=== PATIENT | female | born 1970 | race Caucasian/White ===

== ENCOUNTER 2018-06-04 16:32 | Emergency (ER) | payer OTHER, SELFPAY ==
[2018-06-04 16:33] VITALS: BP 177/115; PULSE 79; RESP 14; TEMP 36.7; O2SAT 99; BMI 31.6
[2018-06-04 16:50] VITALS: BP 226/114; PULSE 74; RESP 18; O2SAT 98
--- NOTE | 2018-06-04 17:20 | ED.VISSUMM ---
- ER Visit Summary Date of Service: 06/04/18 Chief Complaint: Elevated blood pressure History of Present Illness: The patient is a 47 F no significant past medical history. Currently she has no primary care physician. Has never been treated for hypertension. Today she went to see her eye doctor to have an exam. They took her vital signs in the office noted she had significantly elevated blood pressure and told her to have this checked out immediately. She states she is a mild headache but nothing significant. It was not sudden onset. She has no neurological findings. She denies any chest pain or shortness of breath. Physical Examination: Initial blood pressure 226/114. Otherwise vital signs stable afebrile. No distress. H EENT exam unremarkable. Dry reactive light. No facial droop. Normal speech. Neck nontender. Lungs clear to auscultation bilaterally. Heart regular rate and rhythm no murmur. Abdomen soft and nontender. Moving all 4 extremities. Neurovascular intact. Neurologic exam normal NIH is 0. 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 Fingertip to nose heel to kwok dorsi and plantar flexion all intact. No motor or sensory deficits. Test Results: Chemistry panel shows no acute abnormality. Completely normal. Normal renal function. Emergency Department Course and Treatment: Patient treated with IV labetalol Treatment Plan: Repeat exam she is doing well at 2031. Blood pressure currently is 164/93. She was given 2 IV doses of labetalol. Currently she feels well. She will be discharged and started on lisinopril 20 mg per day. Log her blood pressures and follow-up currently she has no primary care physician she will be referred to Dr. Ej Orozco. Disposition: Discharge Impression: Newly diagnosed hypertension This note was generated with [facility] dictation software. It may contain incorrect words, spelling, and punctuation that were not noted in review of the chart prior to signing ED Disposition - Plan for ED Patient: Chief Complaint: Hypertension Referrals: NOT,DEFINED [NON-STAFF] -
[2018-06-04 18:03] LABS: Anion Gap 7 (5-15); BUN 9 mg/dL (7-18); BUN/Creat Ratio 10.2 RATIO (10-20); Calcium,Total 8.7 mg/dL (8.5-10.1); Chloride 106 mmol/L (98-107); Creatinine, Serum 0.88 mg/dL (0.55-1.02); EST Glomerular Filtration Rate 72 mL/min (>60); Est Glom Filt Rate - Afr Amer 87 mL/min (>60); Estimated Creatinine Clearance 86.43 ml/min; Glucose 82 mg/dL (74-106); Potassium 3.7 mmol/L (3.5-5.1); Sodium Level 140 mmol/L (136-145)
[2018-06-04 18:13] VITALS: BP 170/93; PULSE 65; RESP 16; O2SAT 99
[2018-06-04 19:43] VITALS: BP 164/93; PULSE 73; RESP 14; O2SAT 98
--- NOTE | 2018-06-04 20:35 | ED.DEP ---
ED Disposition - Plan for ED Patient: Disposition: Home or Assisted Living Chief Complaint: Hypertension Instructions: ED Hypertension New Begin Tx Prescriptions: Lisinopril [Zestril] 20 mg PO DAILY #30 tab Referrals: Ej Orozco MD [STAFF PHYSICIAN] - As soon as possible Additional Instructions: I will start her on lisinopril 1 pill once a day to help control your blood pressure. I strongly suggest getting a blood pressure machine from home. Log your blood pressure in the morning and the evening to see where it is running. They may or may not need to adjust or change her medication depending on how your blood pressure response to the medication. Call and follow-up with Dr. Ej Orozco to obtain a primary care physician.
[2018-06-04] MEDS: Lisinopril 10 MG Tablet PO (20:57)
[2018-06-04 21:04] VITALS: BP 171/87
== END 2018-06-04 21:05 | disposition home or self-care (01) ==
PROVIDERS: Emergency Provider Emergency Medicine
DX: I10 Essential (primary) hypertension (principal)
CPT/HCPCS: 80048; 96374; 96375; 99285; A4216

== ENCOUNTER → 2021-02-09 08:25 | Outpatient (CLI) | payer OTHER, SELFPAY ==
[2021-02-09 09:15] LABS: Absolute Neutrophil Count 3.2 X10^3/uL (2.0-7.7); Basophil# 0.05 X10^3/uL; Eosinophils% 2.1 % (0-5); Hematocrit 30.7 % (37-47); Hemoglobin 8.5 g/dL (12.0-15.0); Lymphocyte % 20.9 % (19-41); Mean Corp Hgb Conc 27.7 g/dL (32-36); Mean Corpuscular Hgb 18.5 pg (27.0-32.0); Mean Corpuscular Volume 66.7 fL (81-99); Mean Platelet Vol. 8.7 fl (6.2-12.0); Monocyte# 0.43 X10^3/uL; NRBC Flagged by Analyzer 0 % (0-5); Neutrophil % 66.8 % (47-70); POSITIVE MORPHOLOGY YES; Platelet Count 307 K/mm3 (150-450); RBC Distribution Width CV 20.8 % (11.6-14.6); RBC Distribution Width SD 47.8 fl (35.1-43.9); White Blood Count 4.8 K/mm3 (4.4-11.0)
[2021-02-09 09:16] LABS: Differential Indicated SCAN CRITERIA MET
[2021-02-09 09:51] LABS: ALB/GLOB Ratio 0.8 RATIO (0.9-2.4); AST(SGOT) 10 U/L (15-37); Alanine Aminotransfer ALT/SGPT 17 U/L (13-56); Albumin, Serum 3.5 g/dL (3.2-5.0); Alkaline Phosphatase 83 U/L (45-117); Anion Gap 4 (5-15); BUN 7 mg/dL (7-18); BUN/Creat Ratio 10.3 RATIO (10-20); Calcium,Total 8.7 mg/dL (8.5-10.1); Chloride 105 mmol/L (98-107); Cholesterol 155 mg/dL (200); Creatinine, Serum 0.68 mg/dL (0.55-1.02); EST Glomerular Filtration Rate 96 mL/min (>60); Est Glom Filt Rate - Afr Amer 116 mL/min (>60); Globulin 4.4 g/dL (2.2-4.2); Glucose 93 mg/dL (74-106); High Density Lipoprotein 33 mg/dL; Potassium 4.1 mmol/L (3.5-5.1); Protein, Total 7.9 g/dL (6.4-8.2); Sodium Level 139 mmol/L (136-145); Thyroid Stim Hormone (TSH) 1.66 uIU/mL (0.358-3.74); Triglycerides 120 mg/dL; Very Low Density Lipoprotein 24 mg/dL (5-40)
[2021-02-09 10:08] LABS: Hypochromasia 1+; Microcytosis 2+
== END ==
PROVIDERS: PCP Family Medicine; Referring Provider Family Medicine; Visit Provider Family Medicine
DX: I10 Essential (primary) hypertension (principal)
CPT/HCPCS: 36415; 80053; 80061; 84443; 85025

== ENCOUNTER → 2021-02-26 12:49 | Outpatient (CLI) | payer OTHER, SELFPAY ==
--- NOTE | 2021-02-26 12:53 | BI_ITS ---
MAMMOGRAPHY - BILATERAL SCREENING REASON FOR EXAM: Female, 50 years old. Routine annual screening examination. PERTINENT HISTORY: Non-contributory. Remote left stereotactic breast biopsy. TECHNIQUE: Digital bilateral breast sury (3D mammographic acquisition) in the CC and MLO projections. 2-D mediolateral oblique (MLO) and craniocaudad (CC) views of both breasts were obtained. CAD: Full Field Digital Mammography with Computer Added Detection was performed. COMPARISON: No comparison mammograms available at this time. If any prior films become available, an addendum to this report can be generated. FINDINGS: Breast Composition: The breasts are almost entirely fatty. There are no dominant masses or suspicious calcifications. No other significant abnormalities are identified. BI/SCRN MAMM (CAD)W/SURY BILAT IMPRESSION: Negative screening mammogram. Yearly followup mammogram recommended. (A) ASSESSMENT CATEGORY: BIRADS Category 1: Negative. A letter regarding these results will be sent to the patient by the facility within 30 days. Approximately 10% of breast cancers are not detected by mammography. A normal mammogram should not delay biopsy of a clinically suspicious abnormality. [id number] Electronically Signed: Obey Marie MD at 14:30 EDT , Service support ,
== END ==
PROVIDERS: PCP Family Medicine; Referring Provider Family Medicine; Visit Provider Family Medicine
DX: Z12.31 Encounter for screening mammogram for malignant neoplasm of breast (principal)
CPT/HCPCS: 77063; 77067

== ENCOUNTER → 2021-06-13 11:44 | Outpatient (CLI) | payer OTHER, SELFPAY ==
[2021-06-13 12:31] LABS: Absolute Lymphocyte Count 0.93 X10^3/uL (0.83-4.51); Absolute Neutrophil Count 3.6 X10^3/uL (2.0-7.7); Basophil# 0.06 X10^3/uL; Basophil% 1.2 % (0-1); Eosinophil# 0.05 X10^3/uL; Hematocrit 31.5 % (37-47); Lymphocyte # 0.93 X10^3/ul (0.83-4.51); Lymphocyte % 18.4 % (19-41); Mean Corp Hgb Conc 28.6 g/dL (32-36); Mean Corpuscular Hgb 19.7 pg (27.0-32.0); Mean Corpuscular Volume 68.9 fL (81-99); Mean Platelet Vol. 9.3 fl (6.2-12.0); Monocyte# 0.44 X10^3/uL; Monocyte% 8.7 % (0-10); NRBC Flagged by Analyzer 0 % (0-5); Neutrophil # 3.56 X10^3/uL (2.7-7.7); Neutrophil % 70.3 % (47-70); Platelet Count 311 K/mm3 (150-450); RBC Distribution Width CV 17.6 % (11.6-14.6); RBC Distribution Width SD 43.5 fl (35.1-43.9); Red Blood Count 4.57 M/mm3 (4.2-5.4); White Blood Count 5.1 K/mm3 (4.4-11.0)
[2021-06-13 13:03] LABS: Ferritin 4 ng/mL (8-252); Iron 21 ug/dL (50-170); Iron Binding Capacity,Total 410 ug/dL (250-450)
== END ==
PROVIDERS: PCP Family Medicine; Referring Provider Family Medicine; Visit Provider Family Medicine
DX: D64.9 Anemia, unspecified (principal)
CPT/HCPCS: 36415; 82728; 83540; 83550; 85025

== ENCOUNTER → 2021-07-11 09:54 | Outpatient (CLI) | payer OTHER, SELFPAY ==
[2021-07-11] MEDS: Sodium Ferric Gluconat 250 MG in 0.9% Normal Saline 250 ML 135 MG IV (10:40)
[2021-07-11] MEDS: 0.9% NaCl IVPB Med Flush (250 mL) 15 ML IV (10:40)
[2021-07-11] MEDS: 0.9% NaCl Peripheral Flush Adult/Peds IV (10:40)
[2021-07-11 10:41] VITALS: BP 154/90; PULSE 65; RESP 16; TEMP 36.5; O2SAT 100
[2021-07-11 13:05] VITALS: BP 133/87; PULSE 56; RESP 16; TEMP 36.5; O2SAT 100
== END ==
LOC: MEDOUTP 09:55
PROVIDERS: PCP Family Medicine; Referring Provider Family Medicine; Visit Provider Family Medicine
DX: D50.9 Iron deficiency anemia, unspecified (principal)
CPT/HCPCS: 96365; 96366; J7050; A4216; J2916

== ENCOUNTER → 2021-08-01 09:50 | Outpatient (CLI) | payer OTHER, SELFPAY ==
[2021-08-01 10:30] LABS: Absolute Neutrophil Count 1.9 X10^3/uL (2.0-7.7); Basophil# 0.05 X10^3/uL; Basophil% 1.4 % (0-1); Eosinophil# 0.08 X10^3/uL; Eosinophils% 2.3 % (0-5); Hematocrit 30.3 % (37-47); Hemoglobin 8.6 g/dL (12.0-15.0); Mean Corp Hgb Conc 28.4 g/dL (32-36); Mean Corpuscular Volume 73.9 fL (81-99); Mean Platelet Vol. 9.3 fl (6.2-12.0); Monocyte% 11.3 % (0-10); NRBC Flagged by Analyzer 0 % (0-5); Neutrophil # 1.92 X10^3/uL (2.7-7.7); POSITIVE MORPHOLOGY YES; Platelet Count 261 K/mm3 (150-450); RBC Distribution Width CV 21.6 % (11.6-14.6); White Blood Count 3.6 K/mm3 (4.4-11.0)
[2021-08-01 10:32] LABS: Differential Indicated SCAN CRITERIA MET
[2021-08-01 10:56] LABS: Anisocytosis 1+
[2021-08-01 11:11] LABS: Ferritin 12 ng/mL (8-252); Iron 25 ug/dL (50-170); Iron Binding Capacity,Total 380 ug/dL (250-450); PERCENT IRON SATURATION 6.6 % (15.0-55.0)
== END ==
PROVIDERS: PCP Family Medicine; Referring Provider Family Medicine; Visit Provider Family Medicine
DX: D50.9 Iron deficiency anemia, unspecified (principal)
CPT/HCPCS: 36415; 82728; 83540; 83550; 85025

== ENCOUNTER 2021-12-29 16:56 | Inpatient (IN) | payer OTHER, SELFPAY ==
[2021-12-29] VITALS (13 sets, daily range): BP systolic 167–204; BP diastolic 93–108; PULSE 62–92; RESP 13–19; TEMP 36.4; O2SAT 97–100; BMI 29.0; BMI 28.5
--- NOTE | 2021-12-29 16:58 | CT_ITS ---
STUDY: CT BRAIN WITHOUT CONTRAST REASON FOR EXAM: Female, 51 years old. TIA. RADIATION DOSAGE (If Supplied By Facility): CTDIvol = ( 44.99 ) mGy, DLP = ( 796.11 ) mGycm TECHNIQUE: Transaxial CT imaging of the brain was performed without administration of intravenous contrast material. Individualized dose optimization techniques were used for this CT. COMPARISON: No relevant priors. FINDINGS: Normal soft tissue structures. Normal calvarium. Normal size ventricles and extra-axial spaces for the patient''s age. Normal white matter tracts of the cerebral hemispheres. Normal basal ganglia and thalami. Normal brainstem. Normal cerebellum. There is no intracranial hemorrhage. There are no findings of an acute ischemic infarction. Normal visualized paranasal sinuses. CT/Brain/Head without Contrast IMPRESSION: Normal unenhanced CT scan of the brain. If there is continued concern for acute infarct, MRI is recommended. Electronically Signed: Chaz Conley DO at 17:33 EST ,
--- NOTE | 2021-12-29 16:58 | ED.RN ---
patient symptoms have improved at this time no need to a full stroke team at this time per Dr. Cagle
--- NOTE | 2021-12-29 16:59 | EKG12_ITS ---
Test Reason : STROKE LIKE SYMPTOMS Blood Pressure : / mmHG Vent. Rate : 063 BPM Atrial Rate : 063 BPM P-R Int : 148 ms QRS Dur : 090 ms QT Int : 426 ms P-R-T Axes : 026 000 033 degrees QTc Int : 435 ms Somatic/Motion Artifact Normal sinus rhythm Left ventricular hypertrophy Abnormal ECG Confirmed by MALI VENTURA, SUZANNE ([id number]), society editor EDENILSON LOCKWOOD ([id number]) on 01/01/2022 10:32:04 AM Referred By: EDWARD Confirmed By:SUZANNE SAMSON MD
--- NOTE | 2021-12-29 17:00 | CT_ITS ---
STUDY: CTA HEAD AND NECK WITH CONTRAST REASON FOR EXAM: Female, 51 years old. TIA. RADIATION DOSAGE (If Supplied By Facility): CTDIvol = ( 10.83 ) mGy, DLP = ( 689.84 ) mGycm TECHNIQUE: CT angiography was performed with a multi-detector CT scanner. Data acquisition was obtained from the skull base through the vertex following intravenous administration of IV 100mL Isovue-370. MIP images were reconstructed from the axial data set. Post-processing of the angiographic images was performed, with multiplanar reformation and 3D reconstruction. Individualized dose optimization techniques were used for this CT. COMPARISON: CT of the head, 12/29/2021. FINDINGS: Normal bilateral petrous carotid arteries. Normal right cavernous carotid artery with a normal supraclinoid bifurcation. Normal left cavernous carotid artery with a normal supraclinoid bifurcation. Normal right A1 segments of the anterior cerebral artery. Normal left A1 segments of the anterior cerebral artery. There is non-visualization of the anterior communicating artery (ACOM). Normal bilateral A2 segments of the anterior cerebral arteries. Normal right M1 and M2 segments of the middle cerebral arteries, with a normal M1 bifurcation. Normal left M1 and M2 segments of the middle cerebral arteries, with a normal M1 bifurcation. Normal right posterior communicating artery (PCOM). Normal left posterior communicating artery (PCOM). There is a small atretic left vertebral artery with a dominant right vertebral artery. There is a small atretic basilar artery, suggesting a basilar insufficiency. The visualized bilateral superior cerebellar (SCA) arteries are normal. 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 The P2 and visualized P3 segments appear normal and are supplied via the patent bilateral posterior communicating arteries. There is no demonstrated aneurysm of the [place] of [place]. There is no demonstrated abnormality of the visualized brain. AORTIC ARCH: Normal visualized aortic arch. Normal origins of the brachiocephalic, left common carotid, and left subclavian arteries. RIGHT CAROTID ARTERIES: Normal right common carotid artery (CCA). Normal right common carotid bulb. Normal origin of the right internal carotid (ICA) artery without a hemodynamically significant stenosis. Normal visualized cervical portion of the right internal carotid artery. Normal origin of the right external carotid artery (ECA). LEFT CAROTID ARTERIES: Normal left common carotid artery (CCA). Normal left common carotid bulb. Normal origin of the left internal carotid (ICA) artery without a hemodynamically significant stenosis. Normal visualized cervical portion of the left internal carotid artery. Normal origin of the left external carotid artery (ECA). VERTEBRAL ARTERIES: There is enhancement within the bilateral vertebral arteries with a small left vertebral artery, and a dominant right vertebral artery. 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 The more distal portions of the arteries are supplied via the patent bilateral posterior communicating arteries. 3. Otherwise normal [place] and intracranial vasculature. 4. Normal bilateral carotid and vertebral arteries. Electronically Signed: Chaz Conley DO at 18:26 EST ,
--- NOTE | 2021-12-29 17:13 | ED.RN ---
osu called at this time
[2021-12-29 17:14] LABS: Absolute Lymphocyte Count 1.74 X10^3/uL (0.83-4.51); Absolute Neutrophil Count 3.5 X10^3/uL (2.0-7.7); Basophil# 0.06 X10^3/uL; Eosinophil# 0.14 X10^3/uL; Eosinophils% 2.4 % (0-5); Hematocrit 39.9 % (37-47); Hemoglobin 13.4 g/dL (12.0-15.0); Lymphocyte # 1.74 X10^3/ul (0.83-4.51); Lymphocyte % 29.6 % (19-41); Mean Corp Hgb Conc 33.6 g/dL (32-36); Mean Corpuscular Hgb 30.1 pg (27.0-32.0); Mean Corpuscular Volume 89.7 fL (81-99); Mean Platelet Vol. 8.9 fl (6.2-12.0); Monocyte# 0.44 X10^3/uL; Monocyte% 7.5 % (0-10); NRBC Flagged by Analyzer 0 % (0-5); Neutrophil # 3.48 X10^3/uL (2.7-7.7); Neutrophil % 59.3 % (47-70); Platelet Count 333 K/mm3 (150-450); RBC Distribution Width CV 13.1 % (11.6-14.6); RBC Distribution Width SD 42.8 fl (35.1-43.9); Red Blood Count 4.45 M/mm3 (4.2-5.4); White Blood Count 5.9 K/mm3 (4.4-11.0)
--- NOTE | 2021-12-29 17:18 | EDS_ITS ---
HPI History of Present Illness Chief Complaint: Neuro S/Sx Narrative Narrative: Patient is a 51-year-old female with past medical history of high blood pressure who reportedly approximately 20 to 30 minutes prior to arrival was watching TV. Suddenly she made a noise and family came in to check on her. They state that she was not answering questions appropriately but was awake and then reported numbness into her right arm. Secondary to this EMS was called. EMS states when they arrived she was awake and alert with negative Levan stroke scale with normal blood sugar of 92 but hypertensive with a systolic of approximately 215. PFSH PFS Medical History (Updated 12/29/21 @ 19:[address] Sam Cagle, DO) Hypertension Home Medications atenolol 25 mg PO DAILY 12/29/21 [History Last Taken Unknown] lisinopril 40 mg PO DAILY 12/29/21 [History Last Taken Unknown] Allergy/AdvReac Type Severity Reaction Status Date / Time codeine Allergy Nausea Verified 12/29/21 17:20 Family History no significant family his Surgical History (Updated 12/29/21 @ 17:21 by Delfino Alberto) Hx of appendectomy Social History Smoking Status: Never smoker ROS ROS ED Constitutional Constitutional ED: Denies chills or fever(s) ENT ENT ED: Denies sore throat Cardiovascular Cardiovascular: Denies chest pain Respiratory/Chest Respiratory/Chest: Denies cough or dyspnea Gastrointestinal Gastrointestinal: Denies abdominal pain, diarrhea, nausea or vomiting Genitourinary Genitourinary ED: Denies dysuria Musculoskeletal Musculoskeletal: Denies myalgias Integumentary Denies rash Neurologic Neurologic: Denies headache(s) Hematologic/Lymphatic Hematologic/Lymphatic: Denies easy bleeding or easy bruising EXAM Physical Exam Const Vital Signs: 12/29/21 17:00 12/29/21 17:07 12/29/21 17:17 Temperature 97.5 F L Temperature Source Temporal Pulse Rate 66 Respiratory Rate 13 Blood Pressure 192/106 H Blood Pressure Mean 134 Pulse Ox 100 Oxygen Delivery Method Room Air Room Air 12/29/21 17:22 12/29/21 17:45 12/29/21 18:15 Temperature Temperature Source Pulse Rate 71 64 68 Respiratory Rate 17 19 H 15 Blood Pressure 177/105 H 175/93 H 185/97 H Blood Pressure Mean 129 120 126 Pulse Ox 98 100 97 Oxygen Delivery Method Room Air Room Air Room Air 12/29/21 18:30 12/29/21 19:00 12/29/21 19:19 Temperature 97.5 F L Temperature Source Temporal Pulse Rate 92 62 65 Respiratory Rate 16 16 14 Blood Pressure 187/94 H 204/101 H 178/104 H Blood Pressure Mean 125 135 128 Pulse Ox 97 97 98 Oxygen Delivery Method Room Air Room Air Room Air Positive well nourished and well developed General Appearance ED: well developed HEENT Reports moist mucous membranes Eyes PERRL and EOMs intact bilaterally Neck supple Neck Narrative: No carotid bruit noted Resp normal respiratory effort and clear to auscultation bilaterally Cardio regular rate and regular rhythm Rate: other Other Details: Radial pulses are +2-4 bilaterally are equal and symmetric GI normal to inspection, nondistended, normoactive bowel sounds, non-tender, non- distended and no masses Auscultation: normoactive bowel sounds Palpation: soft Extremity normal to inspection Psych mental status grossly normal Psych Narrative: Patient is awake alert and oriented to person place and time. She has plus 5 out of 5 strength of both arms and legs with no truncal ataxia. She received an NIH stroke scale score of 1 for mild aphasia but otherwise has no other focal deficit. Skin no rashes or lesions noted MDM MDM MDM Narrative Medical decision making narrative: Patient initially presented to the ER awake and alert with resolution of her symptoms indicating this is most likely a TIA and therefore elected not to activate a stroke alert but sent her for a noncontrast head CT. After returning back from CAT scan patient reported feeling off and at this time there was mild aphasia noted as she had difficulty understanding putting her arms through the hospital gown and cannot tell me her 's birthdate or her anniversary or even the name of a hammock when asked to name pictures. Therefore I did activate a stroke alert at that ti me and patient underwent a CTA and had a evaluation by neurology. Neurology agrees that even though she is within the TPA window with a stroke scale score of 1 there is no need provide TPA at this time. Patient's blood pressure reduced spontaneously to approximately 175 systolic which is within the 15 to 25% range from the reported initial value of 215. Blood work revealed no clinically significant findings and CTA did show some atresia of a few vessels but no obvious LVO or limiting flow. On reevaluation patient still states she feels off but the aphasia has resolved. However based on her persistent hypertension and neurologic symptoms she will need to be admitted to the hospital for further evaluation Lab Data Attestation: I reviewed the patient's lab results. Labs: Laboratory Results - last 24 hr 12/29/21 12/29/21 12/29/21 17:00 17:00 17:00 WBC 5.9 RBC 4.45 Hgb 13.4 Hct 39.9 MCV 89.7 MCH 30.1 MCHC 33.6 RDW Std Deviation 42.8 RDW Coeff of Oswaldo 13.1 Plt Count 333 MPV 8.9 Immature Gran % (Auto) 0.200 Neut % (Auto) 59.3 Lymph % (Auto) 29.6 Heard % (Auto) 7.5 Eos % (Auto) 2.4 Baso % (Auto) 1.0 Absolute Neuts (auto) 3.5 Absolute Lymphs (auto) 1.74 Nucleated RBC % 0 PT 12.4 INR 1.0 APTT 38.1 H Sodium 136 Potassium 4.1 Chloride 104 Carbon Dioxide 29.0 Anion Gap 3 L BUN 7 Creatinine 0.88 Estim Creat Clear Calc 85.32 Est GFR (MDRD) Af Amer 87 Est GFR (MDRD) Non-Af 72 BUN/Creatinine Ratio 8.0 L Glucose 89 Calcium 9.3 Troponin I High Sens 5 Radiography Diagnostic Testing: Clinical Impression(s) from Imaging Studies Brain CT 12/29/21 16:58 IMPRESSION: Normal unenhanced CT scan of the brain. If there is continued concern for acute infarct, MRI is recommended. Electronically Signed: Chaz Conley DO at 17:33 EST Reading Location ID and State: [employer] / [employer] Tel [phone], Service support , Head/Neck CTA 12/29/21 17:00 IMPRESSION: 1. Atretic basilar artery. 2. 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 The more distal portions of the arteries are supplied via the patent bilateral posterior communicating arteries. 3. Otherwise normal [place] of [place] and intracranial vasculature. 4. Normal bilateral carotid and vertebral arteries. Electronically Signed: Chaz Conley DO at 18:26 EST Reading Location ID and State: [employer] / [employer] Tel [phone], Service support , Chest X-Ray 12/29/21 17:38 IMPRESSION: No acute cardiopulmonary disease. Electronically Signed: Chaz Conley DO at 18:33 EST Reading Location ID and State: [address] [place] [address] Tel [phone], Service support , Discharge Plan Triage Chief Complaint: Neuro S/Sx ED Provider: Sam Cagle Dx/Rx/DC Orders Clinical Impression: Hypertensive urgency, Brain TIA Prescriptions: No Action lisinopril 20 MG tablet 40 mg PO DAILY RF: 0 atenolol 25 mg tablet 25 mg PO DAILY RF: 0 Primary Care Provider: Chhaya Nunez Referrals: Chhaya Nunez MD [Primary Care Provider] - Disposition Disposition: Acute Care [facility]
[2021-12-29 17:23] LABS: Prothrombin Time (Protime)PT. 12.4 SECONDS (11.7-14.9)
[2021-12-29 17:24] LABS: Partial Thromboplast Time 38.1 Seconds (24.1-36.2)
--- NOTE | 2021-12-29 17:25 | ED.RN ---
jeison beamed at this time
[2021-12-29 17:33] LABS: Anion Gap 3 (5-15); BUN 7 mg/dL (7-18); Calcium,Total 9.3 mg/dL (8.5-10.1); Chloride 104 mmol/L (98-107); Creatinine, Serum 0.88 mg/dL (0.55-1.02); EST Glomerular Filtration Rate 72 mL/min (>60); Est Glom Filt Rate - Afr Amer 87 mL/min (>60); Estimated Creatinine Clearance 85.32 ml/min; Glucose 89 mg/dL (74-106); Potassium 4.1 mmol/L (3.5-5.1); Sodium Level 136 mmol/L (136-145); Troponin-I HS 5 pg/mL (3.0-54.0)
--- NOTE | 2021-12-29 17:38 | RAD_ITS ---
STUDY: X-RAY CHEST REASON FOR EXAM: Female, 51 years old. TIA. TECHNIQUE: Single AP portable view of the chest. COMPARISON: None. FINDINGS: The lungs are clear and expanded. There is no demonstrated pleural abnormality. Normal size heart. Normal mediastinum and jose miguel. Normal visualized pulmonary arteries. Normal visualized aortic arch and descending thoracic aorta. The thoracic spine is obscured by the mediastinum. Normal visualized ribs, clavicles, and shoulders. There is no demonstrated abnormality of the visualized soft tissue structures of the upper abdomen. RAD/Chest 1 View (Portable) IMPRESSION: No acute cardiopulmonary disease. Electronically Signed: Chaz Conley DO at 18:33 EST ,
--- NOTE | 2021-12-29 19:11 | HP.PCM.HOS_ITS ---
HPI - General General Date of Admission: 12/29/21 Date of Service: 12/29/21 Chief Complaint: Elevated BP, confusion, RUE paresthesias/weakness HPI Narrative The patient is a 51 y/o F w/ PMHx: Hypertension, Overweight who presents to the [facility] ED on 12/29/21 with history of approximately 30 minutes prior to ED arrival at 6:30 PM while watching TV per family report sudden noise prompting them to go check on her at which point they noted she was not acting appropriately, awake but not initially answering questions and then finally reported mild paresthesias to the right upper extremity with potentially weakness with EMS call. Upon EMS arrival they noted she was appropriately awake and alert with a blood sugar 92 but significantly hypertensive with a systolic at 215 at that time prompting ED evaluation. Patient noted at the moment when she was found by her sons with the symptoms she could not tell them what she was thinking and is very concerned. She does recall all of the events. Patient also notes the day prior to onset of symptoms on day of ED presentation she did have left-sided peripheral vision sparkling and transient vision changes however this resolved when she relaxed she notes over unclear timeline with also frontal dull ache. She does feel as though she has a sinus congestion still. Patient of note contracted COVID with onset of symptoms 11/29/2021 including fever, chills, frontal headaches, loss of taste and smell, sore throat, body aches, diarrhea without nausea or emesis, cough which lasted approximately 3 weeks and she notes she is barely starting to recover from this and notes that some taste and smell have returned. Her was asymptomatic and tested positive at but her 3 sons were very sick as well. 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 In the ED patient NIHSS 1 for mild aphasia. [facility] Medical History (Updated 12/29/21 @ 19:[address] Linae Buckley MD) History of COVID-19 Hypertension Overweight Home Medications atenolol 25 mg PO DAILY 12/29/21 [History Last Taken Unknown] lisinopril 40 mg PO DAILY 12/29/21 [History Last Taken Unknown] Allergy/AdvReac Type Severity Reaction Status Date / Time codeine Allergy Nausea Verified 12/29/21 17:20 Family History (Updated 12/29/21 @ 19:[address] Liane Buckley MD) Mother Diabetes Father Diabetes Hypertension Heart disease Myocardial infarction Family History no significant family his Surgical History (Updated 12/29/21 @ 19:[address] Liane Buckley MD) History of ankle surgery Hx of appendectomy S/P lumpectomy, left breast Social History (Updated 12/29/21 @ 19:[address] Liane Buckley MD) household members: spouse and family Smoking Status: Never smoker alcohol intake: never substance use type: does not use ROS ROS Narrative Admission Review of Systems: CONSTITUTIONAL: No weight loss, + fever, chills, weakness or fatigue. HEENT: + Headache, vision changes, altered taste/smell, congestion, sore throat, cervical lymphadenopathy. Eyes: No visual loss, blurred vision, double vision or yellow sclerae. Ears, Nose, Throat: No hearing loss, sneezing. SKIN: No rash or itching, lesions, wounds. CARDIOVASCULAR: No chest pain, chest pressure or chest discomfort, palpitations, edema, orthopnea, syncopal events. RESPIRATORY: + shortness of breath, cough, No marked sputum, wheezing, hemoptysis. GASTROINTESTINAL: + anorexia, diarrhea, No marked nausea, vomiting, abdominal pain, melena, BRBPR. GENITOURINARY: No dysuria, frequency, urgency or retention. NEUROLOGICAL: + headache, RUE paresthesias, focal weakness, aphasia. No dizziness, syncope, change in bowel or bladder control, seizure. MUSCULOSKELETAL: + muscle, back pain, joint pain or stiffness. HEMATOLOGIC: No anemia, bleeding or bruising. LYMPHATICS:+ enlarged nodes. No history of splenectomy. PSYCHIATRIC: No history of depression or anxiety. ENDOCRINOLOGIC: No reports of sweating, cold or heat intolerance. No polyuria or polydipsia. ALLERGIES: No history of asthma, hives, eczema or rhinitis. Vital Signs Vital Signs Vital Signs: 12/29/21 17:00 12/29/21 17:07 12/29/21 17:17 Temperature 97.5 F L Temperature Source Temporal Pulse Rate 66 Respiratory Rate 13 Blood Pressure 192/106 H Blood Pressure Mean 134 Pulse Ox 100 Oxygen Delivery Method Room Air Room Air 12/29/21 17:22 12/29/21 17:45 12/29/21 18:15 Temperature Temperature Source Pulse Rate 71 64 68 Respiratory Rate 17 19 H 15 Blood Pressure 177/105 H 175/93 H 185/97 H Blood Pressure Mean 129 120 126 Pulse Ox 98 100 97 Oxygen Delivery Method Room Air Room Air Room Air 12/29/21 18:30 12/29/21 19:00 Temperature Temperature Source Pulse Rate 92 62 Respiratory Rate 16 16 Blood Pressure 187/94 H 204/101 H Blood Pressure Mean 125 135 Pulse Ox 97 97 Oxygen Delivery Method Room Air Room Air Weight Weight: 214 lb 8.156 oz Body Mass Index (BMI) 29.0 Physical Exam Narrative Physical Examination: General: Awake, alert, oriented x 3 and cooperative, seated upright in the ED bed, no acute distress, who is present notes she is near baseline. Skin: Normal color, normal turgor, no icterus, no cyanosis. HEENT: AT/NC, EOMI, PERRLA, peripheral vision intact, MMM, no carotid bruits or JVD noted. Lungs: Diffusely diminished, greater bases, appropriate effort, no rales, ronchi or wheezing. Heart: Regular rate and regular rhythm; no gallop, rub audible. Abdomen: Soft, overweight, NTTP, ND, no evidence of HSM, distant normal bowel sounds. Extremities: No cyanosis, clubbing, or edema. Neurological: Patient awake, alert, oriented as noted, cognitive function intact; pupils equally reactive to light and accommodation, cranial nerves II- XII grossly normal, moving all 4 extremities, no focal deficits, strength appropriate, [id number] and [id number] appropriate, negative Babinski bilaterally. Psychiatric: Affect appears mildly fatigued otherwise normal, no acute evidence of depressive or anxiety feelings. Results Lab / Micro Data Result Diagrams: 12/29/21 17:00 12/29/21 17:00 Labs: Laboratory Results - last 24 hr 12/29/21 17:00: WBC 5.9, RBC 4.45, Hgb 13.4, Hct 39.9, MCV 89.7, MCH 30.1, MCHC 33.6, RDW Std Deviation 42.8, RDW Coeff of Oswaldo 13.1, Plt Count 333, MPV 8.9, Immature Gran % (Auto) 0.200, Neut % (Auto) 59.3, Lymph % (Auto) 29.6, Mckenzie % (Auto) 7.5, Eos % (Auto) 2.4, Baso % (Auto) 1.0, Absolute Neuts (auto) 3.5, Absolute Lymphs (auto) 1.74, Nucleated RBC % 0 12/29/21 17:00: PT 12.4, INR 1.0, APTT 38.1 H 12/29/21 17:00: Sodium 136, Potassium 4.1, Chloride 104, Carbon Dioxide 29.0, Anion Gap 3 L, BUN 7, Creatinine 0.88, Estim Creat Clear Calc 85.32, Est GFR (MDRD) Af Amer 87, Est GFR (MDRD) Non-Af 72, BUN/Creatinine Ratio 8.0 L, Glucose 89, Calcium 9.3, Troponin I High Sens 5 Micro: Microbiology 12/29/21 17:08 Nasal Secretion SARS-CoV-2 Antigen (Rapid) - Final Radiology Impression Brain CT 12/29/21 16:58 IMPRESSION: Normal unenhanced CT scan of the brain. If there is continued concern for acute infarct, MRI is recommended. 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 The more distal portions of the arteries are supplied via the patent bilateral posterior communicating arteries. 3. Otherwise normal pauma of Pedraza and intracranial vasculature. 4. Normal bilateral carotid and vertebral arteries. Electronically Signed: Chaz Conley DO at 18:26 EST Reading Location ID and State: [facility] / [place] Tel [phone], Service support , Chest X-Ray 12/29/21 17:38 IMPRESSION: No acute cardiopulmonary disease. Electronically Signed: Chaz Conley, DO at 18:33 EST Reading Location ID and State: [facility] / [place] Tel [phone], Service support , Assessment & Plan Assessment/Plan (1) Hypertensive urgency: (2) Brain TIA: PLAN: The patient is a 51 y/o F w/ PMHx: Hypertension, Overweight who presents to the [facility] ED on 12/29/21 with history of approximately 30 minutes prior to ED arrival at 6:30 PM while watching TV per family report sudden noise prompting them to go check on her at which point they noted she was not acting appropriately, awake but not initially answering questions and then finally reported mild paresthesias to the right upper extremity with potentially weakness with EMS call. #1. Headache, confusion, RUE sensation changes/weakness, transient concerning for HTN Urgency versus CVA: Will admit to PCU, will obtain MRI Brain, ECHO, PT/OT/Speech/Nutrition evaluation per protocol. Will consult Neurology for evaluation once further evaluation and imaging obtained. Will allow permissive HTN with addition regimen if MRI not marked appearing or per stroke protocol timeline if CVA evident per stroke alert neuro recommendations, maintain on asa, add statin, maintain on aspiration and fall precautions. FLP, TSH, HgbA1c requested. #2. Hypertension with hypertensive urgency potential presentation: We will have as needed agents per stroke protocol however will avoid aggressive treatment until MRI obtained per neurology recommendation. #3. Recent Acute Viral Syndrome, COVID-19: Symptoms have significantly improved and nearly resolved except for residual fatigue and still some altered taste and smell as well as complaint of mild congestion and mild facial pressure patient was vaccinated with a 2 dose series but did not have a booster. Patient acute presentation #1 likely associated unfortunately with COVID-19 if in fact stroke is present. Will initiate Flonase. #4. Overweight: Weight loss and lifestyle changes encouraged. #5. DVT prophylaxis: SCDs, Lovenox. Charges/Coding Visit Charges OBSV E&M: 22265 Initial observation care L3
[2021-12-29] MEDS: hydrALAZINE 20 MG/ML Vial IV (19:20)
--- NOTE | 2021-12-29 20:05 | ECHOD_ITS ---
Reason For Study: CVA Procedure This was a 2D Doppler, Color Flow transthoracic echocardiogram. The study was technically difficult. Bubble study performed. Exam performed portable in patient room. Left Ventricle Normal LV size. Left ventricular systolic function is normal. The estimated ejection fraction is 65 %. No evidence for diastolic dysfunction. No regional wall motion abnormalities noted. Right Ventricle Normal RV size. Normal systolic function. Atria Normal left atrium. Normal right atrium. Agitated saline contrast study considered positive for a right to left interatrial shunt potentially compatible with a small PFO versus ASD. Mitral Valve There is no mitral annular calcification. Normal mitral valve. Trivial mitral valve insufficiency. Tricuspid Valve Normal tricuspid valve. Trivial tricuspid valve insufficiency. Unable to estimate RV systolic pressure/pulmonary artery pressure due to technically difficult study. Aortic Valve Trisinus/trileaflet aortic valve. Normal aortic valve. Pulmonic Valve The pulmonic valve is not well visualized. Trivial pulmonic valve insufficiency. Great Vessels Normal sized aortic root. Pericardium/Pleural No pericardial effusion. Medication Performed a rapid injection of agitated mix of 9 cc saline and 1cc air to assess for atrial septal defect. MMode/2D Measurements & Calculations LVIDd: 5.4 cm IVSd: 1.3 cm Ao root diam: 3.8 cm LVIDs: 3.2 cm LVPWd: 1.3 cm LA dimension: 4.0 cm RVDd: 2.7 cm FS: 39.6 % LAV(MOD-bp): 50.2 ml LA A4 area: 18.3 cm2 RA A4 area: 12.2 cm2 LAV(MOD-bp) Indexed: 23.6 ml/m2 LAV(MOD-sp2): 51.9 ml LAV(MOD-sp4): 47.0 ml Time Measurements MV dec time: 0.33 sec Doppler Measurements & Calculations MV E max delon: 66.7 cm/sec Lat Peak E' Delon: 9.3 cm/sec Med Peak E' Deoln: 5.1 cm/sec MV A max delon: 78.8 cm/sec E/E' lat: 7.2 E/E' med: 13.1 MV E/A: 0.85 MV V2 max: 93.2 cm/sec MV P1/2t max delon: 59.5 cm/sec Ao V2 max: 157.9 cm/sec MV max P.5 mmHg MV P1/2t: 64.1 msec Ao max P.0 mmHg MV V2 mean: 53.8 cm/sec MV dec slope: 272.1 cm/sec2 MV mean P.3 mmHg MV V2 VTI: 25.4 cm MVA(P1/2t): 3.4 cm2 LV V1 max: 133.3 cm/sec PA V2 max: 123.3 cm/sec LV V1 max P.1 mmHg ECHO/Echo Complete Interpretation Summary The study was technically difficult. Left ventricular systolic function is normal. The estimated ejection fraction is 65 %. Trivial mitral valve insufficiency. Trivial tricuspid valve insufficiency. Trivial pulmonic valve insufficiency. Unable to estimate RV systolic pressure/pulmonary artery pressure due to techni mari difficult study. No evidence for diastolic dysfunction. Agitated saline contrast study considered positive for a right to left interatr ial shunt potentially compatible with a small PFO versus ASD. Ordering Physician: Rona Villela Referring Physician: Chhaya Nunez Performed By: Ty Strong RCS
[2021-12-29] MEDS: Atorvastatin Calcium 80 MG Tablet PO (21:16)
[2021-12-29] MEDS: Fluticasone 0.05% 1 SPRAY NASAL.SRY NASAL (21:17)
[2021-12-29] MEDS: Acetaminophen 325 MG Tablet 650 MG PO (22:43)
[2021-12-30] VITALS (12 sets, daily range): BP systolic 132–165; BP diastolic 88–100; PULSE 60–79; RESP 12–16; TEMP 36.4–36.8; O2SAT 95–100; BMI 28.5
--- NOTE | 2021-12-30 00:01 | MRI_ITS ---
We are attempting to reach an attending provider to discuss findings. An addendum with communication details will be sent when the communication is complete. STUDY: MRI BRAIN WITHOUT CONTRAST REASON FOR EXAM: Female, 51 years old. CVA TECHNIQUE: Standardized multiplanar fat and water weighted pulse sequences were obtained. COMPARISON: CT 12/29/2021 FINDINGS: Normal size of the ventricles and extra-axial spaces for the patient''s age. Normal white matter tracts of the supratentorial brain. Linear hyperintensity of a gyrus of the left parietal lobe demonstrates restricted diffusion consistent with an acute/subacute infarct. Normal T2* images of the brain without demonstrated susceptibility artifact. There is no demonstrated hemosiderin stain. Normal bilateral basal ganglia. Normal thalami. There is no extra-axial fluid accumulation. Normal flow voids within the major intracranial circulation suggesting patency by spin echo criteria. There is enlargement of the sella turcica with increased CSF within the sella and flattening of the pituitary gland consistent with an empty sellar syndrome. Normal infundibular stalk, hypothalamus, and optic chiasm. Normal tectal plate and pineal gland. Normal midbrain, salena and medulla. Normal cerebellum. Normal basal cisterns. Normal bilateral temporal bones. Normal bilateral internal auditory canals. No demonstrated orbital abnormality, within the constraints of a routine brain study. Normal visualized paranasal sinuses. Normal calvarium and skull base. Normal visualized soft tissue structures. Normal visualized upper cervical spine. 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 Electronically Signed: Vikram Martinez MD at 11:16 EST ,
[2021-12-30 06:51] LABS: Absolute Lymphocyte Count 1.27 X10^3/uL (0.83-4.51); Basophil# 0.05 X10^3/uL; Basophil% 0.9 % (0-1); Eosinophil# 0.11 X10^3/uL; Eosinophils% 1.9 % (0-5); Hematocrit 38.1 % (37-47); Hemoglobin 12.6 g/dL (12.0-15.0); Lymphocyte # 1.27 X10^3/ul (0.83-4.51); Lymphocyte % 21.8 % (19-41); Mean Corp Hgb Conc 33.1 g/dL (32-36); Mean Corpuscular Volume 87.6 fL (81-99); Mean Platelet Vol. 9.2 fl (6.2-12.0); Monocyte% 6.9 % (0-10); NRBC Flagged by Analyzer 0 % (0-5); Neutrophil # 3.99 X10^3/uL (2.7-7.7); Neutrophil % 68.3 % (47-70); Platelet Count 295 K/mm3 (150-450); RBC Distribution Width CV 13.2 % (11.6-14.6); RBC Distribution Width SD 42.4 fl (35.1-43.9); Red Blood Count 4.35 M/mm3 (4.2-5.4); White Blood Count 5.8 K/mm3 (4.4-11.0)
[2021-12-30 07:25] LABS: ALB/GLOB Ratio 0.7 RATIO (0.9-2.4); AST(SGOT) 16 U/L (15-37); Alanine Aminotransfer ALT/SGPT 15 U/L (13-56); Albumin, Serum 3.1 g/dL (3.2-5.0); Alkaline Phosphatase 73 U/L (45-117); Anion Gap 4 (5-15); BUN 6 mg/dL (7-18); BUN/Creat Ratio 8.3 RATIO (10-20); Calcium,Total 8.7 mg/dL (8.5-10.1); Chloride 105 mmol/L (98-107); Cholesterol 164 mg/dL (200); Creatinine, Serum 0.72 mg/dL (0.55-1.02); EST Glomerular Filtration Rate 90 mL/min (>60); Est Glom Filt Rate - Afr Amer 109 mL/min (>60); Globulin 4.6 g/dL (2.2-4.2); Glucose 96 mg/dL (74-106); High Density Lipoprotein 32 mg/dL; Potassium 4.3 mmol/L (3.5-5.1); Protein, Total 7.7 g/dL (6.4-8.2); Sodium Level 136 mmol/L (136-145); Triglycerides 99 mg/dL; Very Low Density Lipoprotein 20 mg/dL (5-40)
[2021-12-30 07:42] LABS: Hemoglobin A1c 5.3 % (3.8-5.6)
[2021-12-30] MEDS: Aspirin 81 MG TAB.CHEW PO (08:12)
[2021-12-30] MEDS: Enoxaparin 40 MG/0.4 ML Syringe SC (08:12)
--- NOTE | 2021-12-30 11:23 | PN.HOSP_ITS ---
Documented by User: Rona Villela NP, [employer]ISHER-C 12/30/21 11:30 Subjective Subjective Patient seen and examined. Denies further right arm symptoms. She denies new neurologic symptoms or focal deficits. Objective Data Objective Data Vital Signs: Vital Signs Temp Pulse Resp BP Pulse Ox 97.9 F 69 12 165/92 H 98 12/30/21 08:04 12/30/21 08:04 12/30/21 08:04 12/30/21 08:04 12/30/21 08:04 Oxygen Delivery Method Room Air Weight: 205 lb 14.588 oz Body Mass Index (BMI) 28.5 Intake & Output: Intake and Output for Last 24 Hours 12/28/21 12/29/21 12/30/21 23:59 23:59 23:59 Intake Total 240 / 240 100 / 100 Balance 240 / 240 100 / 100 Lab / Micro Data Result Diagrams: 12/30/21 06:24 12/30/21 06:24 Labs: Laboratory Results - last 24 hr 12/29/21 17:00: WBC 5.9, RBC 4.45, Hgb 13.4, Hct 39.9, MCV 89.7, MCH 30.1, MCHC 33.6, RDW Std Deviation 42.8, RDW Coeff of Oswaldo 13.1, Plt Count 333, MPV 8.9, Immature Gran % (Auto) 0.200, Neut % (Auto) 59.3, Lymph % (Auto) 29.6, Arroyo % (Auto) 7.5, Eos % (Auto) 2.4, Baso % (Auto) 1.0, Absolute Neuts (auto) 3.5, Absolute Lymphs (auto) 1.74, Nucleated RBC % 0 12/29/21 17:00: PT 12.4, INR 1.0, APTT 38.1 H 12/29/21 17:00: Sodium 136, Potassium 4.1, Chloride 104, Carbon Dioxide 29.0, Anion Gap 3 L, BUN 7, Creatinine 0.88, Estim Creat Clear Calc 85.32, Est GFR (MDRD) Af Amer 87, Est GFR (MDRD) Non-Af 72, BUN/Creatinine Ratio 8.0 L, Glucose 89, Calcium 9.3, Troponin I High Sens 5 12/30/21 06:24: WBC 5.8, RBC 4.35, Hgb 12.6, Hct 38.1, MCV 87.6, MCH 29.0, MCHC 33.1, RDW Std Deviation 42.4, RDW Coeff of Oswaldo 13.2, Plt Count 295, MPV 9.2, Immature Gran % (Auto) 0.200, Neut % (Auto) 68.3, Lymph % (Auto) 21.8, Arroyo % (Auto) 6.9, Eos % (Auto) 1.9, Baso % (Auto) 0.9, Absolute Neuts (auto) 4.0, Absolute Lymphs (auto) 1.27, Nucleated RBC % 0 12/30/21 06:24: Sodium 136, Potassium 4.3, Chloride 105, Carbon Dioxide 27.0, A nion Gap 4 L, BUN 6 L, Creatinine 0.72, Estim Creat Clear Calc 101.00, Est GFR (MDRD) Af Amer 109, Est GFR (MDRD) Non-Af 90, BUN/Creatinine Ratio 8.3 L, Glucose 96, Calcium 8.7, Total Bilirubin 0.40, AST 16, ALT 15, Alkaline Phosphatase 73, Total Protein 7.7, Albumin 3.1 L, Globulin 4.6 H, Albumin/Globulin Ratio 0.7 L, Triglycerides 99, Cholesterol 164, LDL Cholesterol 112, VLDL Cholesterol 20, HDL Cholesterol 32 L, TSH 4.20 H 12/30/21 06:24: Hemoglobin A1c 5.3 Micro: Microbiology 12/29/21 17:08 Nasal Secretion SARS-CoV-2 Antigen (Rapid) - Final Radiography Diagnostic Testing: Radiology Impression Brain CT 12/29/21 16:58 IMPRESSION: Normal unenhanced CT scan of the brain. If there is continued concern for acute infarct, MRI is recommended. 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 The more distal portions of the arteries are supplied via the patent bilateral posterior communicating arteries. 3. Otherwise normal [place] of [place] and intracranial vasculature. 4. Normal bilateral carotid and vertebral arteries. Electronically Signed: Chaz Conley DO at 18:26 EST , Chest X-Ray 12/29/21 17:38 IMPRESSION: No acute cardiopulmonary disease. 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 Electronically Signed: Vikram Martinez MD at 11:16 EST , Physical Exam Const alert, oriented x3 and no apparent distress Orientation / Consciousness: awake, oriented to person, oriented to place and oriented to time HEENT normocephalic and moist oral mucous membranes Eyes PERRL, EOMs intact bilaterally and conjunctivae normal Neck no lymphadenopathy Resp normal respiratory effort and clear to auscultation bilaterally Cardio regular rate, regular rhythm and no murmurs Peripheral Pulses: pulses 2+ throughout GI normal to inspection, nondistended, normoactive bowel sounds, non-tender and non-distended Extremity normal to inspection Skin no rashes or lesions noted Lesions: no lesions Rashes: no rashes Trauma: no lacerations or abrasions Neuro CN's II-XII intact bilaterally, no focal motor deficits, no sensory deficits noted and deep tendon reflexes 2+ bilaterally Psych mental status grossly normal and affect normal Assessment & Plan Assessment/Plan (1) Stroke/cerebrovascular accident: PLAN: 1. Acute CVA-MRI with acute infarct of the gyrus of the left parietal lobe. Head and neck CTA with normal bilateral carotid and vertebral arteries. Aspirin, statin. PT/OT/ST. Obtain echo. SOC neurology consult. 2. Hypertensive urgency-permissive given #1. As needed hydralazine/labetalol. Home atenolol, lisinopril on hold. 3. Recent [id number] onset 11/29/2021. DVT prophylaxis-Lovenox, SCDs This patient was seen by RONAK Torres under the supervision of Dr. Hebert. Documented by User: Dr. Carson Hebert MD 12/30/21 12:01 Objective Data Lab / Micro Data Result Diagrams: 12/30/21 06:24 12/30/21 06:24 Assessment & Plan Addt'l Comments This patient was seen in conjunction with RONAK Torres . I have independently interviewed and examined the patient and reviewed pertinent historical, laboratory, and other data. Please refer to RONAK Torres note for details of this patient's presentation, findings, and recommendations. I have reviewed RONAK Torres note and concur with documented findings. In brief, patient is a 51-year-old female with past medical history significant for hypertension who presented with right upper extremity numbness and dysarthria. Admitted to monitored bed for subsequent evaluation. MRI ordered as part of patient's evaluation did show acute/subacute infarct of the gyrus of the left parietal lobe. Consult subsequently placed to SOC telemetry neurology Physical Examination: GENERAL: cooperative HEENT: Atraumatic; EYES; Anicteric, Normal Conjunctiva NECK; supple, normal thyroid, RESPIRATORY: Diminished to auscultation CARDIOVASCULAR: Regular S1 S2, GI: soft, normoactive bowel sounds, : No Renal angle tenderness; EXTREMITIES: No edema, no clubbing, MUSCULOSKELETAL: no muscle wasting NEURO: Awake; no lateralizing signs. SKIN: No Rash PSYCH; Flat affect Assessment 1. 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 2. Essential Hypertension 3. Recent COVID-19 infection 4. DVT prophylaxis Recommendations: 1. I have discussed the results of my overview and impressions with the patient 2. Options for management were reviewed Total time spent by myself and the advanced practice practitioner evaluating patient, reviewing labs, subsequent management decisions, discussion with patient as well as other providers 40 minutes ( 25 of which was spent by myself) Charges/Coding Visit Charges OBSV E&M: 13100 Subsequent observation care L3
--- NOTE | 2021-12-30 11:37 | TELEMED_ITS ---
[facility] Telemed has confirmed receipt of a request for visit. This document confirms receipt of the order initiating the consult. To find the results of the consultation, please view the patient's reports for the scanned Telemed Consult.
[2021-12-30] MEDS: Acetaminophen 325 MG Tablet 650 MG PO (16:04)
[2021-12-30] MEDS: Fluticasone 0.05% 1 SPRAY NASAL.SRY NASAL (21:02)
[2021-12-30] MEDS: Atorvastatin Calcium 80 MG Tablet PO (21:02)
[2021-12-31 03:09] VITALS: PULSE 72
[2021-12-31 03:59] VITALS: BP 127/85; PULSE 82; RESP 16; TEMP 37; O2SAT 96
[2021-12-31 07:29] VITALS: PULSE 77
[2021-12-31 08:45] VITALS: BP 140/95; PULSE 77; RESP 16; TEMP 36.8; O2SAT 97
--- NOTE | 2021-12-31 08:49 | NURSING ---
[facility] late due to ECHO in room.
[2021-12-31] MEDS: Aspirin 81 MG TAB.CHEW PO (08:51)
[2021-12-31] MEDS: Enoxaparin 40 MG/0.4 ML Syringe SC (08:52)
[2021-12-31] MEDS: Clopidogrel Bisulfate 75 MG Tablet PO (08:52)
--- NOTE | 2021-12-31 11:28 | PCM.DC ---
Discharge Instructions Diet Discharge Diet: Low fat / Low cholesterol Activity Discharge Activity: Return to Normal Activity Dressing / Incision Call your doctor if you observe: Numbness or Tingling, Shortness of breath, Dizziness and Chest pain Follow Up Care Test Results: Test results from this visit will be discussed in further detail at your follow-up appointment, if applicable. Discharge Plan Admission Admit Date/Time: 12/29/21 19:11 Primary Reason for Your Visit: Stroke Attending Provider: Lex Perez Primary Care Provider: Chhaya Nunez Discharge Orders/Prescriptions Prescriptions: New aspirin 81 mg Tablet,Chewable 81 mg PO BREAKFAST 30 Days Qty: 30 RF: 0 clopidogrel 75 mg Tablet 75 mg PO DAILY 30 Days Qty: 30 RF: 0 atorvastatin 40 mg tablet 40 mg PO QHS Qty: 30 RF: 0 Continued lisinopril 20 MG tablet 40 mg PO DAILY RF: 0 atenolol 25 mg tablet 25 mg PO DAILY RF: 0 Other Ambulatory Orders: 30-Day Event Recorder (Routine) Location: None Selected Ordered By: Rona Villela NP Referrals / Follow Up: Chhaya Nunez MD [Primary Care Provider] - In 1 Week Mykel Baron MD [NON-STAFF] - Within 2 Weeks Disposition Disposition (needs filled in before D/C Order can be placed): Home, Self Care
--- NOTE | 2021-12-31 11:28 | CASEMGMT ---
Social Work SW met w/pt in room, pt completed PHQ-9. Pt scored a 3, pt states had COVID a month ago and has been extremely tired since then--and tiredness and having little energy is the one symptom that pt showed to have on the PHQ-9. No further social service needs. LISA Mason
--- NOTE | 2021-12-31 11:30 | VDLE_ITS ---
Reason For Study: Pain RIGHT LEFT GSV is normal. GSV is normal. CFV is compressible, spontaneous, phasic, CFV is compressible, spontaneous, phasic, competent and demonstrates normal competent, and demonstrates normal augmentation. augmentation. FV is compressible, spontaneous, phasic, FV is compressible, spontaneous, phasic, competent and demonstrates normal competent and demonstrates normal augmentation. augmentation. POP V is compressible, spontaneous, phasic, POP V is compressible, spontaneous, phasic, competent and demonstrates normal competent and demonstrates normal augmentation. augmentation. T/P Trunk is compressible. T/P Trunk is compressible. PTV is compressible. PTV is compressible. RT PerV is compressible. LT PerV is compressible. Procedure This is a venous duplex using B-mode, color flow and spectral Doppler. Exam performed in department. A preliminary report was called and/or faxed to [facility]. VL/Venous Duplex US - Kai Extrem Interpretation Summary No evidence for acute deep venous thrombosis bilateral lower extremities with p atent and compressible bilateral great saphenous veins. Ordering Physician: Rona Villela Referring Physician: Chhaya Nunez Performed By: Lucille Raya RVT
--- NOTE | 2021-12-31 11:50 | CASEMGMT ---
EDER PAINTER assessment: Face to Face with patient for initial transition planning/care coordination assessment. EDER PAINTER introduced self and role at [facility], pt voices understanding and consents to assessment. Pt is sitting up in bed in no distress on room air. Pt is A/Ox4 and answers all questions appropriately. Care providers, pharmacy, and demographics verified. Presentation: Pt with confusion, right arm numbness-improved upon arrival to ED Admitting dx: TIA/CVA/Htn urgency PCP: Mayra Specialists: None Preferred Pharmacy: [facility] Insurance: [facility] Prescription Benefit: [facility] Living Will/HPOA: Pt does not have LW/HPOA and declines AD info. LNOK: Herman Young, ; Josi Blackmon, mother Living Arrangements: Pt lives with in split level apt and states no concerns at home. Pt is independent with ADL's. Transportation: Pt drives self and states no transportation concerns. DME/HHC: Pt has no current DME or need for any further DME. Pt states no hx of HHC or SNF. Per therapy notes, pt has no further need for therapy at discharge. Pt states no concerns with going home at time of discharge. 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 Pt states does not smoke cigarettes or drink ETOH. Pt states no further concerns/needs. CM to follow for any further discharge planning/needs. Advised pt to ask for CM if any further questions/concerns/needs arise, voices understanding. Pt Goal: Home Plan: [place] EDER PAINTER
[2021-12-31 12:43] VITALS: BP 147/89; PULSE 71; RESP 12; TEMP 36.8; O2SAT 99
--- NOTE | 2021-12-31 12:57 | DS.PCM_ITS ---
Documented by User: Rona Villela NP, INSPECTOR INSULATION-C 12/31/21 13:08 Providers Date of Admission: 12/29/21 Date of Discharge: 12/31/21 Primary Care Physician: Dr. Chhaya Nunez MD Reason For Visit: TIA/CVA, HTN URGENCY Diagnosis Discharge Diagnosis (1) Stroke/cerebrovascular accident: Status: Acute Code(s): I63.9 - Cerebral infarction, unspecified Medications at Discharge Home Medications atenolol 25 mg PO DAILY 12/29/21 lisinopril 40 mg PO DAILY 12/29/21 aspirin 81 mg PO BREAKFAST 30 Days #30 tab 12/31/21 atorvastatin 40 mg PO QHS #30 tab 12/31/21 clopidogrel 75 mg PO DAILY 30 Days #30 tab 12/31/21 Hospital Course Operations None Procedures 2-D Echocardiogram Summary of Care Provided Hospital Course: Patient is a 51-year-old female admitted 12/29/21 due to right upper extremity paresthesias and weakness. 1. Acute left parietal cortical stroke-MRI with acute infarct of the gyrus of the left parietal lobe. Head and neck CTA with normal bilateral carotid and vertebral arteries. Etiologies include cardioembolic, hypercoagulable state from recent Covid. Aspirin, Plavix, statin at discharge with dual antiplatelet therapy for 21 days followed by aspirin only. Hypercoagulable panel completed, results pending at discharge. Echocardiogram demonstrates an EF of 65%, positive for right to left interatrial shunt potentially compatible with small PFO versus ASD. Doppler lower extremities pending and will be reviewed prior to discharge. Discharged on 30-day event monitor. Patient will need follow-up with neurology at discharge with referral to cardiology by PCP/neurology for further PFO evaluation. 2. Hypertensive urgency-blood pressure now improved, initially permissive secondary to #1. Continue home atenolol, lisinopril at discharge. 3. Recent [id number] onset 11/29/2021. Physical Exam Const alert, oriented x3 and no apparent distress Orientation / Consciousness: awake, oriented to person, oriented to place and oriented to time HEENT normocephalic and moist oral mucous membranes Eyes PERRL, EOMs intact bilaterally and conjunctivae normal Neck no lymphadenopathy Resp normal respiratory effort and clear to auscultation bilaterally Cardio regular rate, regular rhythm and no murmurs Peripheral Pulses: pulses 2+ throughout GI normal to inspection, nondistended, normoactive bowel sounds, non-tender and non-distended Extremity normal to inspection Skin no rashes or lesions noted Lesions: no lesions Rashes: no rashes Trauma: no lacerations or abrasions Neuro CN's II-XII intact bilaterally, no focal motor deficits, no sensory deficits noted and deep tendon reflexes 2+ bilaterally Psych mental status grossly normal and affect normal Patient seen and examined prior to discharge. Physical assessment as noted above. Patient is stable for discharge with follow up recommendations as noted above. This patient was seen by RONAK Torres under the supervision of Dr. Perez. Time spent examining patient, reviewing data and subsequent management of care: 15 Minutes Weight / BMI Weight Weight: 204 lb 2.369 oz Body Mass Index (BMI) 28.5 ABG / Lab / Microbiology Data Result Diagrams: 12/30/21 06:24 12/30/21 06:24 Microbiology: Microbiology 12/29/21 17:08 Nasal Secretion SARS-CoV-2 Antigen (Rapid) - Final Radiography Diagnostic Testing: Radiology Impression Echocardiogram 12/29/21 20:05 Interpretation Summary The study was technically difficult. Left ventricular systolic function is normal. The estimated ejection fraction is 65 %. Trivial mitral valve insufficiency. Trivial tricuspid valve insufficiency. Trivial pulmonic valve insufficiency. Unable to estimate RV systolic pressure/pulmonary artery pressure due to technically difficult study. No evidence for diastolic dysfunction. Agitated saline contrast study considered positive for a right to left interatrial shunt potentially compatible with a small PFO versus ASD. Ordering Physician: Rona Villela Referring Physician: Chhaya Nunez Performed By: Ty Strong RCS D/C Instructions Discharge Diet: Low fat / Low cholesterol Call your doctor if you observe: Numbness or Tingling, Shortness of breath, Dizziness and Chest pain Meaningful Use Info Meaningful Use Diagnoses (Choose all that apply): Ischemic CVA CVA Therapy Assessed for PT,OT and/or ST?: Yes Ischemic Stroke Antithrombotic order at d/c?: Yes Dx of Atrial fib/flutter?: No Statins at discharge?: Yes Primary Dx Acute Ischemic CVA?: Yes IV tPA ordered during stay?: No Reason IV t-PA not ordered: Medical Contraindication Discharge Plan Admission Admit Date/Time: 12/29/21 19:11 Primary Reason for Your Visit: Stroke Attending Provider: Lex Perez Primary Care Provider: Chhaya Nunez Discharge Orders/Prescriptions Prescriptions: New aspirin 81 mg Tablet,Chewable 81 mg PO BREAKFAST 30 Days Qty: 30 RF: 0 clopidogrel 75 mg Tablet 75 mg PO DAILY 30 Days Qty: 30 RF: 0 atorvastatin 40 mg tablet 40 mg PO QHS Qty: 30 RF: 0 Continued lisinopril 20 MG tablet 40 mg PO DAILY RF: 0 atenolol 25 mg tablet 25 mg PO DAILY RF: 0 Other Ambulatory Orders: 30-Day Event Recorder (Routine) Location: None Selected Ordered By: Rona Villela NP Referrals / Follow Up: Chhaya Nunez MD [Primary Care Provider] - In 1 Week Mykel Baron MD [NON-STAFF] - Within 2 Weeks Disposition Disposition (needs filled in before D/C Order can be placed): Home, Self Care Documented by User: Dr. Lex Perez MD 12/31/21 15:30 Providers Date of Admission: 12/29/21 Reason For Visit: TIA/CVA, HTN URGENCY Medications at Discharge Home Medications atenolol 25 mg PO DAILY 12/29/21 lisinopril 40 mg PO DAILY 12/29/21 aspirin 81 mg PO BREAKFAST 30 Days #30 tab 12/31/21 atorvastatin 40 mg PO QHS #30 tab 12/31/21 clopidogrel 75 mg PO DAILY 30 Days #30 tab 12/31/21 ABG / Lab / Microbiology Data Result Diagrams: 12/30/21 06:24 12/30/21 06:24 Discharge Plan Admission Admit Date/Time: 12/29/21 19:11 Primary Reason for Your Visit: Stroke Attending Provider: Lex Perez Primary Care Provider: Chhaya Nunez Discharge Orders/Prescriptions Prescriptions: New aspirin 81 mg Tablet,Chewable 81 mg PO BREAKFAST 30 Days Qty: 30 RF: 0 clopidogrel 75 mg Tablet 75 mg PO DAILY 30 Days Qty: 30 RF: 0 atorvastatin 40 mg tablet 40 mg PO QHS Qty: 30 RF: 0 Continued lisinopril 20 MG tablet 40 mg PO DAILY RF: 0 atenolol 25 mg tablet 25 mg PO DAILY RF: 0 Other Ambulatory Orders: 30-Day Event Recorder (Routine) Location: None Selected Ordered By: Rona Villela INSPECTOR INSULATION Referrals / Follow Up: Chhaya Nunez MD [Primary Care Provider] - In 1 Week Mykel Baron MD [NON-STAFF] - Within 2 Weeks Disposition Disposition (needs filled in before D/C Order can be placed): Home, Self Care Charges/Coding Addendum Addendum: Dr. Perez: I personally reviewed the chart and examined the patient, and agree with the above findings. 51-year-old female presents from home with blurriness in her left eye as well as right arm weakness and aphasia. All the symptoms have resolved however her MRI was positive for an acute/subacute infarct of the gyrus of the left parietal lobe. She was started on on aspirin and Plavix as well as Lipitor. Echo was negative except for a small PFO, Dopplers of her legs were negative for blood clot so she was discharged home. Given her symptom resolution, it was discussed with her the plan for discharge today and she expressed understanding of the risk benefits of going home and would like to go home today. I did have an extensive discussion with her on lifestyle modifications including weight loss, and exercise. She will need to follow-up with her PCP as well as neurology as an outpatient. Clinical time spent in all aspects of patient care: 25 minutes
[2021-12-31 15:41] VITALS: BMI 28.5
[2022-01-07 15:08] LABS: Protein C Antigen 118 % (60-150); Protein C, Functional 152 % (73-180)
[2022-01-07 18:00] LABS: Anti-Cardiolipin Ab, IgG, Qn < 9 GPL U/mL (0-14); Anti-Cardiolipin Ab, IgM, Qn 17 MPL U/mL (0-12); Anti-Thrombin 3 AG, Immunol 99 % (72-124); Antithrombin 3 Function 109 % (75-135); Beta-2-Glycoprotein I IgA <9 (0-25); Beta-2-Glycoprotein I IgG <9 (0-20); Beta-2-Glycoprotein I IgM <9 (0-32)
== END 2021-12-31 15:18 | disposition home or self-care (01) | DRG 65 ==
LOC: ED 19:32 → PCU 12-30 07:20
PROVIDERS: Nurse Practitioner Family; Admitting Provider Family Medicine; Emergency Provider Emergency Medicine; PCP Family Medicine; Visit Provider Family Medicine
DX: I63.89 Other cerebral infarction (principal); G81.91 Hemiplegia, unspecified affecting right dominant side; R47.01 Aphasia; I16.0 Hypertensive urgency; I10 Essential (primary) hypertension; R29.701 NIHSS score 1; E66.3 Overweight; Z86.16 Personal history of COVID-19; Z79.899 Other long term (current) drug therapy; Z20.822 Contact with and (suspected) exposure to COVID-19; Z68.29 Body mass index [BMI] 29.0-29.9, adult
CPT/HCPCS: 36415; 70450; 70496; 70498; 70551; 71045; 80048; 80053; 80061; 81240; 81241; 83036; 84443; 84484; 85025; 85300; 85301; 85302; 85303; 85610; 85730; 86146; 86147; 87426; 92523; 92610; 93005; 93306; 93970; 94762; 97161; 97165; 97802; 99251; 99285; Q9967; A4216; G0463

== ENCOUNTER 2022-01-17 08:06 | Outpatient (CLI) | payer OTHER, SELFPAY ==
[2022-01-17 09:40] LABS: Erythrocyte Sedimentation Rate 10 mm/hr (0-30)
[2022-01-18 15:14] LABS: ANTINUCLEAR ANTIBODIES DIRECT Negative (Negative)
[2022-01-18 19:07] LABS: Complement C3 143 mg/dL (82-167); Dilute Prothrombin Time (dPT) 31.8 sec (0.0-47.6); Dilute Russell Viper Venom 32.8 sec (0.0-47.0); PTT-LA 43.9 sec (0.0-51.9); Protein S, Free 90 % (61-136); Thrombin Time 16.4 sec (0.0-23.0); dPT Confirm Ratio 0.79 Ratio (0.00-1.34)
[2022-01-18 19:15] LABS: Complement CH50 > 60 U/mL (>41); Interpretation Comment: (.); Protein S, Funtional 85 % (63-140); Protein S, Total 90 % (60-150)
== END 2022-01-17 23:59 | disposition home or self-care (01) ==
LOC: LAB 08:08
PROVIDERS: PCP Family Medicine; Referring Provider Psychiatry & Neurology Neurology; Visit Provider Psychiatry & Neurology Neurology
DX: I67.9 Cerebrovascular disease, unspecified (principal)
CPT/HCPCS: 36415; 85305; 85306; 85652; 86038; 86160; 86162; 86225; 86235

== ENCOUNTER → 2022-04-04 | Outpatient (CLI) | payer OTHER, SELFPAY ==
[2022-04-04 13:57] LABS: Anion Gap 5 (5-15); BUN 10 mg/dL (7-18); BUN/Creat Ratio 11.8 RATIO (10-20); Calcium,Total 9.6 mg/dL (8.5-10.1); Chloride 104 mmol/L (98-107); Creatinine, Serum 0.85 mg/dL (0.55-1.02); EST Glomerular Filtration Rate 75 mL/min (>60); Est Glom Filt Rate - Afr Amer 90 mL/min (>60); Glucose 83 mg/dL (74-106); Potassium 4.6 mmol/L (3.5-5.1); Sodium Level 135 mmol/L (136-145)
[2022-04-06 19:58] LABS: Anti-Cardiolipin Ab, IgG, Qn < 9 GPL U/mL (0-14); Anti-Cardiolipin Ab, IgM, Qn 15 MPL U/mL (0-12)
== END | disposition home or self-care (01) ==
LOC: LAB 12:20
PROVIDERS: Nurse Practitioner Family; PCP Family Medicine; Referring Provider Internal Medicine Cardiovascular Disease; Visit Provider Internal Medicine Cardiovascular Disease
DX: I63.9 Cerebral infarction, unspecified (principal); Q24.8 Other specified congenital malformations of heart; I10 Essential (primary) hypertension
CPT/HCPCS: 36415; 80048; 86147

== ENCOUNTER → 2022-05-06 | Outpatient (CLI) | payer OTHER, SELFPAY ==
[2022-05-06 10:36] LABS: Anion Gap 1 (5-15); BUN 8 mg/dL (7-18); Calcium,Total 9.1 mg/dL (8.5-10.1); Chloride 104 mmol/L (98-107); Creatinine, Serum 0.73 mg/dL (0.55-1.02); EST Glomerular Filtration Rate 89 mL/min (>60); Est Glom Filt Rate - Afr Amer 108 mL/min (>60); Glucose 101 mg/dL (74-106); Potassium 4.3 mmol/L (3.5-5.1); Sodium Level 138 mmol/L (136-145)
== END | disposition home or self-care (01) ==
PROVIDERS: PCP Family Medicine; Referring Provider Internal Medicine Cardiovascular Disease; Visit Provider Internal Medicine Cardiovascular Disease
DX: I10 Essential (primary) hypertension (principal); Q24.8 Other specified congenital malformations of heart; Z20.822 Contact with and (suspected) exposure to COVID-19
CPT/HCPCS: 36415; 80048; 87426; C9803

== ENCOUNTER 2022-05-07 10:04 | Outpatient (CLI) | payer OTHER, SELFPAY ==
--- NOTE | 2022-05-06 11:21 | HP.PCM_ITS ---
History and Physical Date of Admission: 05/07/22 [facility] [address] [place], [place] [id number] OFFICE VISIT Date of Service:? 04/04/22 MR#: [id number] Acct: [id number] Name:ROBERT MARCUS Rep #: [id number] : 1970 Provider: Dr. Herman Hoang MD Age/Sex:? 51/F Location: [facility] Status: Signed with Addenda ADDENDUM by Dr. Herman Hoang MD on 04/04/22 at 1314 Cardiology Exam Const Appearance: cooperative, healthy appearing, comfortable, no acute distress, well developed and well groomed Nutritional Appearance: overweight Orientation: alert, awake and oriented x3 Head Head: normal to inspection, normocephalic and atraumatic Ears: hearing grossly normal bilaterally Nose: external nose normal Face and Sinus: face symmetric Eyes Eyelids: eyelids normal Conjunctivae: conjunctivae normal Pupils: PERRL EOM: EOM intact bilaterally Neck Neck: normal visual inspection and full ROM Carotids: normal carotid upstroke Chest Chest inspection: normal inspection of the chest, symmetric chest movement and normal respiratory effort Auscultation: Bilateral: Clear to Auscultation Cardio Palpation: normal PMI Rhythm: regular rhythm Heart sounds: S1 normal and S2 normal GI GI: normal to inspection, soft and bowel sounds present Neuro General: patient alert, patient awake, patient oriented x3 and moves all extremities Skin Skin: no rashes or lesions noted Extremities Pulses: Normal: Right Radial Pulse and Left Radial Pulse Lower Extremity Edema: None: Bilateral Psych Psychological: normal affect Assessment and Plan Assessment and Plan (1) Interatrial cardiac shunt: ?Status:?Acute ? ? ? Orders:?Orders: ? Basic Metabolic Profile (BMP) Today ? ? ? Echo Transesophageal (ALTAGRACIA) Today ? ? (2) Essential hypertension: ?Status:?Acute ? ? ? Orders:?Orders: ? 12 Lead EKG performed by [facility] Today ? ? ? Basic Metabolic Profile (BMP) Today ? ? ? Echo Transesophageal (ALTAGRACIA) Today ? ? (3) Cerebrovascular disease: ?Status:?Acute ? ? ? Orders:?Orders: ? Basic Metabolic Profile (BMP) Today ? ? ? Echo Transesophageal (ALTAGRACIA) Today ? ? Plan Details Follow Up: ? ? 6 Weeks?(PFM ) 04/04/22 1314 <Electronically signed by Herman Hoang MD> Date Herman Hoang MD cc:? Dr. Chhaya Nunez MD; Dr. Herman Pineda, DO; Dr. Aba Enriquez MD ~* Signed HPI HPI History of Present Illness Details: This is a 51-year-old white female who presents today for outpatient cardiovascular consultation based upon a history of CVA superimposed upon hypertension with concerns of an abnormal transthoracic echocardiogram suggesting an interatrial cardiac shunt.? 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 She has been evaluated by neurology.? She has undergone laboratory studies which was raised the question as to whether or not there may be any type of procoagulant state.? She states that she has followed with hematology/oncology in the past because of concerns of iron related issues.? It appears the neurologist wanted her to return to hematology for reevaluation of her laboratory studies as to whether or not there is any concern of any true procoagulant state.? She has yet to hear from hematology/oncology regarding this issue. She has also undergone a 30-day ambulatory event monitor.? She was noted to have sinus rhythm with what appeared to be PACs and PVCs but no report of atrial fibrillation/flutter. She has undergone evaluation with a transthoracic echocardiogram.? This demonstrated that her left ventricle was normal with an LVEF of 65% with no hemodynamically significant valvular heart disease.? There was no evidence for diastolic dysfunction.? Her agitated saline contrast study was considered positive for right to left interatrial shunt potentially compatible with a small PFO versus ASD. She has continued medical therapy in the interim. She denies any symptoms suspicious for classic angina pectoris.? There is been no evidence of overt CHF or pulmonary edema.? She has had no near-syncope or syncope. She does state since the COVID-19 event and her CVA event she does get tired and fatigued easily.? She states since his CVA event she does have episodes at times where she feels somewhat dizzy or off balance. She had an ECG in the office today.? She was noted to be in sinus rhythm/sinus bradycardia with no acute ECG changes. Intake Vital Signs ? 04/04/2211:13 Height 5 ft 11.5 in Weight: 207 lb 4 oz BMI 28.5 BP 144/92 H Blood Pressure Location Lt brachial Position Sitting Respiration 16 Pulse 60 Pulse Source Auscultation Intake Visit Reasons:?TIA/REF. 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 Herman Hoang MD) Anemia Breast lump Chronic pain Essential hypertension Gallstones Headache History of COVID-19 Hypertension Hypertension Interatrial cardiac shunt Iron deficiency anemia Non-smoker Overweight Rheumatic fever Stroke/cerebrovascular accident Surgical History? History of ankle surgery History of cholecystectomy S/P lumpectomy, left breast Family History? Mother Diabetes Thyroid disorderFather Diabetes Hypertension Heart disease Myocardial infarction,? Onset Age: 47Brother AsthmaSister Diabetes Social History? household members:? spouse and family Smoking Status:? Never smoker alcohol intake:? never substance use type:? does not use caffeine:? Yes (occasional) what type of physical activity do you participate in:? walking ROS Const Const: Positive for fatigue; Negative for weakness, frequent falls, excessive sweating, weight gain or weight loss Eyes Eyes: Negative for transient loss of vision, blurry vision or change in vision ENT ENT: Positive for dizziness (occasional;? random ); Negative for balance problems Cardio Chest Pain: Yes Character: other (pich) Onset: at rest and exercise Location: mid sternal Duration: brief Palpitations: Yes (occasional) feels like its: skipping (doubl beat) Edema: None Muscle aches with walking: None Resp Respiratory: Negative for SOB with activity or SOB at rest GI GI: Negative vomiting or vomiting blood/hematemesis : Negative for hematuria Musc Musc: Positive for muscle aches/ myalgia (cramping to bilat LE, Pedals at night); Negative for muscle weakness, joint pain or balance problems Skin Skin: Negative non-healing lesions or rash Neuro Neuro: Positive for dizziness (occasional;? random ) and near syncope; Negative for lightheadedness, orthostatic symptoms, frequent falls, weakness or blurry vision Cain Hematologic/Lymphatic: Negative for easy bleeding Endo Endo: Positive for fatigue; Negative for excessive sweating Psych Psych: Negative for anxiety or depression Allergy Allergy/Immunology: Negative for hives and Negative for rash Supplemental Info Supplemental Information Transthoracic echocardiogram: 12/29/2021 Interpretation Summary The study was technically difficult. ? Left ventricular systolic function is normal. The estimated ejection fraction is 65 %. Trivial mitral valve insufficiency. Trivial tricuspid valve insufficiency. Trivial pulmonic valve insufficiency. Unable to estimate RV systolic pressure/pulmonary artery pressure due to technically difficult study. No evidence for diastolic dysfunction. Agitated saline contrast study considered positive for a right to left interatrial shunt potentially compatible with a small PFO versus ASD. Labs: ?? ? LDL Cholesterol 112 mg/dL (0-130) ?? ? HDL Cholesterol 32 mg/dL (40-) L ?? ? Triglycerides 99 mg/dL (-199) ?? ? VLDL Cholesterol 20 mg/dL (5-40) Diagnostics: ?? ? Electrocardiogram ? Echocardiogram ? Chest X-Ray ? Venous Doppler Study ? Pulmonary: ?? ? No Data to Display Assessment and Plan Assessment and Plan (1) Interatrial cardiac shunt: ?Status:?Acute ? ? ? Orders:?Orders: ? Basic Metabolic Profile (BMP) TodayA ? ? ? Echo Transesophageal (ALTAGRACIA) Today ?Plan - Dr. Herman Hoang MD: At the present time it is unclear as to whether or not the finding of an intra- atrial cardiac shunt is contributing in any fashion to her CVA event. Its unclear as to whether it represents a PFO versus a true ASD. Based upon her ongoing neurologic concerns and evaluation it would be reasonable to further evaluate her with a transesophageal echocardiogram to define her cardiac anatomy to assist in her neurologic evaluation and care.? The procedure and risk were discussed with her.? She was agreeable to this approach. (2) Essential hypertension: ?Status:?Acute ? ? ? Orders:?Orders: ? 12 Lead EKG performed by [facility] Today ? ? ? Basic Metabolic Profile (BMP) Today ? ? ? Echo Transesophageal (ALTAGRACIA) Today ?Plan - Dr. Herman Hoang MD: She will continue her current antihypertensive therapy. (3) Cerebrovascular disease: ?Status:?Acute ? ? ? Orders:?Orders: ? Basic Metabolic Profile (BMP) Today ? ? ? Echo Transesophageal (ALTAGRACIA) Today ?Plan - Dr. Herman Hoang MD: She will continue to follow with neurology for her CVA process. Plan Details Additional Comments: The above has been discussed and reviewed with her.? Again she was agreeable to this approach. 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 Thank you for allowing me to participate in the care of your patient.? Please don't hesitate to call if any issues arise. This note was generated using a voice recognition system and there may be incorrect words, spelling or punctuation that were not noted when reviewing the office note prior to saving. Follow Up: ? ? 6 Weeks?(PFM ) COVID (Procedure Consent) Procedure Criteria Procedure Criteria: Yes Elective?The surgeon/proceduralist and patient have discussed in detail the risk of exposure to and/or potential harm posed by the COVID-19 virus with having a surgery/procedure at this time versus the risk of? delaying the surgery/procedure. It is not possible to know either the risk of delaying the surgery or procedure or chance of getting an infection with perfect accuracy, but a joint decision was made between the patient and the surgeon/proceduralist ?to proceed at this time with the scheduled surgery/procedure as indicated on the consent form. Coding Level of Care Code Off vis,new,level 4 Diagnoses Interatrial cardiac shunt? Q24.8 Essential hypertension? I10 Cerebrovascular disease? I67.9 Coding Level of Care Code Off vis,new,level 4 Diagnoses Interatrial cardiac shunt? Q24.8 Essential hypertension? I10 Cerebrovascular disease? I67.9 04/04/22 1253 <Electronically signed by Herman Hoang MD> Date Herman Hoang MD Cosigner Signature: Date (if applicable) CC:? Dr. Chhaya Nunez MD; Dr. Herman Pineda DO; Dr. Aba Enriquez MD ~ Assessment & Plan Addt'l Comments I have re-examined the patient. There are no clinical changes since date of exam This note was generated using a voice recognition system and there may be incorrect words, spelling or punctuation that were not noted when reviewing the office note prior to saving.
--- NOTE | 2022-05-07 10:14 | ECHOTEE_ITS ---
Reason For Study: INTERATRIAL SHUNT Medication ALTAGRACIA probe 6VT-D (SN [id number]) passed with minimal difficulty. No complications were noted. Cetacaine Topical [place] given X3 orally. Versed 1 mg given slow IVP. Fentanyl 50 mcg given slow IVP. Performed a rapid injection of agitated mix of 9 cc saline and 1cc air to assess for atrial septal defect. Left Ventricle Left ventricular systolic function is normal. The estimated ejection fraction is 65 %. No regional wall motion abnormalities noted. Right Ventricle Normal systolic function. Atria Positive agitated saline contrast study for right to left interatrial shunt compatible with a very small patent foramen ovale. Normal left atrium. There is no sponatenous contrast in the left atrium. No thrombus is detected in the left atrial appendage. Normal right atrium. There is no sponatenous contrast in the right atrium. No right atrial/appendage thrombus identified. Mitral Valve There is no mitral annular calcification. Normal mitral valve. Mild (1+) mitral valve insufficiency. Tricuspid Valve Normal tricuspid valve. Mild tricuspid valve insufficiency. Aortic Valve Trisinus/trileaflet aortic valve. Normal aortic valve. Trivial aortic valve insufficiency. Pulmonic Valve The pulmonic valve is not well visualized. Vessels Normal-appearing thoracic aorta. Pericardium No pericardial effusion. ECHO/Echo Transesophageal (ALTAGRACIA) Interpretation Summary Left ventricular systolic function is normal. The estimated ejection fraction is 65 %. There is no sponatenous contrast in the left atrium. No thrombus is detected in the left atrial appendage. Mild (1+) mitral valve insufficiency. Mild tricuspid valve insufficiency. Trivial aortic valve insufficiency. Positive agitated saline contrast study for right to left interatrial shunt com patible with a very small patent foramen ovale. Normal-appearing thoracic aorta. Ordering Physician: Herman Hoang Referring Physician: NAVID AMBROSE Performed By: Rachna Ortiz RDCS
== END 2022-05-07 12:40 | disposition home or self-care (01) ==
LOC: CVS 10:06
PROVIDERS: PCP Family Medicine; Referring Provider Internal Medicine Cardiovascular Disease; Visit Provider Internal Medicine Cardiovascular Disease
DX: R00.2 Palpitations (principal); R00.1 Bradycardia, unspecified; I10 Essential (primary) hypertension; Q21.1 Atrial septal defect; Q24.8 Other specified congenital malformations of heart; I67.9 Cerebrovascular disease, unspecified
CPT/HCPCS: 93312; 93320; 93325; J7040; A4216

== ENCOUNTER → 2022-07-04 | Outpatient (CLI) | payer OTHER, SELFPAY ==
[2022-07-10 11:08] LABS: Age Gdln ACOG Testing 30-65 (.)
[2022-07-10 13:19] LABS: HPV APTIMA, High Risk Negative (Negative)
[2022-07-10 13:22] LABS: HPV Reflexed? YES, CHARGE PATIENT
== END | disposition home or self-care (01) ==
PROVIDERS: PCP Family Medicine; Visit Provider Family Medicine
DX: Z12.31 Encounter for screening mammogram for malignant neoplasm of breast (principal)
CPT/HCPCS: 87624; 88175; G0145

== ENCOUNTER → 2022-07-11 | Outpatient (CLI) | payer OTHER, SELFPAY ==
--- NOTE | 2022-07-11 08:12 | BI_ITS ---
MAMMOGRAPHY - BILATERAL SCREENING REASON FOR EXAM: Female, 51 years old. Routine annual screening examination. PERTINENT HISTORY: Non-contributory. Remote left stereotactic breast biopsy. TECHNIQUE: Digital bilateral breast sury (3D mammographic acquisition) in the CC and MLO projections. 2-D mediolateral oblique (MLO) and craniocaudad (CC) views of both breasts were obtained. CAD: Full Field Digital Mammography with Computer Added Detection was performed. COMPARISON: Comparison is made with prior study dated 02/26/2021. FINDINGS: Breast Composition: The breasts are almost entirely fatty. There are no dominant masses or suspicious calcifications. A tissue clip marker is seen in the anterior upper central portion of the left breast. No other significant abnormalities are identified. There has been no significant change since the prior study. BI/SCRN MAMM (CAD)W/SURY BILAT IMPRESSION: Stable bilateral screening mammogram. Yearly follow-up mammogram recommended. (A) ASSESSMENT CATEGORY: BIRADS Category 2: Benign. A letter regarding these results will be sent to the patient by the facility within 30 days. Approximately 10% of breast cancers are not detected by mammography. A normal mammogram should not delay biopsy of a clinically suspicious abnormality. [id number] Electronically Signed: Obey Marie MD at 9:13 EDT ,
== END | disposition home or self-care (01) ==
LOC: OPBI 08:11
PROVIDERS: PCP Family Medicine; Visit Provider Family Medicine
DX: Z12.31 Encounter for screening mammogram for malignant neoplasm of breast (principal)
CPT/HCPCS: 77063; 77067

== ENCOUNTER → 2022-12-17 | Outpatient (CLI) | payer OTHER, SELFPAY ==
[2022-12-17 13:37] LABS: Anion Gap 5 (5-15); BUN 5 mg/dL (7-18); BUN/Creat Ratio 6.3 RATIO (10-20); Calcium,Total 8.6 mg/dL (8.5-10.1); Chloride 106 mmol/L (98-107); Creatinine, Serum 0.79 mg/dL (0.55-1.02); EST Glomerular Filtration Rate 81 mL/min (>60); Est Glom Filt Rate - Afr Amer 97 mL/min (>60); Free T3 2.5 pg/mL (2.18-3.98); Glucose 94 mg/dL (74-106); Potassium 3.8 mmol/L (3.5-5.1); Sodium Level 141 mmol/L (136-145); T4 Free Direct 1.03 ng/dL (0.76-1.46)
== END | disposition home or self-care (01) ==
LOC: LAB 12:08
PROVIDERS: PCP Family Medicine; Referring Provider Nurse Practitioner Gerontology; Visit Provider Nurse Practitioner Gerontology
DX: R00.2 Palpitations (principal)
CPT/HCPCS: 36415; 80048; 83735; 84439; 84443; 84481

== ENCOUNTER 2023-12-18 17:55 | Emergency (ER) | payer OTHER, SELFPAY ==
[2023-12-18 17:56] VITALS: BP 132/90; PULSE 78; RESP 18; TEMP 36.8; O2SAT 100; BMI 31.5
[2023-12-18 18:11] VITALS: BP 126/83; PULSE 67; RESP 14; O2SAT 99
--- NOTE | 2023-12-18 18:17 | ED.VIS.CHEST ---
HPI History of Present Illness Chief Complaint: Chest Pain Informant: patient and spouse/S.O. Narrative Narrative: Patient presents with chest pain. Patient states she had chest pain yesterday but not sure when it started. It is a small area on her lower sternum. It does radiate toward her back but does not reach it. She states she felt maybe a little dizzy with it. But she states she gets dizzy frequently and is on meclizine so does not know if this was really associated. No nausea vomiting diaphoresis or dyspnea. No coughing. She has not been sick. She did have repair of a patent foramen ovale in September 2022 but she states they look for signs of heart disease and a heart cath and it was negative then. I do not have this data though. She had this repaired and it was found because she had had a stroke earlier in the year. She is not on blood thinners now other than aspirin. She does have cholesterol implying high blood pressure. No diabetes. Never been a smoker. Her father did have an HI starting at 49 so there is some family history. No recent travel surgery immobilization personal or family history of DVT or PEs. [facility] Medical History Anemia Breast lump Chronic pain Essential hypertension Gallstones Headache History of COVID-19 Hypertension Hypertension Interatrial cardiac shunt Iron deficiency anemia Non-smoker Overweight PFO (patent foramen ovale) Rheumatic fever Stroke/cerebrovascular accident Home Medications lisinopril 20 mg tablet 40 mg PO DAILY 12/29/21 [History Last Taken 12/28/21 22:00] aspirin 81 mg chewable tablet 81 mg PO BREAKFAST 30 days #30 tabs 12/31/21 [Rx Last Taken Unknown] atorvastatin 40 mg tablet 40 mg PO QHS #30 tabs 12/31/21 [Rx Last Taken Unknown] meclizine 25 mg tablet 25 mg PO TID PRN dizziness #90 tabs 11/04/22 [Rx Last Taken Unknown] atenolol 50 mg tablet 50 mg PO DAILY #30 tabs 01/15/23 [Rx Last Taken Unknown] amlodipine 5 mg tablet 2.5 mg PO BID 06/17/23 [History Last Taken Unknown] Allergy/AdvReac Type Severity Reaction Status Date / Time codeine Allergy Nausea Verified 12/18/23 17:56 Family History Mother Diabetes Thyroid disorder Father Diabetes Hypertension Heart disease Myocardial infarction, Onset Age: 49 Brother Asthma Sister Diabetes Surgical History History of ankle surgery History of cholecystectomy History of heart surgery S/P lumpectomy, left breast S/P percutaneous patent foramen ovale closure Social History household members: spouse and family Smoking Status: Never smoker alcohol intake: never substance use type: does not use caffeine: Yes (occasional) what type of physical activity do you participate in: walking do you feel safe at home: Yes ROS ROS ED ROS Narrative A complete review of systems was performed and is negative except as documented in the history of present illness. Some specific details below. Constitutional: No recent fevers or chills. EYE: No discharge, visual complaints, or pain. ENT: No difficulty swallowing. No swelling. No pain. No reflux symptoms. CV: See history of present illness. Respiratory: See history of present illness. GI: No abdominal pain. No nausea vomiting diarrhea. No blood in stool. : No frequency dysuria or hematuria. Musculoskeletal: No recent trauma. No pains. No swelling. Skin: No rash. Nondiaphoretic. Neuro: No weakness or numbness. Endocrine: No polyuria or polydipsia. EXAM Physical Exam Narrative Exam Narrative: CONSTITUTIONAL: Patient is nontoxic in appearance. The patient looks comfortable. Work of breathing looks normal. HEENT: No notable trauma. Mucous membranes moist. No GERD symptoms when I discussed this with her. EYES: No conjunctival injection. No proptosis. NECK:No JVD. No stridor. CARDIOVASCULAR: Regular rate. Regular rhythm. No notable murmur. No JVD. RESPIRATORY: No respiratory distress. Breathing is unlabored. No wheezes. No rhonchi. No rales. No pain with a deep breath. No chest wall tenderness. GASTROINTESTINAL: Not distended. Bowel sounds are normal. No tenderness including no epigastric tenderness. No guarding. No rebound. No palpable mass. No bruit is heard. GENITOURINARY: No tenderness over the bladder. No CVA tenderness. MUSCULOSKELETAL: Atraumatic. No peripheral edema. No cord. No tenderness along the deep venous system. No asymmetry. No distended veins. NEUROLOGICAL: Patient is alert and appropriate. No focal deficit noted. SKIN: No noted rashes. No diaphoresis. PSYCHIATRIC: Patient is calm. Mood is appropriate. Const Vital Signs: 12/18/23 17:56 12/18/23 18:11 12/18/23 18:11 Temperature 98.2 F Temperature Source Temporal Pulse Rate 78 67 Respiratory Rate 18 14 Respiratory Effort Normal Non-Labored Blood Pressure 132/90 H 126/83 H Blood Pressure Mean 104 97 Pulse Ox 100 99 Oxygen Delivery Method Room Air 12/18/23 18:48 Temperature Temperature Source Pulse Rate Respiratory Rate Respiratory Effort Blood Pressure Blood Pressure Mean Pulse Ox Oxygen Delivery Method Room Air Heart Score History: Slightly/Non-Suspicious ECG: Normal Age: >45 - <65 years Risk Factors: >/= 3 Risk Factors or History of CAD Troponin: </= Normal Limit Score: 3 MDM MDM MDM Narrative Medical decision making narrative: Patient's CBC shows no acute process. Patient's electrolytes show no acute issue. Patient's troponin is negative despite pain since yesterday. My independent interpretation of the patient's chest x-ray shows no acute process and final reading is also. With the patient's low heart score, negative workup I think she is safe to go home. She now recalls that she did lift a heavy ice machine off of the counter yesterday and thinks she may have strained herself. Lab Data Attestation: I reviewed the patient's lab results. Labs: Laboratory Results - last 24 hr 12/18/23 18:20 WBC 6.8 RBC 4.09 L Hgb 12.0 Hct 37.1 MCV 90.7 MCH 29.3 MCHC 32.3 RDW Std Deviation 43.1 RDW Coeff of Oswaldo 13.2 Plt Count 273 MPV 9.3 Immature Gran % (Auto) 0.300 Neut % (Auto) 66.0 Lymph % (Auto) 23.1 [place] % (Auto) 7.9 Eos % (Auto) 2.1 Baso % (Auto) 0.6 Absolute Neuts (auto) 4.5 Absolute Lymphs (auto) 1.57 Nucleated RBC % 0 Sodium 139 Potassium 3.8 Chloride 106 Carbon Dioxide 30.0 Anion Gap 3 L BUN 6 L Creatinine 0.84 Estim Creat Clear Calc 100.45 Est GFR (MDRD) Af Amer 91 Est GFR (MDRD) Non-Af 75 BUN/Creatinine Ratio 7.1 L Glucose 99 Calcium 9.4 Troponin I High Sens 6 Radiography Diagnostic Testing: Clinical Impression(s) from Imaging Studies Chest X-Ray 12/18/23 18:40 IMPRESSION: No radiographic evidence of acute cardiopulmonary disease. Electronically Signed: Thomas Main MD at 18:51 EST , EKG Initial EKG: Comments: My independent interpretation of the patient's EKG shows a normal sinus rhythm with a rate of 67. No ventricular ectopy. No acute ST elevation or depression. Mild baseline artifact mostly in lead V6. FL interval, QRS duration and QTc are normal. Discharge Plan Triage Chief Complaint: Chest Pain ED Provider: Stephan Hull Dx/Rx/DC Orders Clinical Impression: Chest pain Instructions: ED Chest Pain, Uncertain Cause Prescriptions: No Action meclizine 25 mg tablet 25 mg PO TID PRN (Reason: dizziness) Qty: 90 0RF amlodipine 5 mg tablet 2.5 mg PO BID lisinopril 20 MG tablet 40 mg PO DAILY aspirin 81 mg Tablet,Chewable 81 mg PO BREAKFAST 30 Days Qty: 30 0RF atorvastatin 40 mg tablet 40 mg PO QHS Qty: 30 0RF atenolol 50 mg tablet 50 mg PO DAILY Qty: 30 11RF Primary Care Provider: Chhaya Nunez Referrals: Chhaya Nunez MD [Primary Care Provider] - 3-5 Days Disposition Disposition: Home, Self Care
[2023-12-18 18:28] LABS: Absolute Lymphocyte Count 1.57 X10^3/uL (0.83-4.51); Absolute Neutrophil Count 4.5 X10^3/uL (2.0-7.7); Basophil# 0.04 X10^3/uL; Basophil% 0.6 % (0-1); Eosinophil# 0.14 X10^3/uL; Eosinophils% 2.1 % (0-5); Hematocrit 37.1 % (37-47); Lymphocyte # 1.57 X10^3/ul (0.83-4.51); Lymphocyte % 23.1 % (19-41); Mean Corp Hgb Conc 32.3 g/dL (32-36); Mean Corpuscular Hgb 29.3 pg (27.0-32.0); Mean Corpuscular Volume 90.7 fL (81-99); Mean Platelet Vol. 9.3 fl (6.2-12.0); Monocyte# 0.54 X10^3/uL; Monocyte% 7.9 % (0-10); NRBC Flagged by Analyzer 0 % (0-5); Platelet Count 273 K/mm3 (150-450); RBC Distribution Width CV 13.2 % (11.6-14.6); RBC Distribution Width SD 43.1 fl (35.1-43.9); Red Blood Count 4.09 M/mm3 (4.2-5.4); White Blood Count 6.8 K/mm3 (4.4-11.0)
--- NOTE | 2023-12-18 18:40 | RAD_ITS ---
EXAM: XR CHEST, 1 VIEW CLINICAL INDICATION: chest pain TECHNIQUE: Frontal view of the chest. COMPARISON: 12/29/2021 FINDINGS: LUNGS AND PLEURAL SPACES: Unremarkable. No consolidation or edema. No pneumothorax. No effusion. HEART: Unremarkable. Cardiac silhouette not enlarged. MEDIASTINUM: Central airways and mediastinal contour are unremarkable. BONES/JOINTS: Unremarkable. No acute fracture. SOFT TISSUES: Unremarkable. RAD/Chest 1 View (Portable) IMPRESSION: No radiographic evidence of acute cardiopulmonary disease. Electronically Signed: Thomas Main MD at 18:51 EST ,
[2023-12-18 18:51] LABS: Anion Gap 3 (5-15); BUN 6 mg/dL (7-18); BUN/Creat Ratio 7.1 RATIO (10-20); Calcium,Total 9.4 mg/dL (8.5-10.1); Chloride 106 mmol/L (98-107); Creatinine, Serum 0.84 mg/dL (0.55-1.02); EST Glomerular Filtration Rate 75 mL/min (>60); Est Glom Filt Rate - Afr Amer 91 mL/min (>60); Estimated Creatinine Clearance 100.45 ml/min; Glucose 99 mg/dL (74-106); Potassium 3.8 mmol/L (3.5-5.1); Sodium Level 139 mmol/L (136-145); Troponin-I HS 6 pg/mL (3.0-54.0)
[2023-12-18 19:00] VITALS: BP 114/72; PULSE 84; RESP 16; O2SAT 99
[2023-12-18 19:24] VITALS: BP 114/72; PULSE 65; RESP 16; O2SAT 97
== END 2023-12-18 19:31 | disposition home or self-care (01) ==
PROVIDERS: Emergency Provider Emergency Medicine; PCP Family Medicine; Visit Provider Emergency Medicine
DX: R07.9 Chest pain, unspecified (principal); I10 Essential (primary) hypertension; Z79.82 Long term (current) use of aspirin; Z79.899 Other long term (current) drug therapy; Z86.73 Personal history of transient ischemic attack (TIA), and cerebral infarction without residual deficits
CPT/HCPCS: 71045; 80048; 84484; 85025; 93005; 99284; A4216

== ENCOUNTER → 2024-09-03 | Outpatient (CLI) | payer OTHER, SELFPAY ==
--- NOTE | 2024-09-03 10:22 | BI_ITS ---
MAMMOGRAPHY - BILATERAL SCREENING REASON FOR EXAM: Female, 53 years old. Routine annual screening examination. PERTINENT HISTORY: Grandmother with breast cancer. Left stereotactic breast biopsy. TECHNIQUE: Digital bilateral breast sury (3D mammographic acquisition) in the CC and MLO projections. 2-D mediolateral oblique (MLO) and craniocaudad (CC) views of both breasts were obtained. CAD: Full Field Digital Mammography with Computer Added Detection was performed. COMPARISON: Comparison is made with prior study dated July 11, 2022 and February 26, 2021. FINDINGS: Breast Composition: The breasts are almost entirely fatty. There are no dominant masses or suspicious calcifications. No other significant abnormalities are identified. There has been no significant change since the prior study. BI/SCRN MAMM (CAD)W/SURY BILAT IMPRESSION: Stable bilateral screening mammogram. Yearly follow-up mammogram recommended. (A) ASSESSMENT CATEGORY: BIRADS Category 1: Negative. A letter regarding these results will be sent to the patient by the facility within 30 days. Approximately 10% of breast cancers are not detected by mammography. A normal mammogram should not delay biopsy of a clinically suspicious abnormality. [id number] Electronically Signed: Obey Marie MD at 9:36 EDT ,
--- OUTSIDE RECORDS SUMMARY | 2024-09-03 10:40 | XMS RPT_ITS | CCD ---
Author Organization [facility] Care Team Providers Care Cma Or Lpn Name Role Phone Chhaya Nunez Primary Care Provider [phone] Chhaya Nunez Primary Care Provider Herman Hoang Unavailable Chhaya Nunez Primary Care Provider [phone] Herman Hoang Unavailable Chhaya Nunez Primary Care Provider Herman Hoang Unavailable Chhaya Nunez MD Primary Care Provider MALATHI SCHNEIDER Attending Unavailable MAYRA CHHAYA E Primary Care Unavailable MAYRA, CHHAYA E Primary Care Unavailable HERMAN PINEDA Referring Unavailable MAYRA CHHAYA Zeynep Primary Care Unavailable HERMAN PINEDA Referring Unavailable MALATHI SCHNEIDER Referring Unavailable MAYRA, CHHAYA Zeynep Primary Care Unavailable HERMAN PINEDA Referring Unavailable JUANYEDGUILLE, CHHAYA E Primary Care Unavailable MALATHI SCHNEIDER Referring Unavailable MIEDGUILLE, CHHAYA E Primary Care Unavailable MAYRA, CHHAYA E Primary Care Unavailable HERMAN PINEDA Referring Unavailable JUANYEDGUILLE, CHHAYA E Primary Care Unavailable MALATHI SCHNEIDER Referring Unavailable MALATHI SCHNEIDER Attending Unavailable MIEDGUILLE, CHHAYA E Primary Care Unavailable MALATHI SCHNEIDER Attending Unavailable MIEDGUILLE, CHHAYA E Primary Care Unavailable HERMAN PINEDA Referring Unavailable MAYRA, CHHAYA E Primary Care Unavailable HERMAN PINEDA Referring Unavailable JUANYEDGUILLE, CHHAYA E Primary Care Unavailable HERMAN PINEDA Referring Unavailable MIEDEL, CHHAYA E Primary Care Unavailable BRADLY VIDAL Attending Unavailable MIEDEL, CHHAYA E Primary Care Unavailable MIEDEL, CHHAYA E Primary Care Unavailable MASCI, HERMAN Hackett Referring Unavailable MASCI, HERMAN Hackett Referring Unavailable MASCI, HERMAN Hackett Attending Unavailable MIEDEL, CHHAYA E Primary Care Unavailable MASCI, HERMAN Hackett Referring Unavailable MIEDEL, CHHAYA E Primary Care Unavailable BRADLY VIDAL Referring Unavailable MIEDEL, CHHAYA E Primary Care Unavailable MIEDEL, CHHAYA E Primary Care Unavailable MASCI, HERMAN Hackett Referring Unavailable MIEDEL, CHHAYA E Primary Care Unavailable MASCI, HERMAN Hackett Referring Unavailable MASCI, HERMAN Hackett Referring Unavailable MIEDEL, CHHAYA E Primary Care Unavailable JENNIE, MALATHI Admitting Unavailable MALATHI SCHNEIDER Attending Unavailable MIEDEL, CHHAYA E Primary Care Unavailable MASCI, HERMAN Hackett Referring Unavailable MASCI, HERMAN Hackett Attending Unavailable MIEDEL, CHHAYA E Primary Care Unavailable BRADLY VIDAL Attending Unavailable MASCI, HERMAN Hackett Referring Unavailable MIEDEL, CHHAYA E Primary Care Unavailable MASCI, HERMAN Hackett Referring Unavailable MASCI, HERMAN Hackett Attending Unavailable MIEDEL, CHHAYA E Primary Care Unavailable MASCI, HERMAN Hackett Referring Unavailable MIEDEL, CHHAYA E Primary Care Unavailable MASCI, HERMAN Hackett Referring Unavailable MIEDEL, CHHAYA E Primary Care Unavailable MIEDEL, CHHAYA E Primary Care Unavailable MASCI, HERMAN Hackett Referring Unavailable JENNIE, MALATHI Referring Unavailable MIEDEL, CHHAYA E Primary Care Unavailable Allergies Allergy Classification Reported Allergen(s) Allergy Type Date of Onset Reaction(s) Facility (20 sources) [place]; Translations: [CODEINE] Drug Allergy 04-12-2009 Vomiting [facility] Medications Current Medications Medication Drug Class(es) Dates Sig (Normalized) Sig (Original) amoxicillin 500 mg oral capsule (1 source) Penicillin-class Antibacterial Start: 01-10-2023 End: 01-10-2023 amoxicillin (POLYMOX, AMOXIL) 500 mg capsule Take 4 capsules by mouth one time only for 1 dose. Take 30-60 min prior to dental, GI, or procedures. 4 capsule 3 01/10/2023 01/10/2023 Active Comment on above: Take 4 capsules by m outh one time only for 1 dose. Take 30-60 min prior to dental, GI, or procedures. doxycycline monohydrate 100 mg oral capsule (3 sources) Tetracycline-class Drug Start: 12-09-2022 End: 12-19-2022 take 1 capsule by mouth twice daily doxycycline monohydrate (MONODOX) 100 mg capsule Take 1 capsule by mouth twice daily for 10 days. 20 capsule 0 12/09/2022 12/19/2022 Active Comment on above: Take 1 capsule by [facility] twice daily for 10 days. perflutren lipid microspheres 1.3 mL in NaCl (PF) 0.9% 10 mL injection (DEFINITY) (20 sources) Start: 12-27-2022 End: 03-27-2024 perflutren lipid microspheres 1.3 mL in NaCl (PF) 0.9% 10 mL injection (DEFINITY) Start: 09-19-2022 End: 12-19-2023 perflutren lipid microsphere s 1.3 mL in NaCl (PF) 0.9% 10 mL injection (DEFINITY) 125 ml sodium chloride 9 mg/ ml prefilled syringe (20 sources) Start: 09-19-2022 End: 03-27-2024 sodium chloride 0.9 % (flush ) 10 mL (BD POSIFLUSH) Completed/Discontinued Medications Medication Drug Class(es) Dates Sig (Normalized) Sig (Original) acetaminophen 325 mg oral tablet (20 sources) take 2 tablets by mouth every six hours as needed acetaminophen (TYLENOL) 325 mg tablet Take 650 mg by mouth every 6 hours as needed. 0 Active Comment on above: Take 650 mg by mouth every 6 hours as needed. amLODIPine 5 mg oral tablet (20 sources) Dihydropyridine Calcium Channel Eun take 1 tablet by mouth once daily amLODIPine (NORVASC) 5 mg tablet Take 5 mg by mouth once daily. 0 Active Comment on above: Take 5 mg by mouth o nce daily. aspirin 81 mg delayed release oral tablet (20 sources) Platelet Aggregation Inhibitor, Nonsteroidal Anti-inflammatory Drug take 1 tablet by mouth once daily aspirin, enteric coated (ASPIRIN, ENTERIC COATED) 81 mg EC tablet Take 81 mg by mouth once daily. 0 Active Comment on above: Take 81 mg by mouth once daily. atenolol 50 mg oral tablet (20 sources) beta-Adrenergic Eun Start: 04-13-2023 take 1 tablet by mouth once daily atenolol (TENORMIN) 50 mg tablet Take 50 mg by mouth once daily. 0 04/13/2023 Active Start: 07-06-2021 End: 04-30-2023 take 1 tablet by mouth once daily atenolol (TENORMIN) 25 mg tablet Take 25 mg by mouth once daily. 0 07/06/2021 04/30/2023 Discontinued Comment on above: Take 25 mg by mouth once daily. Take 50 mg by mouth once daily. atorvastatin 40 mg oral tablet (20 sources) HMG-CoA Reductase Inhibitor atorvastatin (LIPITO R) 40 mg tablet Take 50 mg by mouth once daily. 0 Active take 1 tablet by mouth once wing y atorvastatin (LIPITOR) 40 mg tablet Take 40 mg by mouth once daily. 0 Active Comment on above: Take 40 mg by mouth once daily. Take 50 mg by mouth once daily. clopidogrel 75 mg oral tablet (13 sources) P2Y12 Platelet Inhibitor Start: 2 End: 3 take 1 tablet by mouth once daily clopidogrel (PLAVIX) 75 mg tablet Take 1 tablet by mouth once daily. 90 tablet 0 09/20/2022 01/10/2023 Discontinued (Course of therapy completed) Comment on above: Take 1 tablet by aiyana th once daily. lisinopril 40 mg oral tablet (20 sources) Angiotensin Converting Enzyme Inhibitor Start: 1 take 1 tablet by mouth once daily lisinopril (ZESTRIL, PRINIVIL) 40 mg tablet Take 40 mg by mouth once daily. 0 07/31/2021 Active Comment on above: Take 40 mg by mouth once daily. meclizine hydrochloride 25 mg oral tablet (20 sources) Antiemetic Start: 2 meclizine (ANTIVERT) 25 mg tab Take 25 mg by mouth as needed. 0 11/04/2022 Active Comment on above: Take 25 mg by mouth as needed. Problems Active Problems Problem Classification Problem Date Documented Date Episodic/Chronic Acute cerebrovascular disease (12 sources) Cerebral infarction, unspecified; Translations: [Cerebral artery occlusion, unspecified with cerebral infarction] Onset: 2 Chronic Cardiac and circulatory congenital anomalies (6 sources) Patent foramen ovale; Translations: [Atrial septal defect] Onset: 2 Chronic Cardiac and circulatory congenital anomalies (1 source) H/O cardiac surgery; Translations: [Personal history of (corrected) congenital malformations of heart and circulatory system] Episodic Coagulation and hemorrhagic disorders (2 sources) Hypercoagulability state; Translations: [Other primary thrombophilia] Onset: 3 Chronic Deficiency and other anemia (20 sources) Iron deficiency anemia due to blood loss; Translations: [Iron deficiency anemia secondary to blood loss (chronic)] Onset: 1 08-07-2021 Chronic Deficiency and other anemia (1 source) Iron deficiency anemia secondary to blood loss (chronic); Translations: [Iron deficiency anemia due to chronic blood loss] Onset: 1 Chronic Disorders of lipid metabolism (1 source) Hyperlipidemia, unspecified; Translations: [Hyperlipidemia, unspecified hyperlipidemia type] Onset: 2 Chronic Immunizations and screening for infectious disease (6 sources) Autoantibody level - finding; Translations: [Raised antibody titer] Onset: 2 Episodic Menstrual disorders (8 sources) Menorrhagia; Translations: [Excessive and frequent menstruation with regular cycle] Onset: 3 Chronic Other gastrointestinal disorders (20 sources) Malabsorption - iron; Translations: [Intestinal malabsorption, unspecified] Onset: 1 08-07-2021 Chronic Other gastrointestinal disorders (1 source) Intestinal malabsorption, unspecified; Translations: [Iron malabsorption] Onset: 1 Chronic Other nutritional; endocrine; and metabolic disorders (18 sources) Obese class I; Translations: [Obesity, unspecified] Onset: 3 12-05-2022 Chronic Other upper respiratory disease (20 sources) Allergic rhinitis; Translations: [Allergic rhinitis, unspecified] Onset: 9 05-24-2009 Chronic Unclassified (1 source) PFO (patent foramen ovale); Translations: [PFO (patent foramen ovale)] Onset: 3 Past or Other Problems Problem Classification Problem Date Documented Da te Episodic/Chronic Administrative/social admission (1 source) Persons encountering health services in other specified circumstances; Translations: [Encounter to establish care] Onset: 07-17-2022 Episodic Deficiency and other anemia (1 source) Iron deficiency anemia, unspecified; Translations: [Microcytic anemia] Onset: 11-27-2022 Episodic Residual codes; unclassified (20 sources) Family history of ischemic heart disease; Translations: [Family history of ischemic heart disease and other diseases of the circulatory system] Onset: 05-24-2009 05-24-2009 Episodic Results Test Name Value Interpretation Reference Range Facility [facility] 04-30-2023 CNOV Office Visit (OBGYWM ) CHERYLE METCALF ([id number]) 1970 F Date Time Provider Department 04/30/23 10:50 AM BRADLY VIDAL OBGYWM During your visit today, we recorded the following information about you: Blood pressure Weight 114/76 100.7 kg Bradly Vidal MD 04/30/2023 12:13 PM Signed Cheryle Metcalf is a 52 year old female who presents for problem visit for f/u AUB . HPI: 52-year-old female who is completed childbearing presents for follow-up abnormal uterine bleeding. Has been still having heavy. For 5 to 10 days every month since I last saw her. She was on blood thinners for stroke after having COVID, she is no longer on this. However her bleeding continues to be heavy and regular. She notes she has had increased hot flashes over the past few months. She has not skipped any menses in the last 6 months. She has not started any new medications or supplements. 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 Comments: Sexual Activity: Yes; No partner data on record Contraception: Condom PAST MEDICAL HISTORY Diagnosis Date Chronic cholecystitis Dyslipidemia 12/2021 Essential hypertension 2020 Iron deficiency anemia Rheumatic fever as a teen Rheumatic fever without mention of heart involvement Rhinitis Stroke (HCC) PAST SURGICAL HISTORY Procedure Laterality Date LAPS SURG CHOLECYSTECTOMY W/CHOLANGIOGRAPHY 02/09/10 PAST SURGICAL HISTORY OF benign breast lump removed left breast PAST SURGICAL HISTORY OF rigth ankle STEREOTACTIC CORE BIOPSY 05/04/09 LEFT FAMILY HISTORY Problem Relation Age of Onset Coronary Artery Disease Mother Thyroid Mother other (MVP [Other]) Mother Autoimmune disease Mother Diabetes Father other (Myocardial infarciton) Father 49 Hypertension Father Diabetes Sister Autoimmune disease Sister other (high cholesterol) Sister Thyroid Brother Breast Cancer Paternal Grandmother other (brain aneurysm) Paternal Grandfather 39 Social History Tobacco Use Smoking status: Never Smokeless tobacco: Never Vaping Use Vaping Use: Never used Substance Use Topics Alcohol use: No Drug use: No Current Outpatient Medications Medication Sig meclizine (ANTIVERT) 25 mg tab Take 25 mg by mouth as needed. aspirin, enteric coated (ASPIRIN, ENTERIC COATED) 81 mg EC tablet Take 81 mg by mouth once daily. atorvastatin (LIPITOR) 40 mg tablet Take 50 mg by mouth once daily. amLODIPine (NORVASC) 5 mg tablet Take 5 mg by mouth once daily. acetaminophen (TYLENOL) 325 mg tablet Take 650 mg by mouth every 6 hours as needed. atenolol (TENORMIN) 25 mg tablet Take 25 mg by mouth once daily. lisinopril (ZESTRIL, PRINIVIL) 40 mg tablet Take 40 mg by mouth once daily. Current Facility-Administered Medications Medication Dose Route Frequency perflutren lipid microspheres 1.3 mL in NaCl (PF) 0.9% 10 mL injection (DEFINITY) INTRAVENOUS DIRECTED PRN perflutren lipid microspheres 1.3 mL in NaCl (PF) 0.9% 10 mL injection (DEFINITY) INTRAVENOUS DIRECTED PRN sodium chloride 0.9 % (flush) 10 mL (BD POSIFLUSH) 10 mL INTRAVENOUS DIRECTED PRN Allergies As of Date: 04/30/2023 Allergen Noted Reaction CODEINE 04/12/2009 Vomiting Fully Assessed 03/04/2023 Allergies and current medication updated:Yes EXAM: LMP 12/18/2022 GENERAL: pleasant, female in no apparent distress ASSESSMENT AND PLAN: 52-year-old female with menorrhagia. Endometrial biopsy was reviewed and was benign. Pelvic ultrasound reviewed no focal abnormalities. Grossly normal uterus. Pap up-to-date done at primary care office. Risk benefits and alternatives of various options were discussed with the patient. She is not a good combined hormonal contraceptive candidate due to her history of stroke. This eliminates the use of Lysteda as well. Discussed with her most reasonable neck steps would be Mirena IUD or endometrial ablation. After discussion today, patient would like to proceed with an office IUD insertion. Bradly Vidal MD Medical Decision Making: Problems: Low: Stable chronic illness Data: Unique test result(s) reviewed: 2 Risk: Moderate: Drug management Medical Decision Making Level: 3 - Low Allergies As of Date: 04/30/2023 Noted Allergy Reaction CODEINE 04/12/2009 11 - Vomiting Comments: dizziness Date Reviewed: 04/30/2023 Reviewed by: Bradly Vidal MD - Fully Assessed Reason for Visit: Discussion [813] Cmt: Ultrasound results and options Primary Visit Diagnosis:Menorrhagia with regular cycle [N92.0] Order(s):INSERT INTRAUTERINE DEVICE [[id number]] Order #: [id number] Prescriptions as of 04/30/2023 - atenolol (more content not included)... Normal [facility] No Panel Informationon 04-10 [facility] FEMALE PELVIS TRANSABD LT Don 04-10-2023 FEMALE PELVIS TRANSABD LTD * * *Final Report* * * DATE OF EXAM: Apr 10 2023 9:40AM WRU 1059 - US FEMALE PELVIS TRANSABD LTD / PROCEDURE REASON: Menorrhagia with regular cycle * * * * Physician Interpretation * * * * EXAMINATION: TRANSVAGINAL AND LIMITED TRANSABDOMINAL PELVIC ULTRASOUND CLINICAL HISTORY: Menorrhagia with regular cycle TECHNIQUE: Sonography of the pelvis was performed by transvaginal and transabdominal (limited) techniques. Images were obtained and stored in a permanent archive. MQ: UFP_1 COMPARISON: None RESULT: Uterus size: 10.0 x 5.7 x 6.5 cm -Orientation: Anteverted -Myometrium: Normal sonographic appearance. -Endometrial echo complex: The endometrial stripe is indistinct. It probably measures approximately 10 mm -Cervix: Subcentimeter nabothian cysts Right ovary: 2.7 x 2.1 x 2.8 cm Unremarkable sonographic appearance. Left ovary is not identified Pelvis free fluid: None. IMPRESSION: Indistinct endometrial stripe probably about 10 mm in thickness. Nonvisualization of the LEFT ovary. Film Cleaner: CHARLY Transcribe Date/Time: Apr 11 2023 12:10P Dictated by : DEIRDRE SHAVER MD This examination was interpreted and the report reviewed and electronically signed by: DEIRDRE SHAVER MD on Apr 11 2023 12:19PM EST [id number] Normal [facility] US FEMALE PELVIS TRANSVAGon 04-10-2023 US FEMALE PELVIS TRANSVAG * * *Final Report* * * DATE OF EXAM: Apr 10 2023 9:40AM WRU 1060 - US FEMALE PELVIS TRANSVAG / PROCEDURE REASON: Menorrhagia with regular cycle * * * * Physician Interpretation * * * * EXAMINATION: TRANSVAGINAL AND LIMITED TRANSABDOMINAL PELVIC ULTRASOUND CLINICAL HISTORY: Menorrhagia with regular cycle TECHNIQUE: Sonography of the pelvis was performed by transvaginal and transabdominal (limited) techniques. Images were obtained and stored in a permanent archive. MQ: UFP_1 COMPARISON: None RESULT: Uterus size: 10.0 x 5.7 x 6.5 cm -Orientation: Anteverted -Myometrium: Normal sonographic appearance. -Endometrial echo complex: The endometrial stripe is indistinct. It probably measures approximately 10 mm -Cervix: Subcentimeter nabothian cysts Right ovary: 2.7 x 2.1 x 2.8 cm Unremarkable sonographic appearance. Left ovary is not identified Pelvis free fluid: None. IMPRESSION: Indistinct endometrial stripe probably about 10 mm in thickness. Nonvisualization of the LEFT ovary. Film Cleaner: CHARLY Transcribe Date/Time: Apr 11 2023 12:10P Dictated by : DEIRDRE SHAVER MD This examination was interpreted and the report reviewed and electronically signed by: DEIRDRE SHAVER MD on Apr 11 2023 12:19PM EST [id number] Normal [facility] CNPSera 03-08-2023 CNPN Telephone (RIGOBERTO) CHERYLE METCALF ([id number]) 1970 F Date Time Provider Department 03/08/23 HERMAN PINEDA During your visit today, we recorded the following information about you: Herman PinedaDO 03/08/2023 9:36 AM Signed Can let her know the lab testing for anticardiolipin antibody remains stable and there is no sign of lupus anticoagulant. I would like her to have a CBC/iron studies/lupus anticoagulant panel followed by an office visit about a week later in about 3 months. DO Teri Pedrazaalpesh Pss 03/10/2023 9:10 AM Signed 1st attempt. Message left for patient to contact office for message below. Lab and OV scheduled in May as requested. Please inform patient of appointments and adjust them if needed by patient. Teri Clinton Pss 03/10/2023 9:15 AM Signed Patient returned call and received message below. Patient confirmed scheduled appointments. Allergies As of Date: 03/08/2023 Noted Allergy Reaction CODEINE 04/12/2009 11 - Vomiting Comments: dizziness Date Reviewed: 03/04/2023 Reviewed by: Jeffrey Stone Ma - Fully Assessed Reason for Visit: Results [95] Prescriptions as of 03/10/2023 - meclizine (ANTIVERT) 25 mg tab Take 25 mg by mouth as needed. - aspirin, enteric coated (ASPIRIN, ENTERIC COATED) 81 mg EC tablet Take 81 mg by mouth once daily. - atorvastatin (LIPITOR) 40 mg tablet Take 50 mg by mouth once daily. - amLODIPine (NORVASC) 5 mg tablet Take 5 mg by mouth once daily. - acetaminophen (TYLENOL) 325 mg tablet Take 650 mg by mouth every 6 hours as needed. - atenolol (TENORMIN) 25 mg tablet Take 25 mg by mouth once daily. - lisinopril (ZESTRIL, PRINIVIL) 40 mg tablet Take 40 mg by mouth once daily. Facility-Administered Medications as of 03/10/2023 - perflutren lipid microspheres 1.3 mL in NaCl (PF) 0.9% 10 mL injection (DEFINITY) - perflutren lipid microspheres 1.3 mL in NaCl (PF) 0.9% 10 mL injection (DEFINITY) - sodium chloride 0.9 % (flush) 10 mL (BD POSIFLUSH) Meds Comments as of 04/12/2009: No current medications/reviewed April 12, 2009/Shanta Govea Lpn Problem List As Of Date 03/08/2023 Noted Resolved ALLERGIC RHINITIS NOS [J30.9] 05/24/2009 FAMILY HX ISCHEM HEART DIS [Z82.49] 05/24/2009 Iron deficiency anemia due to chronic blood los*08/07/2021 Iron malabsorption [K90.9] 08/07/2021 Obesity, Class I, BMI 30-34.9 [E66.9] 12/05/2022 Encounter Status:Closed by AILYN PIKE on 03/10/23 Normal [facility] BETA 2 GLYCOPROTEIN, IGGon 0 03-04-2023 Beta 2 glycoprotein 1 IgG IA Qn <9 Normal <20 [facility] Comment on above: Order Comment: Cristina del real Type: BLOOD SPECIMENOrdering Facility: [facility] Address: [address] [place] [address] Result Comment: <20 SGU Negative 20-80 SGU Low Positive >80 SGU High Positive These results were obtained with the [employer] QUANTA Lite B2 GPI IgG KAMILLA. B2 GPI IgG values obtained with different manufacturers' assay methods may not be used interchangeably. The magnitude of the reported IgG levels cannot be correlated to an endpoint titer. Performed By: #### B MICHELLE PIZARRO CARDI, 5076-5, BETA2G ####[facility] LABCLIA [id number] [address] [facility] BETA 2 GLYCOPROTEIN, IGMon 0 03-04-2023 Beta 2 glycoprotein 1 IgM IA Qn <9 Normal <20 [facility] Comment on above: Order Comment: Cristina del real Type: BLOOD SPECIMENOrdering Facility: [facility] Address: [address] [place] [address] Result Comment: <20 SMU Negative 20-80 SMU Low Positive >80 SMU High positive These results were obtained with the [employer] QUANTA Lite B2 GPI IgM KAMILLA. B2 GPI IgM values obtained with different manufacturers' assay methods may not be used interchangeably. The magnitude of the reported IgM levels cannot be correlated to an endpoint titer. Performed By: #### B MICHELLE PIZARRO CARDIM, 5076-5, BETA2G ####[facility] LABCLIA [id number] [address] CARDIOLIPIN IGG ABSon 2022 Cardiolipin IgG IA Qn (S) <9.0 Normal <15.0 [facility] Comment on above: Order Comment: Cristina gt Type: BLOOD SPECIMENOrdering Facility: [facility] Address: [address] [place] [address] Result Comment: <15 GPL Negative 15-20 GPL Indeterminate >20 GPL Positive The following results were obtained with the [employer] QUANTA Lite JOHNATHON IgG III KAMILLA. Cardiolipin IgG values obtained with the different manufacturers' assay methods may not be used interchangeably. The magnitude of the reported IgG levels cannot be correlated to an endpoint titer. Performed By: #### B MICHELLE PIZARRO CARDIM, 5076-5, BETA2G ####[facility] LABIA [id number] [address] CARDIOLIPIN IGM ABSon 2022 Cardiolipin IgM IA Qn (S) 19.0 MPL High <12.5 [facility] Comment on above: Order Comment: Laurai gt Type: BLOOD SPECIMENOrdering Facility: [facility] Address: [address] [place] [address] Result Comment: <12. 5 MPL Negative 12.5-20 MPL Indeterminate >20 MPL Positive The following results were obtained with the [employer] QUANTA Lite JOHNATHON IgM III KAMILLA. Cardiolipin IgM values obtained with the different manufacturers' assay methods may not be used interchangeably. The magnitude of the reported IgM levels cannot be correlated to an endpoint titer. ??? Performed By: #### B MICHELLE PIZARRO CARDIM, 5076-5, BETA2G ####[facility] LABIA [id number] [address] CNOVSPon 03-04-2023 CNOVSP Visit (SP) Office (HEMSHAILESH) DIXONCHERYLE Gildardo ([id number]) 1970 F Date Time Provider Department 03/04/23 9:30 AM HERMAN PINEDA During your visit today, we recorded the following information about you: Temperature Pulse Blood pressure Weight 98 degrees 59/minute 121/76 102.1 kg Herman Pineda DO 03/04/2023 9:50 AM Signed Hematologic problem(s): 1) MAYA. 2) Possible antiphospholipid antibody syndrome. HPI: The patient is a 52-year-old female with a past medical history significant for rheumatic fever as a teenager, hypertension, left breast lumpectomy (benign) and iron deficiency anemia. Recent CBC on 08/01/2021 revealed a total white count of 3600. Differential showed a small increase in basophils at 1.4%. ANC was 1900. The hemoglobin was 8.6 g/dL. MCV was 73.9 fL and the platelet count was 261,000. Anisocytosis was noted on the peripheral smear. Serum iron was 25 mcg/dL. TIBC was 380. Ferritin was 4 ng/mL. In May 2021 the white count was 5100. Hemoglobin was 9.0 g/dL with an MCV of 68.9 and a platelet count of 311,000. In January 2021 the hemoglobin was 8.5 g/dL with an MCV of 66.7 fL and a platelet count of 307,000. Was fatigued a lot. No GRAVES. Occasional palpitation. Had tried oral iron on several occasions. Caused severe nausea. Received one dose parenteral iron at [facility] about mid June. Formulation unknown. Regular menses. Often heavy with passing of clots. Had colonoscopy by Dr. Cruz summer 2021. Had one polyp removed. Was told not a pre-cancerous polyp. Normal appetite. No dysphagia. +GERD. Takes Tums or Mylanta prn. No PPI use. No nausea. No bloody or black stools. Not vegetarian. She received 9 doses of iron sucrose for iron deficiency anemia secondary to heavy menses. She had prior colonoscopy. Had Covid in November 2021. Wasn't formally tested, but and two sons tested positive. was asymptomatic. Symptoms for patient consisted of MORENO, body aches, cough, fever, loss of taste and smell. Didn't require hospitalization. Symptoms of fatigue and MORENO lingered about 4-6 weeks. Cough lasted about 4 weeks. She presented to the ED at [facility] the evening of 12/29/2021 after experiencing the onset of left eye scintillations followed by right arm numbness and dense weakness. She also developed aphasia. Symptoms occurred while she was watching TV. Evidently the arm numbness and weakness resolved within a few minutes but speech difficulty lasted about an hour and then resolved. She was reported to have some cognitive slowing that lasted about [address] on presentation demonstrated a normal unenhanced CT scan of the brain. 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 The more distal portions of the arteries were supplied via the patent bilateral posterior communicating arteries. Otherwise the [place] was observed to be normal. There were normal bilateral carotid and vertebral arteries observed. Blood pressure on presentation was 192/106. 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 She was started on ASA and Plavix. Hypercoagulation panel was ordered. Anticardiolipin IgM antibody titer 17 (intermediate).. Anticardiolipin IgG less than 9. Antibodies to beta-2 glycoprotein including IgG, IgA and IgM normal. Antithrombin activity normal. Antithrombin level normal. Protein C antigen and functional activity normal. No factor V Leiden mutation. Prothrombin mutation not detected. Lupus anticoagulant activity was not detected. This was evidenced by a normal dilute PT, confirmation ratio, thrombin time, DRVVT. Patient also had bilateral lower extremity duplex ultrasound which revealed no evidence for acute DVT in the bilateral lower extremities. Echocardiogram revealed normal left ventricular systolic function with estimated ejection fraction 65%. There was trivial mitral valve and trivial tricuspid valve insufficiency along with trivial pulmonic valve insufficiency. RV systolic pressure was not able to be estimated. Agitated saline contrast study consider positive for right to left interatrial shunt potentially compatible with small PFO versus ASD. Subsequent transesophageal echocardiogram on 05/07/2022 showed no spontaneous contrast in the left atrium. No thrombus was detected in the left atrial appendage. There was 1+ mitral valve insufficiency. Mild tricuspid valve insufficiency trivial aortic valve insufficiency. There was positive agitated saline contrast study for tdltm-fo-qlzq interarterial shunt compatible with very small patent foramen ovale. Normal-appearing thoracic aorta. Patient had not had r (more content not included)... Normal [facility] Cardiolipin IgA Ser IA-aCnco n 03-04-2023 Cardiolipin IgA IA Qn (S) <9.0 Normal <12.0 [facility] Comment on above: Order Comment: Speci men Type: BLOOD SPECIMENOrdering Facility: [facility] Address: [address] [place] [address] Result Comment: <12 APL Negative 12-20 APL Indeterminate >20 APL Positive The following results were obtained with the AmperionA Lite JOHNATHON IgA III KAMILLA. Cardiolipin IgA values obtained with the different manufacturers' assay methods may not be used interchangeably. The magnitude of the reported IgA levels cannot be correlated to an endpoint titer. Performed By: #### B ETA2M, MICHELLE, CARDI, 5076-5, BETA2G ####[facility] LABCLIA [id number] [place] [address] [place] LUPUS PANELon 03-04-2023 aPTT Coag (Bld) [Time] 34.8 s Normal 24.0-35.1 [facility] Comment on above: Order Comment: Cristina del real Type: BLOOD SPECIMENOrdering Facility: [facility] Address: [address] [place] [address] Performed By: #### L UPPL ####[facility] LABCLIA [id number] [place] [address] [place] aPTT W excess hexagonal phase phospholipid Coag (PPP) [Time] 48.7 seconds Normal 34.0-51.8 [facility] Comment on above: Order Comment: Cristina del real Type: BLOOD SPECIMENOrdering Facility: [facility] Address: [address] [place] [address] Performed By: #### L UPPL ####[facility]ENTER[facility] [id number] [place] [address] [place] Delta dRVVT Coag (PPP) [Time diff] 1.9 delta seconds Normal <7.1 [facility] Comment on above: Order Comment: Speci men Type: BLOOD SPECIMENOrdering Facility: [facility] Address: [address] [place] [address] Performed By: #### L UPPL ####[facility] [id number] [place] [address] [place] dRVVT Coag (PPP) [Time] 34.1 s Normal 32.0-45.7 [facility] Comment on above: Order Comment: Speci men Type: BLOOD SPECIMENOrdering Facility: [facility] Address: [address] [place] [address] Performed By: #### L UPPL ####[facility] [id number] [place] [address] [place] dRVVT factor substitution immediately after 1:2 addition of normal plasma Coag (PPP) [Time] 35.6 seconds Normal 32.0-45.7 [facility] Comment on above: Order Comment: Speci men Type: BLOOD SPECIMENOrdering Facility: [facility] Address: [address] [place] [address] Performed By: #### L UPPL ####[facility] [id number] [address] [place] dRVVT W excess hexagonal phase phospholipid actual/normal Coag (PPP) [Relative time] 46.8 seconds Normal 34.2-47.9 [facility] Comment on above: Order Comment: Speci men Type: BLOOD SPECIMENOrdering Facility: [facility] Address: [address] [place], [place] [id number] Performed By: #### L UPPL ####[facility] [id number] [address] [place] dRVVT/dRVVT.excess phospholipid Coag (PPP) [Ratio] 1.01 Normal <1.32 [facility] Comment on above: Order Comment: Laurai gt Type: BLOOD SPECIMENOrdering Facility: [facility] Address: [address] [place] [address] Performed By: #### L UPPL ####[facility] LABIA [id number] [address] Lupus anticoagulant neutralization platelet Coag Ql (PPP) Negative Normal Negative [facility] Comment on above: Order Comment: Laurai gt Type: BLOOD SPECIMENOrdering Facility: [facility] Address: [address] [place] [address] Performed By: #### L UPPL ####[facility] LABRUT[facility] [id number] [address] Thrombin time Coag (PPP) [Time] <16.8 Normal <18.6 [facility] Comment on above: Order Comment: Laurai gt Type: BLOOD SPECIMENOrdering Facility: [facility] Address: [address] [place] [address] Performed By: #### L UPPL ####[facility] [id number] [address] PT panel Coag (PPP)on 2022 INR Coag (PPP) [Relative time] 0.9 {INR} Normal 0.9-1.3 [facility] Comment on above: Order Comment: Speci men Type: BLOOD SPECIMENOrdering Facility: [facility] Address: [address] [place] [address] Result Comment: Amanda min K Antagonist (VKA) Therapeutic Range: INR 2 to 3 (Target INR of 2.5) Note: For patients treated with VKA drugs, such as warfarin, the [place] [employer] 2012 Guideline recommends a therapeutic INR range of 2 to 3 (target INR of 2.5). This recommendation includes high-risk patients with antiphospholipid syndrome with previous arterial or venous thromboembolism, current-generation mechanical or bioprosthetic aortic heart valve replacement. Note: Patients with mechanical aortic valve replacement and additional risk factors for thromboembolic events (atrial fibrillation, previous thromboembolism, LV dysfunction, hypercoagulable conditions) or an older generation mechanical AVR (i.e., ball in-Cage) or any mechanical MVR should have a INR therapeutic range of 2.5 to 3.5 (target INR of 3). Archana GH, et al. Chest 2012, 141:7S-47S Dago RA, et al. [facility] 2017, 70: 252-289 Performed By: #### 3 4528-0, 05500-0 ####[facility] CENTERLIA [id number] [place] [address] [place] PT Coag (PPP) [Time] 9.3 s Normal <13.1 [facility] Comment on above: Order Comment: Speci men Type: BLOOD SPECIMENOrdering Facility: [facility] Address: [address] [place] [address] Performed By: #### 3 4528-0, 84705-0 ####[facility]ICNCLIA [id number] [address] [place] aPTT PPPon 03-04-2023 aPTT Coag (PPP) [Time] 27.4 s Normal 23.0-32.4 [facility] Comment on above: Order Comment: Speci men Type: BLOOD SPECIMENOrdering Facility: [facility] Address: [address] [place] [address] Performed By: #### 3 4528-0, 93859-1 ####[facility]ENTERLIA [id number] [place] [address] [place] CBC W Auto Differential pane l (Bld)on 02-28-2023 Basophils (Bld) [#/Vol] 0.05 10*3/uL Normal <0.11 [facility] Comment on above: Order Comment: Speci men Type: BLOOD SPECIMENOrdering Facility: [facility] Address: [address] [address] Performed By: #### 1 4196-0, 98638-6 ####[facility] NATALIEKARENLew [id number] [place] [address] [place] Basophils/100 WBC (Bld) 0.8 % Normal [facility] Comment on above: Order Comment: Speci men Type: BLOOD SPECIMENOrdering Facility: [facility] Address: [address] [place] [address] Performed By: #### 1 4196-0, 40052-1 ####[facility] CLINICJADENLew [id number] [place] [address] [place] Differential cell count method Nom (Bld) Auto Normal [facility] Comment on above: Order Comment: Speci men Type: BLOOD SPECIMENOrdering Facility: [facility] Address: [address] [place] [address] Performed By: #### 1 4196-0, 51385-0 ####[facility] CLINICKEKE [id number] [place] [address] [place] Eosinophils (Bld) [#/Vol] 0.14 10*3/uL Normal <0.46 [facility] Comment on above: Order Comment: Speci men Type: BLOOD SPECIMENOrdering Facility: [facility] Address: [address] [place] [address] Performed By: #### 1 4196-0, 93274-6 ####[facility] CENTERLIA [id number] [place] [address] [place] Eosinophils/100 WBC (Bld) 2.2 % Normal [facility] Comment on above: Order Comment: Speci men Type: BLOOD SPECIMENOrdering Facility: [facility] Address: [address] [place] [address] Performed By: #### 1 4196-0, 96731-0 ####[facility] CL[facility]ICNCLIA [id number] [place] [address] [place] Erythrocyte distribution width (RBC) [Ratio] 19.0 % High 11.5-15.0 [facility] Comment on above: Order Comment: Speci men Type: BLOOD SPECIMENOrdering Facility: [facility] Address: [address] [place] [address] Performed By: #### 1 4196-0, 61049-1 ####[facility] CENTERLIA [id number] [place] [address] [place] Hematocrit (Bld) [Volume fraction] 37.9 % Normal 36.0-46.0 [facility] Comment on above: Order Comment: Speci men Type: BLOOD SPECIMENOrdering Facility: [facility] Address: [address] [place] [address] Performed By: #### 1 4196-0, 18295-6 ####[facility]ICNCLIA [id number] [place] [address] [place] Hemoglobin (Bld) [Mass/Vol] 12.4 g/dL Normal 11.5-15.5 [facility] Comment on above: Order Comment: Speci men Type: BLOOD SPECIMENOrdering Facility: [facility] Address: [address] [place] [address] Performed By: #### 1 4196-0, 63398-7 ####[facility]ENTERLIA [id number] [place] [address] [place] Immature granulocytes (Bld) [#/Vol] 10*3/uL Normal <0.10 [facility] Comment on above: Order Comment: Speci men Type: BLOOD SPECIMENOrdering Facility: [facility] Address: [address] [place] [address] Performed By: #### 1 4196-0, 67214-9 ####[facility] PLACIDWNCLIA [id number] [place] [address] [place] Immature granulocytes/100 WBC (Bld) 0.3 % Normal [facility] Comment on above: Order Comment: Speci men Type: BLOOD SPECIMENOrdering Facility: [facility] Address: [address] [place] [address] Performed By: #### 1 4196-0, 34395-3 ####[facility] CENTERLIA [id number] [place] [address] [place] Lymphocytes (Bld) [#/Vol] 1.47 10*3/uL Normal 1.00-4.00 [facility] Comment on above: Order Comment: Speci men Type: BLOOD SPECIMENOrdering Facility: [facility] Address: [address] [place] [address] Performed By: #### 1 4196-0, 34112-4 ####[facility] [id number] [place] [address] [place] Lymphocytes/100 WBC (Bld) 22.9 % Normal [facility] Comment on above: Order Comment: Speci men Type: BLOOD SPECIMENOrdering Facility: [facility] Address: [address] [place] [address] Performed By: #### 1 4196-0, 85744-2 ####[facility] CENTERLIA [id number] [place] [address] [place] MCH (RBC) [Entitic mass] 27.9 pg Normal 26.0-34.0 [facility] Comment on above: Order Comment: Speci men Type: BLOOD SPECIMENOrdering Facility: [facility] Address: [address] [place] [address] Performed By: #### 1 4196-0, 56831-4 ####[facility] CENTERLIA [id number] [place] [address] [place] MCHC (RBC) [Mass/Vol] 32.7 g/dL Normal 30.5-36.0 [facility] Comment on above: Order Comment: Speci men Type: BLOOD SPECIMENOrdering Facility: [facility] Address: [address] [place] [address] Performed By: #### 1 4196-0, 85306-1 ####[facility] CENTERDAE [id number] [place] [address] [place] MCV (RBC) [Entitic vol] 85.4 fL Normal 80.0-100.0 [facility] Comment on above: Order Comment: Speci men Type: BLOOD SPECIMENOrdering Facility: [facility] Address: [address] [place] [address] Performed By: #### 1 4196-0, 41695-7 ####[facility] [id number] [place] [address] [place] Monocytes (Bld) [#/Vol] 0.51 10*3/uL Normal <0.87 [facility] Comment on above: Order Comment: Speci men Type: BLOOD SPECIMENOrdering Facility: [facility] Address: [address] [place] [address] Performed By: #### 1 4196-0, 47451-6 ####[facility] HOSPITALLew [id number] [place] [address] [place] Monocytes/100 WBC (Bld) 8.0 % Normal [facility] Comment on above: Order Comment: Speci men Type: BLOOD SPECIMENOrdering Facility: [facility] Address: [address] [place] [address] Performed By: #### 1 4196-0, 48665-3 ####[facility] CENTERLI [id number] [place] [address] [place] Neutrophils (Bld) [#/Vol] 4.22 10*3/uL Normal 1.45-7.50 [facility] Comment on above: Order Comment: Speci men Type: BLOOD SPECIMENOrdering Facility: [facility] Address: [address] [place] [address] Performed By: #### 1 4196-0, 60034-0 ####[facility] CLINICKEKE [id number] [place] [address] [place] Neutrophils/100 WBC (Bld) 65.8 % Normal [facility] Comment on above: Order Comment: Speci men Type: BLOOD SPECIMENOrdering Facility: [facility] Address: [address] [place] [address] Performed By: #### 1 4196-0, 87538-5 ####[facility] CLINICKEKE [id number] [place] [address] [place] Nucleated RBC (Bld) [#/Vol] 10*3/uL Normal <0.01 [facility] Comment on above: Order Comment: Speci men Type: BLOOD SPECIMENOrdering Facility: [facility] Address: [address] [place] [address] Performed By: #### 1 4196-0, 18039-0 ####[facility] CENTERDAE [id number] [place] [address] [place] Nucleated RBC/100 WBC (Bld) [Ratio] 0.0 /100 WBC Normal [facility] Comment on above: Order Comment: Speci men Type: BLOOD SPECIMENOrdering Facility: [facility] Address: [address] [place] [address] Performed By: #### 1 4196-0, 81872-5 ####[facility] CLINICJADENLIA [id number] [place] [address] [place] Platelet mean volume (Bld) [Entitic vol] 9.0 fL Normal 9.0-12.7 [facility] Comment on above: Order Comment: Speci men Type: BLOOD SPECIMENOrdering Facility: [facility] Address: [address] [address] Performed By: #### 1 4196-0, 53379-0 ####[facility] CLINICNCJIMMYA [id number] [place] [address] [place] Platelets (Bld) [#/Vol] 259 10*3/uL Normal 150-400 [facility] Comment on above: Order Comment: Speci men Type: BLOOD SPECIMENOrdering Facility: [facility] Address: [address] [place] [address] Performed By: #### 1 4196-0, 21289-1 ####[facility] CLINICNCA [id number] [place] [address] [place] RBC (Bld) [#/Vol] 4.44 10*6/uL Normal 3.90-5.20 [facility] Comment on above: Order Comment: Speci men Type: BLOOD SPECIMENOrdering Facility: [facility] Address: [address] [place] [address] Performed By: #### 1 4196-0, 44425-3 ####[facility] CLINICNCLIA [id number] [place] [address] [place] WBC (Bld) [#/Vol] 6.41 10*3/uL Normal 3.70-11.00 [facility] Comment on above: Order Comment: Speci men Type: BLOOD SPECIMENOrdering Facility: [facility] Address: [address] [place] [address] Performed By: #### 1 4196-0, 18225-4 ####[facility] CL[facility]ICNCLIA [id number] [place] [address] [place] Basophils (Bld) [#/Vol] 0.05 10*3/uL <0.11 k/uL [facility] Basophils/100 WBC (Bld) 0.8 % [facility] Differential cell count method Nom (Bld) Auto [facility] Eosinophils (Bld) [#/Vol] 0.14 10*3/uL <0.46 k/uL [facility] Eosinophils/100 WBC (Bld) 2.2 % [facility] Erythrocyte distribution width (RBC) [Ratio] 19.0 % High 11.5 - 15.0 % [facility] Hematocrit (Bld) [Volume fraction] 37.9 % 36.0 - 46.0 % [facility] Hemoglobin (Bld) [Mass/Vol] 12.4 g/dL 11.5 - 15.5 g/dL [facility] Immature granulocytes (Bld) [#/Vol] <0.10 k/uL [facility] Immature granulocytes/100 WBC (Bld) 0.3 % [facility] Lymphocytes (Bld) [#/Vol] 1.47 10*3/uL 1.00 - 4.00 k/uL [facility] Lymphocytes/100 WBC (Bld) 22.9 % [facility] MCH (RBC) [Entitic mass] 27.9 pg 26.0 - 34.0 pg [facility] MCHC (RBC) [Mass/Vol] 32.7 g/dL 30.5 - 36.0 g/dL [facility] MCV (RBC) [Entitic vol] 85.4 fL 80.0 - 100.0 fL [facility] Monocytes (Bld) [#/Vol] 0.51 10*3/uL <0.87 k/uL [facility] Monocytes/100 WBC (Bld) 8.0 % [facility] Neutrophils (Bld) [#/Vol] 4.22 10*3/uL 1.45 - 7.50 k/uL [facility] Neutrophils/100 WBC (Bld) 65.8 % [facility] Nucleated RBC (Bld) [#/Vol] <0.01 k/uL [facility] Nucleated RBC/100 WBC (Bld) [Ratio] 0.0 /100 WBC [facility] Platelet mean volume (Bld) [Entitic vol] 9.0 fL 9.0 - 12.7 fL [facility] Platelets (Bld) [#/Vol] 259 10*3/uL 150 - 400 k/uL [facility] RBC (Bld) [#/Vol] 4.44 10*6/uL 3.90 - 5.2 0 m/uL [facility] WBC (Bld) [#/Vol] 6.41 10*3/uL 3.70 - 11. 00 k/uL [facility] Ferritin SerPl-mCncon 2022 Ferritin [Mass/Vol] 190.0 ng/mL Normal 14.7-205.1 [facility] Comment on above: Order Comment: Speci men Type: BLOOD SPECIMENOrdering Facility: [facility] Address: [address] [address] Performed By: #### 5 0190-8, 2276-4 ####[facility] LABCLIA [id number] [address] [place] Iron and Iron binding capaci ty panelon 02-28-2023 Iron [Mass/Vol] 64 ug/dL Normal 41-186 [facility] Comment on above: Order Comment: Speci men Type: BLOOD SPECIMENOrdering Facility: [facility] Address: [address] [address] Performed By: #### 5 0190-8, 6-4 ####[facility] LABIA [id number] [address] [place] Iron binding capacity [Mass/Vol] 255 ug/dL Normal 232-386 [facility] Comment on above: Order Comment: Speci men Type: BLOOD SPECIMENOrdering Facility: [facility] Address: [address] Performed By: #### 5 0190-8, 6-4 ####[facility] LABIA [id number] [address] [place] Iron/TIBC [Molar ratio] 25.1 % Normal 15.0-57.0 [facility] Comment on above: Order Comment: Speci men Type: BLOOD SPECIMENOrdering Facility: [facility] Address: [address] [id number] Performed By: #### 5 0190-8, 2276-4 ####[facility] LABCLIA [id number] [facility] [place] [address] [place] RETIC COUNTon 02-28-2023 Reticulocytes (Bld) [#/Vol] 0.89670 10*3/uL 0.018 - 0.100 M/uL [facility] Retics #on 02-28-2023 Reticulocytes (Bld) [#/Vol] 0.22201 10*3/uL Normal 0.018-0.100 [facility] Comment on above: Order Comment: Speci men Type: BLOOD SPECIMENOrdering Facility: [facility] Address: [address] [place] [address] Performed By: #### 1 4196-0, 91519-0 ####[facility] [id number] [place] [address] [place] Reticulocytes (Bld) [#/Vol]o n 02-28-2023 Reticulocytes/100 RBC (Bld) 1.6 % Normal 0.4-2.0 [facility] Comment on above: Order Comment: Speci men Type: BLOOD SPECIMENOrdering Facility: [facility] Address: [address] [address] Performed By: #### 1 4196-0, 27317-1 ####[facility] [id number] [place] [address] [place] Reticulocytes/100 RBC (Bld) 1.6 % 0.4 - 2.0 % [facility] CBC W Auto Differential pane l (Bld)on 01-17-2023 Basophils (Bld) [#/Vol] 0.05 10*3/uL Normal <0.11 [facility] Comment on above: Order Comment: Speci men Type: BLOOD SPECIMENOrdering Facility: [facility] Address: [address] [address] Performed By: #### 1 4196-0, 98828-7 ####[facility] MILLTOWNCLIA [id number] [place] [address] [place] Basophils/100 WBC (Bld) 0.9 % Normal [facility] Comment on above: Order Comment: Speci men Type: BLOOD SPECIMENOrdering Facility: [facility] Address: [address] [place] [address] Performed By: #### 1 4196-0, 93154-1 ####[facility] CLINICNCLIA [id number] [place] [address] [place] Differential cell count method Nom (Bld) Auto Normal [facility] Comment on above: Order Comment: Speci men Type: BLOOD SPECIMENOrdering Facility: [facility] Address: [address] [place] [address] Performed By: #### 1 4196-0, 60266-5 ####[facility] CENTERLIA [id number] [place] [address] [place] Eosinophils (Bld) [#/Vol] 0.08 10*3/uL Normal <0.46 [facility] Comment on above: Order Comment: Speci men Type: BLOOD SPECIMENOrdering Facility: [facility] Address: [address] [place] [address] Performed By: #### 1 4196-0, 22498-5 ####[facility] PLACIDWNCLIA [id number] [place] [address] [place] Eosinophils/100 WBC (Bld) 1.4 % Normal [facility] Comment on above: Order Comment: Speci men Type: BLOOD SPECIMENOrdering Facility: [facility] Address: [address] [place] [address] Performed By: #### 1 4196-0, 56759-7 ####[facility] CLINICNCLIA [id number] [place] [address] [place] Erythrocyte distribution width (RBC) [Ratio] 19.8 % High 11.5-15.0 [facility] Comment on above: Order Comment: Speci men Type: BLOOD SPECIMENOrdering Facility: [facility] Address: [address] [place] [address] Performed By: #### 1 4196-0, 84059-8 ####[facility] NATALIESHARMAINE [id number] [place] [address] [place] Hematocrit (Bld) [Volume fraction] 37.8 % Normal 36.0-46.0 [facility] Comment on above: Order Comment: Speci men Type: BLOOD SPECIMENOrdering Facility: [facility] Address: [address] [place] [address] Performed By: #### 1 4196-0, 18910-2 ####[facility] CLINICKEKE [id number] [place] [address] [place] Hemoglobin (Bld) [Mass/Vol] 11.8 g/dL Normal 11.5-15.5 [facility] Comment on above: Order Comment: Speci men Type: BLOOD SPECIMENOrdering Facility: [facility] Address: [address] [place] [address] Performed By: #### 1 4196-0, 14884-1 ####[facility] CLINICKEKE [id number] [place] [address] [place] Immature granulocytes (Bld) [#/Vol] 10*3/uL Normal <0.10 [facility] Comment on above: Order Comment: Speci men Type: BLOOD SPECIMENOrdering Facility: [facility] Address: [address] [place] [address] Performed By: #### 1 4196-0, 08626-8 ####[facility] CLINICKEKE [id number] [place] [address] [place] Immature granulocytes/100 WBC (Bld) 0.4 % Normal [facility] Comment on above: Order Comment: Speci men Type: BLOOD SPECIMENOrdering Facility: [facility] Address: [address] [place] [address] Performed By: #### 1 4196-0, 57812-1 ####[facility] [id number] [place] [address] [place] Lymphocytes (Bld) [#/Vol] 1.28 10*3/uL Normal 1.00-4.00 [facility] Comment on above: Order Comment: Speci men Type: BLOOD SPECIMENOrdering Facility: [facility] Address: [address] [place] [address] Performed By: #### 1 4196-0, 72680-7 ####[facility] [id number] [place] [address] [place] Lymphocytes/100 WBC (Bld) 22.8 % Normal [facility] Comment on above: Order Comment: Speci men Type: BLOOD SPECIMENOrdering Facility: [facility] Address: [address] [place] [address] Performed By: #### 1 4196-0, 37557-6 ####[facility] [id number] [place] [address] [place] MCH (RBC) [Entitic mass] 25.9 pg Low 26.0-34.0 [facility] Comment on above: Order Comment: Speci men Type: BLOOD SPECIMENOrdering Facility: [facility] Address: [address] [place] [address] Performed By: #### 1 4196-0, 09769-6 ####[facility] CLINICNCLIA [id number] [place] [address] [place] MCHC (RBC) [Mass/Vol] 31.2 g/dL Normal 30.5-36.0 [facility] Comment on above: Order Comment: Speci men Type: BLOOD SPECIMENOrdering Facility: [facility] Address: [address] [place] [address] Performed By: #### 1 4196-0, 82507-1 ####[facility]ICNCT[facility] [id number] [place] [address] [place] MCV (RBC) [Entitic vol] 83.1 fL Normal 80.0-100.0 [facility] Comment on above: Order Comment: Speci men Type: BLOOD SPECIMENOrdering Facility: [facility] Address: [address] [place] [address] Performed By: #### 1 4196-0, 20957-8 ####[facility] [id number] [place] [address] [place] Monocytes (Bld) [#/Vol] 0.52 10*3/uL Normal <0.87 [facility] Comment on above: Order Comment: Speci men Type: BLOOD SPECIMENOrdering Facility: [facility] Address: [address] [place] [address] Performed By: #### 1 4196-0, 11825-5 ####[facility]PITALA [id number] [place] [address] [place] Monocytes/100 WBC (Bld) 9.3 % Normal [facility] Comment on above: Order Comment: Speci men Type: BLOOD SPECIMENOrdering Facility: [facility] Address: [address] [place], [place] [id number] Performed By: #### 1 4196-0, 34229-7 ####[facility] [id number] [place] [address] [place] Neutrophils (Bld) [#/Vol] 3.67 10*3/uL Normal 1.45-7.50 [facility] Comment on above: Order Comment: Speci men Type: BLOOD SPECIMENOrdering Facility: [facility] Address: [address] [place] [address] Performed By: #### 1 4196-0, 44877-7 ####[facility] NATALIEKusumNCDAE [id number] [place] [address] [place] Neutrophils/100 WBC (Bld) 65.2 % Normal [facility] Comment on above: Order Comment: Speci men Type: BLOOD SPECIMENOrdering Facility: [facility] Address: [address] [place] [address] Performed By: #### 1 4196-0, 76093-7 ####[facility] CLINICJADENLew [id number] [place] [address] [place] Nucleated RBC (Bld) [#/Vol] 10*3/uL Normal <0.01 [facility] Comment on above: Order Comment: Speci men Type: BLOOD SPECIMENOrdering Facility: [facility] Address: [address] [place] [address] Performed By: #### 1 4196-0, 65915-5 ####[facility] CLINICNCLIA [id number] [place] [address] [place] Nucleated RBC/100 WBC (Bld) [Ratio] 0.0 /100 WBC Normal [facility] Comment on above: Order Comment: Speci men Type: BLOOD SPECIMENOrdering Facility: [facility] Address: [address] [place] [address] Performed By: #### 1 4196-0, 80985-5 ####[facility] CLINICNCLIA [id number] [place] [address] [place] Platelet mean volume (Bld) [Entitic vol] 9.6 fL Normal 9.0-12.7 [facility] Comment on above: Order Comment: Speci men Type: BLOOD SPECIMENOrdering Facility: [facility] Address: [address] [place] [address] Performed By: #### 1 4196-0, 15670-1 ####[facility] NATALIEBROWNSBORONCLIA [id number] [place] [address] [place] Platelets (Bld) [#/Vol] 218 10*3/uL Normal 150-400 [facility] Comment on above: Order Comment: Speci men Type: BLOOD SPECIMENOrdering Facility: [facility] Address: [address] [place] [address] Performed By: #### 1 4196-0, 06880-5 ####[facility] CLINICNCLIA [id number] [place] [address] [place] RBC (Bld) [#/Vol] 4.55 10*6/uL Normal 3.90-5.20 [facility] Comment on above: Order Comment: Speci men Type: BLOOD SPECIMENOrdering Facility: [facility] Address: [address] [place] [address] Performed By: #### 1 4196-0, 81806-4 ####[facility] CLINICNCLIA [id number] [place] [address] [place] WBC (Bld) [#/Vol] 5.62 10*3/uL Normal 3.70-11.00 [facility] Comment on above: Order Comment: Speci men Type: BLOOD SPECIMENOrdering Facility: [facility] Address: [address] [place] [address] Performed By: #### 1 4196-0, 54860-7 ####[facility] CLINICNCLIA [id number] [place] [address] [place] Retics #on 01-17-2023 Reticulocytes (Bld) [#/Vol] 0.90822 10*3/uL Normal 0.018-0.100 [facility] Comment on above: Order Comment: Speci men Type: BLOOD SPECIMENOrdering Facility: [facility] Address: [place] [address] Performed By: #### 1 4196-0, 02490-0 ####[facility] ROWENA BERGER HOSPITALNCLIA [id number] [address] [facility] Reticulocytes (Bld) [#/Vol]o n 01-17-2023 Reticulocytes/100 RBC (Bld) 1.8 % Normal 0.4-2.0 [facility] Comment on above: Order Comment: [place] Type: BLOOD SPECIMENOrdering Facility: [facility] Address: [place] [address] Performed By: #### 1 4196-0, 50722-1 ####[facility] ROWENAPORTER MEDICAL CENTERNCLIA [id number] [address] [facility] CNOVon 01-10-2023 CNOV Office Visit (CATHMN ) CHERYLE METCALF ([id number]) 1970 F Date Time Provider Department 01/10/23 9:00 AM MALATHI SCHNEIDER During your visit today, we recorded the following information about you: Pulse Respiration Blood pressure Weight 59/minute 15/minute 143/79 99.8 kg Height Last Period 1.803 m 12/18/22 Malathi Schneider MD 01/10/2023 10:00 AM Signed [facility] [place] Natalie Wren Department of Cardiovascular Medicine SECTION OF INTERVENTIONAL CARDIOLOGY OUTPATIENT VISIT DATE January 10, 2023 OUTPATIENT VISIT TYPE ESTABLISHED PRIMARY CARE PHYSICIAN: Chhaya Nunez [address] [place] [address] PRIMARY MEAT STOCK CLERK: Herman Hoang [address] [facility] [address] PHARMACY BENEFITS COORDINATOR: Herman Pineda, DO - [facility] CHIEF COMPLAINT: Follow-up after PFO closure HISTORY OF PRESENT ILLNESS: Ms. Metcalf is a 52 year old female who presents today for a follow-up visit after PFO closure 09/19/22. Please see OPD note from 07/17/22 for complete neurologic history. For secondary prevention of cryptogenic CVA, she underwent percutaneous PFO closure with a 25 mm Casco Cardioform device 09/19/22. The procedure was uncomplicated and she was DC'd same day. Procedural and pre-DC TTE - complete closure of PFO without pericardial effusion or other complications. Since PFO closure, she has done well. She has noticed occasional palpitations, all brief episodes, but one occurrence did take her breath away . She is struggling with iron deficiency thought 2/2 heavy menses, which is a chronic issue, and wonders if this could be a symptom. Bleeding was not necessarily worse on clopidogrel but she has since completed her course. She did undergo a 14 day Holter by her local technical operations manager Dr. Hoang, just turned this in - no results yet. Additional history - essential HTN, strong family history of CAD, obesity w BMI 31 kg/m2. She denies chest pain, shortness of breath, dyspnea on exertion, orthopnea, PND, palpitations, lightheadedness, syncope, claudication, leg swelling, cough, and wheezing. PAST MEDICAL HISTORY Diagnosis Date Chronic cholecystitis Dyslipidemia 12/2021 Essential hypertension 2020 Iron deficiency anemia Rheumatic fever as a teen Rheumatic fever without mention of heart involvement Rhinitis Stroke (HCC) PAST SURGICAL HISTORY Procedure Laterality Date LAPS SURG CHOLECYSTECTOMY W/CHOLANGIOGRAPHY 02/09/10 PAST SURGICAL HISTORY OF benign breast lump removed left breast PAST SURGICAL HISTORY OF rigth ankle STEREOTACTIC CORE BIOPSY 05/04/09 LEFT Social History Tobacco Use Smoking status: Never Smokeless tobacco: Never Vaping Use Vaping Use: Never used Substance Use Topics Alcohol use: No Drug use: No FAMILY HISTORY Problem Relation Age of Onset Coronary Artery Disease Mother Thyroid Mother other (MVP [Other]) Mother Autoimmune disease Mother Diabetes Father other (Myocardial infarciton) Father 49 Hypertension Father Diabetes Sister Autoimmune disease Sister other (high cholesterol) Sister Thyroid Brother Breast Cancer Paternal Grandmother other (brain aneurysm) Paternal Grandfather 39 ALLERGIES Allergen Reactions Codeine Vomiting dizziness MEDICATIONS: Current Outpatient Medications Medication Sig meclizine (ANTIVERT) 25 mg tab Take 25 mg by mouth as needed. aspirin, enteric coated (ASPIRIN, ENTERIC COATED) 81 mg EC tablet Take 81 mg by mouth once daily. atorvastatin (LIPITOR) 40 mg tablet Take 40 mg by mouth once daily. amLODIPine (NORVASC) 5 mg tablet Take 5 mg by mouth once daily. acetaminophen (TYLENOL) 325 mg tablet Take 650 mg by mouth every 6 hours as needed. atenolol (TENORMIN) 25 mg tablet Take 25 mg by mouth once daily. lisinopril (ZESTRIL, PRINIVIL) 40 mg tablet Take 40 mg by mouth once daily. Current Facility-Administered Medications Medication Dose Route Frequency perflutren lipid microspheres 1.3 mL in NaCl (PF) 0.9% 10 mL injection (DEFINITY) INTRAVENOUS DIRECTED PRN sodium chloride 0.9 % (flush) 10 mL (BD POSIFLUSH) 10 mL INTRAVENOUS DIRECTED PRN perflutren lipid microspheres 1.3 mL in NaCl (PF) 0.9% 10 mL injection (DEFINITY) INTRAVENOUS DIRECTED PRN sodium chloride 0.9 % (flush) 10 mL (BD POSIFLUSH) 10 mL INTRAVENOUS DIRECTED PRN REVIEW OF SYSTEMS: Full 10 system review of systems completed. Negative except as stated per HPI. PHYSICAL EXAMINATION: BP 143/79 Pulse 59 Resp 15 Ht 5' 11 (1.80m) Wt 220 lb 1.6 oz (99.8kg) SpO2 100% LMP 12/18/2022 BMI 30.71 kg/(m2). Gen: NAD. Pleasant affect. HEENT: JVP 7 cm at 45 degrees upright. EOMI. Chest: CTAB without w/r/r. Normal effort. CV: Normal S1, S2. No R/M/G. Abd: Non-distended. Ext: (more content not included)... Normal [facility] CNOV Office Visit (PERVMN ) CHERYLE METCALF ([id number]) 1970 F Date Time Provider Department 01/10/23 8:00 AM LV [employer] ECHO J3-5 PERVMN During your visit today, we recorded the following information about you: Referring Provider: MALATHI SCHNEIDER [[id number]] Allergies As of Date: 01/10/2023 Noted Allergy Reaction CODEINE 04/12/2009 11 - Vomiting Comments: dizziness Date Reviewed: 01/10/2023 Reviewed by: Kelly Banuelos MA - Fully Assessed Reason for Visit: IV Medication Administration [149] Cmt: Saline study Visit Diagnosis:PFO (patent foramen ovale) [Q21.12] Order(s):ECHO [020805] Order #: [id number]. #:[id number] ty: 1 LVEF TRANSTHORACIC ECHO [[id number]] Order #: [id number] #:[id number] CFQty: 1 Prescriptions as of 01/13/2023 - meclizine (ANTIVERT) 25 mg tab Take 25 mg by mouth as needed. - aspirin, enteric coated (ASPIRIN, ENTERIC COATED) 81 mg EC tablet Take 81 mg by mouth once daily. - atorvastatin (LIPITOR) 40 mg tablet Take 40 mg by mouth once daily. - amLODIPine (NORVASC) 5 mg tablet Take 5 mg by mouth once daily. - acetaminophen (TYLENOL) 325 mg tablet Take 650 mg by mouth every 6 hours as needed. - atenolol (TENORMIN) 25 mg tablet Take 25 mg by mouth once daily. - lisinopril (ZESTRIL, PRINIVIL) 40 mg tablet Take 40 mg by mouth once daily. Facility-Administered Medications as of 01/13/2023 - NaCl 0.9% iv infusion - diphenhydrAMINE 50 mg injection (BENADRYL) - hydrocortisone sodium succinate (PF) 100 mg injection (Solu-CORTEF) - EPINEPHrine HCl (PF) 1 mg/mL (1 mL) 0.3 mg injection - perflutren lipid microspheres 1.3 mL in NaCl (PF) 0.9% 10 mL injection (DEFINITY) - perflutren lipid microspheres 1.3 mL in NaCl (PF) 0.9% 10 mL injection (DEFINITY) - sodium chloride 0.9 % (flush) 10 mL (BD POSIFLUSH) Meds Comments as of 04/12/2009: No current medications/reviewed April 12, 2009/Shanta Govea Lpn Problem List As Of Date 01/10/2023 Noted Resolved ALLERGIC RHINITIS NOS [J30.9] 05/24/2009 FAMILY HX ISCHEM HEART DIS [Z82.49] 05/24/2009 Iron deficiency anemia due to chronic blood los*08/07/2021 Iron malabsorption [K90.9] 08/07/2021 Obesity, Class I, BMI 30-34.9 [E66.9] 12/05/2022 Encounter Status:Closed by JIM FERGUSON on 01/13/23 Normal [facility] ECHOon 01-10-2023 Echocardiography Echocardiography Report: Transthoracic Echo [facility] J35 Date of service: 01/10/2023 8:23:52 AM TEAM LEAD Ordering physician: MALATHI SCHNEIDER Indication: PFO closure Technologist: Radha Sheppard Interpreting physician: Sin Mcnair MD PATIENT: Name: MRS. CHERYLE METCALF : 1970 Age: 52 years Gender: F Previous cardiovascular interventions: PFO closure (09-19-22) Primary rhythm: sinus. Height: 181.60 cm BSA: 2.17 m Weight: 93.35 kg BMI: 28.3 kg/m Heart rate 61 bpm Blood pressure 130/77 mmHg Agitated saline was administered to rule out PFO. Color Doppler was utilized to interrogate the cardiac valves assessed and spectral Doppler was utilized to determine the flow velocities and pressure gradients reported in this exam. Myocardial strain analysis was performed in this exam to aid in the assessment of cardiac function. MEASUREMENTS: Value Indexed Normal Max aortic dimension 3.7 cm Ao < 3.8 Left atrial volume 64 ml (biplane A-L) 30 ml/m Elizabet <= 34 LV ID (diastole) 5.3 cm (2D) 2.44 cm/m LV ID (systole) 3.8 cm (2D) 1.73 cm/m IVS, leaflet tips 0.7 cm (2D) Posterior wall thickness 0.9 cm (2D) Left ventricular mass 147 g (2D) 68 g/m Global peak long strain -18.5 % LV stroke volume 67 ml (2D biplane) LV end diastolic volume 114 ml (2D biplane) 52.8 ml/m 29<=EDVi<62 LV end systolic volume 48 ml (2D biplane) 22.1 ml/m Ejection Fraction 58 % (2D biplane) EF > 54 FINDINGS: LEFT VENTRICLE The left ventricle is normal in size. Left ventricular systolic function is normal. Global LV myocardial strain is normal. Left ventricular diastolic function was not evaluated due to ASD closure. Mitral annular lateral E/e': 6.7. Mitral annular septal E/e': 13.4. Wall Motion: All scored segments are normal. RIGHT VENTRICLE The right ventricle is normal in size. Right ventricular systolic function is normal. RV systolic tissue Doppler velocity is 10.0 cm/s. Tricuspid annular displacement is 1.8 cm. Estimated right ventricular systolic pressure is likely underestimated due to a weak or incomplete tricuspid regurgitation signal and is, at least, 26 mmHg consistent with normal pulmonary artery pressures. Estimated right atrial pressure is 8 mmHg based on IVC assessment. LEFT ATRIUM The left atrial cavity is normal in size. RIGHT ATRIUM The right atrial cavity is normal in size. Inferior Vena Cava: The inferior vena cava appears normal measuring 1.9 cm. The vessel decreases less than 50 percent with inspiration. MITRAL VALVE There is trace mitral valve regurgitation. There is mild thickening. The pressure half time is 64 msec. The peak mitral E/A ratio is 1.30. The average mitral E/e' ratio is 10.0. The mitral flow deceleration time is 221 msec. TRICUSPID VALVE There is trace (trace - 1+) tricuspid valve regurgitation. There is no thickening. AORTIC VALVE There is trace aortic valve regurgitation. There is no thickening. The peak gradient is 13 mmHg (peak velocity = 180.5 cm/s). PULMONIC VALVE There is trace (trace - 1+) pulmonic valve regurgitation. There is no thickening. AORTA The visualized aorta is normal in size. Measurements - Sinus: 3.3 cm. Mid ascending aorta 3.7 cm. PULMONARY ARTERIES The pulmonary arteries are normal. INTERATRIAL SEPTUM The interatrial septum is normal. INTERVENTRICULAR SEPTUM The interventricular septum is normal. PERICARDIUM There is no pericardial effusion. There is an epicardial fat pad. CONCLUSIONS: - Exam indication: PFO closure - The left ventricle is normal in size. Left ventricular systolic function is normal. EF = 58 5% (2D biplane) - The right ventricle is normal in size. Right ventricular systolic function is normal. - There are no significant valvular abnormalities. - Negative aggitated saline study for intracardaic shunting (clip 84) - Exam was compared with the prior echocardiographic exam performed on 09/20/2022, similar findings. * * * Final * * * [employer] Image : [id number] [id number] Normal [facility] LVEF TRANSTHORACIC ECHOon LV Ejection Fraction 58 % [facility] CBC W Auto Differential pane l (Bld)on 01-03-2023 Basophils (Bld) [#/Vol] 0.06 10*3/uL Normal <0.11 [facility] Comment on above: Order Comment: Speci men Type: BLOOD SPECIMENOrdering Facility: [facility] Address: [address] [place] [address] Performed By: #### 5 7021-8, 67732-8 ####[facility] [id number] [place] [address] [place] Basophils/100 WBC (Bld) 1.0 % Normal [facility] Comment on above: Order Comment: Speci men Type: BLOOD SPECIMENOrdering Facility: [facility] Address: [address] [place] [address] Performed By: #### 5 7021-8, 95687-8 ####[facility] [id number] [place] [address] [place] Differential cell count method Nom (Bld) Auto Normal [facility] Comment on above: Order Comment: Speci men Type: BLOOD SPECIMENOrdering Facility: [facility] Address: [address] [place] [address] Performed By: #### 5 7021-8, 57144-1 ####[facility] CLINICNCT[facility] [id number] [place] [address] [place] Eosinophils (Bld) [#/Vol] 0.08 10*3/uL Normal <0.46 [facility] Comment on above: Order Comment: Speci men Type: BLOOD SPECIMENOrdering Facility: [facility] Address: [address] [place] [address] Performed By: #### 5 7021-8, 01297-6 ####[facility] [id number] [place] [address] [place] Eosinophils/100 WBC (Bld) 1.4 % Normal [facility] Comment on above: Order Comment: Speci men Type: BLOOD SPECIMENOrdering Facility: [facility] Address: [address] [place] [address] Performed By: #### 5 7021-8, 80574-7 ####[facility] [id number] [place] [address] [place] Erythrocyte distribution width (RBC) [Ratio] 17.5 % High 11.5-15.0 [facility] Comment on above: Order Comment: Speci men Type: BLOOD SPECIMENOrdering Facility: [facility] Address: [address] [place] [address] Performed By: #### 5 7021-8, 54447-5 ####[facility] [id number] [place] [address] [place] Hematocrit (Bld) [Volume fraction] 36.6 % Normal 36.0-46.0 [facility] Comment on above: Order Comment: Speci men Type: BLOOD SPECIMENOrdering Facility: [facility] Address: [address] [place] [address] Performed By: #### 5 7021-8, 75292-8 ####[facility] CLINICNCJIMMYA [id number] [place] [address] [place] Hemoglobin (Bld) [Mass/Vol] 11.4 g/dL Low 11.5-15.5 [facility] Comment on above: Order Comment: Speci men Type: BLOOD SPECIMENOrdering Facility: [facility] Address: [address] [place] [address] Performed By: #### 5 7021-8, 98477-3 ####[facility] CLINICKEKE [id number] [place] [address] [place] Immature granulocytes (Bld) [#/Vol] 10*3/uL Normal <0.10 [facility] Comment on above: Order Comment: Speci men Type: BLOOD SPECIMENOrdering Facility: [facility] Address: [address] [place] [address] Performed By: #### 5 7021-8, 48575-5 ####[facility] CLINICGOGOA [id number] [place] [address] [place] Immature granulocytes/100 WBC (Bld) 0.2 % Normal [facility] Comment on above: Order Comment: Speci men Type: BLOOD SPECIMENOrdering Facility: [facility] Address: [address] [place] [address] Performed By: #### 5 7021-8, 72412-5 ####[facility] CLINICNCLIA [id number] [place] [address] [place] Lymphocytes (Bld) [#/Vol] 1.43 10*3/uL Normal 1.00-4.00 [facility] Comment on above: Order Comment: Speci men Type: BLOOD SPECIMENOrdering Facility: [facility] Address: [address] [address] Performed By: #### 5 7021-8, 45009-8 ####[facility] NATALIESHARMAINE [id number] [address] Lymphocytes/100 WBC (Bld) 24.4 % Normal [facility] Comment on above: Order Comment: Speci men Type: BLOOD SPECIMENOrdering Facility: [facility] Address: [address] [place] [address] Performed By: #### 5 7021-8, 98089-0 ####[facility] NATALIEBROWNSBOROJAEDNDAE [id number] [place] [address] [place] MCH (RBC) [Entitic mass] 25.4 pg Low 26.0-34.0 [facility] Comment on above: Order Comment: Speci men Type: BLOOD SPECIMENOrdering Facility: [facility] Address: [address] [place] [address] Performed By: #### 5 7021-8, 45392-2 ####MEDICAL CENTER CLINICJADENJIMMYLew [id number] [place] [address] [place] MCHC (RBC) [Mass/Vol] 31.1 g/dL Normal 30.5-36.0 [facility] Comment on above: Order Comment: Speci men Type: BLOOD SPECIMENOrdering Facility: [facility] Address: [address] [place] [address] Performed By: #### 5 7021-8, 66983-1 ####[facility]ITALA [id number] [place] [address] [place] [facility] [place] MCV (RBC) [Entitic vol] 81.5 fL Normal 80.0-100.0 [facility] Comment on above: Order Comment: Speci men Type: BLOOD SPECIMENOrdering Facility: [facility] Address: [address] [place] [address] Performed By: #### 5 7021-8, 70356-3 ####[facility] PLACIDWNCLIA [id number] [place] [address] [place] Monocytes (Bld) [#/Vol] 0.56 10*3/uL Normal <0.87 [facility] Comment on above: Order Comment: Speci men Type: BLOOD SPECIMENOrdering Facility: [facility] Address: [address] [place] [address] Performed By: #### 5 7021-8, 61215-5 ####[facility] [id number] [place] [address] [place] Monocytes/100 WBC (Bld) 9.6 % Normal [facility] Comment on above: Order Comment: Speci men Type: BLOOD SPECIMENOrdering Facility: [facility] Address: [address] [place] [address] Performed By: #### 5 7021-8, 67936-7 ####[facility] [id number] [place] [address] [place] Neutrophils (Bld) [#/Vol] 3.71 10*3/uL Normal 1.45-7.50 [facility] Comment on above: Order Comment: Speci men Type: BLOOD SPECIMENOrdering Facility: [facility] Address: [address] [place], [place] [id number] Performed By: #### 5 7021-8, 20930-8 ####[facility] CLINICNCLIA [id number] [place] [address] [place] Neutrophils/100 WBC (Bld) 63.4 % Normal [facility] Comment on above: Order Comment: Speci men Type: BLOOD SPECIMENOrdering Facility: [facility] Address: [address] [place], [place] [id number] Performed By: #### 5 7021-8, 40177-4 ####[facility] CLINICNCLIA [id number] [place] [address] [place] Nucleated RBC (Bld) [#/Vol] 10*3/uL Normal <0.01 [facility] Comment on above: Order Comment: Speci men Type: BLOOD SPECIMENOrdering Facility: [facility] Address: [address] [place] [address] Performed By: #### 5 7021-8, 97419-9 ####[facility] CENTERLIA [id number] [place] [address] [place] Nucleated RBC/100 WBC (Bld) [Ratio] 0.0 /100 WBC Normal [facility] Comment on above: Order Comment: Speci men Type: BLOOD SPECIMENOrdering Facility: [facility] Address: [address] [place] [address] Performed By: #### 5 7021-8, 36871-7 ####[facility] [id number] [place] [address] [place] Platelet mean volume (Bld) [Entitic vol] 9.5 fL Normal 9.0-12.7 [facility] Comment on above: Order Comment: Speci men Type: BLOOD SPECIMENOrdering Facility: [facility] Address: [address] [place] [address] Performed By: #### 5 7021-8, 03819-0 ####[facility] CENTERLIA [id number] [place] [address] [place] Platelets (Bld) [#/Vol] 283 10*3/uL Normal 150-400 [facility] Comment on above: Order Comment: Speci men Type: BLOOD SPECIMENOrdering Facility: [facility] Address: [address] [place] [address] Performed By: #### 5 7021-8, 01495-2 ####[facility] CENTERLIA [id number] [place] [address] [place] RBC (Bld) [#/Vol] 4.49 10*6/uL Normal 3.90-5.20 [facility] Comment on above: Order Comment: Speci men Type: BLOOD SPECIMENOrdering Facility: [facility] Address: [address] [place] [address] Performed By: #### 5 7021-8, 17755-0 ####[facility]ICAL CENTER CLINICKEKE [id number] [place] [address] [place] WBC (Bld) [#/Vol] 5.85 10*3/uL Normal 3.70-11.00 [facility] Comment on above: Order Comment: Speci men Type: BLOOD SPECIMENOrdering Facility: [facility] Address: [address] [place] [address] Performed By: #### 5 7021-8, 00889-8 ####[facility] CENTERDAE [id number] [place] [address] [place] Retics #on 01-03-2023 Reticulocytes (Bld) [#/Vol] 0.53997 10*3/uL High 0.018-0.100 [facility] Comment on above: Order Comment: Speci men Type: BLOOD SPECIMENOrdering Facility: [facility] Address: [address] [place], [place] [id number] Performed By: #### 5 7021-8, 60140-1 ####[facility] CENTERJIMMYA [id number] [place] [address] [place] Reticulocytes (Bld) [#/Vol]o n 01-03-2023 Reticulocytes/100 RBC (Bld) 2.4 % High 0.4-2.0 [facility] Comment on above: Order Comment: Speci men Type: BLOOD SPECIMENOrdering Facility: [facility] Address: [address] [place] [address] Performed By: #### 5 7021-8, 42574-3 ####[facility] ROWENA ESTRADABROWNSBOROKEKE [id number] [place] [id number] [facility] [place] Lesley 12-17-2022 CNPN Telephone (PFS) CHERYLE METCALF ([id number]) 1970 F Date Time Provider Department 12/17/22 FINANCIAL NAVIGATOR CAIN SANDERSON During your visit today, we recorded the following information about you: Yuriy Spring 12/17/2022 12:07 PM Signed 1st-time treatment report. The patient is active with [facility] [employer] and has a $750.00 deductible, $4000.00 OOP has $4000.00 remaining. An estimate shows patient financial responsibility is $619.00 for each treatment in 2022 until the Qqp-Ff-Ullydh max is reached. Reference #[id number] I will look for assistance for Venofer/Iron Sucrose from [employer] [place] [employer] [place] [employer] Patient Assistance Program. Allergies As of Date: 12/17/2022 Noted Allergy Reaction CODEINE 04/12/2009 11 - Vomiting Comments: dizziness Date Reviewed: 12/05/2022 Reviewed by: Bradly Vidal MD - Fully Assessed Reason for Visit: Benefits Investigation [4095] Prescriptions as of 12/17/2022 - doxycycline monohydrate (MONODOX) 100 mg capsule Take 1 capsule by mouth twice daily for 10 days. - meclizine (ANTIVERT) 25 mg tab Take 25 mg by mouth as needed. - clopidogrel (PLAVIX) 75 mg tablet Take 1 tablet by mouth once daily. - aspirin, enteric coated (ASPIRIN, ENTERIC COATED) 81 mg EC tablet Take 81 mg by mouth once daily. - atorvastatin (LIPITOR) 40 mg tablet Take 40 mg by mouth once daily. - amLODIPine (NORVASC) 5 mg tablet Take 5 mg by mouth once daily. - acetaminophen (TYLENOL) 325 mg tablet Take 650 mg by mouth every 6 hours as needed. - atenolol (TENORMIN) 25 mg tablet Take 25 mg by mouth once daily. - lisinopril (ZESTRIL, PRINIVIL) 40 mg tablet Take 40 mg by mouth once daily. Facility-Administered Medications as of 12/17/2022 - perflutren lipid microspheres 1.3 mL in NaCl (PF) 0.9% 10 mL injection (DEFINITY) - sodium chloride 0.9 % (flush) 10 mL (BD POSIFLUSH) Meds Comments as of 04/12/2009: No current medications/reviewed April 12, 2009/Shanta Govea Lpn Problem List As Of Date 12/17/2022 Noted Resolved ALLERGIC RHINITIS NOS [J30.9] 05/24/2009 FAMILY HX ISCHEM HEART DIS [Z82.49] 05/24/2009 Iron deficiency anemia due to chronic blood los*08/07/2021 Iron malabsorption [K90.9] 08/07/2021 Obesity, Class I, BMI 30-34.9 [E66.9] 12/05/2022 Encounter Status:Closed by YURIY SPRING on 12/17/22 [facility] Telephone (PFS) CHERYLE METCALF ([id number]) 1970 F Date Time Provider Department 12/17/22 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 The patient is active with [facility] [employer] and has a $750.00 deductible, $4000.00 OOP has $4000.00 remaining. An estimate shows patient financial responsibility is $619.00 for each treatment in 2022 until the Pgf-Ea-Epgwhh max is reached. Reference #[id number] I will look for assistance for Venofer/Iron Sucrose from [place] [employer] [place] [employer] Patient Assistance Program. Allergies As of Date: 12/17/2022 Noted Allergy Reaction CODEINE 04/12/2009 11 - Vomiting Comments: dizziness Date Reviewed: 12/05/2022 Reviewed by: Bradly Vidal MD - Fully Assessed Reason for Visit: Benefits Investigation [4098] Prescriptions as of 12/17/2022 - doxycycline monohydrate (MONODOX) 100 mg capsule Take 1 capsule by mouth twice daily for 10 days. - meclizine (ANTIVERT) 25 mg tab Take 25 mg by mouth as needed. - clopidogrel (PLAVIX) 75 mg tablet Take 1 tablet by mouth once daily. - aspirin, enteric coated (ASPIRIN, ENTERIC COATED) 81 mg EC tablet Take 81 mg by mouth once daily. - atorvastatin (LIPITOR) 40 mg tablet Take 40 mg by mouth once daily. - amLODIPine (NORVASC) 5 mg tablet Take 5 mg by mouth once daily. - acetaminophen (TYLENOL) 325 mg tablet Take 650 mg by mouth every 6 hours as needed. - atenolol (TENORMIN) 25 mg tablet Take 25 mg by mouth once daily. - lisinopril (ZESTRIL, PRINIVIL) 40 mg tablet Take 40 mg by mouth once daily. Facility-Administered Medications as of 12/17/2022 - perflutren lipid microspheres 1.3 mL in NaCl (PF) 0.9% 10 mL injection (DEFINITY) - sodium chloride 0.9 % (flush) 10 mL (BD POSIFLUSH) Meds Comments as of 04/12/2009: No current medications/reviewed April 12, 2009/Shanta Govea Lpn Problem List As Of Date 12/17/2022 Noted Resolved ALLERGIC RHINITIS NOS [J30.9] 05/24/2009 FAMILY HX ISCHEM HEART DIS [Z82.49] 05/24/2009 Iron deficiency anemia due to chronic blood los*08/07/2021 Iron malabsorption [K90.9] 08/07/2021 Obesity, Class I, BMI 30-34.9 [E66.9] 12/05/2022 Encounter Status:Closed by YURIY SPRING [facility] 12[facility]17/[facility] Telephone (OBGYWM) DIXONCHERYLE ([id number]) 1970 F Date Time Provider Department 12/09/22 BRADLY VIDAL OBGYWM During your visit today, we recorded the following information about you: Krista Eng RN 12/09/2022 11:18 AM Signed ----- Message from Bradly Vidal MD sent at 12/09/2022 9:40 AM EST ----- let her know that her EMB is negative for dysplasia. It did shows chronic inflammation I would recommend treating for 10 days with doxycycline. I can send a prescription to her pharmacy. I will wait for her ultrasound results and then we can discuss how to proceed for treatment of her periods. MD Krista Edwards RN 12/09/2022 11:19 AM Signed Patient notified of results, verbalizes understanding of instructions. Patient ok with proceeding with antibiotic. Pharmacy is up to date. Please order. Krista Eng RN Allergies As of Date: 12/09/2022 Noted Allergy Reaction CODEINE 04/12/2009 11 - Vomiting Comments: dizziness Date Reviewed: 12/05/2022 Reviewed by: Bradly Vidal MD - Fully Assessed Reason for Visit: Results [95] Order(s):doxycycline monohydrate (MONODOX) 100 mg capsuleTake 1 capsule by mouth twice daily for 10 days.Disp: 20 capsuleRfl: 0 Prescriptions as of 12/09/2022 - doxycycline monohydrate (MONODOX) 100 mg capsule Take 1 capsule by mouth twice daily for 10 days. - meclizine (ANTIVERT) 25 mg tab Take 25 mg by mouth as needed. - clopidogrel (PLAVIX) 75 mg tablet Take 1 tablet by mouth once daily. - aspirin, enteric coated (ASPIRIN, ENTERIC COATED) 81 mg EC tablet Take 81 mg by mouth once daily. - atorvastatin (LIPITOR) 40 mg tablet Take 40 mg by mouth once daily. - amLODIPine (NORVASC) 5 mg tablet Take 5 mg by mouth once daily. - acetaminophen (TYLENOL) 325 mg tablet Take 650 mg by mouth every 6 hours as needed. - atenolol (TENORMIN) 25 mg tablet Take 25 mg by mouth once daily. - lisinopril (ZESTRIL, PRINIVIL) 40 mg tablet Take 40 mg by mouth once daily. Facility-Administered Medications as of 12/09/2022 - perflutren lipid microspheres 1.3 mL in NaCl (PF) 0.9% 10 mL injection (DEFINITY) - sodium chloride 0.9 % (flush) 10 mL (BD POSIFLUSH) Meds Comments as of 04/12/2009: No current medications/reviewed April 12, 2009/Shanta Govea Lpn Problem List As Of Date 12/09/2022 Noted Resolved ALLERGIC RHINITIS NOS [J30.9] 05/24/2009 FAMILY HX ISCHEM HEART DIS [Z82.49] 05/24/2009 Iron deficiency anemia due to chronic blood los*08/07/2021 Iron malabsorption [K90.9] 08/07/2021 Obesity, Class I, BMI 30-34.9 [E66.9] 12/05/2022 Prescriptions ordered this encounter Disp Refills Start End DOXYCYCLINE MONOHYDRATE 100 MG CAPSU* 20 c* 0 12/09/2022 12/19/2022 Route: ORAL Sig: Take 1 capsule by mouth twice daily for 10 days. Encounter Status:Closed by BRADLY VIDAL on 12/09/22 [facility] 12-05-2022 CNOV Office Visit (OBGYWM ) CHERLYE METCALF ([id number]) 1970 F Date Time Provider Department 12/05/22 1:10 PM BRADLY VIDAL OBGYWM During your visit today, we recorded the following information about you: Blood pressure Weight Height 122/78 101.6 kg 1.803 m Bradly Vidal MD 12/05/2022 3:41 PM Signed Cheryle Metcalf is a 52 year old female who presents for problem visit for heavy menses. HPI: 52 YOF who is still having menses. Have been regular the last 15 yrs since of last child. Menses last 5-7 days. Changes protection q 30 min at heaviest, pads. Wears special pads that are really large at night. Passes clots. Some cramping but that isn't severe. No bleeding between menses. No pain or bleeding w/ sexual activity. Has been seeing hematology for fe def. anemia and they referred here. Past couple of years getting heavier. No change in hot flashes, vaginal dryness. Gets paps and mammos through PCP. Had a heart surgery in Sep to close up a small hole in her heart. Now on plavix which didn't make it much worse. 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 Comments: Sexual Activity: Yes; No partner data on record Contraception: Condom PAST MEDICAL HISTORY Diagnosis Date Chronic cholecystitis Dyslipidemia 12/2021 Essential hypertension 2019 Iron deficiency anemia Rheumatic fever as a teen Rheumatic fever without mention of heart involvement Rhinitis Stroke (HCC) PAST SURGICAL HISTORY Procedure Laterality Date LAPS SURG CHOLECYSTECTOMY W/CHOLANGIOGRAPHY 02/09/10 PAST SURGICAL HISTORY OF benign breast lump removed left breast PAST SURGICAL HISTORY OF rigth ankle STEREOTACTIC CORE BIOPSY 05/04/09 LEFT FAMILY HISTORY Problem Relation Age of Onset Coronary Artery Disease Mother Thyroid Mother other (MVP [Other]) Mother Autoimmune disease Mother Diabetes Father other (Myocardial infarciton) Father 49 Hypertension Father Diabetes Sister Autoimmune disease Sister other (high cholesterol) Sister Thyroid Brother Breast Cancer Paternal Grandmother other (brain aneurysm) Paternal Grandfather 39 Social History Tobacco Use Smoking status: Never Smokeless tobacco: Never Vaping Use Vaping Use: Never used Substance Use Topics Alcohol use: No Drug use: No Current Outpatient Medications Medication Sig meclizine (ANTIVERT) 25 mg tab Take 25 mg by mouth as needed. clopidogrel (PLAVIX) 75 mg tablet Take 1 tablet by mouth once daily. aspirin, enteric coated (ASPIRIN, ENTERIC COATED) 81 mg EC tablet Take 81 mg by mouth once daily. atorvastatin (LIPITOR) 40 mg tablet Take 40 mg by mouth once daily. amLODIPine (NORVASC) 5 mg tablet Take 5 mg by mouth once daily. acetaminophen (TYLENOL) 325 mg tablet Take 650 mg by mouth every 6 hours as needed. atenolol (TENORMIN) 25 mg tablet Take 25 mg by mouth once daily. lisinopril (ZESTRIL, PRINIVIL) 40 mg tablet Take 40 mg by mouth once daily. Current Facility-Administered Medications Medication Dose Route Frequency perflutren lipid microspheres 1.3 mL in NaCl (PF) 0.9% 10 mL injection (DEFINITY) INTRAVENOUS DIRECTED PRN sodium chloride 0.9 % (flush) 10 mL (BD POSIFLUSH) 10 mL INTRAVENOUS DIRECTED PRN Allergies As of Date: 12/05/2022 Allergen Noted Reaction CODEINE 04/12/2009 Vomiting Fully Assessed 12/05/2022 Allergies and current medication updated:Yes EXAM: LMP 11/21/2015 GENERAL: pleasant, female in no apparent distress HEENT: Normocephalic, atraumatic, mucus membranes moist, and no lesions NECK: Supple, full range of motion, no adenopathy, and thyroid normal PELVIC: external genitalia normal, normal Bartholin's glands, urethra, [place]'s glands, no vulvar lesions, no cervical lesions, physiologic discharge present, normal appearing perineal body and perianal region, cystocele 1st degree, rectocele 1st degree, cervical prolapse 1st degree BIMANUAL: uterus normal size, shape and consistency, no adnexal masses, and non-tender ASSESSMENT AND PLAN: heavy menses. She is not a good combined hormonal contraceptive candidate. She has had CBC and iron studies. She does not have permanent contraception. We discussed options. Most reasonable clinical options would likely be Mirena intrauterine system or an endometrial ablation. Does not have permanent contraception so would lean towards Mirena. We will proceed with EMB and pelvic ultrasound and meet to reevaluate. Medical Decision Making: Medical Decision Making Level: 1 - N/A Bradly Vidal MD Cheryle is a 52 year old who presents today for an endometrial biopsy for abnormal uterine bleeding. [place] (more content not included)... Normal [facility] HCG QUAL UR B/Oon 12-05-2022 status Negative neg - pos [facility] Quality Check Yes [facility] SURGICAL PATHOLOGYon 023 CASE REPORT Normal [facility] Comment on above: Order Comment: Speci men Type: TISSUE SPECIMENOrdering Facility: [facility] Address: [address] [place] [address] Result Comment: Surg ical Pathology Report Case: [id number] Authorizing Provider: Bradly Vidal MD Collected: 12/05/2022 03:39 PM Ordering Location: OB/Gynecology Received: 12/05/2022 04:58 PM Pathologist: Nikolai Tejada MD, PhD Specimen: ENDOMETRIUM BIOPSY Performed By: #### S ####[facility] LABCLIA [id number] [address] STATES OF [facility] HISTORY heavy menses Normal [facility] Comment on above: Order Comment: Speci men Type: TISSUE SPECIMENOrdering Facility: [facility] Address: [address] [place] [address] Performed By: #### S ####[facility] LABCLIA [id number] [address] [place] FINAL DIAGNOSIS Normal [facility] Comment on above: Order Comment: Speci men Type: TISSUE SPECIMENOrdering Facility: [facility] Address: [address] [place] [address] Result Comment: A. E ndometrium, biopsy: - Disordered proliferative endometrium. - Chronic endometritis. Performed By: #### S ####[facility] LABCLIA [id number] [place] [address] [place] FINAL PERFORMING LAB Normal [facility] Comment on above: Order Comment: Speci men Type: TISSUE SPECIMENOrdering Facility: [facility] Address: [address] [place] [address] Result Comment: Diag nostic interpretation performed at [facility], [address] [place], [place] [id number] CLIA# [id number] Geospatial Technologist: Prakash Liu M.D. Performed By: #### S ####[facility] LABCLIA [id number] [address] STATES [place] GROSS DESCRIPTION Normal [facility] Comment on above: Order Comment: Speci men Type: TISSUE SPECIMENOrdering Facility: [facility] Address: [address] [place] [address] Result Comment: A. E NDOMETRIUM BIOPSY Received in formalin are multiple huntley-brown, soft segments of tissue admixed with mucinous material and red-brown hemorrhagic material aggregating to 4.8 x 2.3 x 0.4 cm. Totally submitted in two cassettes. SS December 05, 2022 11:23 PM [place] [address] Performed By: #### S ####[facility] LABCLIA [id number] [address] OF [place] CNOVSPon 12-04-2022 CNOVSP Visit (SP) Office (HEMAWS) CHERYLE METCALF ([id number]) 1970 F Date Time Provider Department 12/04/22 9:30 AM HERMAN PINEDA During your visit today, we recorded the following information about you: Temperature Pulse Blood pressure Weight 97.8 degrees 66/minute 128/78 102.1 kg Height 1.785 m Herman Pineda DO 12/04/2022 9:59 AM Signed Hematologic problem(s): 1) MAYA. 2) Possible antiphospholipid antibody syndrome. HPI: The patient is a 52-year-old female with a past medical history significant for rheumatic fever as a teenager, hypertension, left breast lumpectomy (benign) and iron deficiency anemia. Recent CBC on 08/01/2021 revealed a total white count of 3600. Differential showed a small increase in basophils at 1.4%. ANC was 1900. The hemoglobin was 8.6 g/dL. MCV was 73.9 fL and the platelet count was 261,000. Anisocytosis was noted on the peripheral smear. Serum iron was 25 mcg/dL. TIBC was 380. Ferritin was 4 ng/mL. In May 2021 the white count was 5100. Hemoglobin was 9.0 g/dL with an MCV of 68.9 and a platelet count of 311,000. In January 2021 the hemoglobin was 8.5 g/dL with an MCV of 66.7 fL and a platelet count of 307,000. Was fatigued a lot. No GRAVES. Occasional palpitation. Had tried oral iron on several occasions. Caused severe nausea. Received one dose parenteral iron at [facility] about mid June. Formulation unknown. Regular menses. Often heavy with passing of clots. Had colonoscopy by Dr. Cruz summer 2021. Had one polyp removed. Was told not a pre-cancerous polyp. Normal appetite. No dysphagia. +GERD. Takes Tums or Mylanta prn. No PPI use. No nausea. No bloody or black stools. Not vegetarian. She received 9 doses of iron sucrose for iron deficiency anemia secondary to heavy menses. She had prior colonoscopy. Had Covid in November 2021. Wasn't formally tested, but and two sons tested positive. was asymptomatic. Symptoms for patient consisted of MORENO, body aches, cough, fever, loss of taste and smell. Didn't require hospitalization. Symptoms of fatigue and MORENO lingered about 4-6 weeks. Cough lasted about 4 weeks. She presented to the ED at [facility] the evening of 12/29/2021 after experiencing the onset of left eye scintillations followed by right arm numbness and dense weakness. She also developed aphasia. Symptoms occurred while she was watching TV. Evidently the arm numbness and weakness resolved within a few minutes but speech difficulty lasted about an hour and then resolved. She was reported to have some cognitive slowing that lasted about [address] on presentation demonstrated a normal unenhanced CT scan of the brain. 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 The more distal portions of the arteries were supplied via the patent bilateral posterior communicating arteries. Otherwise the [place] was observed to be normal. There were normal bilateral carotid and vertebral arteries observed. Blood pressure on presentation was 192/106. 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 She was started on ASA and Plavix. Hypercoagulation panel was ordered. Anticardiolipin IgM antibody titer 17 (intermediate).. Anticardiolipin IgG less than 9. Antibodies to beta-2 glycoprotein including IgG, IgA and IgM normal. Antithrombin activity normal. Antithrombin level normal. Protein C antigen and functional activity normal. No factor V Leiden mutation. Prothrombin mutation not detected. Lupus anticoagulant activity was not detected. This was evidenced by a normal dilute PT, confirmation ratio, thrombin time, DRVVT. Patient also had bilateral lower extremity duplex ultrasound which revealed no evidence for acute DVT in the bilateral lower extremities. Echocardiogram revealed normal left ventricular systolic function with estimated ejection fraction 65%. There was trivial mitral valve and trivial tricuspid valve insufficiency along with trivial pulmonic valve insufficiency. RV systolic pressure was not able to be estimated. Agitated saline contrast study consider positive for right to left interatrial shunt potentially compatible with small PFO versus ASD. Subsequent transesophageal echocardiogram on 05/07/2022 showed no spontaneous contrast in the left atrium. No thrombus was detected in the left atrial appendage. There was 1+ mitral valve insufficiency. Mild tricuspid valve insufficiency trivial aortic valve insufficiency. There was positive agitated saline contrast study for rnpea-pt-tjzi interarterial shunt compatible with very small patent foramen ovale. Normal-appearing thoracic aorta. (more content not included)... Normal [facility] Lesley 12-04-2022 LORRAINE Telephone (HEMAWS) CHERYLE METCALF ([id number]) 1970 F Date Time Provider Department 12/04/22 HERMAN PINEDA During your visit today, we recorded the following information about you: Herman Pineda DO 12/04/2022 8:21 PM Signed Let her know I reviewed her case with Dr. Tucker. She can stop Plavix now, but continue aspirin. DO Herlinda Pedraza LPN 12/05/2022 8:38 AM Signed Patient notified and verbalized understanding. Herlinda Louis LPN Allergies As of Date: 12/04/2022 Noted Allergy Reaction CODEINE 04/12/2009 11 - Vomiting Comments: dizziness Date Reviewed: 12/04/2022 Reviewed by: Herman Pineda DO - Fully Assessed Reason for Visit: Follow Up [171] Cmt: Stop Plavix Prescriptions as of 12/05/2022 - meclizine (ANTIVERT) 25 mg tab Take 25 mg by mouth as needed. - clopidogrel (PLAVIX) 75 mg tablet Take 1 tablet by mouth once daily. - aspirin, enteric coated (ASPIRIN, ENTERIC COATED) 81 mg EC tablet Take 81 mg by mouth once daily. - atorvastatin (LIPITOR) 40 mg tablet Take 40 mg by mouth once daily. - amLODIPine (NORVASC) 5 mg tablet Take 5 mg by mouth once daily. - acetaminophen (TYLENOL) 325 mg tablet Take 650 mg by mouth every 6 hours as needed. - atenolol (TENORMIN) 25 mg tablet Take 25 mg by mouth once daily. - lisinopril (ZESTRIL, PRINIVIL) 40 mg tablet Take 40 mg by mouth once daily. Facility-Administered Medications as of 12/05/2022 - perflutren lipid microspheres 1.3 mL in NaCl (PF) 0.9% 10 mL injection (DEFINITY) - sodium chloride 0.9 % (flush) 10 mL (BD POSIFLUSH) Meds Comments as of 04/12/2009: No current medications/reviewed April 12, 2009/Shanta Govea Lpn Problem List As Of Date 12/04/2022 Noted Resolved ALLERGIC RHINITIS NOS [J30.9] 05/24/2009 FAMILY HX ISCHEM HEART DIS [Z82.49] 05/24/2009 Iron deficiency anemia due to chronic blood los*08/07/2021 Iron malabsorption [K90.9] 08/07/2021 Encounter Status:Closed by HERLINDA LOUIS LUISA on 12/05/22 Normal [facility] BETA 2 GLYCOPROTEIN, IGGon 0 11-27-2022 Beta 2 glycoprotein 1 IgG IA Qn <9 Normal <20 [facility] Comment on above: Order Comment: Speci men Type: BLOOD SPECIMENOrdering Facility: [facility] Address: [address] [place] [address] Result Comment: <20 SGU Negative 20-80 SGU Low Positive >80 SGU High Positive These results were obtained with the Inova QUANTA Lite B2 GPI IgG KAMILLA. B2 GPI IgG values obtained with different manufacturers' assay methods may not be used interchangeably. The magnitude of the reported IgG levels cannot be correlated to an endpoint titer. Performed By: #### B ETA2G, 5076-5, JERZY MARTINEZ, BETA2M ####[facility] LABCLIA [id number] [place] [address] [place] BETA 2 GLYCOPROTEIN, IGMon 0 11-27-2022 Beta 2 glycoprotein 1 IgM IA Qn <9 Normal <20 [facility] Comment on above: Order Comment: Speci men Type: BLOOD SPECIMENOrdering Facility: [facility] Address: [address] [place] [address] Result Comment: <20 SMU Negative 20-80 SMU Low Positive >80 SMU High positive These results were obtained with the Inova QUANTA Lite B2 GPI IgM KAMILLA. B2 GPI IgM values obtained with different manufacturers' assay methods may not be used interchangeably. The magnitude of the reported IgM levels cannot be correlated to an endpoint titer. Performed By: #### B ETA2G, 5076-5, JERZY MARTINEZ, BETA2M ####[facility] LABCLIA [id number] [place] [address] [place] CARDIOLIPIN IGG ABSon 2022 Cardiolipin IgG IA Qn (S) <9.0 Normal <15.0 [facility] Comment on above: Order Comment: Speci men Type: BLOOD SPECIMENOrdering Facility: [facility] Address: [address] [place] [address] Result Comment: <15 GPL Negative 15-20 GPL Indeterminate >20 GPL Positive The following results were obtained with the Inova QUANTA Lite JOHNATHON IgG III KAMILLA. Cardiolipin IgG values obtained with the different manufacturers' assay methods may not be used interchangeably. The magnitude of the reported IgG levels cannot be correlated to an endpoint titer. Performed By: #### B RUPINDER, 5076-5, JERZY MARTINEZ BETA2M ####[facility] LABCLIA [id number] [address] [place] CARDIOLIPIN IGM ABSon 2022 Cardiolipin IgM IA Qn (S) 13.0 MPL High <12.5 [facility] Comment on above: Order Comment: Speci men Type: BLOOD SPECIMENOrdering Facility: [facility] Address: [address] [place] [address] Result Comment: <12. 5 MPL Negative 12.5-20 MPL Indeterminate >20 MPL Positive The following results were obtained with the Inova QUANTA Lite JOHNATHON IgM III KAMILLA. Cardiolipin IgM values obtained with the different manufacturers' assay methods may not be used interchangeably. The magnitude of the reported IgM levels cannot be correlated to an endpoint titer. ??? Performed By: #### B RUPINDER, 5076-5, JERZY MARTINEZ BETA2M ####[facility] LABIA [id number] [place] [address] [place] CBC W Auto Diff [place] 2022 Hematocrit (Bld) [Volume fraction] 31.0 % Low 36.0-46.0 [facility] Comment on above: Order Comment: Speci men Type: BLOOD SPECIMENOrdering Facility: [facility] Address: [address] [place] [address] Performed By: #### 5 7021-8 ####[facility] [id number] [place] [address] [place] Performed By: #### 5 7782-5 ####[facility] MILLTOWNCLIA [id number] [address] STATES OF [facility] LABCLIA [id number] [address] [place]#### STFREV ####[facility] LABCLIA [id number] [address] Immature granulocytes (Bld) [#/Vol] 10*3/uL Normal <0.10 [facility] Comment on above: Order Comment: Speci men Type: BLOOD SPECIMENOrdering Facility: [facility] Address: [address] [address] Performed By: #### 5 7021-8 ####[facility] MILLWNCLIA [id number] [address] Performed By: #### 5 7782-5 ####[facility] MILLWNCLIA [id number] [address] STATES OF [facility] LABCLIA [id number] [address] [place]#### STFREV ####[facility] LABCLIA [id number] [address] [place] Immature granulocytes/100 WBC (Bld) 0.2 % Normal [facility] Comment on above: Order Comment: Speci men Type: BLOOD SPECIMENOrdering Facility: [facility] Address: [address] [place] [address] Performed By: #### 5 7021-8 ####[facility] MILLTOWNCLIA [id number] [address] Performed By: #### 5 7782-5 ####[facility] MILLTOWNCLIA [id number] [place] [address] [place] [facility] LABCLIA [id number] [address] [place]#### STFREV ####[facility] LABCLIA [id number] [place] [address] [place] MCV (RBC) [Entitic vol] 81.6 fL Normal 80.0-100.0 [facility] Comment on above: Order Comment: Speci men Type: BLOOD SPECIMENOrdering Facility: [facility] Address: [address] [place] [address] Performed By: #### 5 7021-8 ####[facility] MILLTOWNCLIA [id number] [address] [place] Performed By: #### 5 7782-5 ####[facility] MILLTOWNCLIA [id number] [place] [address] [place] [facility] LABCLIA [id number] [address] [place]#### STFREV ####[facility] LABCLIA [id number] [address] [place] Monocytes/100 WBC (Bld) 9.9 % Normal [facility] Comment on above: Order Comment: Speci men Type: BLOOD SPECIMENOrdering Facility: [facility] Address: [address] [address] Performed By: #### 5 7021-8 ####[facility] MILLTOWNCLIA [id number] [address] [place] Performed By: #### 5 7782-5 ####[facility] MILLTOWNCLIA [id number] [place] [address] [place] [facility] LABCLIA [id number] [place] [address] [place]#### STFREV ####[facility] LABCLIA [id number] [place] [address] [place] RBC (Bld) [#/Vol] 3.80 10*6/uL Low 3.90-5.20 [facility] Comment on above: Order Comment: Speci men Type: BLOOD SPECIMENOrdering Facility: [facility] Address: [address] [address] Performed By: #### 5 7021-8 ####[facility]IDWNCLIA [id number] [place] [address] [place] Performed By: #### 5 7782-5 ####[facility] CL[facility]ICNCLIA [id number] [place] [address] [place] [facility] LABCLIA [id number] [place] [address] [place]#### STFREV ####[facility] LABCLIA [id number] [place] [address] [place] CBC W Auto Differential pane l (Bld)on 11-27-2022 Basophils (Bld) [#/Vol] 0.04 10*3/uL Normal <0.11 [facility] Comment on above: Order Comment: Speci men Type: BLOOD SPECIMENOrdering Facility: [facility] Address: [address] Performed By: #### 5 7021-8 ####[facility] CL[facility]ICNCLIA [id number] [place] [address] [place] Basophils/100 WBC (Bld) 1.0 % Normal [facility] Comment on above: Order Comment: Speci men Type: BLOOD SPECIMENOrdering Facility: [facility] Address: [address] [address] Performed By: #### 5 7021-8 ####[facility] NATALIEKusumNCDAE [id number] [place] [address] [place] Differential cell count method Nom (Bld) Auto Normal [facility] Comment on above: Order Comment: Speci men Type: BLOOD SPECIMENOrdering Facility: [facility] Address: [address] [address] Performed By: #### 5 7021-8 ####[facility]ICN[facility] [id number] [place] [address] [place] Eosinophils (Bld) [#/Vol] 0.07 10*3/uL Normal <0.46 [facility] Comment on above: Order Comment: Speci men Type: BLOOD SPECIMENOrdering Facility: [facility] Address: [address] [address] Performed By: #### 5 7021-8 ####[facility] [id number] [place] [address] [place] Eosinophils/100 WBC (Bld) 1.7 % Normal [facility] Comment on above: Order Comment: Speci men Type: BLOOD SPECIMENOrdering Facility: [facility] Address: [address] [place] [address] Performed By: #### 5 7021-8 ####[facility] [id number] [place] [address] [place] Erythrocyte distribution width (RBC) [Ratio] 14.2 % Normal 11.5-15.0 [facility] Comment on above: Order Comment: Speci men Type: BLOOD SPECIMENOrdering Facility: [facility] Address: [address] [place] [address] Performed By: #### 5 7021-8 ####[facility] NATALIEBROWNSBORONCLIA [id number] [place] [address] [place] Hemoglobin (Bld) [Mass/Vol] 9.7 g/dL Low 11.5-15.5 [facility] Comment on above: Order Comment: Speci men Type: BLOOD SPECIMENOrdering Facility: [facility] Address: [address] [place] [address] Performed By: #### 5 7021-8 ####[facility] CLINICNCLI [id number] [place] [address] [place] Lymphocytes (Bld) [#/Vol] 1.03 10*3/uL Normal 1.00-4.00 [facility] Comment on above: Order Comment: Speci men Type: BLOOD SPECIMENOrdering Facility: [facility] Address: [address] [place] [address] Performed By: #### 5 7021-8 ####[facility]ITALA [id number] [place] [address] [place] Lymphocytes/100 WBC (Bld) 24.9 % Normal [facility] Comment on above: Order Comment: Speci men Type: BLOOD SPECIMENOrdering Facility: [facility] Address: [address] [place] [address] Performed By: #### 5 7021-8 ####[facility] CENTERDAE [id number] [place] [address] [place] MCH (RBC) [Entitic mass] 25.5 pg Low 26.0-34.0 [facility] Comment on above: Order Comment: Speci men Type: BLOOD SPECIMENOrdering Facility: [facility] Address: [address] [place] [address] Performed By: #### 5 7021-8 ####[facility]ENTERLI [id number] [place] [address] [place] MCHC (RBC) [Mass/Vol] 31.3 g/dL Normal 30.5-36.0 [facility] Comment on above: Order Comment: Speci men Type: BLOOD SPECIMENOrdering Facility: [facility] Address: [address] [place] [address] Performed By: #### 5 7021-8 ####[facility] CLINICJADENLIA [id number] [place] [address] [place] Monocytes (Bld) [#/Vol] 0.41 10*3/uL Normal <0.87 [facility] Comment on above: Order Comment: Speci men Type: BLOOD SPECIMENOrdering Facility: [facility] Address: [address] [place] [address] Performed By: #### 5 7021-8 ####[facility] CLINICKEKE [id number] [place] [address] [place] Neutrophils (Bld) [#/Vol] 2.57 10*3/uL Normal 1.45-7.50 [facility] Comment on above: Order Comment: Speci men Type: BLOOD SPECIMENOrdering Facility: [facility] Address: [address] [place] [address] Performed By: #### 5 7021-8 ####[facility] CLINICGOGOA [id number] [place] [address] [place] Neutrophils/100 WBC (Bld) 62.3 % Normal [facility] Comment on above: Order Comment: Speci men Type: BLOOD SPECIMENOrdering Facility: [facility] Address: [address] [place] [address] Performed By: #### 5 7021-8 ####[facility] CLINICNCLIA [id number] [place] [address] [place] Nucleated RBC (Bld) [#/Vol] 10*3/uL Normal <0.01 [facility] Comment on above: Order Comment: Speci men Type: BLOOD SPECIMENOrdering Facility: [facility] Address: [address] [place] [address] Performed By: #### 5 7021-8 ####[facility]ICN[facility] [id number] [place] [address] [place] Nucleated RBC/100 WBC (Bld) [Ratio] 0.0 /100 WBC Normal [facility] Comment on above: Order Comment: Speci men Type: BLOOD SPECIMENOrdering Facility: [facility] Address: [address] [place] [address] Performed By: #### 5 7021-8 ####[facility] [id number] [place] [address] [place] Platelet mean volume (Bld) [Entitic vol] 9.4 fL Normal 9.0-12.7 [facility] Comment on above: Order Comment: Speci men Type: BLOOD SPECIMENOrdering Facility: [facility] Address: [address] [place] [address] Performed By: #### 5 7021-8 ####[facility] CLINICNCLI [id number] [place] [address] [place] Platelets (Bld) [#/Vol] 266 10*3/uL Normal 150-400 [facility] Comment on above: Order Comment: Speci men Type: BLOOD SPECIMENOrdering Facility: [facility] Address: [address] [place] [address] Performed By: #### 5 7021-8 ####[facility] [id number] [place] [address] [place] WBC (Bld) [#/Vol] 4.13 10*3/uL Normal 3.70-11.00 [facility] Comment on above: Order Comment: Speci men Type: BLOOD SPECIMENOrdering Facility: [facility] Address: [address] Performed By: #### 5 7021-8 ####[facility] [id number] [place] [address] [place] CBC W Ordered Manual Differe ntial panel (Bld)on 11-27-2022 Basophils (Bld) [#/Vol] 0.05 10*3/uL Normal <0.11 [facility] Comment on above: Order Comment: Speci men Type: BLOOD SPECIMENOrdering Facility: [facility] Address: [address] Performed By: #### 5 7782-5 ####[facility] [id number] [place] [address] [place] [facility] LABCLIA [id number] [place] [address] [place]#### STFREV ####[facility] LABCLIA [id number] [place] [address] [place] Basophils/100 WBC (Bld) 1.2 % Normal [facility] Comment on above: Order Comment: Speci men Type: BLOOD SPECIMENOrdering Facility: [facility] Address: [address] Performed By: #### 5 7782-5 ####[facility]ITAL[facility] [id number] [place] [address] [place] [facility] LABCLIA [id number] [place] [address] [place]#### STFREV ####[facility] LABCLIA [id number] [place] [address] [place] Eosinophils (Bld) [#/Vol] 0.08 10*3/uL Normal <0.46 [facility] Comment on above: Order Comment: Speci men Type: BLOOD SPECIMENOrdering Facility: [facility] Address: [address] [facility] [place] [place] [address] Performed By: #### 5 7782-5 ####[facility] MILLTOWNCLIA [id number] [address] LABCLIA [id number] [place] [address] [place]#### STFREV ####[facility] LABCLIA [id number] [place] [address] [place] Eosinophils/100 WBC (Bld) 2.0 % Normal [facility] Comment on above: Order Comment: Speci men Type: BLOOD SPECIMENOrdering Facility: [facility] Address: [address] [facility] Performed By: #### 5 7782-5 ####[facility] PLACIDWNCLIA [id number] [address] STATES OF [facility] LABCLIA [id number] [place] [address] [place]#### STFREV ####[facility] LABCLIA [id number] [place] [address] [place] Erythrocyte distribution width (RBC) [Ratio] 14.1 % Normal 11.5-15.0 [facility] Comment on above: Order Comment: Speci men Type: BLOOD SPECIMENOrdering Facility: [facility] Address: [address] [facility] [address] Performed By: #### 5 7782-5 ####[facility] BEACHTOWNCLIA [id number] [address] STATES OF [facility] LABCLIA [id number] [place] [address] [place]#### STFREV ####[facility] LABCLIA [id number] [place] [address] [place] Hemoglobin (Bld) [Mass/Vol] 9.6 g/dL Low 11.5-15.5 [facility] Comment on above: Order Comment: Speci men Type: BLOOD SPECIMENOrdering Facility: [facility] Address: [address] [place] [address] Performed By: #### 5 7782-5 ####[facility] [id number] [address] LABCLIA [id number] [place] [address] [place]#### STFREV ####[facility] LABCLIA [id number] [place] [address] [place] Lymphocytes (Bld) [#/Vol] 0.98 10*3/uL Low 1.00-4.00 [facility] Comment on above: Order Comment: Speci men Type: BLOOD SPECIMENOrdering Facility: [facility] Address: [address] [place] [address] Performed By: #### 5 7782-5 ####[facility] [id number] [address] LABCLIA [id number] [place] [address] [place]#### STFREV ####[facility] LABCLIA [id number] [address] [place] Lymphocytes/100 WBC (Bld) 24.2 % Normal [facility] Comment on above: Order Comment: Speci men Type: BLOOD SPECIMENOrdering Facility: [facility] Address: [address] [place], [place] [address] Performed By: #### 5 7782-5 ####[facility] MILLTOWNCLIA [id number] [address] OF [facility] LABCLIA [id number] [place] [address] [place]#### STFREV ####[facility] LABCLIA [id number] [place] [address] [place] MCH (RBC) [Entitic mass] 25.3 pg Low 26.0-34.0 [facility] Comment on above: Order Comment: Speci men Type: BLOOD SPECIMENOrdering Facility: [facility] Address: [address] [address] Performed By: #### 5 7782-5 ####[facility] CENTERLIA [id number] [address] LABCLIA [id number] [place] [address] [place]#### STFREV ####[facility] LABCLIA [id number] [place] [address] [place] MCHC (RBC) [Mass/Vol] 31.0 g/dL Normal 30.5-36.0 [facility] Comment on above: Order Comment: Speci men Type: BLOOD SPECIMENOrdering Facility: [facility] Address: [address] [place] [address] Performed By: #### 5 7782-5 ####[facility] PLACIDWNCLIA [id number] [address] STATES OF [facility] LABCLIA [id number] [place] [address] [place]#### STFREV ####[facility] LABCLIA [id number] [place] [address] [place] Monocytes (Bld) [#/Vol] 0.40 10*3/uL Normal <0.87 [facility] Comment on above: Order Comment: Speci men Type: BLOOD SPECIMENOrdering Facility: [facility] [facility] Address: [address] [place] [address] Performed By: #### 5 7782-5 ####[facility]ENTERLIA [id number] [address] OF [facility] LABCLIA [id number] [address] [place]#### STFREV ####[facility] LABCLIA [id number] [place] [address] [place] Neutrophils (Bld) [#/Vol] 2.53 10*3/uL Normal 1.45-7.50 [facility] Comment on above: Order Comment: Speci men Type: BLOOD SPECIMENOrdering Facility: [facility] Address: [address] [place], [place] [address] Performed By: #### 5 7782-5 ####[facility] [id number] [address] LABCLIA [id number] [address] [place]#### STFREV ####[facility] LABCLIA [id number] [address] [place] Neutrophils/100 WBC (Bld) 62.5 % Normal [facility] Comment on above: Order Comment: Speci men Type: BLOOD SPECIMENOrdering Facility: [facility] Address: [address] [place], [place] [address] Performed By: #### 5 7782-5 ####[facility] CLINICNCLIA [id number] [place] [address] [place] [facility] LABCLIA [id number] [place] [address] [place]#### STFREV ####[facility] LABCLIA [id number] [place] [address] [place] Platelet mean volume (Bld) [Entitic vol] 9.0 fL Normal 9.0-12.7 [facility] Comment on above: Order Comment: Speci men Type: BLOOD SPECIMENOrdering Facility: [facility] Address: [address] [place] [address] Performed By: #### 5 7782-5 ####[facility] [id number] [address] LABCLIA [id number] [place] [address] [place]#### STFREV ####[facility] LABIA [id number] [place] [address] [place] Platelets (Bld) [#/Vol] 263 10*3/uL Normal 150-400 [facility] Comment on above: Order Comment: Speci men Type: BLOOD SPECIMENOrdering Facility: [facility] Address: [address] [place], [place] [address] Performed By: #### 5 7782-5 ####[facility]IDWNCLIA [id number] [address] OF [facility] LABCLIA [id number] [place] [address] [place]#### STFREV ####[facility] LABCLIA [id number] [address] [place] [address] [place] WBC (Bld) [#/Vol] 4.05 10*3/uL Normal 3.70-11.00 [facility] Comment on above: Order Comment: Speci men Type: BLOOD SPECIMENOrdering Facility: [facility] Address: [address] [place] [address] Performed By: #### 5 7782-5 ####[facility] [id number] [place] [address] [place] [facility] LABCLIA [id number] [address]#### STFREV ####[facility] LABIA [id number] [address] [place] Cardiolipin IgA Ser IA-aCnco n 11-27-2022 Cardiolipin IgA IA Qn (S) <9.0 Normal <12.0 [facility] Comment on above: Order Comment: Speci men Type: BLOOD SPECIMENOrdering Facility: [facility] Address: [address] [place] [address] Result Comment: <12 APL Negative 12-20 APL Indeterminate >20 APL Positive The following results were obtained with the [employer] QUANTA Lite JOHNATHON IgA III KAMILLA. Cardiolipin IgA values obtained with the different manufacturers' assay methods may not be used interchangeably. The magnitude of the reported IgA levels cannot be correlated to an endpoint titer. Performed By: #### B ETA2G, 5076-5, CARDIRodrigo, CARDIM, BETA2M ####[facility] LABIA [id number] [address] [place] Comprehensive metabolic 2000 panelon 11-27-2022 Albumin [Mass/Vol] 4.0 g/dL Normal 3.9-4.9 [facility] Comment on above: Order Comment: Speci men Type: BLOOD SPECIMENOrdering Facility: [facility] Address: [address] [place] [address] Performed By: #### 2 4323-8 ####[facility] MILLTOWNCLIA [id number] [place] [address] [place] ALP [Catalytic activity/Vol] 98 U/L Normal 34-123 [facility] Comment on above: Order Comment: Speci men Type: BLOOD SPECIMENOrdering Facility: [facility] Address: [address] [place] [address] Performed By: #### 2 4323-8 ####[facility]IDWNCLIA [id number] [place] [address] [place] ALT [Catalytic activity/Vol] 10 U/L Normal 7-38 [facility] Comment on above: Order Comment: Speci men Type: BLOOD SPECIMENOrdering Facility: [facility] Address: [address] [place] [address] Performed By: #### 2 4323-8 ####[facility]ENTERLIA [id number] [place] [address] [place] Anion gap [Moles/Vol] 8 mmol/L Low 9-18 [facility] Comment on above: Order Comment: Speci men Type: BLOOD SPECIMENOrdering Facility: [facility] Address: [address] [place] [address] Performed By: #### 2 4323-8 ####[facility] CLINICJADENLIA [id number] [place] [address] [place] AST [Catalytic activity/Vol] 14 U/L Normal 13-35 [facility] Comment on above: Order Comment: Speci men Type: BLOOD SPECIMENOrdering Facility: [facility] Address: [address] [place] [address] Performed By: #### 2 4323-8 ####[facility] CLINICNCLIA [id number] [place] [address] [place] Bilirubin [Mass/Vol] 0.2 mg/dL Normal 0.2-1.3 [facility] Comment on above: Order Comment: Speci men Type: BLOOD SPECIMENOrdering Facility: [facility] Address: [address] [place] [address] Performed By: #### 2 4323-8 ####[facility] CLINICNCLIA [id number] [place] [address] [place] Calcium [Mass/Vol] 9.0 mg/dL Normal 8.5-10.2 [facility] Comment on above: Order Comment: Speci men Type: BLOOD SPECIMENOrdering Facility: [facility] Address: [address] [place] [address] Performed By: #### 2 4323-8 ####[facility]ENTERLIA [id number] [place] [address] [place] Chloride [Moles/Vol] 102 mmol/L Normal 97-105 [facility] Comment on above: Order Comment: Speci men Type: BLOOD SPECIMENOrdering Facility: [facility] Address: [address] [place] [address] Performed By: #### 2 4323-8 ####[facility]ENTERLIA [id number] [place] [address] [place] CO2 [Moles/Vol] 27 mmol/L Normal 22-30 [facility] Comment on above: Order Comment: Speci men Type: BLOOD SPECIMENOrdering Facility: [facility] Address: [address] [address] Performed By: #### 2 4323-8 ####[facility] [id number] [place] [address] [place] Creatinine [Mass/Vol] 0.72 mg/dL Normal 0.58-0.96 [facility] Comment on above: Order Comment: Speci men Type: BLOOD SPECIMENOrdering Facility: [facility] Address: [address] [address] Performed By: #### 2 4323-8 ####[facility] CLINICNCLIA [id number] [place] [address] [place] ESTIMATED GLOMERULAR FILTRATION RATE 100 mL/min/1.73m??? Normal >=60 [facility] Comment on above: Order Comment: Cristina del real Type: BLOOD SPECIMENOrdering Facility: [facility] Address: [address] [place] [address] Result Comment: Glenna mated Glomerular Filtration Rate (eGFR) is calculated using the 2020 CKD-EPI creatinine equation. This equation utilizes serum creatinine, sex, and age as parameters. The creatinine assay has traceable calibration to isotope dilution-mass spectrometry. Refer to KDIGO guidelines for clinical interpretation. In patients with unstable renal function, e.g. those with acute kidney injury, the eGFR may not accurately reflect actual GFR. Performed By: #### 2 4323-8 ####[facility] [id number] [place] [address] [place] Glucose [Mass/Vol] 97 mg/dL Normal 74-99 [facility] Comment on above: Order Comment: Cristina del real Type: BLOOD SPECIMENOrdering Facility: [facility] Address: [address] [place] [address] Result Comment: The [place] Diabetes [employer] (ADA) provides guidance for cutoff values for fasting glucose and random glucose. The ADA defines fasting as no caloric intake for at least 8 hours. Fasting plasma glucose results between 100 to 125 mg/dL indicate increased risk for diabetes (prediabetes). Fasting plasma glucose results greater than or equal to 126 mg/dL meet the criteria for diagnosis of diabetes. In the absence of unequivocal hyperglycemia, results should be confirmed by repeat testing. In a patient with classic symptoms of hyperglycemia or hyperglycemic crisis, random plasma glucose results greater than or equal to 200 mg/dL meet the criteria for diagnosis of diabetes. Reference: Standards of Medical Care in Diabetes 2016, [place] [employer] Association. Diabetes Care. 2016.39(Suppl 1). Performed By: #### 2 4323-8 ####[facility] [id number] [place] [address] [place] Potassium [Moles/Vol] 3.8 mmol/L Normal 3.7-5.1 [facility] Comment on above: Order Comment: Speci men Type: BLOOD SPECIMENOrdering Facility: [facility] Address: [address] [place] [address] Performed By: #### 2 4323-8 ####[facility] PL[facility]IDWNCLIA [id number] [place] [address] [place] Protein [Mass/Vol] 6.9 g/dL Normal 6.3-8.0 [facility] Comment on above: Order Comment: Speci men Type: BLOOD SPECIMENOrdering Facility: [facility] Address: [address] [place] [address] Performed By: #### 2 4323-8 ####[facility] CENTERLIA [id number] [place] [address] [place] Sodium [Moles/Vol] 137 mmol/L Normal 136-144 [facility] Comment on above: Order Comment: Speci men Type: BLOOD SPECIMENOrdering Facility: [facility] Address: [address] [place] [address] Performed By: #### 2 4323-8 ####[facility] CLINICNCLIA [id number] [place] [address] [place] Urea nitrogen [Mass/Vol] 6 mg/dL Low 7-21 [facility] Comment on above: Order Comment: Speci men Type: BLOOD SPECIMENOrdering Facility: [facility] Address: [address] [place] [address] Performed By: #### 2 4323-8 ####[facility] CLINICNCLIA [id number] [place] [address] [place] Ferritin SerPl-mCncon 2022 Ferritin [Mass/Vol] 14.2 ng/mL Low 14.7-205.1 [facility] Comment on above: Order Comment: Speci men Type: BLOOD SPECIMENOrdering Facility: [facility] Address: [address] [place], [place] [address] Performed By: #### 5 0190-8, 2276-02 ####[facility] LABCLIA [id number] [place] [address] [place] Iron and Iron binding capaci ty panelon 11-27-2022 Iron [Mass/Vol] 22 ug/dL Low 41-186 [facility] Comment on above: Order Comment: Speci men Type: BLOOD SPECIMENOrdering Facility: [facility] Address: [address] [place], [place] [address] Performed By: #### 5 0190-8, 2276-02 ####[facility] LABCLIA [id number] [address] STATES OF [facility] Iron binding capacity [Mass/Vol] 382 ug/dL Normal 232-386 [facility] Comment on above: Order Comment: Speci men Type: BLOOD SPECIMENOrdering Facility: [facility] Address: [address] [place], [place] [address] Performed By: #### 5 0190-8, 2276-02 ####[facility] LABCLIA [id number] [address] OF [facility] Iron/TIBC [Molar ratio] 5.8 % Low 15.0-57.0 [facility] Comment on above: Order Comment: Speci men Type: BLOOD SPECIMENOrdering Facility: [facility] Address: [address] [place], [place] [address] Performed By: #### 5 0190-8, 2276-02 ####[facility] LABCLIA [id number] [address] [place] LUPUS PANELon 11-27-2022 aPTT Coag (Bld) [Time] 34.4 s Normal 24.0-35.1 [facility] Comment on above: Order Comment: Speci men Type: BLOOD SPECIMENOrdering Facility: [facility] Address: [address] [place], [place] [phone] Performed By: #### L UPPL ####[facility] LABIA [id number] [place] [address] [place] aPTT W excess hexagonal phase phospholipid Coag (PPP) [Time] 50.6 seconds Normal 34.0-51.8 [facility] Comment on above: Order Comment: Speci men Type: BLOOD SPECIMENOrdering Facility: [facility] Address: [address] [place] [address] Performed By: #### L UPPL ####[facility] [id number] [place] [address] [place] Delta dRVVT Coag (PPP) [Time diff] 1.5 delta seconds Normal <7.1 [facility] Comment on above: Order Comment: Speci men Type: BLOOD SPECIMENOrdering Facility: [facility] Address: [address] [place], [place] [phone] Performed By: #### L UPPL ####[facility] [id number] [place] [address] [place] dRVVT Coag (PPP) [Time] 29.2 s Low 32.0-45.7 [facility] Comment on above: Order Comment: Speci men Type: BLOOD SPECIMENOrdering Facility: [facility] Address: [address] [place], [place] [phone] Performed By: #### L UPPL ####[facility] [id number] [place] [address] [place] dRVVT factor substitution immediately after 1:2 addition of normal plasma Coag (PPP) [Time] 32.5 seconds Normal 32.0-45.7 [facility] Comment on above: Order Comment: Speci men Type: BLOOD SPECIMENOrdering Facility: [facility] Address: [address] [address] Performed By: #### L UPPL ####[facility] LABIA [id number] [address] [place] dRVVT W excess hexagonal phase phospholipid actual/normal Coag (PPP) [Relative time] 49.1 seconds High 34.2-47.9 [facility] Comment on above: Order Comment: Speci men Type: BLOOD SPECIMENOrdering Facility: [facility] Address: [address] [address] Performed By: #### L UPPL ####[facility] [id number] [address] [place] dRVVT/dRVVT.excess phospholipid Coag (PPP) [Ratio] 0.85 Normal <1.32 [facility] Comment on above: Order Comment: Speci men Type: BLOOD SPECIMENOrdering Facility: [facility] Address: [address] [address] Performed By: #### L UPPL ####[facility] [id number] [address] [place] Lupus anticoagulant neutralization platelet Coag Ql (PPP) Negative Normal Negative [facility] Comment on above: Order Comment: Speci men Type: BLOOD SPECIMENOrdering Facility: [facility] Address: [address] Performed By: #### L UPPL ####[facility] LABIA [id number] [address] [place] Thrombin time Coag (PPP) [Time] <16.8 Normal <18.6 [facility] Comment on above: Order Comment: Speci men Type: BLOOD SPECIMENOrdering Facility: [facility] Address: [address] Performed By: #### L UPPL ####[facility] LABIA [id number] [address] PATHOLOGIST INTERPRETATION C BC/DIFFon 11-27-2022 Patternmaker Wood review Orlin (Unsp spec) [Interp] No review performed. Normal [facility] Comment on above: Order Comment: Speci men Type: BLOOD SPECIMENOrdering Facility: [facility] Address: [address] [place] [address] Performed By: #### 5 7782-5 ####[facility] [id number] [address] [id number] [address]#### STFREV ####[facility] [id number] [address] STAFF REVIEW, CBCDIF The Pathologist Interpretation on this sample was cancelled because the hematology analyzer did not flag any parameters as requiring manual review. If there is a specific clinical concern for which you would like a pathologist to review the blood smear, please call Lab Client Services within 28 days. Normal [facility] Comment on above: Order Comment: Speci men Type: BLOOD SPECIMENOrdering Facility: [facility] Address: [address] [place] [address] Performed By: #### 5 7782-5 ####[facility] [id number] [address] LABIA [id number] [address] [place]#### STFREV ####[facility] LABIA [id number] [address] PT panel Coag (PPP)on 2022 INR Coag (PPP) [Relative time] 0.9 {INR} Normal 0.9-1.3 [facility] Comment on above: Order Comment: Cristina del real Type: BLOOD SPECIMENOrdering Facility: [facility] Address: [address] [address] Result Comment: Amanda min K Antagonist (VKA) Therapeutic Range: INR 2 to 3 (Target INR of 2.5) Note: For patients treated with VKA drugs, such as warfarin, the [place] [employer] 2012 Guideline recommends a therapeutic INR range of 2 to 3 (target INR of 2.5). This recommendation includes high-risk patients with antiphospholipid syndrome with previous arterial or venous thromboembolism, current-generation mechanical or bioprosthetic aortic heart valve replacement. Note: Patients with mechanical aortic valve replacement and additional risk factors for thromboembolic events (atrial fibrillation, previous thromboembolism, LV dysfunction, hypercoagulable conditions) or an older generation mechanical AVR (i.e., ball in-Cage) or any mechanical MVR should have a INR therapeutic range of 2.5 to 3.5 (target INR of 3). Archana GH, et al. Chest 2012, 141:7S-47S Dago RA, et al. [facility] 2017, 70: 252-289 Performed By: #### 3 4528-0 ####[facility] [id number] [place] [address] [place] PT Coag (PPP) [Time] 9.3 s Normal <13.1 [facility] Comment on above: Order Comment: Cristina del real Type: BLOOD SPECIMENOrdering Facility: [facility] Address: [address] [address] Performed By: #### 3 4528-0 ####[facility] [id number] [place] [address] [place] aPTT PPPon 11-27-2022 aPTT Coag (PPP) [Time] 27.6 s Normal 23.0-32.4 [facility] Comment on above: Order Comment: Cristina del real Type: BLOOD SPECIMENOrdering Facility: [facility] Address: [address] Result Comment: Froz en Plasma Aliquot Performed By: #### 1 4979-9 ####[facility] LABCLIA [id number] [address] [id number] [place] Lesley 11-12-2022 CNPN Telephone (RIGOBERTO) CHERYLE METCALF ([id number]) 1970 F Date Time Provider Department 11/12/22 HERMAN PINEDA During your visit today, we recorded the following information about you: Herman Pineda DO 11/12/2022 12:49 PM Signed Looks like we tried contacting her several times this past May about a 6-month follow-up visit. Please try contacting her again. Labs filed then OV about 1-2 weeks later sometime later in November. DO Liane Pedraza 11/12/2022 3:37 PM Signed 1st attempt: LM When pt returns call please assist in scheduling Labs and Ov as directed below. Thank you! Liane [place] 11/15/2022 10:29 AM Signed Spoke with pt. Scheduled labs and OV as directed Allergies As of Date: 11/12/2022 Noted Allergy Reaction CODEINE 04/12/2009 11 - Vomiting Comments: dizziness Date Reviewed: 09/20/2022 Reviewed by: Rachelle Odonnell RN - Fully Assessed Reason for Visit: Follow Up [171] Primary Visit Diagnosis:Primary hypercoagulable state (HCC) [D68.59] Order(s):PATHOLOGIST INTERPRETATION WITH CBC AND DIFF [SQSTREV] Order #: [id number] FUTURE COMP METABOLIC PANEL [SQCMP] Order #: [id number] FUTURE LUPUS ANTICOAG PL [SQLUPUSP] Order #: [id number] FUTURE B 2 GPI IGG AND IGM [CXL0CQVF] Order #: [id number] FUTURE Prescriptions as of 11/15/2022 - clopidogrel (PLAVIX) 75 mg tablet Take 1 tablet by mouth once daily. - aspirin, enteric coated (ASPIRIN, ENTERIC COATED) 81 mg EC tablet Take 81 mg by mouth once daily. - atorvastatin (LIPITOR) 40 mg tablet Take 40 mg by mouth once daily. - amLODIPine (NORVASC) 5 mg tablet Take 5 mg by mouth once daily. - acetaminophen (TYLENOL) 325 mg tablet Take 650 mg by mouth every 6 hours as needed. - atenolol (TENORMIN) 25 mg tablet Take 25 mg by mouth once daily. - lisinopril (ZESTRIL, PRINIVIL) 40 mg tablet Take 40 mg by mouth once daily. Facility-Administered Medications as of 11/15/2022 - perflutren lipid microspheres 1.3 mL in NaCl (PF) 0.9% 10 mL injection (DEFINITY) - sodium chloride 0.9 % (flush) 10 mL (BD POSIFLUSH) Meds Comments as of 04/12/2009: No current medications/reviewed April 12, 2009/Shanta Govea Lpn Problem List As Of Date 11/12/2022 Noted Resolved ALLERGIC RHINITIS NOS [J30.9] 05/24/2009 FAMILY HX ISCHEM HEART DIS [Z82.49] 05/24/2009 Iron deficiency anemia due to chronic blood los*08/07/2021 Iron malabsorption [K90.9] 08/07/2021 Encounter Status:Closed by LIANE BETTENCOURT on 11/15/22 Normal [facility] Basic metabolic 2000 panelon 09-20-2022 Anion gap [Moles/Vol] 10 mmol/L Normal 9-18 [facility] Comment on above: Order Comment: Speci men Type: BLOOD SPECIMENOrdering Facility: [facility] Address: [address] [place] [address] Performed By: #### 2 4321-2 ####[facility] LABCLIA [id number] [place] [address] [place] Calcium [Mass/Vol] 9.2 mg/dL Normal 8.5-10.2 [facility] Comment on above: Order Comment: Speci men Type: BLOOD SPECIMENOrdering Facility: [facility] Address: [address] [place] [address] Performed By: #### 2 4321-2 ####[facility] LABCLIA [id number] [place] [address] [place] Chloride [Moles/Vol] 103 mmol/L Normal 97-105 [facility] Comment on above: Order Comment: Speci men Type: BLOOD SPECIMENOrdering Facility: [facility] Address: [address] [place] [address] Performed By: #### 2 4321-2 ####[facility] LABCLIA [id number] [place] [address] [place] CO2 [Moles/Vol] 23 mmol/L Normal 22-30 [facility] Comment on above: Order Comment: Speci men Type: BLOOD SPECIMENOrdering Facility: [facility] Address: [address] [place] [address] Performed By: #### 2 4321-2 ####[facility] LABCLIA [id number] [address] [place] Creatinine [Mass/Vol] 0.77 mg/dL Normal 0.58-0.96 [facility] Comment on above: Order Comment: Speci men Type: BLOOD SPECIMENOrdering Facility: [facility] Address: [address] [place] [address] Performed By: #### 2 4321-2 ####[facility] LABIA [id number] [address] ESTIMATED GLOMERULAR FILTRATION RATE 92 mL/min/1.73m??? Normal >=60 [facility] Comment on above: Order Comment: Speci men Type: BLOOD SPECIMENOrdering Facility: [facility] Address: [address] [place] [address] Result Comment: Glenna mated Glomerular Filtration Rate (eGFR) is calculated using the 2020 CKD-EPI creatinine equation. This equation utilizes serum creatinine, sex, and age as parameters. The creatinine assay has traceable calibration to isotope dilution-mass spectrometry. Refer to KDIGO guidelines for clinical interpretation. In patients with unstable renal function, e.g. those with acute kidney injury, the eGFR may not accurately reflect actual GFR. Performed By: #### 2 4321-2 ####[facility] LABCLIA [id number] [address] [address] [place] Glucose [Mass/Vol] 97 mg/dL Normal 74-99 [facility] Comment on above: Order Comment: Speci men Type: BLOOD SPECIMENOrdering Facility: [facility] Address: [address] [place], [place] [address] Result Comment: The [place] Diabetes [employer] (ADA) provides guidance for cutoff values for fasting glucose and random glucose. The ADA defines fasting as no caloric intake for at least 8 hours. Fasting plasma glucose results between 100 to 125 mg/dL indicate increased risk for diabetes (prediabetes). Fasting plasma glucose results greater than or equal to 126 mg/dL meet the criteria for diagnosis of diabetes. In the absence of unequivocal hyperglycemia, results should be confirmed by repeat testing. In a patient with classic symptoms of hyperglycemia or hyperglycemic crisis, random plasma glucose results greater than or equal to 200 mg/dL meet the criteria for diagnosis of diabetes. Reference: Standards of Medical Care in Diabetes 2016, [place] [employer]. Diabetes Care. 2016.39(Suppl 1). Performed By: #### 2 4321-2 ####[facility] LABIA [id number] [place] [id number] [place] Potassium [Moles/Vol] 4.5 mmol/L Normal 3.7-5.1 [facility] Comment on above: Order Comment: Speci men Type: BLOOD SPECIMENOrdering Facility: [facility] Address: [address] [place] [address] Performed By: #### 2 4321-2 ####[facility] LABIA [id number] [place] [id number] [place] Sodium [Moles/Vol] 136 mmol/L Normal 136-144 [facility] Comment on above: Order Comment: Speci men Type: BLOOD SPECIMENOrdering Facility: [facility] Address: [address] [id number] Performed By: #### 2 4321-2 ####[facility] LABIA [id number] [address] Urea nitrogen [Mass/Vol] 8 mg/dL Normal 7-21 [facility] Comment on above: Order Comment: Speci men Type: BLOOD SPECIMENOrdering Facility: [facility] Address: [address] [place] [address] Performed By: #### 2 4321-2 ####[facility] [id number] [address] CASE MGT INIT ASSESon 2021 CASE MGT INIT ASSES HNO ID: [id number] Author: Tiki Linton RN Service: ? Author Type: Registered Nurse Type: Care Mgt Initial Assessment Filed: 09/20/2022 10:31 AM Note Text: CARE MANAGEMENT: ASSESSMENT AND DISCHARGE PLAN SERVICE DATE: September 20, 2022 SERVICE TIME: 10:28 AM 97% RA This patient has been screened for Care Management Transitional Planning Services. At this time, it does not appear this patient will require transition planning services. Should this change, and the patient require transition planning services during this admission, please contact Case Management. PRIMARY CARE PHYSICIAN: Chhaya Nunez MD Primary Contact: Extended Emergency Contact Information Primary Emergency Contact: PeterHerman avila TrabajoPanel Relation: Spouse Secondary Emergency Contact: Josi Mccracken [place] Relation: Mother ADMISSION STATUS: Ambulatory Surgery Insurance Provider: [facility] CHOICE PLUS SIGNATURE: Tiki Linton RN PATIENT NAME: Cheryle Metcalf DATE: September 20, 2022 TIME: 10:28 AM CONTACT #: [phone] Normal [facility] CBC W Auto Differential pane l (Bld)on 09-20-2022 Basophils (Bld) [#/Vol] 0.04 10*3/uL Normal <0.11 [facility] Comment on above: Order Comment: Speci men Type: BLOOD SPECIMENOrdering Facility: [facility] Address: [address] [place] [address] Performed By: #### 5 7021-8 ####[facility] LABCLIA [id number] [address] [place] Basophils/100 WBC (Bld) 0.8 % Normal [facility] Comment on above: Order Comment: Speci men Type: BLOOD SPECIMENOrdering Facility: [facility] Address: [address] [place] [address] Performed By: #### 5 7021-8 ####[facility] LABCLIA [id number] [place] [address] [place] Differential cell count method Nom (Bld) Auto Normal [facility] Comment on above: Order Comment: Speci men Type: BLOOD SPECIMENOrdering Facility: [facility] Address: [address] [place], [place] [id number] Performed By: #### 5 7021-8 ####[facility] LABCLIA [id number] [place] [address] [place] Eosinophils (Bld) [#/Vol] 0.05 10*3/uL Normal <0.46 [facility] Comment on above: Order Comment: Speci men Type: BLOOD SPECIMENOrdering Facility: [facility] Address: [address] Performed By: #### 5 7021-8 ####[facility] LABCLIA [id number] [address] [place] Eosinophils/100 WBC (Bld) 1.0 % Normal [facility] Comment on above: Order Comment: Speci men Type: BLOOD SPECIMENOrdering Facility: [facility] Address: [address] [place], [place] [phone] Performed By: #### 5 7021-8 ####[facility] LABCLIA [id number] [place] [address] [place] Erythrocyte distribution width (RBC) [Ratio] 13.7 % Normal 11.5-15.0 [facility] Comment on above: Order Comment: Speci men Type: BLOOD SPECIMENOrdering Facility: [facility] Address: [address] [place] [address] Performed By: #### 5 7021-8 ####[facility] LABIA [id number] [place] [address] [place] Hematocrit (Bld) [Volume fraction] 34.4 % Low 36.0-46.0 [facility] Comment on above: Order Comment: Speci men Type: BLOOD SPECIMENOrdering Facility: [facility] Address: [address] [place] [address] Performed By: #### 5 7021-8 ####[facility] LABIA [id number] [place] [address] [place] Hemoglobin (Bld) [Mass/Vol] 11.4 g/dL Low 11.5-15.5 [facility] Comment on above: Order Comment: Speci men Type: BLOOD SPECIMENOrdering Facility: [facility] Address: [address] [place] [address] Performed By: #### 5 7021-8 ####[facility] LABIA [id number] [place] [address] [place] Immature granulocytes (Bld) [#/Vol] 10*3/uL Normal <0.10 [facility] Comment on above: Order Comment: Speci men Type: BLOOD SPECIMENOrdering Facility: [facility] Address: [address] [place], [place] [phone] Performed By: #### 5 7021-8 ####[facility] LABCLIA [id number] [place] [address] [place] Immature granulocytes/100 WBC (Bld) 0.2 % Normal [facility] Comment on above: Order Comment: Speci men Type: BLOOD SPECIMENOrdering Facility: [facility] Address: [address] Performed By: #### 5 7021-8 ####[facility] LABCLIA [id number] [place] [address] [place] Lymphocytes (Bld) [#/Vol] 0.68 10*3/uL Low 1.00-4.00 [facility] Comment on above: Order Comment: Speci men Type: BLOOD SPECIMENOrdering Facility: [facility] Address: [address] [place] [address] Performed By: #### 5 7021-8 ####[facility] LABCLIA [id number] [address] [place] Lymphocytes/100 WBC (Bld) 13.8 % Normal [facility] Comment on above: Order Comment: Speci men Type: BLOOD SPECIMENOrdering Facility: [facility] Address: [address] Performed By: #### 5 7021-8 ####[facility] LABCLIA [id number] [place] [address] [place] MCH (RBC) [Entitic mass] 28.1 pg Normal 26.0-34.0 [facility] Comment on above: Order Comment: Speci men Type: BLOOD SPECIMENOrdering Facility: [facility] Address: [address] Performed By: #### 5 7021-8 ####[facility] LABCLIA [id number] [place] [address] [place] MCHC (RBC) [Mass/Vol] 33.1 g/dL Normal 30.5-36.0 [facility] Comment on above: Order Comment: Speci men Type: BLOOD SPECIMENOrdering Facility: [facility] Address: [address] Performed By: #### 5 7021-8 ####[facility] LABIA [id number] [place] [address] [place] MCV (RBC) [Entitic vol] 84.7 fL Normal 80.0-100.0 [facility] Comment on above: Order Comment: Speci men Type: BLOOD SPECIMENOrdering Facility: [facility] Address: [address] [place] [address] Performed By: #### 5 7021-8 ####[facility] LABIA [id number] [place] [address] [place] Monocytes (Bld) [#/Vol] 0.45 10*3/uL Normal <0.87 [facility] Comment on above: Order Comment: Speci men Type: BLOOD SPECIMENOrdering Facility: [facility] Address: [address] [place] [address] Performed By: #### 5 7021-8 ####[facility] LABIA [id number] [place] [address] [place] Monocytes/100 WBC (Bld) 9.2 % Normal [facility] Comment on above: Order Comment: Speci men Type: BLOOD SPECIMENOrdering Facility: [facility] Address: [address] [place] [address] Performed By: #### 5 7021-8 ####[facility] LABIA [id number] [place] [address] [place] Neutrophils (Bld) [#/Vol] 3.68 10*3/uL Normal 1.45-7.50 [facility] Comment on above: Order Comment: Speci men Type: BLOOD SPECIMENOrdering Facility: [facility] Address: [address] [place] [address] Performed By: #### 5 7021-8 ####[facility] LABIA [id number] [place] [address] [place] Neutrophils/100 WBC (Bld) 75.0 % Normal [facility] Comment on above: Order Comment: Speci men Type: BLOOD SPECIMENOrdering Facility: [facility] Address: [address] [place], [place] [phone] Performed By: #### 5 7021-8 ####[facility] LABIA [id number] [place] [address] [place] Nucleated RBC (Bld) [#/Vol] 10*3/uL Normal <0.01 [facility] Comment on above: Order Comment: Speci men Type: BLOOD SPECIMENOrdering Facility: [facility] Address: [address] [place], [place] [phone] Performed By: #### 5 7021-8 ####[facility] LABIA [id number] [place] [address] [place] Nucleated RBC/100 WBC (Bld) [Ratio] 0.0 /100 WBC Normal [facility] Comment on above: Order Comment: Speci men Type: BLOOD SPECIMENOrdering Facility: [facility] Address: [address] [place], [place] [phone] Performed By: #### 5 7021-8 ####[facility] LABIA [id number] [place] [address] [place] Platelet mean volume (Bld) [Entitic vol] 9.9 fL Normal 9.0-12.7 [facility] Comment on above: Order Comment: Speci men Type: BLOOD SPECIMENOrdering Facility: [facility] Address: [address] [place] [address] Performed By: #### 5 7021-8 ####[facility] LABIA [id number] [place] [address] [place] Platelets (Bld) [#/Vol] 221 10*3/uL Normal 150-400 [facility] Comment on above: Order Comment: Speci men Type: BLOOD SPECIMENOrdering Facility: [facility] Address: [address] [id number] Performed By: #### 5 7021-8 ####[facility] LABCLIA [id number] [address] [facility] RBC (Bld) [#/Vol] 4.06 10*6/uL Normal 3.90-5.20 [facility] Comment on above: Order Comment: Speci men Type: BLOOD SPECIMENOrdering Facility: [facility] Address: [address] [place] [address] Performed By: #### 5 7021-8 ####[facility] LABIA [id number] [address] WBC (Bld) [#/Vol] 4.91 10*3/uL Normal 3.70-11.00 [facility] Comment on above: Order Comment: Speci men Type: BLOOD SPECIMENOrdering Facility: [facility] Address: [address] [place] [address] Performed By: #### 5 7021-8 ####[facility] LABIA [id number] [address] ECG COMPLETEon 09-20-2022 ECG COMPLETE Ventricular Rate : 5 8 BPM Atrial Rate : 58 BPM P-R Interval : 162 ms QRS Duration : 96 ms Q-T Interval : 414 ms QTC Calculation(Bazett) : 406 ms Calculated P Stanley : 9 degrees Calculated R Stanley : 1 degrees Calculated T Stanley : 6 degrees SINUS BRADYCARDIA MINIMAL VOLTAGE CRITERIA FOR LVH, MAY BE NORMAL VARIANT BORDERLINE ECG Confirmed by MD NIGEL, PhD, JOANN ([id number]) on 11/04/2022 9:58:17 AM NAME : CHERYLE METCALF PID : [id number] : 1970 Gender : Female Race : ORD : [id number] Procedure Date : Sep 20 2022 08:20:58 Edit Date : Nov 04 2022 09:58:22 Diagnosis: SINUS BRADYCARDIA MINIMAL VOLTAGE CRITERIA FOR LVH, MAY BE NORMAL VARIANT BORDERLINE ECG Confirmed by MD NIGEL, JOANN Sam ([id number]) on 11/04/2022 9:58:17 AM Test Reason : Post-OP Location : 371 : J71 [id number] Overread By : MD NIGEL, PhD,JOANN Edited By : MD NIGEL, PhD,JOANN Referred By : , Acquired by : FAREED GUAJARDO [facility] ECHO WITH AGITATED SALINE CO NTRASTon 09-20-2022 ECHO WITH AGITATED SALINE CONTRAST Echocardiography Report: Transthoracic Echo Main [place] Bedside Date of service: 09/20/2022 3:08:00 PM TEAM LEAD Ordering physician: MALATHI SCHNEIDER Indication: S/p PFO closure Technologist: Sandy Valentino Interpreting physician: Henrique Pineda MD PATIENT: Name: MRS. CHERYLE METCALF : 1970 Age: 51 years Gender: F Previous cardiovascular interventions: PFO closure (09-19-22) Primary rhythm: sinus. Height: 180.34 cm BSA: 2.13 m Weight: 90.72 kg BMI: 27.9 kg/m Heart rate 70 bpm Blood pressure 142/78 mmHg Agitated saline was administered to rule out PFO. Color Doppler was utilized to interrogate the cardiac valves assessed and spectral Doppler was utilized to determine the flow velocities and pressure gradients reported in this exam. MEASUREMENTS: Value Indexed Normal LV stroke volume 67 ml (2D 4-ch.) LV end diastolic volume 109 ml (2D 4-ch.) 50.9 ml/m 29<=EDVi<62 LV end systolic volume 42 ml (2D 4-ch.) 19.6 ml/m Ejection Fraction 61 % (2D 4-ch.) EF > 54 FINDINGS: LEFT VENTRICLE The left ventricle is normal in size. Left ventricular systolic function is normal. Mitral annular lateral E/e': 6.4. Mitral annular septal E/e': 16.6. Wall Motion: All scored segments are normal. RIGHT VENTRICLE The right ventricle is normal in size. Right ventricular systolic function is normal. RV systolic tissue Doppler velocity is 10.0 cm/s. Estimated right ventricular systolic pressure is not reported due to an insufficient tricuspid regurgitation signal. Estimated right atrial pressure is 3 mmHg based on IVC assessment. RIGHT ATRIUM Inferior Vena Cava: The inferior vena cava appears normal. The vessel decreases greater than 50 percent with inspiration. MITRAL VALVE The mitral valve leaflets are structurally normal. There is trace mitral valve regurgitation. The pressure half time is 61 msec. The peak mitral E/A ratio is 1.27. The average mitral E/e' ratio is 11.5. The mitral flow deceleration time is 210 msec. TRICUSPID VALVE The tricuspid valve leaflets are structurally normal. There is trace tricuspid valve regurgitation. AORTIC VALVE The aortic valve cusps are structurally normal. There is no aortic valve regurgitation. Tricuspid aortic valve. The peak gradient is 13 mmHg (peak velocity = 179.4 cm/s). PULMONIC VALVE The pulmonic valve cusps are structurally normal. There is no pulmonic valve regurgitation. There is no thickening. The peak gradient is 5 mmHg. INTERATRIAL SEPTUM There is no evidence of intracardiac shunting as detected by agitated saline contrast. INTERVENTRICULAR SEPTUM The interventricular septum is normal. PERICARDIUM There is a small pericardial effusion adjacent to the left ventricle. CORONARY ARTERIES The coronary arteries are unseen or not interrogated. CONCLUSIONS: - Exam indication: S/p PFO closure - The left ventricle is normal in size. Left ventricular systolic function is normal. EF = 61 5% (2D 4-ch.) - The right ventricle is normal in size. Right ventricular systolic function is normal. - There are no significant valvular abnormalities. - Estimated right ventricular systolic pressure is not reported due to an insufficient tricuspid regurgitation signal. Estimated right atrial pressure is 3 mmHg based on IVC assessment. - S/p PFO closure: There is no evidence of intracradiac shunting as detected by agitated saline contrast. - Exam was compared with the prior CC ALTAGRACIA exam performed on 09-19-2022. intraprocedural study * * * Final * * * [employer] : [id number] goDynamicsSISUID Normal [facility] XR CHEST 2V FRONTAL/LATon XR CHEST 2V FRONTAL/LAT * * *Final Report* * * DATE OF EXAM: Sep 20 2022 2:46PM JIX [id number] - XR CHEST 2V FRONTAL/LAT / PROCEDURE REASON: Post-operative / post-procedure assessment, asymptomatic * * * * Physician Interpretation * * * * EXAMINATION: CHEST RADIOGRAPH (2 VIEW FRONTAL and LATERAL) CLINICAL HISTORY: Post-operative / post-procedure assessment, asymptomatic MQ: [id number]_6 EXAM DATE/TIME: 09/20/2022 2:46 PM COMPARISON: No prior chest radiograph is available for comparison. RESULT: Lines, tubes, and devices: None. Lungs and pleura: No acute focal lung consolidation is seen. No substantial pleural effusion is seen. There is no pneumothorax. Cardiomediastinal silhouette: Normal cardiomediastinal silhouette. An atrial septal closure device is seen. Bones and soft tissues: The vertebral bodies are well aligned and the vertebral body heights are maintained. IMPRESSION: Please see body of the report. Film Cleaner: CHARLY Transcribe Date/Time: Sep 20 2022 3:09P Dictated by : BRYAN VORA MD This examination was interpreted and the report reviewed and electronically signed by: BRYAN VORA MD on Sep 20 2022 3:11PM EST [id number] Normal [facility] Basic metabolic 2000 panelon 09-19-2022 Anion gap [Moles/Vol] 8 mmol/L Low 9-18 [facility] Comment on above: Order Comment: Speci men Type: BLOOD SPECIMENOrdering Facility: [facility] Address: [address] [place] [address] Performed By: #### 2 4321-2 ####[facility] LABCLIA [id number] [place] [address] [place] Calcium [Mass/Vol] 9.7 mg/dL Normal 8.5-10.2 [facility] Comment on above: Order Comment: Speci men Type: BLOOD SPECIMENOrdering Facility: [facility] Address: [address] [address] Performed By: #### 2 4321-2 ####[facility] LABCLIA [id number] [place] [address] [place] Chloride [Moles/Vol] 103 mmol/L Normal 97-105 [facility] Comment on above: Order Comment: Speci men Type: BLOOD SPECIMENOrdering Facility: [facility] Address: [address] [address] Performed By: #### 2 4321-2 ####[facility] LABCLIA [id number] [address] CO2 [Moles/Vol] 26 mmol/L Normal 22-30 [facility] Comment on above: Order Comment: Speci men Type: BLOOD SPECIMENOrdering Facility: [facility] Address: [address] [place] [address] Performed By: #### 2 4321-2 ####[facility] LABIA [id number] [address] Creatinine [Mass/Vol] 0.77 mg/dL Normal 0.58-0.96 [facility] Comment on above: Order Comment: Speci men Type: BLOOD SPECIMENOrdering Facility: [facility] Address: [address] [place] [address] Performed By: #### 2 4321-2 ####[facility] LABIA [id number] [address] ESTIMATED GLOMERULAR FILTRATION RATE 92 mL/min/1.73m??? Normal >=60 [facility] Comment on above: Order Comment: Speci men Type: BLOOD SPECIMENOrdering Facility: [facility] Address: [address] [place] [address] Result Comment: Glenna mated Glomerular Filtration Rate (eGFR) is calculated using the 2020 CKD-EPI creatinine equation. This equation utilizes serum creatinine, sex, and age as parameters. The creatinine assay has traceable calibration to isotope dilution-mass spectrometry. Refer to KDIGO guidelines for clinical interpretation. In patients with unstable renal function, e.g. those with acute kidney injury, the eGFR may not accurately reflect actual GFR. Performed By: #### 2 4321-2 ####[facility] LABCLIA [id number] [address] [place] [address] [place] Glucose [Mass/Vol] 96 mg/dL Normal 74-99 [facility] Comment on above: Order Comment: Speci men Type: BLOOD SPECIMENOrdering Facility: [facility] Address: [address] [place] [address] Result Comment: The [place] Diabetes Association (ADA) provides guidance for cutoff values for fasting glucose and random glucose. The ADA defines fasting as no caloric intake for at least 8 hours. Fasting plasma glucose results between 100 to 125 mg/dL indicate increased risk for diabetes (prediabetes). Fasting plasma glucose results greater than or equal to 126 mg/dL meet the criteria for diagnosis of diabetes. In the absence of unequivocal hyperglycemia, results should be confirmed by repeat testing. In a patient with classic symptoms of hyperglycemia or hyperglycemic crisis, random plasma glucose results greater than or equal to 200 mg/dL meet the criteria for diagnosis of diabetes. Reference: Standards of Medical Care in Diabetes 2016, [place] [employer]. Diabetes Care. 2016.39(Suppl 1). Performed By: #### 2 4321-2 ####[facility] LABCLIA [id number] [place] [address] [place] Potassium [Moles/Vol] 4.0 mmol/L Normal 3.7-5.1 [facility] Comment on above: Order Comment: Speci men Type: BLOOD SPECIMENOrdering Facility: [facility] Address: [address] [place] [address] Performed By: #### 2 4321-2 ####[facility] LABCLIA [id number] [place] [address] [place] Sodium [Moles/Vol] 137 mmol/L Normal 136-144 [facility] Comment on above: Order Comment: Speci men Type: BLOOD SPECIMENOrdering Facility: [facility] Address: [address] [place] [address] Performed By: #### 2 4321-2 ####[facility] LABCLIA [id number] [place] [address] [place] Urea nitrogen [Mass/Vol] 6 mg/dL Low 7-21 [facility] Comment on above: Order Comment: Speci men Type: BLOOD SPECIMENOrdering Facility: [facility] Address: [address] [place] [address] Performed By: #### 2 4321-2 ####[facility] LABCLIA [id number] [place] [address] [place] CBC panel Auto (Bld)on 09-19 Erythrocyte distribution width (RBC) [Ratio] 13.6 % Normal 11.5-15.0 [facility] Comment on above: Order Comment: Speci men Type: BLOOD SPECIMENOrdering Facility: [facility] Address: [address] [place] [address] Performed By: #### 5 8410-2 ####[facility] LABIA [id number] [address] [place] Hematocrit (Bld) [Volume fraction] 35.8 % Low 36.0-46.0 [facility] Comment on above: Order Comment: Speci men Type: BLOOD SPECIMENOrdering Facility: [facility] Address: [address] [place] [address] Performed By: #### 5 8410-2 ####[facility] LABIA [id number] [place] [address] [place] Hemoglobin (Bld) [Mass/Vol] 11.2 g/dL Low 11.5-15.5 [facility] Comment on above: Order Comment: Speci men Type: BLOOD SPECIMENOrdering Facility: [facility] Address: [address] [place] [address] Performed By: #### 5 8410-2 ####[facility] LABIA [id number] [place] [address] [place] MCH (RBC) [Entitic mass] 26.7 pg Normal 26.0-34.0 [facility] Comment on above: Order Comment: Speci men Type: BLOOD SPECIMENOrdering Facility: [facility] Address: [address] Performed By: #### 5 8410-2 ####[facility] LABIA [id number] [address] [place] MCHC (RBC) [Mass/Vol] 31.3 g/dL Normal 30.5-36.0 [facility] Comment on above: Order Comment: Speci men Type: BLOOD SPECIMENOrdering Facility: [facility] Address: [address] Performed By: #### 5 8410-2 ####[facility] [id number] [place] [address] [place] MCV (RBC) [Entitic vol] 85.2 fL Normal 80.0-100.0 [facility] [facility] Comment on above: Order Comment: Speci men Type: BLOOD SPECIMENOrdering Facility: [facility] Address: [address] Performed By: #### 5 8410-2 ####[facility] [id number] [place] [address] [place] Nucleated RBC (Bld) [#/Vol] 10*3/uL Normal <0.01 [facility] Comment on above: Order Comment: Speci men Type: BLOOD SPECIMENOrdering Facility: [facility] Address: [address] [place] [address] Performed By: #### 5 8410-2 ####[facility] [id number] [place] [address] [place] Platelet mean volume (Bld) [Entitic vol] 9.5 fL Normal 9.0-12.7 [facility] Comment on above: Order Comment: Speci men Type: BLOOD SPECIMENOrdering Facility: [facility] Address: [address] [place], [place] [address] Performed By: #### 5 8410-2 ####[facility] LABIA [id number] [place] [address] [place] Platelets (Bld) [#/Vol] 283 10*3/uL Normal 150-400 [facility] Comment on above: Order Comment: Speci men Type: BLOOD SPECIMENOrdering Facility: [facility] Address: [address] [place] [address] Performed By: #### 5 8410-2 ####[facility] [id number] [place] [address] [facility] RBC (Bld) [#/Vol] 4.20 10*6/uL Normal 3.90-5.20 [facility] Comment on above: Order Comment: Speci men Type: BLOOD SPECIMENOrdering Facility: [facility] Address: [address] [place] [address] Performed By: #### 5 8410-2 ####[facility] [id number] [place] [address] [place] WBC (Bld) [#/Vol] 7.33 10*3/uL Normal 3.70-11.00 [facility] Comment on above: Order Comment: Speci men Type: BLOOD SPECIMENOrdering Facility: [facility] Address: [address] [place] [address] Performed By: #### 5 8410-2 ####[facility] [id number] [place] [address] [place] ECG COMPLETEon 09-19-2022 ECG COMPLETE Ventricular Rate : 6 1 BPM Atrial Rate : 61 BPM P-R Interval : 152 ms QRS Duration : 88 ms Q-T Interval : 428 ms QTC Calculation(Bazett) : 430 ms Calculated P Stanley : 14 degrees Calculated R Stanley : -8 degrees Calculated T Stanley : 11 degrees NORMAL SINUS RHYTHM MINIMAL VOLTAGE CRITERIA FOR LVH, MAY BE NORMAL VARIANT BORDERLINE ECG Confirmed by MILES VENTURA, MONI ([id number]) on 10/31/2022 12:07:00 PM NAME : CHERYLE METCALF PID : [id number] : 1970 Gender : Female Race : ORD : [id number] Procedure Date : Sep 19 2022 18:39:28 Edit Date : Oct 31 2022 12:07:01 Diagnosis: NORMAL SINUS RHYTHM MINIMAL VOLTAGE CRITERIA FOR LVH, MAY BE NORMAL VARIANT BORDERLINE ECG Confirmed by MONI AQUINO MD ([id number]) on 10/31/2022 12:07:00 PM Test Reason : Post-OP Location : 1 : J71NS 22 Overread By : MONI AQUINO MD Edited By : MONI AQUINO MD Referred By : , Acquired by : [id number], [facility] CNPN Telephone ([employer]) CHERYLE METCALF Gildardo ([id number]) 1970 F Date Time Provider Department 09/18/22 MALATHI SCHNEIDER During your visit today, we recorded the following information about you: Nica Moon RN, RN 09/18/2022 1:44 PM Signed CARDIOVASCULAR LAB INSTRUCTIONS: Readiness to Learn: Cognitive Ability: Alert and oriented Motivation To Learn: Interested Family/Significant Other Support: Unable to assess - Family not present Instruction Provided To: Patient Patient Learns Best By: Verbal Instruction Factors Affecting Learning: None Physical Limitations Affecting Learning: None Learning Response: Procedure: PFO Pre procedure education topics: Arrival time/NPO Status/Medications/Tra jocelin Instructions/Restricti ons Patient/Family Response Evaluation: Verbalizes understanding Follow Up Plan and Medication: As directed by physician Instruction/Supplement al Material Given: Cardiac catheterization instructions, procedure information, hospital information, hotel information. Instructed By Nica Moon RN, RN. In Department of CARDIOLOGY. Allergies As of Date: 09/18/2022 Noted Allergy Reaction CODEINE 04/12/2009 11 - Vomiting Comments: dizziness Date Reviewed: 06/05/2022 Reviewed by: Herman Pineda DO - Fully Assessed Reason for Visit: Patient Education [91] Prescriptions as of 09/18/2022 - aspirin, enteric coated (ASPIRIN, ENTERIC COATED) 81 mg EC tablet Take 81 mg by mouth once daily. - atorvastatin (LIPITOR) 40 mg tablet Take 40 mg by mouth once daily. - amLODIPine (NORVASC) 5 mg tablet Take 5 mg by mouth once daily. - acetaminophen (TYLENOL) 325 mg tablet Take 650 mg by mouth every 6 hours as needed. - atenolol (TENORMIN) 25 mg tablet Take 25 mg by mouth once daily. - lisinopril (ZESTRIL, PRINIVIL) 40 mg tablet Take 40 mg by mouth once daily. Meds Comments as of 04/12/2009: No current medications/reviewed April 12, 2009/Shanta Govea Lpn Problem List As Of Date 09/18/2022 Noted Resolved ALLERGIC RHINITIS NOS [J30.9] 05/24/2009 FAMILY HX ISCHEM HEART DIS [Z82.49] 05/24/2009 Iron deficiency anemia due to chronic blood los*08/07/2021 Iron malabsorption [K90.9] 08/07/2021 Encounter Status:Closed by ZONIA MOON RN on 09/18/22 [facility] Lesley 07-26-2022 LORRAINE Telephone (JOAQUINA) CHERYLE METCALF ([id number]) 1970 F Date Time Provider Department 07/26/22 MALATHI SCHNEIDER During your visit today, we recorded the following information about you: Nidia Bateman 07/26/2022 2:59 PM Signed Contacted pt to follow up on Neurology visit with outside provider. Pt unavailable, left voicemail to contact office with update to proceed with PFO closure Allergies As of Date: 07/26/2022 Noted Allergy Reaction CODEINE 04/12/2009 11 - Vomiting Comments: dizziness Date Reviewed: 06/05/2022 Reviewed by: Herman Pineda DO - Fully Assessed Reason for Visit: Patient Update [1234] Cmt: PFO closure Neuro Update Prescriptions as of 07/26/2022 - aspirin, enteric coated (ASPIRIN, ENTERIC COATED) 81 mg EC tablet Take 81 mg by mouth once daily. - atorvastatin (LIPITOR) 40 mg tablet Take 40 mg by mouth once daily. - amLODIPine (NORVASC) 5 mg tablet Take 5 mg by mouth once daily. - acetaminophen (TYLENOL) 325 mg tablet Take 650 mg by mouth every 6 hours as needed. - atenolol (TENORMIN) 25 mg tablet Take 25 mg by mouth once daily. - lisinopril (ZESTRIL, PRINIVIL) 40 mg tablet Take 40 mg by mouth once daily. Meds Comments as of 04/12/2009: No current medications/reviewed April 12, 2009/Shanta Govea Lpn Problem List As Of Date 07/26/2022 Noted Resolved ALLERGIC RHINITIS NOS [J30.9] 05/24/2009 FAMILY HX ISCHEM HEART DIS [Z82.49] 05/24/2009 Iron deficiency anemia due to chronic blood los*08/07/2021 Iron malabsorption [K90.9] 08/07/2021 Encounter Status:Closed by NIDIA BATEMAN on 07/26/22 Normal [facility] CARDIOLIPIN IGG ABSon 2021 Cardiolipin IgG IA Qn (S) <9.0 Normal <15.0 [facility] Comment on above: Order Comment: Speci men Type: BLOOD SPECIMENOrdering Facility: [facility] Address: [address] [place] [address] Result Comment: <15 GPL Negative 15-20 GPL Indeterminate >20 GPL Positive The following results were obtained with the finalsiteva QUANTA Lite JOHNATHON IgG III KAMILLA. Cardiolipin IgG values obtained with the different manufacturers' assay methods may not be used interchangeably. The magnitude of the reported IgG levels cannot be correlated to an endpoint titer. Performed By: #### 5 076-5, JERZY MARTINEZ ####[facility] LABCLIA [id number] [address] [place] CARDIOLIPIN IGM ABSon 2021 Cardiolipin IgM IA Qn (S) 13.1 MPL High <12.5 [facility] Comment on above: Order Comment: Speci men Type: BLOOD SPECIMENOrdering Facility: [facility] Address: [address] [place] [address] Result Comment: <12. 5 MPL Negative 12.5-20 MPL Indeterminate >20 MPL Positive The following results were obtained with the AmperionA BookBage JOHNATHON IgM III KAMILLA. Cardiolipin IgM values obtained with the different manufacturers' assay methods may not be used interchangeably. The magnitude of the reported IgM levels cannot be correlated to an endpoint titer. ??? Performed By: #### 5 076-5, JERZY MARTINEZ ####[facility] LABCLIA [id number] [address] [place] CBC panel Auto (Bld)on 07-17 Erythrocyte distribution width (RBC) [Ratio] 12.7 % Normal 11.5-15.0 [facility] Comment on above: Order Comment: Speci men Type: BLOOD SPECIMENOrdering Facility: [facility] Address: [address] [place] [address] Performed By: #### 5 8410-2 ####[facility] LABCLIA [id number] [address] [place] Hematocrit (Bld) [Volume fraction] 37.1 % Normal 36.0-46.0 [facility] Comment on above: Order Comment: Speci men Type: BLOOD SPECIMENOrdering Facility: [facility] Address: [address] [place] [address] Performed By: #### 5 8410-2 ####[facility] LABCLIA [id number] [address] [place] Hemoglobin (Bld) [Mass/Vol] 11.9 g/dL Normal 11.5-15.5 [facility] Comment on above: Order Comment: Speci men Type: BLOOD SPECIMENOrdering Facility: [facility] Address: [address] [place], [place] [address] Performed By: #### 5 8410-2 ####[facility] [id number] [address] MCH (RBC) [Entitic mass] 28.4 pg Normal 26.0-34.0 [facility] Comment on above: Order Comment: Speci men Type: BLOOD SPECIMENOrdering Facility: [facility] Address: [address] [place], [place] [address] Performed By: #### 5 8410-2 ####[facility] [id number] [address] MCHC (RBC) [Mass/Vol] 32.1 g/dL Normal 30.5-36.0 [facility] Comment on above: Order Comment: Speci men Type: BLOOD SPECIMENOrdering Facility: [facility] Address: [address] [place], [place] [address] Performed By: #### 5 8410-2 ####[facility] [id number] [address] [place] [facility] MCV (RBC) [Entitic vol] 88.5 fL Normal 80.0-100.0 [facility] Comment on above: Order Comment: Speci men Type: BLOOD SPECIMENOrdering Facility: [facility] Address: [address] [place] [address] Performed By: #### 5 8410-2 ####[facility] [id number] [address] Nucleated RBC (Bld) [#/Vol] 10*3/uL Normal <0.01 [facility] Comment on above: Order Comment: Speci men Type: BLOOD SPECIMENOrdering Facility: [facility] Address: [address] [place], [place] [address] Performed By: #### 5 8410-2 ####[facility] LABCLIA [id number] [place] [address] [place] Platelet mean volume (Bld) [Entitic vol] 10.0 fL Normal 9.0-12.7 [facility] Comment on above: Order Comment: Speci men Type: BLOOD SPECIMENOrdering Facility: [facility] Address: [address] [place], [place] [address] Performed By: #### 5 8410-2 ####[facility] LABIA [id number] [place] [address] [place] Platelets (Bld) [#/Vol] 275 10*3/uL Normal 150-400 [facility] Comment on above: Order Comment: Speci men Type: BLOOD SPECIMENOrdering Facility: [facility] Address: [address] [place], [place] [address] Performed By: #### 5 8410-2 ####[facility] LABIA [id number] [place] [address] [place] RBC (Bld) [#/Vol] 4.19 10*6/uL Normal 3.90-5.20 [facility] Comment on above: Order Comment: Speci men Type: BLOOD SPECIMENOrdering Facility: [facility] Address: [address] [place], [place] [address] Performed By: #### 5 8410-2 ####[facility] LABIA [id number] [place] [address] [place] WBC (Bld) [#/Vol] 7.44 10*3/uL Normal 3.70-11.00 [facility] Comment on above: Order Comment: Speci men Type: BLOOD SPECIMENOrdering Facility: [facility] Address: [address] [place], [place] [address] Performed By: #### 5 8410-2 ####[facility] LABIA [id number] [address] [address] [place] [facility] CNOVon 07-17-2022 CNOV Office Visit (CATHMN ) CHERYLE METCALF ([id number]) 1970 F Date Time Provider Department 07/17/22 3:00 PM MALATHI SCHNEIDER CATHMEG During your visit today, we recorded the following information about you: Pulse Blood pressure Weight Height 59/minute 136/85 93.4 kg 1.816 m Malathi Schneider MD 07/20/2022 1:51 PM Addendum [facility] [place] Natalie Wren Department of Cardiovascular Medicine SECTION OF INTERVENTIONAL CARDIOLOGY OUTPATIENT VISIT DATE July 17, 2022 OUTPATIENT VISIT TYPE NEW PRIMARY CARE PHYSICIAN: Chhaya uNnez MD [address] [place] [address] PRIMARY MEAT STOCK CLERK: Herman Hoang [address] [facility] [address] [address] PHARMACY BENEFITS COORDINATOR: Herman Pineda DO - [facility] CHIEF COMPLAINT: Evaluation of PFO HISTORY OF PRESENT ILLNESS: Ms. Metcalf is a 51 year old female who presents today for evaluation of PFO. She was in her usual state of health however suffered a bout of COVID 19 pneumonia in November 2021. She had a long recovery marked by significant fatigue and a lingering severe cough. In December 2021, she had a severe coughing episode followed by a neurologic event including acute right arm weakness, dysarthria, and left eye visual changes. She was admitted locally where she was diagnosed with an acute L parietal cerebral cortical infarct. 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 She did not undergo tPA or interventional treatment, and symptoms resolved on their own. Her subsequent evaluation consisted of a 30-day Holter monitor which did not show AFib, and TTE and ALTAGRACIA which suggest a PFO. She underwent hypercoagulability testing which revealed an indeterminate anticardiolipin IgM; she is undergoing evaluation of this issue and chronic iron deficiency anemia by Dr. Pineda in Hematology. Since her COVID diagnosis, she relates more fatigue and mild GRAVES. She otherwise has made a full neurologic recovery and has no other symptoms. NURSING INTAKE: Relevant PMHX Interatrial shunt - probable PFO CVA HTN Rheumatic fever FH of CAD PER OUTSIDE CARDIOLOGY NOTE; She reports her symptoms of right arm weakness, dysarthria and left eye visual changes completely resolved She was told no clotting disorder and comes for PFO evaluation She denies chest pain She denies SOB, orthopnea, PND or LE edema She notes palpitations that feel like a muscle spasm and she feels like she has to catch her breath She notes lightheadness occurring anytime She denies asthma, COPD She denies claudication Diet / Nutrition: None Weight: no change since last visit Exercise: Walks 2 x daily hour . PAST MEDICAL HISTORY Diagnosis Date Chronic cholecystitis Dyslipidemia 12/2021 Essential hypertension 2019 Iron deficiency anemia Rheumatic fever as a teen Rheumatic fever without mention of heart involvement Rhinitis Stroke (HCC) PAST SURGICAL HISTORY Procedure Laterality Date LAPS SURG CHOLECYSTECTOMY W/CHOLANGIOGRAPHY 02/09/10 PAST SURGICAL HISTORY OF benign breast lump removed left breast PAST SURGICAL HISTORY OF rigth ankle STEREOTACTIC CORE BIOPSY 05/04/09 LEFT Social History Tobacco Use Smoking status: Never Smokeless tobacco: Never Vaping Use Vaping Use: Never used Substance Use Topics Alcohol use: No Drug use: No FAMILY HISTORY Problem Relation Age of Onset Coronary Artery Disease Mother Thyroid Mother other (MVP [Other]) Mother Autoimmune disease Mother Diabetes Father Coronary Artery Disease Father Hypertension Father Diabetes Sister Autoimmune disease Sister other (high cholesterol) Sister Thyroid Brother Breast Cancer Paternal Grandmother ALLERGIES Allergen Reactions Codeine Vomiting dizziness MEDICATIONS: aspirin, enteric coated (ASPIRIN, ENTERIC COATED) 81 mg EC tablet Take 81 mg by mouth once daily. atorvastatin (LIPITOR) 40 mg tablet Take 40 mg by mouth once daily. amLODIPine (NORVASC) 5 mg tablet Take 5 mg by mouth once daily. acetaminophen (TYLENOL) 325 mg tablet Take 650 mg by mouth every 6 hours as needed. atenolol (TENORMIN) 25 mg tablet Take 25 mg by mouth once daily. lisinopril (ZESTRIL, PRINIVIL) 40 mg tablet Take 40 mg by mouth once daily. REVIEW OF SYSTEMS: GENERAL: no fever, no chills, and no change in weight HEENT: no headaches, no difficulty swallowing, dentures SKIN: no rashes and no ulcers RESPIRATORY: no cough, no shortness of breath, no dyspnea on exertion, no orthopnea, no paroxysmal nocturnal dyspnea, no asthma, and no COPD CARDIOVASCULAR: no chest pain, no syncope, no claudication, no edema, and See HPI GASTROINTESTINAL: no abdominal pain, no nausea, no vomiting, and no melano (more content not included)... Normal [facility] COAG CORE PANEL BLDon 2021 aPTT Coag (PPP) [Time] 28.8 s Normal 23.0-32.4 [facility] Comment on above: Order Comment: Cristina del real Type: BLOOD SPECIMENOrdering Facility: [facility] Address: [address] [place] [address] Performed By: #### C ORPNL ####[facility] LABIA [id number] [place] [address] [place] Fibrinogen Coag (PPP) [Mass/Vol] 428 mg/dL High 200-400 [facility] Comment on above: Order Comment: Cristina del real Type: BLOOD SPECIMENOrdering Facility: [facility] Address: [address] [place] [address] Performed By: #### C ORPNL ####[facility] [id number] [address] [place] INR Coag (PPP) [Relative time] 1.0 {INR} Normal 0.9-1.3 [facility] Comment on above: Order Comment: Cristina del real Type: BLOOD SPECIMENOrdering Facility: [facility] Address: [address] [place] [address] Result Comment: Amanda min K Antagonist (VKA) Therapeutic Range: INR 2 to 3 (Target INR of 2.5) Note: For patients treated with VKA drugs, such as warfarin, the [place] [employer] 2012 Guideline recommends a therapeutic INR range of 2 to 3 (target INR of 2.5). This recommendation includes high-risk patients with antiphospholipid syndrome with previous arterial or venous thromboembolism, current-generation mechanical or bioprosthetic aortic heart valve replacement. Note: Patients with mechanical aortic valve replacement and additional risk factors for thromboembolic events (atrial fibrillation, previous thromboembolism, LV dysfunction, hypercoagulable conditions) or an older generation mechanical AVR (i.e., ball in-Cage) or any mechanical MVR should have a INR therapeutic range of 2.5 to 3.5 (target INR of 3). Archana GH, et al. Chest 2012, 141:7S-47S Dago RA, et al. JAC 2017, 70: 252-289 Performed By: #### C ORPNL ####[facility] LABIA [id number] [place] [address] [place] PT Coag (PPP) [Time] 10.3 s Normal 9.7-13.0 [facility] Comment on above: Order Comment: Cristina del real Type: BLOOD SPECIMENOrdering Facility: [facility] Address: [address] [place] [address] Performed By: #### C ORPNL ####[facility] [id number] [address] [place] CRP SerPl-mCncon 07-17-2022 CRP [Mass/Vol] mg/L Normal <0.9 [facility] Comment on above: Order Comment: Cristina del real Type: BLOOD SPECIMENOrdering Facility: [facility] Address: [address] [place] [address] Performed By: #### 2 4323-8, 1988-03 ####[facility] [id number] [address] [place] Cardiolipin IgA Ser IA-aCnco n 07-17-2022 Cardiolipin IgA IA Qn (S) <9.0 Normal <12.0 [facility] Comment on above: Order Comment: Speci men Type: BLOOD SPECIMENOrdering Facility: [facility] Address: [address] [place] [address] Result Comment: <12 APL Negative 12-20 APL Indeterminate >20 APL Positive The following results were obtained with the AmperionA Lite JOHNATHON IgA III KAMILLA. Cardiolipin IgA values obtained with the different manufacturers' assay methods may not be used interchangeably. The magnitude of the reported IgA levels cannot be correlated to an endpoint titer. Performed By: #### 5 076-5, JERZY MARTINEZ ####[facility] LABCLIA [id number] [place] [address] [place] Comprehensive metabolic 2000 panelon 07-17-2022 Albumin [Mass/Vol] 4.4 g/dL Normal 3.9-4.9 [facility] Comment on above: Order Comment: Speci men Type: BLOOD SPECIMENOrdering Facility: [facility] Address: [address] [place], [place] [address] Performed By: #### 2 4323-06, 1988-03 ####[facility] LABCLIA [id number] [facility] [place] [address] [place] ALP [Catalytic activity/Vol] 92 U/L Normal 34-123 [facility] Comment on above: Order Comment: Speci men Type: BLOOD SPECIMENOrdering Facility: [facility] Address: [address] [place], [place] [address] Performed By: #### 2 4323-06, 1988-03 ####[facility] LABCLIA [id number] [facility] [place] [id number] [place] [facility] ALT [Catalytic activity/Vol] 9 U/L Normal 7-38 [facility] Comment on above: Order Comment: Speci men Type: BLOOD SPECIMENOrdering Facility: [facility] Address: [address] [place], [place] [address] Performed By: #### 2 43201-22, 1988-03 ####[facility] LABCLIA [id number] [place] [address] [place] Anion gap [Moles/Vol] 9 mmol/L Normal 9-18 [facility] Comment on above: Order Comment: Speci men Type: BLOOD SPECIMENOrdering Facility: [facility] Address: [address] [place] [address] Performed By: #### 2 43201-22, 1988-03 ####[facility] LABCLIA [id number] [place] [address] [place] AST [Catalytic activity/Vol] 13 U/L Normal 13-35 [facility] Comment on above: Order Comment: Speci men Type: BLOOD SPECIMENOrdering Facility: [facility] Address: [address] [place], [place] [address] Performed By: #### 2 43201-22, 1988-03 ####[facility] LABCLIA [id number] [place] [address] [place] Bilirubin [Mass/Vol] 0.3 mg/dL Normal 0.2-1.3 [facility] Comment on above: Order Comment: Speci men Type: BLOOD SPECIMENOrdering Facility: [facility] Address: [address] [place], [place] [address] Performed By: #### 2 43201-22, 1988-03 ####[facility] LABCLIA [id number] [place] [address] [place] Calcium [Mass/Vol] 9.8 mg/dL Normal 8.5-10.2 [facility] Comment on above: Order Comment: Speci men Type: BLOOD SPECIMENOrdering Facility: [facility] Address: [address] [place] [address] Performed By: #### 2 43201-22, 1988-03 ####[facility] LABCLIA [id number] [place] [id number] [place] Chloride [Moles/Vol] 102 mmol/L Normal 97-105 [facility] Comment on above: Order Comment: Speci men Type: BLOOD SPECIMENOrdering Facility: [facility] Address: [address] [place], [place] [address] Performed By: #### 2 4323-06, 1988-03 ####[facility] LABCLIA [id number] [place] [address] [place] CO2 [Moles/Vol] 27 mmol/L Normal 22-30 [facility] Comment on above: Order Comment: Speci men Type: BLOOD SPECIMENOrdering Facility: [facility] Address: [address] [place], [place] [address] Performed By: #### 2 4323-06, 1988-03 ####[facility] LABCLIA [id number] [address] [place] [facility] Creatinine [Mass/Vol] 0.76 mg/dL Normal 0.58-0.96 [facility] Comment on above: Order Comment: Speci men Type: BLOOD SPECIMENOrdering Facility: [facility] Address: [address] [address] [place], [place] [id number] Performed By: #### 2 4323-06, 1988-03 ####[facility] LABCLIA [id number] [address] OF [facility] ESTIMATED GLOMERULAR FILTRATION RATE 94 mL/min/1.73m??? Normal >=60 [facility] Comment on above: Order Comment: Speci men Type: BLOOD SPECIMENOrdering Facility: [facility] Address: [address] [place] [address] Result Comment: Glenna mated Glomerular Filtration Rate (eGFR) is calculated using the 2020 CKD-EPI creatinine equation. This equation utilizes serum creatinine, sex, and age as parameters. The creatinine assay has traceable calibration to isotope dilution-mass spectrometry. Refer to KDIGO guidelines for clinical interpretation. In patients with unstable renal function, e.g. those with acute kidney injury, the eGFR may not accurately reflect actual GFR. Performed By: #### 2 4323-06, 1988-03 ####[facility] LABCLIA [id number] [address] [address] [place] Glucose [Mass/Vol] 90 mg/dL Normal 74-99 [facility] Comment on above: Order Comment: Speci men Type: BLOOD SPECIMENOrdering Facility: [facility] Address: [address] [place], [place] [id number] Result Comment: The [place] Diabetes Association (ADA) provides guidance for cutoff values for fasting glucose and random glucose. The ADA defines fasting as no caloric intake for at least 8 hours. Fasting plasma glucose results between 100 to 125 mg/dL indicate increased risk for diabetes (prediabetes). Fasting plasma glucose results greater than or equal to 126 mg/dL meet the criteria for diagnosis of diabetes. In the absence of unequivocal hyperglycemia, results should be confirmed by repeat testing. In a patient with classic symptoms of hyperglycemia or hyperglycemic crisis, random plasma glucose results greater than or equal to 200 mg/dL meet the criteria for diagnosis of diabetes. Reference: Standards of Medical Care in Diabetes 2016, [place] [employer]. Diabetes Care. 2016.39(Suppl 1). Performed By: #### 2 4323-06, 1988-03 ####[facility] LABIA [id number] [place] [address] [place] Potassium [Moles/Vol] 4.1 mmol/L Normal 3.7-5.1 [facility] Comment on above: Order Comment: Speci men Type: BLOOD SPECIMENOrdering Facility: [facility] Address: [address] [place], [place] [address] Performed By: #### 2 4323-06, 1988-03 ####[facility] LABIA [id number] [place] [address] [place] Protein [Mass/Vol] 8.0 g/dL Normal 6.3-8.0 [facility] Comment on above: Order Comment: Speci men Type: BLOOD SPECIMENOrdering Facility: [facility] Address: [address] [place], [place] [address] Performed By: #### 2 4323-06, 1988-03 ####[facility] LABCLIA [id number] [place] [address] [place] Sodium [Moles/Vol] 138 mmol/L Normal 136-144 [facility] Comment on above: Order Comment: Speci men Type: BLOOD SPECIMENOrdering Facility: [facility] Address: [address] [place] [address] Performed By: #### 2 43201-22, 1988-03 ####[facility] LABIA [id number] [place] [address] [place] Urea nitrogen [Mass/Vol] 9 mg/dL Normal 7-21 [facility] Comment on above: Order Comment: Speci men Type: BLOOD SPECIMENOrdering Facility: [facility] Address: [address] [place] [address] Performed By: #### 2 43201-22, 1988-03 ####[facility] LABIA [id number] [place] [address] [place] ECG COMPLETEon 07-17-2022 ECG COMPLETE Ventricular Rate : 5 6 BPM Atrial Rate : 56 BPM P-R Interval : 158 ms QRS Duration : 92 ms Q-T Interval : 424 ms QTC Calculation(Bazett) : 409 ms Calculated P Stanley : 7 degrees Calculated R Stanley : 4 degrees Calculated T Stanley : 30 degrees SINUS BRADYCARDIA OTHERWISE NORMAL ECG Confirmed by KATHRINE HOFF MD ([id number]) on 08/08/2022 9:01:58 PM NAME : CHERYLE METCALF PID : [id number] : 1970 Gender : Female Race : ORD : [id number] Procedure Date : Jul 17 2022 13:13:42 Edit Date : Aug 08 2022 21:02:01 Diagnosis: SINUS BRADYCARDIA OTHERWISE NORMAL ECG Confirmed by KATHRINE HOFF MD ([id number]) on 08/08/2022 9:01:58 PM Test Reason : Location : [facility] : [facility] J- Overread By : KATHRINE HOFF MD Edited By : KATHRINE HOFF MD Referred By : MALATHI SCHNEIDER Acquired by : ANDERSON EVANS [facility] HYPERCOAG PANELon 07-17-2022 Activated protein C resistance Coag (PPP) [Time ratio] 2.17 Ratio Normal >1.96 [facility] Comment on above: Order Comment: Speci men Type: BLOOD SPECIMENOrdering Facility: [facility] Address: [address] [place] [address] Performed By: #### H COAG, PTTADD ####[facility] LABIA [id number] [address] Antithrombin actual/normal Chromogenic method (PPP) [Rel catalytic activity/Vol] 97 % Normal 84-138 [facility] Comment on above: Order Comment: Speci men Type: BLOOD SPECIMENOrdering Facility: [facility] Address: [address] [place] [address] Performed By: #### H COAG, PTTADD ####[facility] LABIA [id number] [address] [place] aPTT Coag (Bld) [Time] 39.6 s High 24.0-35.1 [facility] Comment on above: Order Comment: Speci men Type: BLOOD SPECIMENOrdering Facility: [facility] Address: [address] [place], [place] [id number] Performed By: #### H COAG, PTTADD ####[facility] [id number] [place] [address] [place] aPTT W excess hexagonal phase phospholipid Coag (PPP) [Time] 55.2 seconds High 34.0-51.8 [facility] Comment on above: Order Comment: Speci men Type: BLOOD SPECIMENOrdering Facility: [facility] Address: [address] [place], [place] [id number] Performed By: #### H COAG, PTTADD ####[facility] LABIA [id number] [place] [address] [place] aPTT-LA w 1:1 PNP Coag (PPP) [Time] 32.3 seconds Normal <33.2 [facility] Comment on above: Order Comment: Speci men Type: BLOOD SPECIMENOrdering Facility: [facility] Address: [address] [place], [place] [id number] Result Comment: 33.4 Performed By: #### H COAG, PTTADD ####[facility] LABCLIA [id number] [place] [address] [place] Coagulation factor VIII activity actual/normal Coag (PPP) [Relative time] 136 % Normal 50-173 [facility] Comment on above: Order Comment: Speci men Type: BLOOD SPECIMENOrdering Facility: [facility] Address: [address] [place] [address] Performed By: #### H COAG, PTTADD ####[facility] LABCLIA [id number] [place] [address] [place] Delta dRVVT Coag (PPP) [Time diff] 2.5 delta seconds Normal <7.1 [facility] Comment on above: Order Comment: Speci men Type: BLOOD SPECIMENOrdering Facility: [facility] Address: [address] [place], [place] [id number] Performed By: #### H COAG, PTTADD ####[facility] LABIA [id number] [place] [address] [place] dRVVT W excess hexagonal phase phospholipid actual/normal Coag (PPP) [Relative time] 52.7 seconds High 34.2-47.9 [facility] Comment on above: Order Comment: Speci men Type: BLOOD SPECIMENOrdering Facility: [facility] Address: [address] [place], [place] [address] Performed By: #### H COAG, PTTADD ####[facility] LABCLIA [id number] [place] [address] [place] Protein C actual/normal Coag (PPP) [Relative time] 117 % Normal 76-147 [facility] Comment on above: Order Comment: Speci men Type: BLOOD SPECIMENOrdering Facility: [facility] Address: [address] [place], [place] [id number] Performed By: #### H COAG, PTTADD ####[facility] LABIA [id number] [place] [address] [place] Protein S actual/normal Coag (PPP) [Relative time] 74 % Normal 59-152 [facility] Comment on above: Order Comment: Speci men Type: BLOOD SPECIMENOrdering Facility: [facility] Address: [address] [place], [place] [id number] Performed By: #### H COAG, PTTADD ####[facility] LABCLIA [id number] [address] [place] Thrombin time Coag (PPP) [Time] <16.8 Normal <18.6 [facility] Comment on above: Order Comment: Speci men Type: BLOOD SPECIMENOrdering Facility: [facility] Address: [address] [place], [place] [id number] Performed By: #### H COAG, PTTADD ####[facility] LABIA [id number] [place] [address] [place] Hcys SerPl-sCncon 07-17-2022 Homocysteine [Moles/Vol] 15.4 umol/L High <15.1 [facility] Comment on above: Order Comment: Speci men Type: BLOOD SPECIMENOrdering Facility: [facility] Address: [address] [place], [place] [address] Performed By: #### 1 3965-9 ####[facility] [id number] [place] [address] [place] PROTHROMBIN GENE PCRon 07-17 PROTHROMBIN GENE MUTATION Normal [facility] Comment on above: Order Comment: Speci men Type: BLOOD SPECIMENOrdering Facility: [facility] Address: [address] [place] [id number] Result Comment: Prot hrombin Gene Mutation Laboratory Accession Number: [id number] Result: NORMAL Interpretation: The DNA sample is negative for the c.*97G>A variant (legacy name 86952B>A) in the 3' untranslated region of the Factor II (F2) gene. This result is not associated with an increased risk of thromboembolic disease. Thromboembolic disease is a multifactorial disorder and other causes are not excluded by this result. Methodology: Isolated Genomic DNA from the patient's blood specimen is evaluated for the c*97G>A (g.[id number]) variant of the F2 gene [RefSeq [id number];GRCh38/hg38] by multiplex polymerase chain reaction (PCR) followed by melting curve analysis. Limitations: This assay is designed to detect the c.*97G>A (32019P>A) variant in the F2 gene. Uncommon variants or single nucleotide polymorphisms may affect binding of probes and may rarely result in false negative, false positive or indeterminate results. This assay does not detect other disease-associated rare variants in F2 or other causes of thromboembolic disease. Disclaimer: This test was developed and its performance characteristics determined by [facility]'s [facility] [place] ([facility]). It has not been cleared or approved by the FDA. [facility] is regulated under CLIA as certified to perform high- complexity testing. This test is used for clinical purposes. It should not be regarded as investigational or for research. Testing and interpretation performed at [facility], [address] [place] [address]. CLIA Number: [id number] References: 1) Inheritied Thrombophilias in . ACOG Practice Bulletin. No. 197. [place] [employer]. Obsete Gynecol 2018;132:e18-34. 2) Merlet SR, Pepper FR, Rerebekah PH, and Rosemarie MERCHANT. A common genetic variation in the 3'-untranslated region of the prothrombin gene is associated with elevated plasma prothrombin levels and an increase in venous thrombosis. Blood 88:3698-703, 1996. 3) Garret I, Juancarlos V, Radha C, Tony K. Prothrombin 01193G>T: 16 new cases, association with the 40686X>G polymorphism, and literature review. J Thromb Haemost. 2009;9:1585-7. As reviewed by Felisa Elena MD, PhD Performed By: #### P ADITYA ####[facility] [id number] [place] [address] [place] [facility] CNCOon 07-08-2022 CNCO Letter Text Normal [facility] CNPNon 07-08-2022 CNPN Telephone (CATHMN) CHERYLE METCALF ([id number]) 1970 F Date Time Provider Department 07/08/22 MALATHI SCHNEIDER During your visit today, we recorded the following information about you: Nidia Bateman 07/08/2022 11:42 AM Signed Pt asking how to conduct a self nickel allergy. Per Dr. Schneider tape a 5 cent nickel to forearm for 48 hours. Report to office if spot turns red Pt acknowledged understanding. Allergies As of Date: 07/08/2022 Noted Allergy Reaction CODEINE 04/12/2009 11 - Vomiting Comments: dizziness Date Reviewed: 06/05/2022 Reviewed by: Herman Pineda DO - Fully Assessed Reason for Visit: Patient Question [0253] Prescriptions as of 07/08/2022 - aspirin, enteric coated (ASPIRIN, ENTERIC COATED) 81 mg EC tablet Take 81 mg by mouth once daily. - atorvastatin (LIPITOR) 40 mg tablet Take 40 mg by mouth once daily. - amLODIPine (NORVASC) 5 mg tablet Take 5 mg by mouth once daily. - acetaminophen (TYLENOL) 325 mg tablet Take 650 mg by mouth every 6 hours as needed. - atenolol (TENORMIN) 25 mg tablet Take 25 mg by mouth once daily. - lisinopril (ZESTRIL, PRINIVIL) 40 mg tablet Take 40 mg by mouth once daily. Meds Comments as of 04/12/2009: No current medications/reviewed April 12, 2009/Shanta Govea Baler Operator Problem List As Of Date 07/08/2022 Noted Resolved ALLERGIC RHINITIS NOS [J30.9] 05/24/2009 FAMILY HX ISCHEM HEART DIS [Z82.49] 05/24/2009 Iron deficiency anemia due to chronic blood los*08/07/2021 Iron malabsorption [K90.9] 08/07/2021 Encounter Status:Closed [facility] (CATHMN) CHERYLE METCALF ([id number]) 1970 F Date Time Provider Department 07/02/22 MALATHI SCHNEIDERMT During your visit today, we recorded the following information about you: Nidia Bateman 07/02/2022 12:01 PM Signed Spoke with Pt regarding PFO referral. Per Dr. Schneider, schedule EKG, Labs, and appointment with Dr. Schneider. Pt will request holter monitor results and neurology records to be sent. Allergies As of Date: 07/02/2022 Noted Allergy Reaction CODEINE 04/12/2009 11 - Vomiting Comments: dizziness Date Reviewed: 06/05/2022 Reviewed by: Herman Pineda DO - Fully Assessed Reason for Visit: Appointment [186] Prescriptions as of 07/02/2022 - aspirin, enteric coated (ASPIRIN, ENTERIC COATED) 81 mg EC tablet Take 81 mg by mouth once daily. - atorvastatin (LIPITOR) 40 mg tablet Take 40 mg by mouth once daily. - amLODIPine (NORVASC) 5 mg tablet Take 5 mg by mouth once daily. - acetaminophen (TYLENOL) 325 mg tablet Take 650 mg by mouth every 6 hours as needed. - atenolol (TENORMIN) 25 mg tablet Take 25 mg by mouth once daily. - lisinopril (ZESTRIL, PRINIVIL) 40 mg tablet Take 40 mg by mouth once daily. Meds Comments as of 04/12/2009: No current medications/reviewed April 12, 2009/Shanta Govea Lpn Problem List As Of Date 07/02/2022 Noted Resolved ALLERGIC RHINITIS NOS [J30.9] 05/24/2009 FAMILY HX ISCHEM HEART DIS [Z82.49] 05/24/2009 Iron deficiency anemia due to chronic blood los*08/07/2021 Iron malabsorption [K90.9] 08/07/2021 Encounter Status:Closed by NIDIA BATEMAN on 07/02/22 Normal [facility] CNPN Telephone (CATHMN) CHERYLE METCALF ([id number]) 1970 F Date Time Provider Department 06/17/22 MALATHI SCHNEIDER During your visit today, we recorded the following information about you: Nidia Bateman 06/17/2022 9:38 AM Signed Received outside medical records. Uploaded to scanned documents. Allergies As of Date: 06/17/2022 Noted Allergy Reaction CODEINE 04/12/2009 11 - Vomiting Comments: dizziness Date Reviewed: 06/05/2022 Reviewed by: Herman Pineda DO - Fully Assessed Reason for Visit: Received Outside Medical Records [3576] Prescriptions as of 06/17/2022 - aspirin, enteric coated (ASPIRIN, ENTERIC COATED) 81 mg EC tablet Take 81 mg by mouth once daily. - atorvastatin (LIPITOR) 40 mg tablet Take 40 mg by mouth once daily. - amLODIPine (NORVASC) 5 mg tablet Take 5 mg by mouth once daily. - acetaminophen (TYLENOL) 325 mg tablet Take 650 mg by mouth every 6 hours as needed. - atenolol (TENORMIN) 25 mg tablet Take 25 mg by mouth once daily. - lisinopril (ZESTRIL, PRINIVIL) 40 mg tablet Take 40 mg by mouth once daily. Meds Comments as of 04/12/2009: No current medications/reviewed April 12, 2009/Shanta Govea Lpn Problem List As Of Date 06/17/2022 Noted Resolved ALLERGIC RHINITIS NOS [J30.9] 05/24/2009 FAMILY HX ISCHEM HEART DIS [Z82.49] 05/24/2009 Iron deficiency anemia due to chronic blood los*08/07/2021 Iron malabsorption [K90.9] 08/07/2021 Encounter Status:Closed by NIDIA BATEMAN on 06/17/22 [facility] CNCOon 06-14-2022 CNCO Letter Text [facility] CNPNon 06-14-2022 CNPN Telephone (LAZARAMN) CHERYLE METCALF ([id number]) 1970 F Date Time Provider Department 06/14/22 INTERVENTIONAL CLINICIAN JOAQUINA During your visit today, we recorded the following information about you: Allergies As of Date: 06/14/2022 Noted Allergy Reaction CODEINE 04/12/2009 11 - Vomiting Comments: dizziness Date Reviewed: 06/05/2022 Reviewed by: Herman Pineda DO - Fully Assessed Reason for Visit: Received Outside Medical Records [2992] Cmt: Records scanned in Epic Prescriptions as of 06/14/2022 - aspirin, enteric coated (ASPIRIN, ENTERIC COATED) 81 mg EC tablet Take 81 mg by mouth once daily. - atorvastatin (LIPITOR) 40 mg tablet Take 40 mg by mouth once daily. - amLODIPine (NORVASC) 5 mg tablet Take 5 mg by mouth once daily. - acetaminophen (TYLENOL) 325 mg tablet Take 650 mg by mouth every 6 hours as needed. - atenolol (TENORMIN) 25 mg tablet Take 25 mg by mouth once daily. - lisinopril (ZESTRIL, PRINIVIL) 40 mg tablet Take 40 mg by mouth once daily. Meds Comments as of 04/12/2009: No current medications/reviewed April 12, 2009/Shanta Govea Lpn Problem List As Of Date 06/14/2022 Noted Resolved ALLERGIC RHINITIS NOS [J30.9] 05/24/2009 FAMILY HX ISCHEM HEART DIS [Z82.49] 05/24/2009 Iron deficiency anemia due to chronic blood los*08/07/2021 Iron malabsorption [K90.9] 08/07/2021 Encounter Status:Closed by HEATHER LANE on 06/14/22 [facility] Telephone (CATHMN) CHERYLE METCALF ([id number]) 1970 F Date Time Provider Department 06/14/22 INTERVENTIONAL CLINICIAN CATHMT During your visit today, we recorded the following information about you: Allergies As of Date: 06/14/2022 Noted Allergy Reaction CODEINE 04/12/2009 11 - Vomiting Comments: dizziness Date Reviewed: 06/05/2022 Reviewed by: Herman Pineda DO - Fully Assessed Reason for Visit: Received Outside Medical Records [[id number]] Cmt: 05/07/2022 ALTAGRACIA and 12/31/2021 Echocardiogram in [place] Prescriptions as of 06/14/2022 - aspirin, enteric coated (ASPIRIN, ENTERIC COATED) 81 mg EC tablet Take 81 mg by mouth once daily. - atorvastatin (LIPITOR) 40 mg tablet Take 40 mg by mouth once daily. - amLODIPine (NORVASC) 5 mg tablet Take 5 mg by mouth once daily. - acetaminophen (TYLENOL) 325 mg tablet Take 650 mg by mouth every 6 hours as needed. - atenolol (TENORMIN) 25 mg tablet Take 25 mg by mouth once daily. - lisinopril (ZESTRIL, PRINIVIL) 40 mg tablet Take 40 mg by mouth once daily. Meds Comments as of 04/12/2009: No current medications/reviewed April 12, 2009/Shanta Govea Lpn Problem List As Of Date 06/14/2022 Noted Resolved ALLERGIC RHINITIS NOS [J30.9] 05/24/2009 FAMILY HX ISCHEM HEART DIS [Z82.49] 05/24/2009 Iron deficiency anemia due to chronic blood los*08/07/2021 Iron malabsorption [K90.9] 08/07/2021 Encounter Status:Closed by HEATHER L[address] on 06/14/22 [facility] Telephone (CATHMN) CHERYLE METCALF ([id number]) 1970 F Date Time Provider Department 06/14/22 MALATHI SCHNEIDER During your visit today, we recorded the following information about you: Allergies As of Date: 06/14/2022 Noted Allergy Reaction CODEINE 04/12/2009 11 - Vomiting Comments: dizziness Date Reviewed: 06/05/2022 Reviewed by: Herman Pineda DO - Fully Assessed Reason for Visit: Patient referral [Other] Cmt: Patient referred by: Herman Hoang MD Prescriptions as of 06/14/2022 - aspirin, enteric coated (ASPIRIN, ENTERIC COATED) 81 mg EC tablet Take 81 mg by mouth once daily. - atorvastatin (LIPITOR) 40 mg tablet Take 40 mg by mouth once daily. - amLODIPine (NORVASC) 5 mg tablet Take 5 mg by mouth once daily. - acetaminophen (TYLENOL) 325 mg tablet Take 650 mg by mouth every 6 hours as needed. - atenolol (TENORMIN) 25 mg tablet Take 25 mg by mouth once daily. - lisinopril (ZESTRIL, PRINIVIL) 40 mg tablet Take 40 mg by mouth once daily. Meds Comments as of 04/12/2009: No current medications/reviewed April 12, 2009/Shanta Govea [facility] Problem List As Of Date 06/14/2022 Noted Resolved ALLERGIC RHINITIS NOS [J30.9] 05/24/2009 FAMILY HX ISCHEM HEART DIS [Z82.49] 05/24/2009 Iron deficiency anemia due to chronic blood los*08/07/2021 Iron malabsorption [K90.9] 08/07/2021 Encounter Status:Closed by HEATHER LANE on 06/14/22 [facility] 06-10-2022 CNPN Telephone (HEMAWS) CHERYLE METCALF ([id number]) 1970 F Date Time Provider Department 06/10/22 HERMAN PINEDA During your visit today, we recorded the following information about you: Herman Pineda DO 06/10/2022 4:33 PM Signed Can let her know that the lab work did not demonstrate any clear evidence of a blood clotting tendency. She still had a mild elevation of anticardiolipin antibody but this should be of no clinical significance. 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 She should continue low-dose aspirin on a daily basis and I would like for her to return in 6 months for CBC/lupus anticoagulant panel followed by office visit about a week later. Can fax a copy of this note to Dr. Hoang. DO Purnima Pedraza LPN 06/10/2022 4:40 PM Signed VM mailbox is full, unable to leave message. No mychart. Will need to try again tomorrow. Purnima Pike LPN 06/11/2022 8:11 AM Signed Spoke with pt. Given information concerning lab results. Copy of note faxed to Dr. Hoang. Ailyn Pike LPN PSS please place note to contact pt. For labs and F/U closer to 2022 Jackie Hernandez 06/11/2022 8:21 AM Signed Tried contacting pt to schedule, went to , left a message for pt to return call. Jackie Lewis 06/13/2022 3:09 PM Signed Recall letter placed. Allergies As of Date: 06/10/2022 Noted Allergy Reaction CODEINE 04/12/2009 11 - Vomiting Comments: dizziness Date Reviewed: 06/05/2022 Reviewed by: Herman Pineda DO - Fully Assessed Reason for Visit: Results [95] Prescriptions as of 06/13/2022 - aspirin, enteric coated (ASPIRIN, ENTERIC COATED) 81 mg EC tablet Take 81 mg by mouth once daily. - atorvastatin (LIPITOR) 40 mg tablet Take 40 mg by mouth once daily. - amLODIPine (NORVASC) 5 mg tablet Take 5 mg by mouth once daily. - acetaminophen (TYLENOL) 325 mg tablet Take 650 mg by mouth every 6 hours as needed. - atenolol (TENORMIN) 25 mg tablet Take 25 mg by mouth once daily. - lisinopril (ZESTRIL, PRINIVIL) 40 mg tablet Take 40 mg by mouth once daily. Meds Comments as of 04/12/2009: No current medications/reviewed April 12, 2009/Shanta Govea Lpn Problem List As Of Date 06/10/2022 Noted Resolved ALLERGIC RHINITIS NOS [J30.9] 05/24/2009 FAMILY HX ISCHEM HEART DIS [Z82.49] 05/24/2009 Iron deficiency anemia due to chronic blood los*08/07/2021 Iron malabsorption [K90.9] 08/07/2021 Encounter Status:Closed by ANYA ROWLEY on 06/13/22 Normal [facility] FERRITIN BLDon 06-06-2022 Ferritin [Mass/Vol] 22.4 ng/mL 14.7 - 2 05.1 ng/mL [facility] Iron and Iron binding capaci ty panelon 06-06-2022 Iron [Mass/Vol] 56 ug/dL 41 - 186 ug/dL [facility] Iron binding capacity [Mass/Vol] 347 ug/dL 232 - 386 ug/dL [facility] Iron/TIBC [Molar ratio] 16.1 % 15.0 - 57.0 % [facility] BETA 2 GLYCOPROTEIN, IGGon 0 06-05-2022 Beta 2 glycoprotein 1 IgG IA Qn <9 Normal <20 [facility] Comment on above: Order Comment: Cristina gt Type: BLOOD SPECIMENOrdering Facility: [facility] Address: [address] [place] [address] Result Comment: <20 SGU Negative 20-80 SGU Low Positive >80 SGU High Positive These results were obtained with the finalsiteva QUANTA Lite B2 GPI IgG KAMILLA. B2 GPI IgG values obtained with different manufacturers' assay methods may not be used interchangeably. The magnitude of the reported IgG levels cannot be correlated to an endpoint titer. Performed By: #### 5 076-5, CARDIM, BETA2G, BETA2M, CARDIG ####[facility] LABCLIA [id number] [place] [address] [place] BETA 2 GLYCOPROTEIN, IGMon 0 06-05-2022 Beta 2 glycoprotein 1 IgM IA Qn <9 Normal <20 [facility] Comment on above: Order Comment: Cristina del real Type: BLOOD SPECIMENOrdering Facility: [facility] Address: [address] [place] [address] Result Comment: <20 SMU Negative 20-80 SMU Low Positive >80 SMU High positive These results were obtained with the finalsiteva QUANTA Lite B2 GPI IgM KAMILLA. B2 GPI IgM values obtained with different manufacturers' assay methods may not be used interchangeably. The magnitude of the reported IgM levels cannot be correlated to an endpoint titer. Performed By: #### 5 076-5, CARDIM, BETA2G, BETA2M, CARDIG ####[facility] LABCLIA [id number] [address] [place] CARDIOLIPIN IGG ABSon 2021 Cardiolipin IgG IA Qn (S) <9.0 Normal <15.0 [facility] Comment on above: Order Comment: Cristina del real Type: BLOOD SPECIMENOrdering Facility: [facility] Address: [address] [place] [address] Result Comment: <15 GPL Negative 15-20 GPL Indeterminate >20 GPL Positive The following results were obtained with the Inova QUANTA Lite JOHNATHON IgG III KAMILLA. Cardiolipin IgG values obtained with the different manufacturers' assay methods may not be used interchangeably. The magnitude of the reported IgG levels cannot be correlated to an endpoint titer. Performed By: #### 5 076-5, JERZY BETA2G, BETA2M, CARDIG ####[facility] LABCLIA [id number] [place] [address] [place] CARDIOLIPIN IGM ABSon 2021 Cardiolipin IgM IA Qn (S) 17.6 MPL High <12.5 [facility] Comment on above: Order Comment: Speci men Type: BLOOD SPECIMENOrdering Facility: [facility] Address: [address] [place] [address] Result Comment: <12. 5 MPL Negative 12.5-20 MPL Indeterminate >20 MPL Positive The following results were obtained with the Inova QUANTA Lite JOHNATHON IgM III KAMILLA. Cardiolipin IgM values obtained with the different manufacturers' assay methods may not be used interchangeably. The magnitude of the reported IgM levels cannot be correlated to an endpoint titer. ??? Performed By: #### 5 076-5, JERZY BETAJackelineG, BETA2M, CARDIG ####[facility] LABCLIA [id number] [place] [address] [place] CBC W Auto Differential pane l (Bld)on 06-05-2022 Basophils (Bld) [#/Vol] 0.05 10*3/uL Normal <0.11 [facility] Comment on above: Order Comment: Speci men Type: BLOOD SPECIMENOrdering Facility: [facility] Address: [address] [place], [place] [address] Performed By: #### 5 7021-8 ####[facility] [id number] [place] [address] [place] Basophils/100 WBC (Bld) 0.9 % Normal [facility] Comment on above: Order Comment: Speci men Type: BLOOD SPECIMENOrdering Facility: [facility] Address: [address] [place] [address] Performed By: #### 5 7021-8 ####[facility] NATALIEKusumNCLIA [id number] [place] [address] [place] Differential cell count method Nom (Bld) Auto Normal [facility] Comment on above: Order Comment: Speci men Type: BLOOD SPECIMENOrdering Facility: [facility] Address: [address] [place] [address] Performed By: #### 5 7021-8 ####[facility] [id number] [place] [address] [place] Eosinophils (Bld) [#/Vol] 0.09 10*3/uL Normal <0.46 [facility] Comment on above: Order Comment: Speci men Type: BLOOD SPECIMENOrdering Facility: [facility] Address: [address] [place] [address] Performed By: #### 5 7021-8 ####[facility]IC[facility] [id number] [place] [address] [place] Eosinophils/100 WBC (Bld) 1.6 % Normal [facility] Comment on above: Order Comment: Speci men Type: BLOOD SPECIMENOrdering Facility: [facility] Address: [address] [place] [address] Performed By: #### 5 7021-8 ####[facility]IC[facility]CL[facility] [id number] [place] [address] [place] Erythrocyte distribution width (RBC) [Ratio] 12.8 % Normal 11.5-15.0 [facility] Comment on above: Order Comment: Speci men Type: BLOOD SPECIMENOrdering Facility: [facility] Address: [address] [place] [address] Performed By: #### 5 7021-8 ####[facility]IC[facility] [id number] [place] [address] [place] Hematocrit (Bld) [Volume fraction] 34.5 % Low 36.0-46.0 [facility] Comment on above: Order Comment: Speci men Type: BLOOD SPECIMENOrdering Facility: [facility] Address: [address] [place] [address] Performed By: #### 5 7021-8 ####[facility]INICJAEDNT[facility] [id number] [place] [address] [place] Hemoglobin (Bld) [Mass/Vol] 11.4 g/dL Low 11.5-15.5 [facility] Comment on above: Order Comment: Speci men Type: BLOOD SPECIMENOrdering Facility: [facility] Address: [address] [place] [address] Performed By: #### 5 7021-8 ####[facility] [id number] [address] [place] IMMATURE GRAN % 0.2 % Normal [facility] Comment on above: Order Comment: Speci men Type: BLOOD SPECIMENOrdering Facility: [facility] Address: [address] [place] [address] Performed By: #### 5 7021-8 ####[facility] [id number] [place] [address] [place] IMMATURE GRAN ABS <0.03 Normal <0.10 [facility] Comment on above: Order Comment: Speci men Type: BLOOD SPECIMENOrdering Facility: [facility] Address: [address] [place] [address] Performed By: #### 5 7021-8 ####[facility]ENTERLIA [id number] [place] [address] [place] Lymphocytes (Bld) [#/Vol] 1.12 10*3/uL Normal 1.00-4.00 [facility] Comment on above: Order Comment: Speci men Type: BLOOD SPECIMENOrdering Facility: [facility] Address: [address] [place] [address] Performed By: #### 5 7021-8 ####[facility]ICNCT[facility] [id number] [place] [address] [place] Lymphocytes/100 WBC (Bld) 19.6 % Normal [facility] Comment on above: Order Comment: Speci men Type: BLOOD SPECIMENOrdering Facility: [facility] Address: [address] [place] [address] Performed By: #### 5 7021-8 ####[facility] [id number] [place] [address] [place] MCH (RBC) [Entitic mass] 29.5 pg Normal 26.0-34.0 [facility] Comment on above: Order Comment: Speci men Type: BLOOD SPECIMENOrdering Facility: [facility] Address: [address] [place] [address] Performed By: #### 5 7021-8 ####[facility] [id number] [place] [address] [place] MCHC (RBC) [Mass/Vol] 33.0 g/dL Normal 30.5-36.0 [facility] Comment on above: Order Comment: Speci men Type: BLOOD SPECIMENOrdering Facility: [facility] Address: [address] [place] [address] Performed By: #### 5 7021-8 ####[facility] [id number] [address] [place] MCV (RBC) [Entitic vol] 89.4 fL Normal 80.0-100.0 [facility] Comment on above: Order Comment: Speci men Type: BLOOD SPECIMENOrdering Facility: [facility] Address: [address] [place] [address] Performed By: #### 5 7021-8 ####[facility]IDWNCLIA [id number] [place] [address] [place] Monocytes (Bld) [#/Vol] 0.40 10*3/uL Normal <0.87 [facility] Comment on above: Order Comment: Speci men Type: BLOOD SPECIMENOrdering Facility: [facility] Address: [address] [place] [address] Performed By: #### 5 7021-8 ####[facility]ICNCL[facility] [id number] [place] [address] [place] Monocytes/100 WBC (Bld) 7.0 % Normal [facility] Comment on above: Order Comment: Speci men Type: BLOOD SPECIMENOrdering Facility: [facility] Address: [address] [place] [address] Performed By: #### 5 7021-8 ####[facility]ICNCLIA [id number] [place] [address] [place] Neutrophils (Bld) [#/Vol] 4.03 10*3/uL Normal 1.45-7.50 [facility] Comment on above: Order Comment: Speci men Type: BLOOD SPECIMENOrdering Facility: [facility] Address: [address] [place] [address] Performed By: #### 5 7021-8 ####[facility] PLACIDWNCLIA [id number] [place] [address] [place] Neutrophils/100 WBC (Bld) 70.7 % Normal [facility] Comment on above: Order Comment: Speci men Type: BLOOD SPECIMENOrdering Facility: [facility] Address: [address] [place] [address] Performed By: #### 5 7021-8 ####[facility]ICNCL[facility] [id number] [place] [address] [place] Nucleated RBC (Bld) [#/Vol] 10*3/uL Normal <0.01 [facility] Comment on above: Order Comment: Speci men Type: BLOOD SPECIMENOrdering Facility: [facility] Address: [address] [place] [address] Performed By: #### 5 7021-8 ####[facility] [id number] [place] [address] [place] Nucleated RBC/100 WBC (Bld) [Ratio] 0.0 /100 WBC Normal [facility] Comment on above: Order Comment: Speci men Type: BLOOD SPECIMENOrdering Facility: [facility] Address: [address] [place] [address] Performed By: #### 5 7021-8 ####[facility] [id number] [place] [address] [place] Platelet mean volume (Bld) [Entitic vol] 9.4 fL Normal 9.0-12.7 [facility] Comment on above: Order Comment: Speci men Type: BLOOD SPECIMENOrdering Facility: [facility] Address: [address] [place] [address] Performed By: #### 5 7021-8 ####[facility] [id number] [place] [address] [place] Platelets (Bld) [#/Vol] 254 10*3/uL Normal 150-400 [facility] Comment on above: Order Comment: Speci men Type: BLOOD SPECIMENOrdering Facility: [facility] Address: [address] [place] [address] Performed By: #### 5 7021-8 ####[facility] [id number] [place] [address] [place] RBC (Bld) [#/Vol] 3.86 10*6/uL Low 3.90-5.20 [facility] Comment on above: Order Comment: Speci men Type: BLOOD SPECIMENOrdering Facility: [facility] Address: [address] [place] [address] Performed By: #### 5 7021-8 ####[facility] [id number] [address] WBC (Bld) [#/Vol] 5.70 10*3/uL Normal 3.70-11.00 [facility] Comment on above: Order Comment: Speci men Type: BLOOD SPECIMENOrdering Facility: [facility] Address: [address] [place] [address] Performed By: #### 5 7021-8 ####[facility] [id number] [address] [facility] Abs Immature Gran <0.03 <0.10 k/uL [facility] Basophils (Bld) [#/Vol] 0.05 10*3/uL <0.11 k/uL [facility] Basophils/100 WBC (Bld) 0.9 % [facility] Differential cell count method Nom (Bld) Auto [facility] Eosinophils (Bld) [#/Vol] 0.09 10*3/uL <0.46 k/uL [facility] Eosinophils/100 WBC (Bld) 1.6 % [facility] Erythrocyte distribution width (RBC) [Ratio] 12.8 % 11.5 - 15.0 % [facility] Hematocrit (Bld) [Volume fraction] 34.5 % Low 36.0 - 46.0 % [facility] Hemoglobin (Bld) [Mass/Vol] 11.4 g/dL Low 11.5 - 15.5 g/dL [facility] Immature Gran % 0.2 % [facility] Lymphocytes (Bld) [#/Vol] 1.12 10*3/uL 1.00 - 4.00 k/uL [facility] Lymphocytes/100 WBC (Bld) 19.6 % [facility] MCH (RBC) [Entitic mass] 29.5 pg 26.0 - 34.0 pg [facility] MCHC (RBC) [Mass/Vol] 33.0 g/dL 30.5 - 36.0 g/dL [facility] MCV (RBC) [Entitic vol] 89.4 fL 80.0 - 100.0 fL [facility] Monocytes (Bld) [#/Vol] 0.40 10*3/uL <0.87 k/uL [facility] Monocytes/100 WBC (Bld) 7.0 % [facility] Neutrophils (Bld) [#/Vol] 4.03 10*3/uL 1.45 - 7.50 k/uL [facility] Neutrophils/100 WBC (Bld) 70.7 % [facility] Nucleated RBC (Bld) [#/Vol] 10*3/uL <0.01 k/uL [facility] Nucleated RBC/100 WBC (Bld) [Ratio] 0.0 /100 WBC [facility] Platelet mean volume (Bld) [Entitic vol] 9.4 fL 9.0 - 12.7 fL [facility] Platelets (Bld) [#/Vol] 254 10*3/uL 150 - 400 k/uL [facility] RBC (Bld) [#/Vol] 3.86 10*6/uL Low 3.90 - 5.2 0 m/uL [facility] WBC (Bld) [#/Vol] 5.70 10*3/uL 3.70 - 11. 00 k/uL [facility] CNOVSPon 06-05-2022 CNOVS Visit (SP) Office ([facility]) CHERYLE METCALF ([id number]) 1970 F Date Time Provider Department 06/05/22 2:00 PM HERMAN PINEDA During your visit today, we recorded the following information about you: Temperature Pulse Blood pressure Weight 98.7 degrees 58/minute 128/77 94.8 kg Height 1.778 m Herman Pineda DO 06/06/2022 1:27 PM Signed Hematologic problem(s): 1) MAYA. 2) Possible antiphospholipid antibody syndrome. HPI: The patient is a 51-year-old female with a past medical history significant for rheumatic fever as a teenager, hypertension, left breast lumpectomy (benign) and iron deficiency anemia. Recent CBC on 08/01/2021 revealed a total white count of 3600. Differential showed a small increase in basophils at 1.4%. ANC was 1900. The hemoglobin was 8.6 g/dL. MCV was 73.9 fL and the platelet count was 261,000. Anisocytosis was noted on the peripheral smear. Serum iron was 25 mcg/dL. TIBC was 380. Ferritin was 4 ng/mL. In May 2021 the white count was 5100. Hemoglobin was 9.0 g/dL with an MCV of 68.9 and a platelet count of 311,000. In January 2021 the hemoglobin was 8.5 g/dL with an MCV of 66.7 fL and a platelet count of 307,000. Was fatigued a lot. No GRAVES. Occasional palpitation. Had tried oral iron on several occasions. Caused severe nausea. Received one dose parenteral iron at [facility] about mid June. Formulation unknown. Regular menses. Often heavy with passing of clots. Had colonoscopy by Dr. Cruz this summer. Had one polyp removed. Was told not a pre-cancerous polyp. Normal appetite. No dysphagia. +GERD. Takes Tums or Mylanta prn. No PPI use. No nausea. No bloody or black stools. Not vegetarian. Referred back for evaluation for antiphospholipid antibody and/or lupus anticoagulant. Interim history: She received 9 doses of iron sucrose last fall for iron deficiency anemia secondary to heavy menses. She had prior colonoscopy. Had Covid in November. Wasn't formally tested, but and two sons tested positive. was asymptomatic. Symptoms for patient consisted of MORENO, body aches, cough, fever, loss of taste and smell. Didn't require hospitalization. Symptoms of fatigue and MORENO lingered about 4-6 weeks. Cough lasted about 4 weeks. She presented to the ED at [facility] the evening of 12/29/2021 after experiencing the onset of left eye scintillations followed by right arm numbness and dense weakness. She also developed aphasia. Symptoms occurred while she was watching TV. Evidently the arm numbness and weakness resolved within a few minutes but speech difficulty lasted about an hour and then resolved. She was reported to have some cognitive slowing that lasted about [address] on presentation demonstrated a normal unenhanced CT scan of the brain. 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 The more distal portions of the arteries were supplied via the patent bilateral posterior communicating arteries. Otherwise the [place] was observed to be normal. There were normal bilateral carotid and vertebral arteries observed. Blood pressure on presentation was 192/106. 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 She was started on ASA and Plavix. Hypercoagulation panel was ordered. Anticardiolipin IgM antibody titer 17 (intermediate).. Anticardiolipin IgG less than 9. Antibodies to beta-2 glycoprotein including IgG, IgA and IgM normal. Antithrombin activity normal. Antithrombin level normal. Protein C antigen and functional activity normal. No factor V Leiden mutation. Prothrombin mutation not detected. Lupus anticoagulant activity was not detected. This was evidenced by a normal dilute PT, confirmation ratio, thrombin time, DRVVT. Patient also had bilateral lower extremity duplex ultrasound which revealed no evidence for acute DVT in the bilateral lower extremities. Echocardiogram revealed normal left ventricular systolic function with estimated ejection fraction 65%. There was trivial mitral valve and trivial tricuspid valve insufficiency along with trivial pulmonic valve insufficiency. RV systolic pressure was not able to be estimated. Agitated saline contrast study consider positive for right to left interatrial shunt potentially compatible with small PFO versus ASD. Subsequent transesophageal echocardiogram on 05/07/2022 showed no spontaneous contrast in the left atrium. No thrombus was detected in the left atrial appendage. There was 1+ mitral valve insufficiency. Mild tricuspid valve insufficiency trivial aortic valve insufficiency. There was positive agitated saline contrast study for right-to (more content not included)... Normal [facility] Cardiolipin IgA Ser IA-aCnco n 06-05-2022 Cardiolipin IgA IA Qn (S) <9.0 Normal <12.0 [facility] Comment on above: Order Comment: Speci men Type: BLOOD SPECIMENOrdering Facility: [facility] Address: [address] [place] [address] Result Comment: <12 APL Negative 12-20 APL Indeterminate >20 APL Positive The following results were obtained with the AmperionA Lite JOHNATHON IgA III KAMILLA. Cardiolipin IgA values obtained with the different manufacturers' assay methods may not be used interchangeably. The magnitude of the reported IgA levels cannot be correlated to an endpoint titer. Performed By: #### 5 076-5, CARDIM, BETA2G, BETA2M, CARDIG ####[facility] LABIA [id number] [place] [address] [place] [facility] Ferritin [Mass/Vol] 22.4 ng/mL Normal 14.7-205.1 [facility] Comment on above: Order Comment: Speci men Type: BLOOD SPECIMENOrdering Facility: [facility] Address: [address] [place] [address] Performed By: #### 2 276-4, 92533-3 ####[facility] LABIA [id number] [place] [address] [place] Iron and Iron binding capaci panelon 06-05-2022 Iron [Mass/Vol] 56 ug/dL Normal 41-186 [facility] Comment on above: Order Comment: Speci men Type: BLOOD SPECIMENOrdering Facility: [facility] Address: [address] [place], [place] [address] Performed By: #### 2 276-4, 81626-1 ####[facility] LABIA [id number] [address] [place] [facility] Iron binding capacity [Mass/Vol] 347 ug/dL Normal 232-386 [facility] Comment on above: Order Comment: Speci men Type: BLOOD SPECIMENOrdering Facility: [facility] Address: [address] [place], [place] [address] Performed By: #### 2 276-4, 95210-1 ####[facility] LABCLIA [id number] [address] Iron/TIBC [Molar ratio] 16.1 % Normal 15.0-57.0 [facility] Comment on above: Order Comment: Speci men Type: BLOOD SPECIMENOrdering Facility: [facility] Address: [address] [place], [place] [address] Performed By: #### 2 276-4, 52086-3 ####[facility] LABCLIA [id number] [address] [place] LUPUS PANELon 06-05-2022 aPTT Coag (Bld) [Time] 38.9 s High 24.0-35.1 [facility] Comment on above: Order Comment: Speci men Type: BLOOD SPECIMENOrdering Facility: [facility] Address: [address] [place], [place] [address] Performed By: #### L UPPL ####[facility] LABCLIA [id number] [address] [place] aPTT W excess hexagonal phase phospholipid Coag (PPP) [Time] 55.0 seconds High 34.0-51.8 [facility] Comment on above: Order Comment: Speci men Type: BLOOD SPECIMENOrdering Facility: [facility] Address: [address] [place], [place] [address] Performed By: #### L UPPL ####[facility] LABCLIA [id number] [address] [place] aPTT-LA w 1:1 PNP Coag (PPP) [Time] 31.7 seconds Normal <33.2 [facility] Comment on above: Order Comment: Speci men Type: BLOOD SPECIMENOrdering Facility: [facility] Address: [address] [place], [place] [address] Result Comment: 31.3 Performed By: #### L UPPL ####[facility] LABCLIA [id number] [place] [address] [place] Delta dRVVT Coag (PPP) [Time diff] 4.0 delta seconds Normal <7.1 [facility] Comment on above: Order Comment: Speci men Type: BLOOD SPECIMENOrdering Facility: [facility] Address: [address] [place] [address] Performed By: #### L UPPL ####[facility] [id number] [place] [address] [place] dRVVT Coag (PPP) [Time] 34.2 s Normal 32.0-45.7 [facility] Comment on above: Order Comment: Speci men Type: BLOOD SPECIMENOrdering Facility: [facility] Address: [address] [place] [address] Performed By: #### L UPPL ####[facility] [id number] [place] [address] [place] dRVVT factor substitution immediately after 1:2 addition of normal plasma Coag (PPP) [Time] 34.9 seconds Normal 32.0-45.7 [facility] Comment on above: Order Comment: Speci men Type: BLOOD SPECIMENOrdering Facility: [facility] Address: [address] [place] [address] Performed By: #### L UPPL ####[facility] [id number] [place] [address] [place] dRVVT W excess hexagonal phase phospholipid actual/normal Coag (PPP) [Relative time] 51.0 seconds High 34.2-47.9 [facility] Comment on above: Order Comment: Speci men Type: BLOOD SPECIMENOrdering Facility: [facility] Address: [address] [place], [place] [address] Performed By: #### L UPPL ####[facility] [id number] [address] dRVVT/dRVVT.excess phospholipid Coag (PPP) [Ratio] 0.96 Normal <1.32 [facility] Comment on above: Order Comment: Speci men Type: BLOOD SPECIMENOrdering Facility: [facility] Address: [address] [place] [address] Performed By: #### L UPPL ####[facility] LABIA [id number] [address] [address] Lupus anticoagulant neutralization platelet Coag Ql (PPP) Negative Normal Negative [facility] Comment on above: Order Comment: Speci men Type: BLOOD SPECIMENOrdering Facility: [facility] Address: [address] [place] [address] Performed By: #### L UPPL ####[facility] [id number] [address] [place] Thrombin time Coag (PPP) [Time] <16.8 Normal <18.6 [facility] Comment on above: Order Comment: Speci men Type: BLOOD SPECIMENOrdering Facility: [facility] Address: [address] [place] [address] Performed By: #### L UPPL ####[facility] [id number] [address] [place] PT panel Coag (PPP)on 2021 INR Coag (PPP) [Relative time] 1.0 {INR} Normal 0.9-1.3 [facility] Comment on above: Order Comment: Speci men Type: BLOOD SPECIMENOrdering Facility: [facility] Address: [address] [place] [address] Result Comment: Amanda min K Antagonist (VKA) Therapeutic Range: INR 2 to 3 (Target INR of 2.5) Note: For patients treated with VKA drugs, such as warfarin, the [place] [employer] 2012 Guideline recommends a therapeutic INR range of 2 to 3 (target INR of 2.5). This recommendation includes high-risk patients with antiphospholipid syndrome with previous arterial or venous thromboembolism, current-generation mechanical or bioprosthetic aortic heart valve replacement. Note: Patients with mechanical aortic valve replacement and additional risk factors for thromboembolic events (atrial fibrillation, previous thromboembolism, LV dysfunction, hypercoagulable conditions) or an older generation mechanical AVR (i.e., ball in-Cage) or any mechanical MVR should have a INR therapeutic range of 2.5 to 3.5 (target INR of 3). Archana GH, et al. Chest 2012, 141:7S-47S Dago RA, et al. [facility] 2017, 70: 252-289 Performed By: #### 3 4528-0, 01800-1 ####[facility] [id number] [address] [place] PT Coag (PPP) [Time] 11.0 s Normal 9.7-13.0 [facility] Comment on above: Order Comment: Cristina del real Type: BLOOD SPECIMENOrdering Facility: [facility] Address: [address] [place] [address] Performed By: #### 3 4528-0, 89597-3 ####[facility] [id number] [address] [place] aPTT PPPon 06-05-2022 aPTT Coag (PPP) [Time] 30.5 s Normal 23.0-32.4 [facility] Comment on above: Order Comment: Cristina del real Type: BLOOD SPECIMENOrdering Facility: [facility] Address: [address] [place] [address] Performed By: #### 3 4528-0, 18160-2 ####[facility] [id number] [address] [place] CNPNon 05-13-2022 CNPN Telephone (HEMAWS) CHERYLE METCALF ([id number]) 1970 F Date Time Provider Department 05/13/22 HERMAN PINEDA During your visit today, we recorded the following information about you: Herlinda Louis LPN 05/13/2022 8:35 AM Signed Please schedule patient to see Dr. Pineda 06/05/2022 @ 2:00/elevated anticardiolipin antibody, use the whole hour. Please notify patient of appointment date and time. Herlinda Hernandez 05/13/2022 8:58 AM Signed Tried to contact pt, went to , left a message for pt to return call. Jackie Wilcox [facility] 05/14/2022 12:45 PM Signed Patient returned office call and has been scheduled as indicated. Patient voiced understanding. Allergies As of Date: 05/13/2022 Noted Allergy Reaction CODEINE 04/12/2009 11 - Vomiting Comments: dizziness Date Reviewed: 10/24/2021 Reviewed by: Denise Potter APRN.ROCK SPLITTER - Fully Assessed Reason for Visit: Appointment [186] Prescriptions as of 05/16/2022 - acetaminophen (TYLENOL) 325 mg tablet Take 650 mg by mouth every 6 hours as needed. - atenolol (TENORMIN) 25 mg tablet Take 25 mg by mouth once daily. - lisinopril (ZESTRIL, PRINIVIL) 40 mg tablet Take 40 mg by mouth once daily. Meds Comments as of 04/12/2009: No current medications/reviewed April 12, 2009/Shanta Govea Lpn Problem List As Of Date 05/13/2022 Noted Resolved ALLERGIC RHINITIS NOS [J30.9] 05/24/2009 FAMILY HX ISCHEM HEART DIS [Z82.49] 05/24/2009 Iron deficiency anemia due to chronic blood los*08/07/2021 Iron malabsorption [K90.9] 08/07/2021 Encounter Status:Closed by HERLINDA LOUIS LPN on 05/16/22 [facility] Vital Signs Date Time Vital Sign Value Performing Clinician Nimo grissom 04-30-2023 10:55-0400 Body weight 100.7 kg Bradly Vidal MD Work Phone: [facility] 04-30-2023 10:55-0400 Diastolic blood pressure 76 mm[Hg] Bradly Vidal MD Work Phone: [facility] 04-30-2023 10:55-0400 Systolic blood pressure 114 mm[Hg] Bradly Vidal MD Work Phone: [facility] 01-17-2023 08:45-0500 Body temperature 97.81 [degF] Treatment Wstr Work Phone: [facility] 01-17-2023 08:45-0500 Diastolic blood pressure 67 mm[Hg] Treatment Wstr Work Phone: [facility] 01-17-2023 08:45-0500 Heart rate 64 /min Treatment Wstr Work Phone: [facility] 01-17-2023 08:45-0500 Systolic blood pressure 126 mm[Hg] Treatment Wstr Work Phone: [facility] 01-13-2023 14:52-0500 Body temperature 96.49 [degF] Treatment Wstr Work Phone: [facility] 01-13-2023 14:52-0500 Diastolic blood pressure 78 mm[Hg] Treatment Wstr Work Phone: [facility] 01-13-2023 14:52-0500 Heart rate 65 /min Treatment Wstr Work Phone: [facility] 01-13-2023 14:52-0500 Systolic blood pressure 143 mm[Hg] Treatment Wstr Work Phone: [facility] 01-10-2023 09:17-0500 Body height 180.3 cm Malathi Schneider MD Work Phone: [facility] 01-10-2023 09:17-0500 Body weight 99.84 kg Malathi Schneider MD Work Phone: [facility] 01-10-2023 09:17-0500 Diastolic blood pressure 79 mm[Hg] Malathi Schneider MD Work Phone: [facility] 01-10-2023 09:17-0500 Heart rate 59 /min Malathi Schneider MD Work Phone: [facility] 01-10-2023 09:17-0500 Respiratory rate 15 /min Malathi Schneider MD Work Phone: [facility] 01-10-2023 09:17-0500 SaO2% (BldA) [Mass fraction] 100 % Malathi Schneider MD Work Phone: [facility] 01-10-2023 09:17-0500 Systolic blood pressure 143 mm[Hg] Malathi Schneider MD Work Phone: [facility] 01-06-2023 14:46-0500 Body temperature 97.59 [degF] Treatment Wstr Work Phone: [facility] 01-06-2023 14:46-0500 Diastolic blood pressure 79 mm[Hg] Treatment Wstr Work Phone: [facility] 01-06-2023 14:46-0500 Heart rate 68 /min Treatment Wstr Work Phone: [facility] 01-06-2023 14:46-0500 Systolic blood pressure 133 mm[Hg] Treatment Wstr Work Phone: [facility] 01-03-2023 10:13-0500 Body temperature 97.81 [degF] Treatment Wstr Work Phone: [facility] 01-03-2023 10:13-0500 Diastolic blood pressure 78 mm[Hg] Treatment Wstr Work Phone: [facility] 01-03-2023 10:13-0500 Heart rate 59 /min Treatment Wstr Work Phone: [facility] 01-03-2023 10:13-0500 Respiratory rate 16 /min Treatment Wstr Work Phone: [facility] 01-03-2023 10:13-0500 SaO2% (BldA) [Mass fraction] 100 % Treatment Wstr Work Phone: [facility] 01-03-2023 10:13-0500 Systolic blood pressure 128 mm[Hg] Treatment Wstr Work Phone: [facility] 01-01-2023 13:50-0500 Body temperature 98.1 [degF] Treatment Wstr Work Phone: [facility] 01-01-2023 13:50-0500 Diastolic blood pressure 72 mm[Hg] Treatment Wstr Work Phone: [facility] 01-01-2023 13:50-0500 Heart rate 69 /min Treatment Wstr Work Phone: [facility] 01-01-2023 13:50-0500 Respiratory rate 18 /min Treatment Wstr Work Phone: [facility] 01-01-2023 13:50-0500 Systolic blood pressure 126 mm[Hg] Treatment Wstr Work Phone: [facility] 12-18-2022 13:42-0500 Body temperature 97.3 [degF] Treatment Wstr Work Phone: [facility] 12-18-2022 13:42-0500 Diastolic blood pressure 78 mm[Hg] Treatment Wstr Work Phone: [facility] 12-18-2022 13:42-0500 Heart rate 61 /min Treatment Wstr Work Phone: [facility] 12-18-2022 13:42-0500 SaO2% (BldA) [Mass fraction] 100 % Treatment Wstr Work Phone: [facility] 12-18-2022 13:42-0500 Systolic blood pressure 144 mm[Hg] Treatment Wstr Work Phone: [facility] 12-05-2022 13:15-0500 Body height 180.3 cm Bradly Vidal MD Work Phone: [facility] 12-05-2022 13:15-0500 Body weight 101.61 kg Bradly Vidal MD Work Phone: [facility] 12-05-2022 13:15-0500 Diastolic blood pressure 78 mm[Hg] Bradly Vidal MD Work Phone: [facility] 12-05-2022 13:15-0500 Systolic blood pressure 122 mm[Hg] Bradly Vidal MD Work Phone: [facility] 12-04-2022 09:31-0500 Body height 178.5 cm Herman Masci DO Work Phone: [facility] 12-04-2022 09:31-0500 Body temperature 97.81 [degF] Herman Masci DO Work Phone: [facility] 12-04-2022 09:31-0500 Body weight 102.06 kg Herman Masci DO Work Phone: [facility] 12-04-2022 09:31-0500 Diastolic blood pressure 78 mm[Hg] Herman Masci DO Work Phone: [facility] 12-04-2022 09:31-0500 Heart rate 66 /min Herman Masci DO Work Phone: [facility] 12-04-2022 09:31-0500 SaO2% (BldA) [Mass fraction] 100 % Herman Masci DO Work Phone: [facility] 12-04-2022 09:31-0500 Systolic blood pressure 128 mm[Hg] Herman Masci DO Work Phone: [facility] 06-05-2022 14:10-0400 Body height 177.8 cm Herman Masci DO Work Phone: [facility] 06-05-2022 14:10-0400 Body temperature 98.71 [degF] Herman Masci DO Work Phone: [facility] 06-05-2022 14:10-0400 Body weight 94.8 kg Herman Masci DO Work Phone: [facility] 06-05-2022 14:10-0400 Diastolic blood pressure 77 mm[Hg] Herman Masci DO Work Phone: [facility] 06-05-2022 14:10-0400 Heart rate 58 /min Herman Masci DO Work Phone: [facility] 06-05-2022 14:10-0400 Systolic blood pressure 128 mm[Hg] Herman Pineda DO Work Phone: [facility] Encounters Encounter Date Encounter Type Care Provider Facility Start: 06-06-2023 Orders Only Herman Maradiaga Work Phone: Hematology/Oncology Comment on above: Iron deficiency anem ia due to chronic blood loss (Primary Dx); Cryptogenic stroke (HCC); Anticardiolipin antibody positive Start: 04-30-2023 End: 05-01-2023 ambulatory BRADLY VIDAL Facility:[facility] Start: 04-30-2023 End: 04-30-2023 Patient encounter procedure Bradly Vidal MD Work Phone: OB/Gynecology Comment on above: Menorrhagia with reg ular cycle (Primary Dx) Start: 04-10-2023 End: 04-10-2023 ambulatory BRADLY VIDAL Facility:[facility] Start: 04-10-2023 End: 04-10-2023 Subsequent hospital visit by physician [facility] Work Phone: Radiology Comment on above: Menorrhagia with reg ular cycle [N92.0] Start: 03-04-2023 End: 03-05-2023 ambulatory HERMAN PINEDA Facility:[facility] Start: 02-28-2023 End: 03-01-2023 ambulatory HERMAN PINEDA Facility:[facility] Start: 02-27-2023 Orders Only Herman Maradiaga Work Phone: Hematology/Oncology Comment on above: Iron deficiency anem ia due to chronic blood loss (Primary Dx); Menorrhagia with regular cycle; Cryptogenic stroke (HCC); Anticardiolipin antibody positive Start: 01-17-2023 End: 01-18-2023 ambulatory Treatment Rm 12 [facility] Work Phone: Hematology/Oncology Comment on above: Iron deficiency anem ia due to chronic blood loss (Primary Dx); Iron malabsorption Start: 01-15-2023 End: 01-15-2023 Orders Only Herman Pineda DO Work Phone: Hematology/Oncology Comment on above: Iron deficiency anem ia due to chronic blood loss (Primary Dx); Menorrhagia with regular cycle; Cryptogenic stroke (HCC); Anticardiolipin antibody positive Start: 01-13-2023 End: 01-13-2023 ambulatory Treatment Rm 12 [facility] [employer] Work Phone: Hematology/Oncology Comment on above: Iron deficiency anem ia due to chronic blood loss (Primary Dx); Iron malabsorption Start: 01-10-2023 End: 01-10-2023 ambulatory MALATHI SCHNEIDER Facility:[facility] Start: 01-10-2023 End: 01-10-2023 Patient encounter procedure Malathi Schneider MD Work Phone: Cardiology Comment on above: S/P percutaneous pat ent foramen ovale closure (Primary Dx); PFO (patent foramen ovale); Cerebrovascular accident (CVA), unspecified mechanism (HCC); Iron deficiency anemia due to chronic blood loss PFO (patent foramen ovale) Start: 01-06-2023 End: 01-06-2023 ambulatory Treatment Rm 3 [facility] [employer] Work Phone: Hematology/Oncology Comment on above: Iron deficiency anem ia due to chronic blood loss (Primary Dx); Iron malabsorption Start: 01-03-2023 End: 01-03-2023 ambulatory Treatment Rm 9 [facility] [employer] Work Phone: Hematology/Oncology Comment on above: Iron deficiency anem ia due to chronic blood loss (Primary Dx); Iron malabsorption Start: 01-03-2023 End: 01-04-2023 ambulatory CHHAYA NUNEZ Facility:[facility] Start: 01-01-2023 End: 01-01-2023 ambulatory Treatment Rm 4 [facility] [employer] Work Phone: Hematology/Oncology Comment on above: Iron deficiency anem ia due to chronic blood loss (Primary Dx); Iron malabsorption Iron deficiency anem ia due to chronic blood loss (Primary Dx); Menorrhagia with regular cycle; Cryptogenic stroke (HCC) Start: 12-30-2022 End: 12-30-2022 ambulatory CHHAYA NUNEZ Facility:[facility] Start: 12-27-2022 Orders Only Malathi Schneider MD Work Phone: Cardiology Comment on above: PFO (patent foramen ovale) (Primary Dx) Start: 12-25-2022 End: 12-25-2022 ambulatory HERMAN PINEDA Facility:[facility] Start: 12-18-2022 End: 12-18-2022 ambulatory Treatment Rm 4 [facility] Work Phone: Hematology/Oncology Comment on above: Iron deficiency anem ia due to chronic blood loss (Primary Dx); Iron malabsorption Start: 12-17-2022 Telephone encounter Financial Navigator Cain Work Phone: Financial Services Comment on above: Benefits Investigati on Start: 12-05-2022 End: 12-05-2022 ambulatory BRADLY VIDAL Facility:[facility] Start: 12-05-2022 End: 12-05-2022 Patient encounter procedure Bradly Vidal MD Work Phone: OB/Gynecology Comment on above: Menorrhagia with reg ular cycle (Primary Dx) Start: 12-04-2022 Telephone encounter Herman hawkins DO Work Phone: Hematology/Oncology Comment on above: Follow Up (Stop Plav ix) Start: 12-04-2022 End: 12-04-2022 ambulatory HERMAN PINEDA Facility:[facility] Start: 12-04-2022 End: 12-04-2022 Office outpatient visit 25 minutes Herman Pineda DO Work Phone: Hematology/Oncology Comment on above: Iron deficiency anem ia due to chronic blood loss (Primary Dx); Menorrhagia with regular cycle; Cryptogenic stroke (HCC); Anticardiolipin antibody positive Start: 11-27-2022 End: 11-27-2022 ambulatory HERMAN PINEDA Facility:[facility] Start: 11-12-2022 Telephone encounter Herman hawkins DO Work Phone: Hematology/Oncology Comment on above: Follow Up Start: 09-19-2022 End: 09-20-2022 ambulatory MALATHI SCHNEIDER Facility:[facility] Start: 09-18-2022 Telephone encounter Malathi Schneider MD Work Phone: Cardiology Comment on above: Patient Education Start: 09-03-2022 ambulatory Malathi Schneider MD Work Phone: Cardiology Start: 09-03-2022 E-mail encounter fro m caregiver Malathi Schneider MD Work Phone: [facility] Start: 08-27-2022 Orders Only Malathi Schneider MD Work Phone: Cardiology Comment on above: PFO (patent foramen ovale) (Primary Dx); Cerebrovascular accident (CVA), unspecified mechanism (HCC) Start: 07-26-2022 Telephone encounter Malathi Schneider MD Work Phone: Cardiology Comment on above: Patient Update (PFO closure Neuro Update) Start: 07-17-2022 End: 07-18-2022 ambulatory MALATHI SCHNEIDER Facility:[facility] Start: 07-17-2022 Encounter for preprocedural cardiovascular examination MALATHI SCHNEIDER [facility] Start: 07-17-2022 End: 07-18-2022 ambulatory MALATHI SCHNEIDER Facility:[facility] Start: 07-08-2022 Telephone encounter Malathi Schneider MD Work Phone: Cardiology Comment on above: Patient Question Start: 07-02-2022 Telephone encounter Malathi Schneider MD Work Phone: Cardiology Comment on above: Appointment Start: 06-20-2022 Orders Only Malathi Schneider MD Work Phone: Cardiology Comment on above: PFO (patent foramen ovale) (Primary Dx); Cerebrovascular accident (CVA), unspecified mechanism (HCC) Start: 06-17-2022 Telephone encounter Malathi Schneider MD Work Phone: Cardiology Comment on above: Received Outside Med ical Records Start: 06-14-2022 Telephone encounter Malathi Schneider MD Work Phone: Cardiology Comment on above: Patient referral (Eriberto acosta referred by: Herman Hoang MD) Received Outside Med ical Records (Records scanned in Epic) Received Outside Med ical Records (05/07/2022 ALTAGRACIA and 12/31/2021 Echocardiogram in [place] ) Start: 06-10-2022 Telephone encounter Herman hawkins DO Work Phone: Hematology/Oncology Comment on above: Results Start: 06-05-2022 End: 06-06-2022 ambulatory Herman Pineda DO Work Phone: Hematology/Oncology Comment on above: Cryptogenic stroke ( HCC) (Primary Dx); Anticardiolipin antibody positive; Iron deficiency anemia due to chronic blood loss; Cerebrovascular accident (CVA), unspecified mechanism (HCC) Start: 06-05-2022 End: 06-06-2022 Patient encounter procedure Herman Pankenneth DO Work Phone: [facility] Start: 05-13-2022 Telephone encounter Herman Lew Gutierrez ross DO Work Phone: Hematology/Oncology Comment on above: Appointment Procedures Date Procedure Procedure Detail Performing Clinician Start: 04-10-2023 Us pelvic nonobstetr ic image dcmtn limited/f/u Bradly Vidal MD Work Phone: Start: 01-10-2023 Echo tthrc r-t 2d w/wom-mode compl spec&colr d Malathi Schneider MD Work Phone: Start: 01-10-2023 LVEF TRANSTHORACIC ECHO Malathi Schneider MD Work Phone: Start: 12-05-2022 Urine test visual color cmprsn meths Bradly Vidal MD Work Phone: Start: 07-11-2022 Mammography Bradly johnson MD Work Phone: Start: 04-19-2009 Mammography Herman Pineda DO Work Phone: Plan of Treatment Date Care Activity Detail Author Start: 11-27-2025 DIABETES SCREEN DIABETES SCREEN [facility] Start: 11-27-2025 Diabetes Screening Diabetes Screenin g [facility] Start: 09-20-2025 DIABETES SCREEN DIABETES SCREEN [facility] Start: 07-17-2025 DIABETES SCREEN DIABETES SCREEN [facility] Start: 07-18-2023 Covid-19 Vaccine ( season) Covid-19 Vaccine () [facility] Start: 07-18-2023 Influenza vaccination [facility] Start: 07-11-2023 Mammography [facility] Start: 06-09-2023 End: 08-09-2023 CBC W Auto Differential panel - Blood CBC + DIFF Lab STAT Iron deficiency anemia due to chronic blood loss Cryptogenic stroke (HCC) Anticardiolipin antibody positive Expected: 06/09/2023, Expires: 08/09/2023 [facility] Work Phone: Comment on above: Expected: 06/09/2023 , Expires: 08/09/2023 Start: 06-09-2023 End: 08-09-2023 Ferritin [Mass/volume] in Serum or Plasma FERRITIN BLD Lab Routine Iron deficiency anemia due to chronic blood loss Cryptogenic stroke (HCC) Anticardiolipin antibody positive Expected: 06/09/2023, Expires: 08/09/2023 [facility] Work Phone: Comment on above: Expected: 06/09/2023 , Expires: 08/09/2023 Start: 06-09-2023 End: 08-09-2023 Iron and Iron binding capacity panel - Serum or Plasma IRON + TIBC Lab Routine Iron deficiency anemia due to chronic blood loss Cryptogenic stroke (HCC) Anticardiolipin antibody positive Expected: 06/09/2023, Expires: 08/09/2023 [facility] Work Phone: Comment on above: Expected: 06/09/2023 , Expires: 08/09/2023 Start: 06-09-2023 End: 08-09-[address]US ANTICOAG PL Lab Routine Iron deficiency anemia due to chronic blood loss Cryptogenic stroke (HCC) Anticardiolipin antibody positive Expected: 06/09/2023, Expires: 08/09/2023 [facility] Work Phone: Comment on above: Expected: 06/09/2023 , Expires: 08/09/2023 Start: 02-28-2023 End: 04-30-2023 Ferritin [Mass/volume] in Serum or Plasma [facility] Work Phone: Comment on above: Expected: 02/28/2023 , Expires: 04/30/2023 Start: 02-28-2023 End: 04-30-2023 Iron and Iron binding capacity panel - Serum or Plasma [facility] Work Phone: Comment on above: Expected: 02/28/2023 , Expires: 04/30/2023 Start: 01-17-2023 End: 03-19-2023 CBC W Auto Differential panel - Blood CBC + DIFF Lab STAT Iron deficiency anemia due to chronic blood loss Menorrhagia with regular cycle Cryptogenic stroke (HCC) Anticardiolipin antibody positive Expected: 01/17/2023, Expires: 03/19/2023 [facility] Work Phone: Comment on above: Expected: 01/17/2023 , Expires: 03/19/2023 Start: 01-17-2023 End: 03-19-2023 RETIC COUNT RETIC COUNT Lab Routine Iron deficiency anemia due to chronic blood loss Menorrhagia with regular cycle Cryptogenic stroke (HCC) Anticardiolipin antibody positive Expected: 01/17/2023, Expires: 03/19/2023 [facility] Work Phone: Comment on above: Expected: 01/17/2023 , Expires: 03/19/2023 Start: 01-03-2023 End: 03-05-2023 CBC W Auto Differential panel - Blood CBC + DIFF Lab STAT Iron deficiency anemia due to chronic blood loss Menorrhagia with regular cycle Cryptogenic stroke (HCC) Expected: 01/03/2023, Expires: 03/05/2023 [facility] Work Phone: Comment on above: Expected: 01/03/2023 , Expires: 03/05/2023 Start: 01-03-2023 End: 03-05-2023 RETIC COUNT RETIC COUNT Lab Routine Iron deficiency anemia due to chronic blood loss Menorrhagia with regular cycle Cryptogenic stroke (HCC) Expected: 01/03/2023, Expires: 03/05/2023 [facility] Work Phone: Comment on above: Expected: 01/03/2023 , Expires: 03/05/2023 Start: 11-17-2022 DEPRESSION ASSESSMENT DEPRESSION ASS ESSMENT [facility] Start: 11-12-2022 End: 01-12-2023 B 2 GPI IGG & IGM B 2 GPI IGG & IGM Lab Routine Primary hypercoagulable state (HCC) Expected: 11/12/2022, Expires: 01/12/2023 [facility] Work Phone: Comment on above: Expected: 11/12/2022 , Expires: 01/12/2023 Start: 11-12-2022 End: 01-12-2023 CBC W Ordered Manual Differential panel - Blood PATHOLOGIST INTERPRETATION WITH CBC AND DIFF Lab Routine Primary hypercoagulable state (HCC) Expected: 11/12/2022, Expires: 01/12/2023 [facility] Work Phone: Comment on above: Expected: 11/12/2022 , Expires: 01/12/2023 Start: 11-12-2022 End: 01-12-2023 Comprehensive metabolic 2000 panel - Serum or Plasma COMP METABOLIC PANEL Lab Routine Primary hypercoagulable state (HCC) Expected: 11/12/2022, Expires: 01/12/2023 [facility] Work Phone: Comment on above: Expected: 11/12/2022 , Expires: 01/12/2023 Start: 11-12-2022 End: 01-12-[address]UPUS ANTICOAG PL Lab Routine Primary hypercoagulable state (HCC) Expected: 11/12/2022, Expires: 01/12/2023 [facility] Work Phone: Comment on above: Expected: 11/12/2022 , Expires: 01/12/2023 Start: 08-27-2022 End: 10-27-2022 CBC panel - Blood by Automated count CBC Lab Routine PFO (patent foramen ovale) Cerebrovascular accident (CVA), unspecified mechanism (HCC) Expected: 08/27/2022, Expires: 10/27/2022 [facility] Work Phone: Comment on above: Expected: 08/27/2022 , Expires: 10/27/2022 Start: 08-27-2022 End: 10-27-2022 Comprehensive metabolic 2000 panel - Serum or Plasma COMP METABOLIC PANEL Lab Routine PFO (patent foramen ovale) Cerebrovascular accident (CVA), unspecified mechanism (HCC) Expected: 08/27/2022, Expires: 10/27/2022 [facility] Work Phone: Comment on above: Expected: 08/27/2022 , Expires: 10/27/2022 Start: 07-18-2022 Influenza vaccination C [facility] Start: 06-20-2022 End: 08-20-2022 CBC panel - Blood by Automated count CBC Lab Routine PFO (patent foramen ovale) Cerebrovascular accident (CVA), unspecified mechanism (HCC) Expected: 06/20/2022, Expires: 08/20/2022 [facility] Work Phone: Comment on above: Expected: 06/20/2022 , Expires: 08/20/2022 Start: 06-20-2022 End: 08-20-2022 Comprehensive metabolic 2000 panel - Serum or Plasma COMP METABOLIC PANEL Lab Routine PFO (patent foramen ovale) Cerebrovascular accident (CVA), unspecified mechanism (HCC) Expected: 06/20/2022, Expires: 08/20/2022 [facility] Work Phone: Comment on above: Expected: 06/20/2022 , Expires: 08/20/2022 Start: 06-20-2022 End: 08-20-2022 HYPERCOAG DIAG PNL HYPERCOAG DIAG PNL Lab Routine PFO (patent foramen ovale) Cerebrovascular accident (CVA), unspecified mechanism (HCC) Expected: 06/20/2022, Expires: 08/20/2022 [facility] Work Phone: Comment on above: Expected: 06/20/2022 , Expires: 08/20/2022 Start: 06-05-2022 End: 08-05-[address] [facility] Work Phone: Comment on above: Expected: 06/05/2022 , Expires: 08/05/2022 Start: 11-17-2021 DEPRESSION ASSESSMENT DEPRESSION ASS ESSMENT [facility] Start: 09-13-2021 COVID-19 VACCINE (3 - Booster for Pfizer series) COVID-19 VACCINE (3 - Booster for Pfizer series) [facility] Start: 06-08-2021 COVID-19 VACCINE (3 - Booster for Pfizer series) COVID-19 VACCINE (3 - Booster for Pfizer series) [facility] Start: 06-08-2021 COVID-19 VACCINE (3 - Pfizer series) COVID-19 VACCINE (3 - Pfizer series) [facility] Start: 2018 SHINGRIX VACCINE (1 of 2) ALVES GRIX VACCINE (1 of 2) [facility] Start: 04-12-2014 HPV TESTING HPV TESTING [facility] Start: 04-12-2014 PAP TESTING PAP TESTING [facility] Start: 2013 COLOGUARD (FIT-DNA) COLOGUARD (FIT-D NA) [facility] Start: 2013 Colonoscopy COLONOSCOPY [facility] Start: 2013 COLORECTAL CANCER SCREENING COLORECTAL CANCER SCREENING [facility] Start: [address] COLONOGRAPHY [facility] Start: 2013 DIABETES SCREEN DIABETES SCREEN [facility] Start: 2013 FECAL OCCULT BLOOD FECAL OCCULT BLOO D [facility] Start: 2013 Lipid 1996 panel - S ronnie or Plasma Lipid Screening [facility] Start: 2013 LIPID SCREEN LIPID SCREEN [facility] Start: 2013 SIGMOIDOSCOPY SIGMOIDOSCOPY [facility] Start: 04-19-2010 Mammography MAMMOGRAM [facility] Start: 1987 Urine microalbumin profile [facility] Start: 1986 HEPATITIS C SCREENING HEPATITIS C SC REENING [facility] Start: 1986 HIV SCREENING HIV SCREENING [facility] Start: 1980 Adult depression screening assessment DEPRESSION SCREENING [facility] Start: 1968 HEPATITIS B (1 of 3 - 3-dose series) HEPATITIS B (1 of 3 - 3-dose series) [facility] Start: 1968 Hepatitis B Vaccine (1 of 3 - 3-dose series) Hepatitis B Vaccine (1 of 3 - 3-dose series) [facility] End: 06-20-2023 ECG COMPLETE ECG COMPLETE ECG Routine PFO (patent foramen ovale) Cerebrovascular accident (CVA), unspecified mechanism (HCC) 1 Occurrences starting 06/20/2022 until 06/20/2023 [facility] Work Phone: Comment on above: 1 Occurrences starti ng 06/20/2022 until 06/20/2023 End: 08-27-2023 ECG COMPLETE ECG COMPLETE ECG Routine PFO (patent foramen ovale) Cerebrovascular accident (CVA), unspecified mechanism (HCC) 1 Occurrences starting 08/27/2022 until 08/27/2023 [facility] Work Phone: Comment on above: 1 Occurrences starti ng 08/27/2022 until 08/27/2023 End: 01-10-2024 ECG COMPLETE ECG COMPLETE ECG Routine PFO (patent foramen ovale) S/P percutaneous patent foramen ovale closure Cerebrovascular accident (CVA), unspecified mechanism (HCC) 1 Occurrences starting 01/10/2023 until 01/10/2024 [facility] Work Phone: Comment on above: 1 Occurrences starti ng 01/10/2023 until 01/10/2024 End: 12-27-2023 Echocardiography ECHO Cardiology Routine PFO (patent foramen ovale) 1 Occurrences starting 12/27/2022 until 12/27/2023 [facility] Work Phone: Comment on above: 1 Occurrences starti ng 12/27/2022 until 12/27/2023 Endometrial bx w/wo endocervix bx w/o dilat spx ENDOMETRIAL BIOPSY Procedures Routine Menorrhagia with regular cycle Ordered: 12/05/2022 [facility] Work Phone: Comment on above: Ordered: 12/05/2022 Insertion intrauteri ne device iud INSERT INTRAUTERINE DEVICE Procedures Routine Menorrhagia with regular cycle Ordered: 04/30/2023 [facility] Work Phone: Comment on above: Ordered: 04/30/2023 OUTSIDE VENDOR CARDI AC OUTPATIENT TELEMETRY OUTSIDE VENDOR CARDIAC OUTPATIENT TELEMETRY Holter Routine PFO (patent foramen ovale) Cerebrovascular accident (CVA), unspecified mechanism (HCC) Ordered: 06/20/2022 [facility] Work Phone: Comment on above: Ordered: 06/20/2022 SURGICAL PATHOLOGY SURGICAL PATH OLOGY Lab Routine Menorrhagia with regular cycle 12/05/2022 3:39 PM EST [facility] Work Phone: End: 01-04-2024 Us pelvic nonobstetric image dcmtn limited/f/u US FEMALE PELVIS TRANSABD LTD Radiology Routine Menorrhagia with regular cycle 1 Occurrences starting 12/05/2022 until 01/04/2024 [facility] Work Phone: Comment on above: 1 Occurrences starti ng 12/05/2022 until 01/04/2024 End: 01-04-2024 Us transvaginal US FEMALE PELVIS TRANSVAG Radiology Routine Menorrhagia with regular cycle 1 Occurrences starting 12/05/2022 until 01/04/2024 [facility] Work Phone: Comment on above: 1 Occurrences starti ng 12/05/2022 until 01/04/2024 [facility] Immunizations Immunization Date Immunization Notes Care Provider Estee kowalski 11-27-2018 influenza virus vacc ine, unspecified formulation Us 1 Work Phone: [facility] Payers Date Payer Category Payer Private Health Insurance [facility] CHO[facility] PL[facility] [id number] 2014-Present [phone] [address] [id number] 2014 Private Health Insurance [facility] CHOICE PLUS [id number] 2014-Present [phone] [id number] [facility] [id number] 2014 Unknown [id number] Social History Date Type Detail Facility Start: 10-30-2020 End: 01-10-2023 Tobacco smoking status NHIS Never smoked tobacco [facility] Start: 10-24-2021 End: 03-04-2023 Alcohol intake Current non-drinker of alcohol (finding) [facility] Start: 1970 Sex Assigned At Not on file [facility] Start: 05-04-2022 End: 09-06-2022 Exposure to SARS-CoV-2 (event) Not sure [facility] Work Phone: Start: 10-30-2020 End: 01-10-2023 Tobacco use and exposure Smokeless tobacco non-user [facility] Start: 06-28-2022 End: 07-08-2022 Exposure to SARS-CoV-2 (event) Unable to assess [facility] Start: 11-30-2022 End: 04-30-2023 History of Social function [facility] Start: 11-30-2022 End: 04-30-2023 Tobacco use panel [facility] National Score (1-100), lower number is lower risk 70 [facility] Clinical Notes 05-14-2022 to 04-30-2023 Bradly Vidal MD - 04/30/2023 10:53 AM Rona Leon [facility] - 04/10/2023 8:30 AM Radha Schneider MD - 01/10/2023 9:29 AM ESTTelephone [facility] - 12/17/2022 12:07 PM EST Note Date & Type Note Facility 04-30-2023 Note HNO ID: [id number] Author: Bradly Vidal MD Service: ? Author Type: Physician Type: Progress Notes Filed: 04/30/2023 12:13 PM Note Text: Cheryle Metcalf is a 52 year old female who presents for problem visit for f/u AUB . HPI: 52-year-old female who is completed childbearing presents for follow-up abnormal uterine bleeding. Has been still having heavy. For 5 to 10 days every month since I last saw her. She was on blood thinners for stroke after having COVID, she is no longer on this. However her bleeding continues to be heavy and regular. She notes she has had increased hot flashes over the past few months. She has not skipped any menses in the last 6 months. She has not started any new medications or supplements. 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 Comments: Sexual Activity: Yes; No partner data on record Contraception: Condom PAST MEDICAL HISTORY Diagnosis Date Chronic cholecystitis Dyslipidemia 12/2021 Essential hypertension 2020 Iron deficiency anemia Rheumatic fever as a teen Rheumatic fever without mention of heart involvement Rhinitis Stroke (HCC) PAST SURGICAL HISTORY Procedure Laterality Date LAPS SURG CHOLECYSTECTOMY W/CHOLANGIOGRAPHY 02/09/10 PAST SURGICAL HISTORY OF benign breast lump removed left breast PAST SURGICAL HISTORY OF rigth ankle STEREOTACTIC CORE BIOPSY 05/04/09 LEFT FAMILY HISTORY Problem Relation Age of Onset Coronary Artery Disease Mother Thyroid Mother other (MVP [Other]) Mother Autoimmune disease Mother Diabetes Father other (Myocardial infarciton) Father 49 Hypertension Father Diabetes Sister Autoimmune disease Sister other (high cholesterol) Sister Thyroid Brother Breast Cancer Paternal Grandmother other (brain aneurysm) Paternal Grandfather 39 Social History Tobacco Use Smoking status: Never Smokeless tobacco: Never Vaping Use Vaping Use: Never used Substance Use Topics Alcohol use: No Drug use: No Current Outpatient Medications Medication Sig meclizine (ANTIVERT) 25 mg tab Take 25 mg by mouth as needed. aspirin, enteric coated (ASPIRIN, ENTERIC COATED) 81 mg EC tablet Take 81 mg by mouth once daily. atorvastatin (LIPITOR) 40 mg tablet Take 50 mg by mouth once daily. amLODIPine (NORVASC) 5 mg tablet Take 5 mg by mouth once daily. acetaminophen (TYLENOL) 325 mg tablet Take 650 mg by mouth every 6 hours as needed. atenolol (TENORMIN) 25 mg tablet Take 25 mg by mouth once daily. lisinopril (ZESTRIL, PRINIVIL) 40 mg tablet Take 40 mg by mouth once daily. Current Facility-Administered Medications Medication Dose Route Frequency perflutren lipid microspheres 1.3 mL in NaCl (PF) 0.9% 10 mL injection (DEFINITY) INTRAVENOUS DIRECTED PRN perflutren lipid microspheres 1.3 mL in NaCl (PF) 0.9% 10 mL injection (DEFINITY) INTRAVENOUS DIRECTED PRN sodium chloride 0.9 % (flush) 10 mL (BD POSIFLUSH) 10 mL INTRAVENOUS DIRECTED PRN Allergies As of Date: 04/30/2023 Allergen Noted Reaction CODEINE 04/12/2009 Vomiting Fully Assessed 03/04/2023 Allergies and current medication updated:Yes EXAM: LMP 12/18/2022 GENERAL: pleasant, female in no apparent distress ASSESSMENT AND PLAN: 52-year-old female with menorrhagia. Endometrial biopsy was reviewed and was benign. Pelvic ultrasound reviewed no focal abnormalities. Grossly normal uterus. Pap up-to-date done at primary care office. Risk benefits and alternatives of various options were discussed with the patient. She is not a good combined hormonal contraceptive candidate due to her history of stroke. This eliminates the use of Lysteda as well. Discussed with her most reasonable neck steps would be Mirena IUD or endometrial ablation. After discussion today, patient would like to proceed with an office IUD insertion. Bradly Vidal MD Medical Decision Making: Problems: Low: Stable chronic illness Data: Unique test result(s) reviewed: 2 Risk: Moderate: Drug management Medical Decision Making Level: 3 - Low [facility] 04-30-2023 History of Present illness Narrative Cheryle Metcalf is a 52 year old female who presents for problem visit for f/u AUB . HPI: 52-year-old female who is completed childbearing presents for follow-up abnormal uterine bleeding. Has been still having heavy. For 5 to 10 days every month since I last saw her. She was on blood thinners for stroke after having COVID, she is no longer on this. However her bleeding continues to be heavy and regular. She notes she has had increased hot flashes over the past few months. She has not skipped any menses in the last 6 months. She has not started any new medications or supplements. 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 Comments: Sexual Activity: Yes; No partner data on record Contraception: Condom PAST MEDICAL HISTORY Diagnosis Date Chronic cholecystitis Dyslipidemia 12/2021 Essential hypertension 2020 Iron deficiency anemia Rheumatic fever as a teen Rheumatic fever without mention of heart involvement Rhinitis Stroke (HCC) PAST SURGICAL HISTORY Procedure Laterality Date LAPS SURG CHOLECYSTECTOMY W/CHOLANGIOGRAPHY 02/09/10 PAST SURGICAL HISTORY OF benign breast lump removed left breast PAST SURGICAL HISTORY OF rigth ankle STEREOTACTIC CORE BIOPSY 05/04/09 LEFT FAMILY HISTORY Problem Relation Age of Onset Coronary Artery Disease Mother Thyroid Mother other (MVP [Other]) Mother Autoimmune disease Mother Diabetes Father other (Myocardial infarciton) Father 49 Hypertension Father Diabetes Sister Autoimmune disease Sister other (high cholesterol) Sister Thyroid Brother Breast Cancer Paternal Grandmother other (brain aneurysm) Paternal Grandfather 39 Social History Tobacco Use Smoking status: Never Smokeless tobacco: Never Vaping Use Vaping Use: Never used Substance Use Topics Alcohol use: No Drug use: No Current Outpatient Medications Medication Sig meclizine (ANTIVERT) 25 mg tab Take 25 mg by mouth as needed. aspirin, enteric coated (ASPIRIN, ENTERIC COATED) 81 mg EC tablet Take 81 mg by mouth once daily. atorvastatin (LIPITOR) 40 mg tablet Take 50 mg by mouth once daily. amLODIPine (NORVASC) 5 mg tablet Take 5 mg by mouth once daily. acetaminophen (TYLENOL) 325 mg tablet Take 650 mg by mouth every 6 hours as needed. atenolol (TENORMIN) 25 mg tablet Take 25 mg by mouth once daily. lisinopril (ZESTRIL, PRINIVIL) 40 mg tablet Take 40 mg by mouth once daily. Current Facility-Administered Medications Medication Dose Route Frequency perflutren lipid microspheres 1.3 mL in NaCl (PF) 0.9% 10 mL injection (DEFINITY) INTRAVENOUS DIRECTED PRN perflutren lipid microspheres 1.3 mL in NaCl (PF) 0.9% 10 mL injection (DEFINITY) INTRAVENOUS DIRECTED PRN sodium chloride 0.9 % (flush) 10 mL (BD POSIFLUSH) 10 mL INTRAVENOUS DIRECTED PRN Allergies As of Date: 04/30/2023 Allergen Noted Reaction CODEINE 04/12/2009 Vomiting Fully Assessed 03/04/2023 Allergies and current medication updated:Yes EXAM: LMP 12/18/2022 GENERAL: pleasant, female in no apparent distress ASSESSMENT AND PLAN: 52-year-old female with menorrhagia. Endometrial biopsy was reviewed and was benign. Pelvic ultrasound reviewed no focal abnormalities. Grossly normal uterus. Pap up-to-date done at primary care office. Risk benefits and alternatives of various options were discussed with the patient. She is not a good combined hormonal contraceptive candidate due to her history of stroke. This eliminates the use of Lysteda as well. Discussed with her most reasonable neck steps would be Mirena IUD or endometrial ablation. After discussion today, patient would like to proceed with an office IUD insertion. Bradly Vidal MD Medical Decision Making: Problems: Low: Stable chronic illness Data: Unique test result(s) reviewed: 2 Risk: Moderate: Drug management Medical Decision Making Level: 3 - Low documented in this encounter [facility] 04-10-2023 Note HNO ID: [id number] Author: Rona Romeo RDMS Service: ? 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 FALL SCREENING: Has the patient had 2 falls in the last year or 1 fall with injury or currently using an Ambulatory Assistive Device (Walker, Cane, Wheelchair, Crutches, etc.)? No PATIENT GENDER DATA: Female. status: : No status: NO. PATIENT RELEVANT IMPLANT DATA REVIEWED: Not Applicable RADIOLOGY DEPARTMENT: Ultrasound PERIPHERAL IV DATA: Not applicable SIGNED BY: Rona Romeo RDMS RVT April 10, 2023 10:15 AM [facility] 04-10-2023 History of Present illness Narrative Radiology Service Progress Note PATIENT NAME: Cheryle Metcalf DATE OF SERVICE: April 10, 2023 TIME: 10:15 AM PATIENT IDENTITY VERIFICATION COMPLETED USING TWO (2) IDENTIFIERS: Name and Date of confirmed by patient verbally. FALL SCREENING: Has the patient had 2 falls in the last year or 1 fall with injury or currently using an Ambulatory Assistive Device (Walker, Cane, Wheelchair, Crutches, etc.)? No PATIENT GENDER DATA: Female. status: : No status: NO. PATIENT RELEVANT IMPLANT DATA REVIEWED: Not Applicable RADIOLOGY DEPARTMENT: Ultrasound PERIPHERAL IV DATA: Not applicable SIGNED BY: Rona Romeo RDMS RVT April 10, 2023 10:15 AM documented in this encounter [facility] 03-04-2023 Note HNO ID: [id number] Author: Herman Pineda, DO Service: ? Author Type: Physician Type: Progress Notes Filed: 03/04/2023 9:50 AM Note Text: Hematologic problem(s): 1) MAYA. 2) Possible antiphospholipid antibody syndrome. HPI: The patient is a 52-year-old female with a past medical history significant for rheumatic fever as a teenager, hypertension, left breast lumpectomy (benign) and iron deficiency anemia. Recent CBC on 08/01/2021 revealed a total white count of 3600. Differential showed a small increase in basophils at 1.4%. ANC was 1900. The hemoglobin was 8.6 g/dL. MCV was 73.9 fL and the platelet count was 261,000. Anisocytosis was noted on the peripheral smear. Serum iron was 25 mcg/dL. TIBC was 380. Ferritin was 4 ng/mL. In May 2021 the white count was 5100. Hemoglobin was 9.0 g/dL with an MCV of 68.9 and a platelet count of 311,000. In January 2021 the hemoglobin was 8.5 g/dL with an MCV of 66.7 fL and a platelet count of 307,000. Was fatigued a lot. No GRAVES. Occasional palpitation. Had tried oral iron on several occasions. Caused severe nausea. Received one dose parenteral iron at [facility] about mid June. Formulation unknown. Regular menses. Often heavy with passing of clots. Had colonoscopy by Dr. Cruz summer 2021. Had one polyp removed. Was told not a pre-cancerous polyp. Normal appetite. No dysphagia. +GERD. Takes Tums or Mylanta prn. No PPI use. No nausea. No bloody or black stools. Not vegetarian. She received 9 doses of iron sucrose for iron deficiency anemia secondary to heavy menses. She had prior colonoscopy. Had Covid in November 2021. Wasn't formally tested, but and two sons tested positive. was asymptomatic. Symptoms for patient consisted of MORENO, body aches, cough, fever, loss of taste and smell. Didn't require hospitalization. Symptoms of fatigue and MORENO lingered about 4-6 weeks. Cough lasted about 4 weeks. She presented to the ED at [facility] the evening of 12/29/2021 after experiencing the onset of left eye scintillations followed by right arm numbness and dense weakness. She also developed aphasia. Symptoms occurred while she was watching TV. Evidently the arm numbness and weakness resolved within a few minutes but speech difficulty lasted about an hour and then resolved. She was reported to have some cognitive slowing that lasted about [address] on presentation demonstrated a normal unenhanced CT scan of the brain. 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 The more distal portions of the arteries were supplied via the patent bilateral posterior communicating arteries. Otherwise the [place] was observed to be normal. There were normal bilateral carotid and vertebral arteries observed. Blood pressure on presentation was 192/106. 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 She was started on ASA and Plavix. Hypercoagulation panel was ordered. Anticardiolipin IgM antibody titer 17 (intermediate).. Anticardiolipin IgG less than 9. Antibodies to beta-2 glycoprotein including IgG, IgA and IgM normal. Antithrombin activity normal. Antithrombin level normal. Protein C antigen and functional activity normal. No factor V Leiden mutation. Prothrombin mutation not detected. Lupus anticoagulant activity was not detected. This was evidenced by a normal dilute PT, confirmation ratio, thrombin time, DRVVT. Patient also had bilateral lower extremity duplex ultrasound which revealed no evidence for acute DVT in the bilateral lower extremities. Echocardiogram revealed normal left ventricular systolic function with estimated ejection fraction 65%. There was trivial mitral valve and trivial tricuspid valve insufficiency along with trivial pulmonic valve insufficiency. RV systolic pressure was not able to be estimated. Agitated saline contrast study consider positive for right to left interatrial shunt potentially compatible with small PFO versus ASD. Subsequent transesophageal echocardiogram on 05/07/2022 showed no spontaneous contrast in the left atrium. No thrombus was detected in the left atrial appendage. There was 1+ mitral valve insufficiency. Mild tricuspid valve insufficiency trivial aortic valve insufficiency. There was positive agitated saline contrast study for [id number] interarterial shunt compatible with very small patent foramen ovale. Normal-appearing thoracic aorta. Patient had not had recurrence of neurologic symptoms. She was on low-dose aspirin. Plavix was discontinued after about 3 weeks. She still had trouble with taste and smell and that some foods do not taste like they used to. Was not on anticoagulation. Underwent percutaneous closure (more content not included)... [facility] 01-10-2023 Note HNO ID: [id number] Author: Malathi Schneider MD Service: ? Author Type: Physician Type: Progress Notes Filed: 01/10/2023 10:00 AM Note Text: Heart, Vascular and Thoracic [place] Natalie Wren Department of Cardiovascular Medicine SECTION OF INTERVENTIONAL CARDIOLOGY OUTPATIENT VISIT DATE January 10, 2023 OUTPATIENT VISIT TYPE ESTABLISHED PRIMARY CARE PHYSICIAN: Chhaya Nunez [address] [place] [address] PRIMARY MEAT STOCK CLERK: Herman Hoang [address] [facility] [id number] PHARMACY BENEFITS COORDINATOR: Herman Pineda DO - CCCharlette CHIEF COMPLAINT: Follow-up after PFO closure HISTORY OF PRESENT ILLNESS: Ms. Metcalf is a 52 year old female who presents today for a follow-up visit after PFO closure 09/19/22. Please see OPD note from 07/17/22 for complete neurologic history. For secondary prevention of cryptogenic CVA, she underwent percutaneous PFO closure with a 25 mm Casco Cardioform device 09/19/22. The procedure was uncomplicated and she was DC'd same day. Procedural and pre-DC TTE - complete closure of PFO without pericardial effusion or other complications. Since PFO closure, she has done well. She has noticed occasional palpitations, all brief episodes, but one occurrence did take her breath away . She is struggling with iron deficiency thought 2/2 heavy menses, which is a chronic issue, and wonders if this could be a symptom. Bleeding was not necessarily worse on clopidogrel but she has since completed her course. She did undergo a 14 day Holter by her local technical operations manager Dr. Hoang, just turned this in - no results yet. Additional history - essential HTN, strong family history of CAD, obesity w BMI 31 kg/m2. She denies chest pain, shortness of breath, dyspnea on exertion, orthopnea, PND, palpitations, lightheadedness, syncope, claudication, leg swelling, cough, and wheezing. PAST MEDICAL HISTORY Diagnosis Date Chronic cholecystitis Dyslipidemia 12/2021 Essential hypertension 2020 Iron deficiency anemia Rheumatic fever as a teen Rheumatic fever without mention of heart involvement Rhinitis Stroke (HCC) PAST SURGICAL HISTORY Procedure Laterality Date LAPS SURG CHOLECYSTECTOMY W/CHOLANGIOGRAPHY 02/09/10 PAST SURGICAL HISTORY OF benign breast lump removed left breast PAST SURGICAL HISTORY OF rigth ankle STEREOTACTIC CORE BIOPSY 05/04/09 LEFT Social History Tobacco Use Smoking status: Never Smokeless tobacco: Never Vaping Use Vaping Use: Never used Substance Use Topics Alcohol use: No Drug use: No FAMILY HISTORY Problem Relation Age of Onset Coronary Artery Disease Mother Thyroid Mother other (MVP [Other]) Mother Autoimmune disease Mother Diabetes Father other (Myocardial infarciton) Father 49 Hypertension Father Diabetes Sister Autoimmune disease Sister other (high cholesterol) Sister Thyroid Brother Breast Cancer Paternal Grandmother other (brain aneurysm) Paternal Grandfather 39 ALLERGIES Allergen Reactions Codeine Vomiting dizziness MEDICATIONS: Current Outpatient Medications Medication Sig meclizine (ANTIVERT) 25 mg tab Take 25 mg by mouth as needed. aspirin, enteric coated (ASPIRIN, ENTERIC COATED) 81 mg EC tablet Take 81 mg by mouth once daily. atorvastatin (LIPITOR) 40 mg tablet Take 40 mg by mouth once daily. amLODIPine (NORVASC) 5 mg tablet Take 5 mg by mouth once daily. acetaminophen (TYLENOL) 325 mg tablet Take 650 mg by mouth every 6 hours as needed. atenolol (TENORMIN) 25 mg tablet Take 25 mg by mouth once daily. lisinopril (ZESTRIL, PRINIVIL) 40 mg tablet Take 40 mg by mouth once daily. Current Facility-Administered Medications Medication Dose Route Frequency perflutren lipid microspheres 1.3 mL in NaCl (PF) 0.9% 10 mL injection (DEFINITY) INTRAVENOUS DIRECTED PRN sodium chloride 0.9 % (flush) 10 mL (BD POSIFLUSH) 10 mL INTRAVENOUS DIRECTED PRN perflutren lipid microspheres 1.3 mL in NaCl (PF) 0.9% 10 mL injection (DEFINITY) INTRAVENOUS DIRECTED PRN sodium chloride 0.9 % (flush) 10 mL (BD POSIFLUSH) 10 mL INTRAVENOUS DIRECTED PRN REVIEW OF SYSTEMS: Full 10 system review of systems completed. Negative except as stated per HPI. PHYSICAL EXAMINATION: BP 143/79 Pulse 59 Resp 15 Ht 5' 11 (1.80m) Wt 220 lb 1.6 oz (99.8kg) SpO2 100% LMP 12/18/2022 BMI 30.71 kg/(m2). Gen: NAD. Pleasant affect. HEENT: JVP 7 cm at 45 degrees upright. EOMI. Chest: CTAB without w/r/r. Normal effort. CV: Normal S1, S2. No R/M/G. Abd: Non-distended. Ext: No BLE edema. Neuro: Motor exam grossly normal CARDIOVASCULAR MEDICINE TESTING: TTE 09/20/22 CONCLUSIONS: - Exam indication: S/p PFO closure - The left ventricle is normal in size. Left ventricular systolic function is normal. EF = 61 ? 5% (2D 4-ch.) - The right ventricle is normal in (more content not included)... [facility] 01-10-2023 History of Present illness Narrative Images from the original note were not included. Heart, Vascular and Thoracic [place] Natalie Wren Department of Cardiovascular Medicine SECTION OF INTERVENTIONAL CARDIOLOGY OUTPATIENT VISIT DATE January 10, 2023 OUTPATIENT VISIT TYPE ESTABLISHED PRIMARY CARE PHYSICIAN: Chhaya Nunez [address] [place] [address] PRIMARY MEAT STOCK CLERK: Herman Hoang [address] [facility] [id number] PHARMACY BENEFITS COORDINATOR: Herman Pineda, DO - [facility] CHIEF COMPLAINT: Follow-up after PFO closure HISTORY OF PRESENT ILLNESS: Ms. Metcalf is a 52 year old female who presents today for a follow-up visit after PFO closure 09/19/22. Please see OPD note from 07/17/22 for complete neurologic history. For secondary prevention of cryptogenic CVA, she underwent percutaneous PFO closure with a 25 mm Casco Cardioform device 09/19/22. The procedure was uncomplicated and she was DC'd same day. Procedural and pre-DC TTE - complete closure of PFO without pericardial effusion or other complications. Since PFO closure, she has done well. She has noticed occasional palpitations, all brief episodes, but one occurrence did take her breath away . She is struggling with iron deficiency thought 2/2 heavy menses, which is a chronic issue, and wonders if this could be a symptom. Bleeding was not necessarily worse on clopidogrel but she has since completed her course. She did undergo a 14 day Holter by her local technical operations manager Dr. Hoang, just turned this in - no results yet. Additional history - essential HTN, strong family history of CAD, obesity w BMI 31 kg/m2. She denies chest pain, shortness of breath, dyspnea on exertion, orthopnea, PND, palpitations, lightheadedness, syncope, claudication, leg swelling, cough, and wheezing. PAST MEDICAL HISTORY Diagnosis Date Chronic cholecystitis Dyslipidemia 12/2021 Essential hypertension 2020 Iron deficiency anemia Rheumatic fever as a teen Rheumatic fever without mention of heart involvement Rhinitis Stroke (HCC) PAST SURGICAL HISTORY Procedure Laterality Date LAPS SURG CHOLECYSTECTOMY W/CHOLANGIOGRAPHY 02/09/10 PAST SURGICAL HISTORY OF benign breast lump removed left breast PAST SURGICAL HISTORY OF rigth ankle STEREOTACTIC CORE BIOPSY 05/04/09 LEFT Social History Tobacco Use Smoking status: Never Smokeless tobacco: Never Vaping Use Vaping Use: Never used Substance Use Topics Alcohol use: No Drug use: No FAMILY HISTORY Problem Relation Age of Onset Coronary Artery Disease Mother Thyroid Mother other (MVP [Other]) Mother Autoimmune disease Mother Diabetes Father other (Myocardial infarciton) Father 49 Hypertension Father Diabetes Sister Autoimmune disease Sister other (high cholesterol) Sister Thyroid Brother Breast Cancer Paternal Grandmother other (brain aneurysm) Paternal Grandfather 39 ALLERGIES Allergen Reactions Codeine Vomiting dizziness MEDICATIONS: Current Outpatient Medications Medication Sig meclizine (ANTIVERT) 25 mg tab Take 25 mg by mouth as needed. aspirin, enteric coated (ASPIRIN, ENTERIC COATED) 81 mg EC tablet Take 81 mg by mouth once daily. atorvastatin (LIPITOR) 40 mg tablet Take 40 mg by mouth once daily. amLODIPine (NORVASC) 5 mg tablet Take 5 mg by mouth once daily. acetaminophen (TYLENOL) 325 mg tablet Take 650 mg by mouth every 6 hours as needed. atenolol (TENORMIN) 25 mg tablet Take 25 mg by mouth once daily. lisinopril (ZESTRIL, PRINIVIL) 40 mg tablet Take 40 mg by mouth once daily. Current Facility-Administered Medications Medication Dose Route Frequency perflutren lipid microspheres 1.3 mL in NaCl (PF) 0.9% 10 mL injection (DEFINITY) INTRAVENOUS DIRECTED PRN sodium chloride 0.9 % (flush) 10 mL (BD POSIFLUSH) 10 mL INTRAVENOUS DIRECTED PRN perflutren lipid microspheres 1.3 mL in NaCl (PF) 0.9% 10 mL injection (DEFINITY) INTRAVENOUS DIRECTED PRN sodium chloride 0.9 % (flush) 10 mL (BD POSIFLUSH) 10 mL INTRAVENOUS DIRECTED PRN REVIEW OF SYSTEMS: Full 10 system review of systems completed. Negative except as stated per HPI. PHYSICAL EXAMINATION: BP 143/79 Pulse 59 Resp 15 Ht 5' 11 (1.80m) Wt 220 lb 1.6 oz (99.8kg) SpO2 100% LMP 12/18/2022 BMI 30.71 kg/(m^2). Gen: NAD. Pleasant affect. HEENT: JVP 7 cm at 45 degrees upright. EOMI. Chest: CTAB without w/r/r. Normal effort. CV: Normal S1, S2. No R/M/G. Abd: Non-distended. Ext: No BLE edema. Neuro: Motor exam grossly normal CARDIOVASCULAR MEDICINE TESTING: TTE 09/20/22 CONCLUSIONS: - Exam indication: S/p PFO closure - The left ventricle is normal in size. Left ventricular systolic function is normal. EF = 61 5% (2D 4-ch.) - The right ventricle is normal in size. Right ventricular systolic function is normal. - There are no significant valvular abnormalities. - Estimated right ventricular systolic pressure is not reported due to an insufficient tricuspid regurgitation signal. Estimated right atrial pressure is 3 mmHg based on IVC assessment. - S/p PFO closure: There is no evidence of intracradiac shunting as detected by agitated saline contrast. - Exam was compared with the prior CC ALTAGRACIA exam performed on 09-19-2022. intraprocedural study TTE today - Per my read - negative bubble study, PFO closure device in expected location, no pericardial effusion IMPRESSION AND RECOMMENDATIONS: It is my pleasure to see Ms. Metcalf today. Cheryle is a delightful 52 year old female who suffered a cryptogenic CVA, and is now ~3 months s/p percutaneous PFO closure with a 25 mm Casco Cardioform device. The procedure was uncomplicated. She had an excellent result, with complete closure on TTE today. She has had occasional palpitation symptoms since - but says she has had these even prior to PFO closure, though are perhaps more noticeable now. Her 30-day Holter prior to PFO closure showed SR with occasional PAC and PACs, no AFib/flutter. I suspect her symptoms are due to the same now. She did have a Holter monitor placed locally, though we do not have the results yet. We will follow-up results of the local Holter monitor. She will also send me the results of her most recent ECG (did not want to have another one done today, understandably). She will monitor her symptoms with treatment of her iron deficiency, as well. She should continue aspirin 81 mg daily, indefinitely and continue ABx PPx prior to dental / gi / gu procedures for at least 6 months after PFO closure. She has no restrictions to her activity other than that she should continue to avoid chest wall impact for 6 months post PFO closure. We will follow-up with regards to the above, otherwise in 1 year with a TTE with bubble. Malathi Schneider M.D., M.Sc., F.A.C.C., F.S.C.A.I. Section of Interventional Cardiology Natalie Wren Department of Cardiovascular Medicine Heart, Vascular, and Thoracic [place] [facility] Desk [place] [address] Office , toll-free [phone], [phone] Office Appointments: [phone], toll-free [phone], [phone] documented in this encounter [facility] 12-17-2022 Miscellaneous Notes 1st-time treatment report. The patient is active with [facility] [employer] and has a $750.00 deductible, $4000.00 OOP has $4000.00 remaining. An estimate shows patient financial responsibility is $619.00 for each treatment in 2022 until the Mrc-Du-Yruzyy max is reached. Reference #[id number] I will look for assistance for Venofer/Iron Sucrose from [place] [employer] [place] [place] [employer] Patient Assistance Program. documented in this encounter [facility] 12-17-2022 Miscellaneous Notes 1st-time treatment report. The patient is active with [facility] [employer] and has a $750.00 deductible, $4000.00 OOP has $4000.00 remaining. An estimate shows patient financial responsibility is $619.00 for each treatment in 2022 until the Txn-Le-Dsikwa max is reached. Reference #[id number] I will look for assistance for Venofer/Iron Sucrose from [place] [facility] [employer] [place] [employer] Patient Assistance Program. documented in this encounter [facility] 12-05-2022 Note HNO ID: [id number] Author: Bradly Vidal MD Service: ? Author Type: Physician Type: Progress Notes Filed: 12/05/2022 3:41 PM Note Text: Cheryle Metcalf is a 52 year old female who presents for problem visit for heavy menses. HPI: 52 YOF who is still having menses. Have been regular the last 15 yrs since of last child. Menses last 5-7 days. Changes protection q 30 min at heaviest, pads. Wears special pads that are really large at night. Passes clots. Some cramping but that isn't severe. No bleeding between menses. No pain or bleeding w/ sexual activity. Has been seeing hematology for fe def. anemia and they referred here. Past couple of years getting heavier. No change in hot flashes, vaginal dryness. Gets paps and mammos through PCP. Had a heart surgery in Nov to close up a small hole in her heart. Now on plavix which didn't make it much worse. 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 Comments: Sexual Activity: Yes; No partner data on record Contraception: Condom PAST MEDICAL HISTORY Diagnosis Date Chronic cholecystitis Dyslipidemia 12/2021 Essential hypertension 2019 Iron deficiency anemia Rheumatic fever as a teen Rheumatic fever without mention of heart involvement Rhinitis Stroke (HCC) PAST SURGICAL HISTORY Procedure Laterality Date LAPS SURG CHOLECYSTECTOMY W/CHOLANGIOGRAPHY 02/09/10 PAST SURGICAL HISTORY OF benign breast lump removed left breast PAST SURGICAL HISTORY OF rigth ankle STEREOTACTIC CORE BIOPSY 05/04/09 LEFT FAMILY HISTORY Problem Relation Age of Onset Coronary Artery Disease Mother Thyroid Mother other (MVP [Other]) Mother Autoimmune disease Mother Diabetes Father other (Myocardial infarciton) Father 49 Hypertension Father Diabetes Sister Autoimmune disease Sister other (high cholesterol) Sister Thyroid Brother Breast Cancer Paternal Grandmother other (brain aneurysm) Paternal Grandfather 39 Social History Tobacco Use Smoking status: Never Smokeless tobacco: Never Vaping Use Vaping Use: Never used Substance Use Topics Alcohol use: No Drug use: No Current Outpatient Medications Medication Sig meclizine (ANTIVERT) 25 mg tab Take 25 mg by mouth as needed. clopidogrel (PLAVIX) 75 mg tablet Take 1 tablet by mouth once daily. aspirin, enteric coated (ASPIRIN, ENTERIC COATED) 81 mg EC tablet Take 81 mg by mouth once daily. atorvastatin (LIPITOR) 40 mg tablet Take 40 mg by mouth once daily. amLODIPine (NORVASC) 5 mg tablet Take 5 mg by mouth once daily. acetaminophen (TYLENOL) 325 mg tablet Take 650 mg by mouth every 6 hours as needed. atenolol (TENORMIN) 25 mg tablet Take 25 mg by mouth once daily. lisinopril (ZESTRIL, PRINIVIL) 40 mg tablet Take 40 mg by mouth once daily. Current Facility-Administered Medications Medication Dose Route Frequency perflutren lipid microspheres 1.3 mL in NaCl (PF) 0.9% 10 mL injection (DEFINITY) INTRAVENOUS DIRECTED PRN sodium chloride 0.9 % (flush) 10 mL (BD POSIFLUSH) 10 mL INTRAVENOUS DIRECTED PRN Allergies As of Date: 12/05/2022 Allergen Noted Reaction CODEINE 04/12/2009 Vomiting Fully Assessed 12/05/2022 Allergies and current medication updated:Yes EXAM: LMP 11/21/2015 GENERAL: pleasant, female in no apparent distress HEENT: Normocephalic, atraumatic, mucus membranes moist, and no lesions NECK: Supple, full range of motion, no adenopathy, and thyroid normal PELVIC: external genitalia normal, normal Bartholin's glands, urethra, [place]'s glands, no vulvar lesions, no cervical lesions, physiologic discharge present, normal appearing perineal body and perianal region, cystocele 1st degree, rectocele 1st degree, cervical prolapse 1st degree BIMANUAL: uterus normal size, shape and consistency, no adnexal masses, and non-tender ASSESSMENT AND PLAN: heavy menses. She is not a good combined hormonal contraceptive candidate. She has had CBC and iron studies. She does not have permanent contraception. We discussed options. Most reasonable clinical options would likely be Mirena intrauterine system or an endometrial ablation. Does not have permanent contraception so would lean towards Mirena. We will proceed with EMB and pelvic ultrasound and meet to reevaluate. Medical Decision Making: Medical Decision Making Level: 1 - N/A Bradly Vidal MD Cheryle is a 52 year old who presents today for an endometrial biopsy for abnormal uterine bleeding. test: negative UNIVERSAL PROTOCOL / SAFETY CHECKLIST Procedure to be Performed: EMB Sign In: A Moment of CARE was completed. Personnel directly involved with the procedure wore the appropriate PPE (Personal Protective Equipment). Dulce (more content not included)... [facility] 12-05-2022 Instructions Bradly Vidal MD - 12/05/2022 1:38 PM EST YOUR RECOVERY After your biopsy you may have: Vaginal bleeding (less than a normal menstrual period) Mild cramping Do NOT put anything in the vagina for 1 week after your endometrial biopsy. This includes: tampons douches and refraining from having sexual intercourse If you have any discomfort, you may take an over the counter pain medication (motrin, advil, ibuprofen, tylenol, etc). If this does not relieve your discomfort, contact the office. It is okay to wear a sanitary pad until the discharge and spotting stops. RISKS Although problems seldom occur with endometrial biopsies, there can be some complications. You may feel faint during and shortly after the procedure as well as have some bleeding after the procedure. There is also a risk of infection after the procedure. These complications are rare and can be easily treated. You should contact you doctor is you have any of the following: Heavy bleeding (more than your normal period) Bleeding with clots Severe abdominal pain Fever (more than 100.4F) Foul smelling vaginal discharge RESULTS We will have the results of your biopsy in 1-2 weeks. If you do not hear the results of your biopsy after 2 weeks, please contact the office for the results. If you have any additional questions or concerns please do not hesitate to contact the office. documented in this encounter [facility] 12-05-2022 History of Present illness Narrative Cheryle Metcalf is a 52 year old female who presents for problem visit for heavy menses. HPI: 52 YOF who is still having menses. Have been regular the last 15 yrs since of last child. Menses last 5-7 days. Changes protection q 30 min at heaviest, pads. Wears special pads that are really large at night. Passes clots. Some cramping but that isn't severe. No bleeding between menses. No pain or bleeding w/ sexual activity. Has been seeing hematology for fe def. anemia and they referred here. Past couple of years getting heavier. No change in hot flashes, vaginal dryness. Gets paps and mammos through PCP. Had a heart surgery in Sep to close up a small hole in her heart. Now on plavix which didn't make it much worse. 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 Comments: Sexual Activity: Yes; No partner data on record Contraception: Condom PAST MEDICAL HISTORY Diagnosis Date Chronic cholecystitis Dyslipidemia 12/2021 Essential hypertension 2020 Iron deficiency anemia Rheumatic fever as a teen Rheumatic fever without mention of heart involvement Rhinitis Stroke (HCC) PAST SURGICAL HISTORY Procedure Laterality Date LAPS SURG CHOLECYSTECTOMY W/CHOLANGIOGRAPHY 02/09/10 PAST SURGICAL HISTORY OF benign breast lump removed left breast PAST SURGICAL HISTORY OF rigth ankle STEREOTACTIC CORE BIOPSY 05/04/09 LEFT FAMILY HISTORY Problem Relation Age of Onset Coronary Artery Disease Mother Thyroid Mother other (MVP [Other]) Mother Autoimmune disease Mother Diabetes Father other (Myocardial infarciton) Father 49 Hypertension Father Diabetes Sister Autoimmune disease Sister other (high cholesterol) Sister Thyroid Brother Breast Cancer Paternal Grandmother other (brain aneurysm) Paternal Grandfather 39 Social History Tobacco Use Smoking status: Never Smokeless tobacco: Never Vaping Use Vaping Use: Never used Substance Use Topics Alcohol use: No Drug use: No Current Outpatient Medications Medication Sig meclizine (ANTIVERT) 25 mg tab Take 25 mg by mouth as needed. clopidogrel (PLAVIX) 75 mg tablet Take 1 tablet by mouth once daily. aspirin, enteric coated (ASPIRIN, ENTERIC COATED) 81 mg EC tablet Take 81 mg by mouth once daily. atorvastatin (LIPITOR) 40 mg tablet Take 40 mg by mouth once daily. amLODIPine (NORVASC) 5 mg tablet Take 5 mg by mouth once daily. acetaminophen (TYLENOL) 325 mg tablet Take 650 mg by mouth every 6 hours as needed. atenolol (TENORMIN) 25 mg tablet Take 25 mg by mouth once daily. lisinopril (ZESTRIL, PRINIVIL) 40 mg tablet Take 40 mg by mouth once daily. Current Facility-Administered Medications Medication Dose Route Frequency perflutren lipid microspheres 1.3 mL in NaCl (PF) 0.9% 10 mL injection (DEFINITY) INTRAVENOUS DIRECTED PRN sodium chloride 0.9 % (flush) 10 mL (BD POSIFLUSH) 10 mL INTRAVENOUS DIRECTED PRN Allergies As of Date: 12/05/2022 Allergen Noted Reaction CODEINE 04/12/2009 Vomiting Fully Assessed 12/05/2022 Allergies and current medication updated:Yes EXAM: LMP 11/21/2015 GENERAL: pleasant, female in no apparent distress HEENT: Normocephalic, atraumatic, mucus membranes moist, and no lesions NECK: Supple, full range of motion, no adenopathy, and thyroid normal PELVIC: external genitalia normal, normal Bartholin's glands, urethra, [place]'s glands, no vulvar lesions, no cervical lesions, physiologic discharge present, normal appearing perineal body and perianal region, cystocele 1st degree, rectocele 1st degree, cervical prolapse 1st degree BIMANUAL: uterus normal size, shape and consistency, no adnexal masses, and non-tender ASSESSMENT AND PLAN: heavy menses. She is not a good combined hormonal contraceptive candidate. She has had CBC and iron studies. She does not have permanent contraception. We discussed options. Most reasonable clinical options would likely be Mirena intrauterine system or an endometrial ablation. Does not have permanent contraception so would lean towards Mirena. We will proceed with EMB and pelvic ultrasound and meet to reevaluate. Medical Decision Making: Medical Decision Making Level: 1 - N/A Bradly Vidal MD Cheryle is a 52 year old who presents today for an endometrial biopsy for abnormal uterine bleeding. test: negative UNIVERSAL PROTOCOL / SAFETY CHECKLIST Procedure to be Performed: EMB Sign In: A Moment of CARE was completed. Personnel directly involved with the procedure wore the appropriate PPE (Personal Protective Equipment). Patient/Surrogate Stated/Verified: PATIENT VERIFIED(optional for EMERGENT procedures): Patient name, Date of , Relevant allergies, and The intended procedure Time Out Communication: Intended patient and procedure match the source documents. Consent documented and matches the intended procedure. No implant(s) inserted. Sign Out: SIGN OUT (optional for EMERGENT procedures): All specimen containers correctly labeled. All instruments, equipment, possible retained foreign bodies accounted for. Post-procedure follow-up management communicated and Plan of Care Visit completed when applicable. Bradly Vidal MD PROCEDURE: EXTERNAL GENITALIA: Normal in appearance without lesions VAGINA: Normal in appearance without lesions BIOPSY: Speculum placed into the vagina with excellent visualization of the cervix. Cervix cleaned with betadine. Anterior lip of cervix grasped with single toothed tenaculum. Uterus sounded to 11 cm. Specimen labeled and sent to pathology. Procedure Summary: Patient tolerated procedure well. ASSESSMENT: abnormal uterine bleeding PLAN: Specimens labeled and sent to Pathology. Will notify patient of results in 1-2 weeks. Post-procedure instructions reviewed and written material given to the patient. Bradly Vidal MD documented in this encounter [facility] 12-05-2022 Miscellaneous Notes Patient notified and verbalized understanding. Herlinda Louis LPN Let her know I reviewed her case with Dr. Tucker. She can stop Plavix now, but continue aspirin. Herman Pineda DO documented in this encounter [facility] 12-04-2022 Note HNO ID: [id number] Author: Herman Pineda, DO Service: ? Author Type: Physician Type: Progress Notes Filed: 12/04/2022 9:59 AM Note Text: Hematologic problem(s): 1) MAYA. 2) Possible antiphospholipid antibody syndrome. HPI: The patient is a 52-year-old female with a past medical history significant for rheumatic fever as a teenager, hypertension, left breast lumpectomy (benign) and iron deficiency anemia. Recent CBC on 08/01/2021 revealed a total white count of 3600. Differential showed a small increase in basophils at 1.4%. ANC was 1900. The hemoglobin was 8.6 g/dL. MCV was 73.9 fL and the platelet count was 261,000. Anisocytosis was noted on the peripheral smear. Serum iron was 25 mcg/dL. TIBC was 380. Ferritin was 4 ng/mL. In May 2021 the white count was 5100. Hemoglobin was 9.0 g/dL with an MCV of 68.9 and a platelet count of 311,000. In January 2021 the hemoglobin was 8.5 g/dL with an MCV of 66.7 fL and a platelet count of 307,000. Was fatigued a lot. No GRAVES. Occasional palpitation. Had tried oral iron on several occasions. Caused severe nausea. Received one dose parenteral iron at [facility] about mid June. Formulation unknown. Regular menses. Often heavy with passing of clots. Had colonoscopy by Dr. Cruz summer 2021. Had one polyp removed. Was told not a pre-cancerous polyp. Normal appetite. No dysphagia. +GERD. Takes Tums or Mylanta prn. No PPI use. No nausea. No bloody or black stools. Not vegetarian. She received 9 doses of iron sucrose for iron deficiency anemia secondary to heavy menses. She had prior colonoscopy. Had Covid in November 2021. Wasn't formally tested, but and two sons tested positive. was asymptomatic. Symptoms for patient consisted of MORENO, body aches, cough, fever, loss of taste and smell. Didn't require hospitalization. Symptoms of fatigue and MORENO lingered about 4-6 weeks. Cough lasted about 4 weeks. She presented to the ED at [facility] the evening of 12/29/2021 after experiencing the onset of left eye scintillations followed by right arm numbness and dense weakness. She also developed aphasia. Symptoms occurred while she was watching TV. Evidently the arm numbness and weakness resolved within a few minutes but speech difficulty lasted about an hour and then resolved. She was reported to have some cognitive slowing that lasted about [address] on presentation demonstrated a normal unenhanced CT scan of the brain. 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 The more distal portions of the arteries were supplied via the patent bilateral posterior communicating arteries. Otherwise the [place] mountain [place] was observed to be normal. There were normal bilateral carotid and vertebral arteries observed. Blood pressure on presentation was 192/106. 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 She was started on ASA and Plavix. Hypercoagulation panel was ordered. Anticardiolipin IgM antibody titer 17 (intermediate).. Anticardiolipin IgG less than 9. Antibodies to beta-2 glycoprotein including IgG, IgA and IgM normal. Antithrombin activity normal. Antithrombin level normal. Protein C antigen and functional activity normal. No factor V Leiden mutation. Prothrombin mutation not detected. Lupus anticoagulant activity was not detected. This was evidenced by a normal dilute PT, confirmation ratio, thrombin time, DRVVT. Patient also had bilateral lower extremity duplex ultrasound which revealed no evidence for acute DVT in the bilateral lower extremities. Echocardiogram revealed normal left ventricular systolic function with estimated ejection fraction 65%. There was trivial mitral valve and trivial tricuspid valve insufficiency along with trivial pulmonic valve insufficiency. RV systolic pressure was not able to be estimated. Agitated saline contrast study consider positive for right to left interatrial shunt potentially compatible with small PFO versus ASD. Subsequent transesophageal echocardiogram on 05/07/2022 showed no spontaneous contrast in the left atrium. No thrombus was detected in the left atrial appendage. There was 1+ mitral valve insufficiency. Mild tricuspid valve insufficiency trivial aortic valve insufficiency. There was positive agitated saline contrast study for [id number] interarterial shunt compatible with very small patent foramen ovale. Normal-appearing thoracic aorta. Patient had not had recurrence of neurologic symptoms. She was on low-dose aspirin. Plavix was discontinued after about 3 weeks. She still had trouble with taste and smell and that some foods do not taste like they used to. Was not on anticoagulation. Presents for ongoing hematologi (more content not included)... [facility] 12-04-2022 History of Present illness Narrative Hematologic problem(s): 1) MAYA. 2) Possible antiphospholipid antibody syndrome. HPI: The patient is a 52-year-old female with a past medical history significant for rheumatic fever as a teenager, hypertension, left breast lumpectomy (benign) and iron deficiency anemia. Recent CBC on 08/01/2021 revealed a total white count of 3600. Differential showed a small increase in basophils at 1.4%. ANC was 1900. The hemoglobin was 8.6 g/dL. MCV was 73.9 fL and the platelet count was 261,000. Anisocytosis was noted on the peripheral smear. Serum iron was 25 mcg/dL. TIBC was 380. Ferritin was 4 ng/mL. In May 2021 the white count was 5100. Hemoglobin was 9.0 g/dL with an MCV of 68.9 and a platelet count of 311,000. In January 2021 the hemoglobin was 8.5 g/dL with an MCV of 66.7 fL and a platelet count of 307,000. Was fatigued a lot. No GRAVES. Occasional palpitation. Had tried oral iron on several occasions. Caused severe nausea. Received one dose parenteral iron at [facility] about mid June. Formulation unknown. Regular menses. Often heavy with passing of clots. Had colonoscopy by Dr. Cruz summer 2021. Had one polyp removed. Was told not a pre-cancerous polyp. Normal appetite. No dysphagia. +GERD. Takes Tums or Mylanta prn. No PPI use. No nausea. No bloody or black stools. Not vegetarian. She received 9 doses of iron sucrose for iron deficiency anemia secondary to heavy menses. She had prior colonoscopy. Had Covid in November 2021. Wasn't formally tested, but and two sons tested positive. was asymptomatic. Symptoms for patient consisted of MORENO, body aches, cough, fever, loss of taste and smell. Didn't require hospitalization. Symptoms of fatigue and MORENO lingered about 4-6 weeks. Cough lasted about 4 weeks. She presented to the ED at [facility] the evening of 12/29/2021 after experiencing the onset of left eye scintillations followed by right arm numbness and dense weakness. She also developed aphasia. Symptoms occurred while she was watching TV. Evidently the arm numbness and weakness resolved within a few minutes but speech difficulty lasted about an hour and then resolved. She was reported to have some cognitive slowing that lasted about [address] on presentation demonstrated a normal unenhanced CT scan of the brain. 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 The more distal portions of the arteries were supplied via the patent bilateral posterior communicating arteries. Otherwise the [place] was observed to be normal. There were normal bilateral carotid and vertebral arteries observed. Blood pressure on presentation was 192/106. 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 She was started on ASA and Plavix. Hypercoagulation panel was ordered. Anticardiolipin IgM antibody titer 17 (intermediate).. Anticardiolipin IgG less than 9. Antibodies to beta-2 glycoprotein including IgG, IgA and IgM normal. Antithrombin activity normal. Antithrombin level normal. Protein C antigen and functional activity normal. No factor V Leiden mutation. Prothrombin mutation not detected. Lupus anticoagulant activity was not detected. This was evidenced by a normal dilute PT, confirmation ratio, thrombin time, DRVVT. Patient also had bilateral lower extremity duplex ultrasound which revealed no evidence for acute DVT in the bilateral lower extremities. Echocardiogram revealed normal left ventricular systolic function with estimated ejection fraction 65%. There was trivial mitral valve and trivial tricuspid valve insufficiency along with trivial pulmonic valve insufficiency. RV systolic pressure was not able to be estimated. Agitated saline contrast study consider positive for right to left interatrial shunt potentially compatible with small PFO versus ASD. Subsequent transesophageal echocardiogram on 05/07/2022 showed no spontaneous contrast in the left atrium. No thrombus was detected in the left atrial appendage. There was 1+ mitral valve insufficiency. Mild tricuspid valve insufficiency trivial aortic valve insufficiency. There was positive agitated saline contrast study for [id number] interarterial shunt compatible with very small patent foramen ovale. Normal-appearing thoracic aorta. Patient had not had recurrence of neurologic symptoms. She was on low-dose aspirin. Plavix was discontinued after about 3 weeks. She still had trouble with taste and smell and that some foods do not taste like they used to. Was not on anticoagulation. Presents for ongoing hematologic management. Interim history: Underwent percutaneous closure of PFO on 09/19/2022. Was restarted on Plavix. Anticipate will be on until 12/2022 when she has follow up with cardiology. No symptoms of stroke/TIA. Still monthly menses. Heavy with passing of large clots. Has lately been getting nocturnal hot flashes. Very fatigued. No dyspnea at rest. Occasional GRAVES--when walking the dog. No exertional chest pain/pressure. Occasional heart flutter. Normal appetite. Reflux if eats spicy foods. No nausea. No abdominal pain. Bowels move regularly. Stools formed. No black or bloody stools. No leg swelling or pain. PMH, medications and allergies personally reviewed by me today. Any changes documented in appropriate section. ROS: Constitutional: Denies episodes of fever and night sweats. Neuro: See above. HEENT: No recent change in voice, vision or hearing. Resp: Denies cough, wheeze and hemoptysis. CVS: Denies exertional chest pain, PND, orthopnea and LE edema. : Denies dysuria or gross hematuria. No symptoms of bladder outlet obstruction. Endo: Denies hot flashes. Denies polyuria and polydipsia. Denies heat and cold intolerance. Musculoskeletal: Denies bone, back, joint and muscular pain. Derm: Denies rash. Denies jaundice and diffuse pruritis. Psych: Normal mood. Surgical history: Removal of left breast cyst. Right ankle surgery. Cholecystectomy. Social history: Non-smoker. No alcohol use Lives with and two sons. Formerly worked at [employer]. Family history: Mother has autoimmune disease and high cholesterol. Father had heart attack at age 49 Sister has autoimmune disease and high cholesterol. Mother's maternal aunt--possible VTE. PHYSICAL EXAM: Vitals: Blood pressure 128/78, pulse 66, temperature 36.6 C (97.8 F), height 178.5 cm (5' 10.28 ), weight 102.1 kg (225 lb), last menstrual period 11/21/2015, SpO2 100 %. Well-appearing and in no acute distress. EYES: Sclerae are anicteric bilaterally. LYMPHATIC: There is no palpable cervical, supraclavicular or axillary adenopathy. RESPIRATORY: Inspiratory breath sounds are of normal intensity in all alves. No rales, wheezes or rhonchi. CARDIOVASCULAR: Rhythm is regular. ABDOMEN: The abdomen is nondistended. No organomegaly. No tenderness. Extremities: No swelling or edema. Varicose veins. SKIN: No jaundice or rash. No petechiae. 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 No focal motor weakness. LABS: Component Latest Ref Rng & Units 11/27/2022 WBC 3.70 - 11.00 k/uL 4.13 RBC 3.90 - 5.20 m/uL 3.80 (L) Hemoglobin 11.5 - 15.5 g/dL 9.7 (L) Hematocrit 36.0 - 46.0 % 31.0 (L) MCV 80.0 - 100.0 fL 81.6 MCH 26.0 - 34.0 pg 25.5 (L) MCHC 30.5 - 36.0 g/dL 31.3 RDW-CV 11.5 - 15.0 % 14.2 Platelet Count 150 - 400 k/uL 266 MPV 9.0 - 12.7 fL 9.4 Neut% % 62.3 Abs Neut (ANC) 1.45 - 7.50 k/uL 2.57 Lymph% % 24.9 Abs Lymph 1.00 - 4.00 k/uL 1.03 [place]% % 9.9 Abs [place] <0.87 k/uL 0.41 Eosin% % 1.7 Abs Eosin <0.46 k/uL 0.07 Baso% % 1.0 Abs Baso <0.11 k/uL 0.04 Immature Gran % % 0.2 IMMATURE GRANS (ABS) <0.10 k/uL <0.03 NRBC /100 WBC 0.0 Absolute nRBC <0.01 k/uL <0.01 DTYPE Auto Protein, Total 6.3 - 8.0 g/dL 6.9 Albumin 3.9 - 4.9 g/dL 4.0 Calcium 8.5 - 10.2 mg/dL 9.0 Bilirubin, Total 0.2 - 1.3 mg/dL 0.2 Alkaline Phosphatase 34 - 123 U/L 98 AST 13 - 35 U/L 14 ALT 7 - 38 U/L 10 Glucose 74 - 99 mg/dL 97 BUN 7 - 21 mg/dL 6 (L) Creatinine 0.58 - 0.96 mg/dL 0.72 Sodium 136 - 144 mmol/L 137 Potassium 3.7 - 5.1 mmol/L 3.8 Chloride 97 - 105 mmol/L 102 CO2 22 - 30 mmol/L 27 Anion Gap 9 - 18 mmol/L 8 (L) eGFR >=60 mL/min/1.73m 100 Iron 41 - 186 ug/dL 22 (L) TIBC 232 - 386 ug/dL 382 Transferrin Saturation 15.0 - 57.0 % 5.8 (L) Ferritin 14.7 - 205.1 ng/mL 14.2 (L) Component Latest Ref Rng & Units 06/05/2022 07/17/2022 11/27/2022 Cardiolipin Ab, IgM <12.5 MPL 17.6 (H) 13.1 (H) 13.0 (H) ASSESSMENT/PLAN: (I63.9) Cryptogenic stroke (HCC) (primary encounter diagnosis) (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 She had an intermediate elevation of anticardiolipin antibody IgM. The remainder of her hypercoagulable work-up was unremarkable. -She may have had a temporary hypercoagulable state secondary to COVID infection. Anticardiolipin antibody IgM had declined and remains minimally elevated. This is of doubtful clinical significance. -Had closure of PFO. Plan: -Continue blood pressure management with PCP. -Discussed symptoms and signs of VTE and need for urgent evaluation if recurs. (D50.0) Iron deficiency anemia due to chronic blood loss Assessment: -She has not had formal gynecologic evaluation as of yet. -On aspirin and Plavix. No overt signs of GI bleeding. -Had colonoscopy summer 2020. Was advised repeat colonoscopy in 3 years. -Reviewed her lab work in detail. She requires another course of parenteral iron. We discussed the advantages and disadvantages including very small risk of infusion reaction. She expressed an understanding and agreement. Plan: -Iron sucrose x10 doses. -Referral to gynecology. -Referral to Dr. Cruz for EGD. Portions of this documentation were copied and pasted from previous office visit notes in order to provide a cohesive continuity of the history. The note has been reviewed and edited and updated as necessary. Herman Pineda DO documented in this encounter [facility] 11-15-2022 Miscellaneous Notes Spoke with pt. Scheduled labs and OV as directed 1st attempt: LM When pt returns call please assist in scheduling Labs and Ov as directed below. Thank you! Looks like we tried contacting her several times this past May about a 6-month follow-up visit. Please try contacting her again. Labs filed then OV about 1-2 weeks later sometime later in November. Herman Pineda DO documented in this encounter [facility] 09-19-2022 Note HNO ID: [id number] Author: Malathi Schneider MD Service: Cardiovascular Medicine Author Type: Physician Type: Procedures Filed: 09/19/2022 4:18 PM Note Text: INTERVENTIONAL CARDIOLOGY Patent Foramen Ovale Closure Procedure Note Name: Cheryle Metcalf Age: [age] year old Date: 09/19/2022 STAFF PHYSICIAN: Dr. Schneider ASSISTING FELLOW: Veronica Houser MD PROCEDURE: - Intracardiac Echocardiography - Percutaneous PFO closure with a 25 mm Casco Cardioform device INDICATION: The patient is a 51 year old female with history of cryptogenic CVA, here today for percutaneous PFO closure. ACCESS: - RFV, 11F short sheath (closed with 1 x perclose) - LFV, 9F x 35 cm long sheath (closed with 1 x perlose) PROCEDURAL DETAILS: After yielding full informed consent including discussion of risks, benefits, and alternatives to this procedure, the patient was brought to the Cardiac Catheterization Lab. The patient was dressed and draped in the usual sterile fashion and 1% lidocaine used for local anesthesia for sheath placement. Ultrasound guided access was obtained in the right and left femoral veins. After pre-closure with one Perclose device for each femoral vein, we placed a 11F sheath in the right femoral vein and a 9F x 35 cm sheath in the left femoral vein. Through the 9F sheath, the AcuNAV ICE probe was advanced to the RA. We administered full dose intravenous heparin for anticoagulation to an ACT > 250 s. The atrial septum was crossed through the PFO using a 5Fr MPA2 catheter. We then advanced a preformed Amplatz Extrastiff wire through the MPA catheter into the left atrium. We used a PTS 25x30 mm sizing balloon and ICE to measure the size of the PFO (~7.5 mm). A 25 mm device was selected and deployed under ICE and fluoroscopic guidance. ICE with bubble study did not show any residual shunt across the interatrial septum. We then removed our equipment and closed the femoral venous access sites with the predeployed perclose devices. The patient tolerated the procedure well and was transferred to recovery in stable condition. COMPLICATIONS: None PLAN: 1. Aspirin 81 mg daily and clopidogrel 75 mg daily for 3 months. Then continue with aspirin 81 mg daily, indefinitely. 2. Cephalexin 500 mg BID for 5 days. Antibiotic prophylaxis prior to dental procedures for 1 year recommended. 3. TTE with bubble study 4. Overnight observation. 5. Follow-up with Dr. Schneider in 3 months with Echo. Please do not hesitate to contact me with any questions. Veronica Houser M.D. Interventional Electronics Repair Technician, PGY-8 Heart and Vascular [place] [facility] Pager [phone] ----- [facility] STAFF PHYSICIAN NOTE OF PERSONAL INVOLVEMENT IN CARE I have reviewed the documentation obtained and documented by the Fellow. I have personally performed a face to face assessment of the patient and have personally participated on the robledo components of the history, exam and medical decision making. I have discussed the case and management of the patient's care. STAFF PHYSICIAN: Malathi Schneider MD DATE OF SERVICE: September 19, 2022 TIME OF SERVICE: 4:17 PM [facility] 09-18-2022 Miscellaneous Notes CARDIOVASCULAR LAB INSTRUCTIONS: Readiness to Learn: Cognitive Ability: Alert and oriented Motivation To Learn: Interested Family/Significant Other Support: Unable to assess - Family not present Instruction Provided To: Patient Patient Learns Best By: Verbal Instruction Factors Affecting Learning: None Physical Limitations Affecting Learning: None Learning Response: Procedure: PFO Pre procedure education topics: Arrival time/NPO Status/Medications/Travel Instructions/Restrictions Patient/Family Response Evaluation: Verbalizes understanding Follow Up Plan and Medication: As directed by physician Instruction/Supplemental Material Given: Cardiac catheterization instructions, procedure information, hospital information, hotel information. Instructed By Nica Moon RN, RN. In Department of CARDIOLOGY. documented in this encounter [facility] 07-26-2022 Miscellaneous Notes Contacted pt to follow up on Neurology visit with outside provider. Pt unavailable, left voicemail to contact office with update to proceed with PFO closure documented in this encounter [facility] 07-17-2022 Note HNO ID: [id number] Author: Malathi Schneider MD Service: ? Author Type: Physician Type: Progress Notes Filed: 07/20/2022 1:51 PM Note Text: Heart [facility] V[facility] [place] [facility] Department of Cardiovascular Medicine SECTION OF INTERVENTIONAL CARDIOLOGY OUTPATIENT VISIT DATE July 17, 2022 OUTPATIENT VISIT TYPE NEW PRIMARY CARE PHYSICIAN: Chhaya Nunez MD [address] [place] [address] PRIMARY MEAT STOCK CLERK: Herman Hoang [address] [facility] [address] [address] PHARMACY BENEFITS COORDINATOR: Herman Pineda DO - CCCharlette CHIEF COMPLAINT: Evaluation of PFO HISTORY OF PRESENT ILLNESS: Ms. Metcalf is a 51 year old female who presents today for evaluation of PFO. She was in her usual state of health however suffered a bout of COVID 19 pneumonia in November 2021. She had a long recovery marked by significant fatigue and a lingering severe cough. In December 2021, she had a severe coughing episode followed by a neurologic event including acute right arm weakness, dysarthria, and left eye visual changes. She was admitted locally where she was diagnosed with an acute L parietal cerebral cortical infarct. 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 She did not undergo tPA or interventional treatment, and symptoms resolved on their own. Her subsequent evaluation consisted of a 30-day Holter monitor which did not show AFib, and TTE and ALTAGRACIA which suggest a PFO. She underwent hypercoagulability testing which revealed an indeterminate anticardiolipin IgM; she is undergoing evaluation of this issue and chronic iron deficiency anemia by Dr. Pineda in Hematology. Since her COVID diagnosis, she relates more fatigue and mild GRAVES. She otherwise has made a full neurologic recovery and has no other symptoms. NURSING INTAKE: Relevant PMHX Interatrial shunt - probable PFO CVA HTN Rheumatic fever FH of CAD PER OUTSIDE CARDIOLOGY NOTE; She reports her symptoms of right arm weakness, dysarthria and left eye visual changes completely resolved She was told no clotting disorder and comes for PFO evaluation She denies chest pain She denies SOB, orthopnea, PND or LE edema She notes palpitations that feel like a muscle spasm and she feels like she has to catch her breath She notes lightheadness occurring anytime She denies asthma, COPD She denies claudication Diet / Nutrition: None Weight: no change since last visit Exercise: Walks 2 x daily hour . PAST MEDICAL HISTORY Diagnosis Date Chronic cholecystitis Dyslipidemia 12/2021 Essential hypertension 2020 Iron deficiency anemia Rheumatic fever as a teen Rheumatic fever without mention of heart involvement Rhinitis Stroke (HCC) PAST SURGICAL HISTORY Procedure Laterality Date LAPS SURG CHOLECYSTECTOMY W/CHOLANGIOGRAPHY 02/09/10 PAST SURGICAL HISTORY OF benign breast lump removed left breast PAST SURGICAL HISTORY OF rigth ankle STEREOTACTIC CORE BIOPSY 05/04/09 LEFT Social History Tobacco Use Smoking status: Never Smokeless tobacco: Never Vaping Use Vaping Use: Never used Substance Use Topics Alcohol use: No Drug use: No FAMILY HISTORY Problem Relation Age of Onset Coronary Artery Disease Mother Thyroid Mother other (MVP [Other]) Mother Autoimmune disease Mother Diabetes Father Coronary Artery Disease Father Hypertension Father Diabetes Sister Autoimmune disease Sister other (high cholesterol) Sister Thyroid Brother Breast Cancer Paternal Grandmother ALLERGIES Allergen Reactions Codeine Vomiting dizziness MEDICATIONS: aspirin, enteric coated (ASPIRIN, ENTERIC COATED) 81 mg EC tablet Take 81 mg by mouth once daily. atorvastatin (LIPITOR) 40 mg tablet Take 40 mg by mouth once daily. amLODIPine (NORVASC) 5 mg tablet Take 5 mg by mouth once daily. acetaminophen (TYLENOL) 325 mg tablet Take 650 mg by mouth every 6 hours as needed. atenolol (TENORMIN) 25 mg tablet Take 25 mg by mouth once daily. lisinopril (ZESTRIL, PRINIVIL) 40 mg tablet Take 40 mg by mouth once daily. REVIEW OF SYSTEMS: GENERAL: no fever, no chills, and no change in weight HEENT: no headaches, no difficulty swallowing, dentures SKIN: no rashes and no ulcers RESPIRATORY: no cough, no shortness of breath, no dyspnea on exertion, no orthopnea, no paroxysmal nocturnal dyspnea, no asthma, and no COPD CARDIOVASCULAR: no chest pain, no syncope, no claudication, no edema, and See HPI GASTROINTESTINAL: no abdominal pain, no nausea, no vomiting, and no melanotic stools GENITOURINARY: no dysuria MUSCULOSKELETAL: no joint pain and no muscle pain or myalgias NEUROLOGIC: no numbness and no tingling HEMATOLOGY: no bruising easily, no anemia, and no cancer ENDOCRINE: no diabetes and thyroid disease PSYCH: (more content not included)... [facility] 07-08-2022 Miscellaneous Notes Pt asking how to conduct a self nickel allergy. Per Dr. Schneider tape a 5 cent nickel to forearm for 48 hours. Report to office if spot turns red Pt acknowledged understanding. documented in this encounter [facility] 07-02-2022 Miscellaneous Notes Spoke with Pt regarding PFO referral. Per Dr. Schneider, schedule EKG, Labs, and appointment with Dr. Schneider. Pt will request holter monitor results and neurology records to be sent. documented in this encounter [facility] 06-17-2022 Miscellaneous Notes Received outside medical records. Uploaded to scanned documents. documented in this encounter [facility] 06-13-2022 Miscellaneous Notes Recall letter placed. Tried contacting pt to schedule, went to , left a message for pt to return call. \ Jackie Hernandez Spoke with pt. Given information concerning lab results. Copy of note faxed to Dr. Hoang. Ailyn Pike LPN PSS please place note to contact pt. For labs and F/U closer to 2022 mailbox is full, unable to leave message. No mychart. Will need to try again tomorrow. Purnima Murray LPN Can let her know that the lab work did not demonstrate any clear evidence of a blood clotting tendency. She still had a mild elevation of anticardiolipin antibody but this should be of no clinical significance. 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 She should continue low-dose aspirin on a daily basis and I would like for her to return in 6 months for CBC/lupus anticoagulant panel followed by office visit about a week later. Can fax a copy of this note to Dr. Hoang. Herman Pineda DO documented in this encounter [facility] 06-05-2022 Note HNO ID: [id number] Author: Herman Pineda DO Service: ? Author Type: Physician Type: Progress Notes Filed: 06/06/2022 1:27 PM Note Text: Hematologic problem(s): 1) MAYA. 2) Possible antiphospholipid antibody syndrome. HPI: The patient is a 51-year-old female with a past medical history significant for rheumatic fever as a teenager, hypertension, left breast lumpectomy (benign) and iron deficiency anemia. Recent CBC on 08/01/2021 revealed a total white count of 3600. Differential showed a small increase in basophils at 1.4%. ANC was 1900. The hemoglobin was 8.6 g/dL. MCV was 73.9 fL and the platelet count was 261,000. Anisocytosis was noted on the peripheral smear. Serum iron was 25 mcg/dL. TIBC was 380. Ferritin was 4 ng/mL. In May 2021 the white count was 5100. Hemoglobin was 9.0 g/dL with an MCV of 68.9 and a platelet count of 311,000. In January 2021 the hemoglobin was 8.5 g/dL with an MCV of 66.7 fL and a platelet count of 307,000. Was fatigued a lot. No GRAVES. Occasional palpitation. Had tried oral iron on several occasions. Caused severe nausea. Received one dose parenteral iron at [facility] about mid June. Formulation unknown. Regular menses. Often heavy with passing of clots. Had colonoscopy by Dr. Cruz this summer. Had one polyp removed. Was told not a pre-cancerous polyp. Normal appetite. No dysphagia. +GERD. Takes Tums or Mylanta prn. No PPI use. No nausea. No bloody or black stools. Not vegetarian. Referred back for evaluation for antiphospholipid antibody and/or lupus anticoagulant. Interim history: She received 9 doses of iron sucrose last fall for iron deficiency anemia secondary to heavy menses. She had prior colonoscopy. Had Covid in November. Wasn't formally tested, but and two sons tested positive. was asymptomatic. Symptoms for patient consisted of MORENO, body aches, cough, fever, loss of taste and smell. Didn't require hospitalization. Symptoms of fatigue and MORENO lingered about 4-6 weeks. Cough lasted about 4 weeks. She presented to the ED at [facility] the evening of 12/29/2021 after experiencing the onset of left eye scintillations followed by right arm numbness and dense weakness. She also developed aphasia. Symptoms occurred while she was watching TV. Evidently the arm numbness and weakness resolved within a few minutes but speech difficulty lasted about an hour and then resolved. She was reported to have some cognitive slowing that lasted about [address] on presentation demonstrated a normal unenhanced CT scan of the brain. 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 The more distal portions of the arteries were supplied via the patent bilateral posterior communicating arteries. Otherwise the [place] was observed to be normal. There were normal bilateral carotid and vertebral arteries observed. Blood pressure on presentation was 192/106. 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 She was started on ASA and Plavix. Hypercoagulation panel was ordered. Anticardiolipin IgM antibody titer 17 (intermediate).. Anticardiolipin IgG less than 9. Antibodies to beta-2 glycoprotein including IgG, IgA and IgM normal. Antithrombin activity normal. Antithrombin level normal. Protein C antigen and functional activity normal. No factor V Leiden mutation. Prothrombin mutation not detected. Lupus anticoagulant activity was not detected. This was evidenced by a normal dilute PT, confirmation ratio, thrombin time, DRVVT. Patient also had bilateral lower extremity duplex ultrasound which revealed no evidence for acute DVT in the bilateral lower extremities. Echocardiogram revealed normal left ventricular systolic function with estimated ejection fraction 65%. There was trivial mitral valve and trivial tricuspid valve insufficiency along with trivial pulmonic valve insufficiency. RV systolic pressure was not able to be estimated. Agitated saline contrast study consider positive for right to left interatrial shunt potentially compatible with small PFO versus ASD. Subsequent transesophageal echocardiogram on 05/07/2022 showed no spontaneous contrast in the left atrium. No thrombus was detected in the left atrial appendage. There was 1+ mitral valve insufficiency. Mild tricuspid valve insufficiency trivial aortic valve insufficiency. There was positive agitated saline contrast study for [id number] interarterial shunt compatible with very small patent foramen ovale. Normal-appearing thoracic aorta. Patient has not had recurrence of neurologic symptoms. She is on low-dose aspirin. Plavix was discontinued after about 3 weeks. She still has trouble with taste and smell and (more content not included)... [facility] 06-05-2022 History of Present illness Narrative Hematologic problem(s): 1) MAYA. 2) Possible antiphospholipid antibody syndrome. HPI: The patient is a 51-year-old female with a past medical history significant for rheumatic fever as a teenager, hypertension, left breast lumpectomy (benign) and iron deficiency anemia. Recent CBC on 08/01/2021 revealed a total white count of 3600. Differential showed a small increase in basophils at 1.4%. ANC was 1900. The hemoglobin was 8.6 g/dL. MCV was 73.9 fL and the platelet count was 261,000. Anisocytosis was noted on the peripheral smear. Serum iron was 25 mcg/dL. TIBC was 380. Ferritin was 4 ng/mL. In May 2021 the white count was 5100. Hemoglobin was 9.0 g/dL with an MCV of 68.9 and a platelet count of 311,000. In January 2021 the hemoglobin was 8.5 g/dL with an MCV of 66.7 fL and a platelet count of 307,000. Was fatigued a lot. No GRAVES. Occasional palpitation. Had tried oral iron on several occasions. Caused severe nausea. Received one dose parenteral iron at [facility] about mid June. Formulation unknown. Regular menses. Often heavy with passing of clots. Had colonoscopy by Dr. Cruz this summer. Had one polyp removed. Was told not a pre-cancerous polyp. Normal appetite. No dysphagia. +GERD. Takes Tums or Mylanta prn. No PPI use. No nausea. No bloody or black stools. Not vegetarian. Referred back for evaluation for antiphospholipid antibody and/or lupus anticoagulant. Interim history: She received 9 doses of iron sucrose last fall for iron deficiency anemia secondary to heavy menses. She had prior colonoscopy. Had Covid in November. Wasn't formally tested, but and two sons tested positive. was asymptomatic. Symptoms for patient consisted of MORENO, body aches, cough, fever, loss of taste and smell. Didn't require hospitalization. Symptoms of fatigue and MORENO lingered about 4-6 weeks. Cough lasted about 4 weeks. She presented to the ED at [facility] the evening of 12/29/2021 after experiencing the onset of left eye scintillations followed by right arm numbness and dense weakness. She also developed aphasia. Symptoms occurred while she was watching TV. Evidently the arm numbness and weakness resolved within a few minutes but speech difficulty lasted about an hour and then resolved. She was reported to have some cognitive slowing that lasted about [address] on presentation demonstrated a normal unenhanced CT scan of the brain. 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 The more distal portions of the arteries were supplied via the patent bilateral posterior communicating arteries. Otherwise the [place] was observed to be normal. There were normal bilateral carotid and vertebral arteries observed. Blood pressure on presentation was 192/106. 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 She was started on ASA and Plavix. Hypercoagulation panel was ordered. Anticardiolipin IgM antibody titer 17 (intermediate).. Anticardiolipin IgG less than 9. Antibodies to beta-2 glycoprotein including IgG, IgA and IgM normal. Antithrombin activity normal. Antithrombin level normal. Protein C antigen and functional activity normal. No factor V Leiden mutation. Prothrombin mutation not detected. Lupus anticoagulant activity was not detected. This was evidenced by a normal dilute PT, confirmation ratio, thrombin time, DRVVT. Patient also had bilateral lower extremity duplex ultrasound which revealed no evidence for acute DVT in the bilateral lower extremities. Echocardiogram revealed normal left ventricular systolic function with estimated ejection fraction 65%. There was trivial mitral valve and trivial tricuspid valve insufficiency along with trivial pulmonic valve insufficiency. RV systolic pressure was not able to be estimated. Agitated saline contrast study consider positive for right to left interatrial shunt potentially compatible with small PFO versus ASD. Subsequent transesophageal echocardiogram on 05/07/2022 showed no spontaneous contrast in the left atrium. No thrombus was detected in the left atrial appendage. There was 1+ mitral valve insufficiency. Mild tricuspid valve insufficiency trivial aortic valve insufficiency. There was positive agitated saline contrast study for [id number] interarterial shunt compatible with very small patent foramen ovale. Normal-appearing thoracic aorta. Patient has not had recurrence of neurologic symptoms. She is on low-dose aspirin. Plavix was discontinued after about 3 weeks. She still has trouble with taste and smell and that some foods do not taste like they used to. Not on anticoagulation. PMH, medications and allergies personally reviewed by me today. Any changes documented in appropriate section. ROS: Constitutional: Denies episodes of fever and night sweats. Neuro: See above. HEENT: No recent change in voice, vision or hearing. Resp: Denies cough, wheeze and hemoptysis. CVS: Denies exertional chest pain, PND, orthopnea and LE edema. : Denies dysuria or gross hematuria. No symptoms of bladder outlet obstruction. Endo: Denies hot flashes. Denies polyuria and polydipsia. Denies heat and cold intolerance. Musculoskeletal: Denies bone, back, joint and muscular pain. Derm: Denies rash. Denies jaundice and diffuse pruritis. Heme: Denies unusual bleeding and unexplained bruising. Psych: Normal mood. Surgical history: Removal of left breast cyst. Right ankle surgery. Cholecystectomy. Social history: Non-smoker. No alcohol use Lives with and two sons. Formerly worked at [employer]. Family history: Mother has autoimmune disease and high cholesterol. Father had heart attack at age 49 Sister has autoimmune disease and high cholesterol. Mother's maternal aunt--possible VTE. PHYSICAL EXAM: Vitals: Blood pressure 128/77, pulse (!) 58, temperature 37.1 C (98.7 F), temperature source Temporal, height 177.8 cm (5' 10 ), weight 94.8 kg (209 lb), last menstrual period 11/21/2015. Well-appearing and in no acute distress. EYES: Sclerae are anicteric bilaterally. LYMPHATIC: There is no palpable cervical, supraclavicular or axillary adenopathy. RESPIRATORY: Inspiratory breath sounds are of normal intensity in all alves. No rales, wheezes or rhonchi. CARDIOVASCULAR: Rhythm is regular. ABDOMEN: The abdomen is nondistended. No organomegaly. No tenderness. Extremities: No swelling or edema. Varicose veins. SKIN: No jaundice or rash. No petechiae. 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 No focal motor weakness. LABS: Component Latest Ref Rng & Units 08/14/2021 10/24/2021 WBC 3.70 - 11.00 k/uL 5.51 RBC 3.90 - 5.20 m/uL 4.69 Hemoglobin 11.5 - 15.5 g/dL 13.0 Hematocrit 36.0 - 46.0 % 39.0 MCV 80.0 - 100.0 fL 83.2 MCH 26.0 - 34.0 pG 27.7 MCHC 30.5 - 36.0 g/dL 33.3 RDW-CV 11.5 - 15.0 % 19.9 (H) Platelet Count 150 - 400 k/uL 260 MPV 9.0 - 12.7 fL 9.4 Neut% % 65.6 Abs Neut (ANC) 1.45 - 7.50 k/uL 3.60 Lymph% % 23.2 Abs Lymph 1.00 - 4.00 k/uL 1.28 [place]% % 8.7 Abs [place] <0.87 k/uL 0.48 Eosin% % 1.6 Abs Eosin <0.46 k/uL 0.09 Baso% % 0.9 Abs Baso <0.11 k/uL 0.05 Nucleated Reds 0 /100 WBC 0.0 Absolute nRBC <0.01 k/uL <0.01 Diff Type Auto Diff Iron 41 - 186 ug/dL 21 (L) 56 TIBC 232 - 386 ug/dL 366 264 Transferrin Saturation 15 - 57 % 6 (L) 21 Ferritin 14.7 - 205.1 ng/mL 12.2 (L) 131.0 ASSESSMENT/PLAN: (I63.9) Cryptogenic stroke (HCC) (primary encounter diagnosis) (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 She had an intermediate elevation of anticardiolipin antibody IgM. The remainder of her hypercoagulable work-up was unremarkable. -She may have had a temporary hypercoagulable state secondary to COVID infection. Discussed rechecking anticardiolipin antibodies, antibeta-2 glycoprotein antibodies and lupus anticoagulant activity testing. Plan: -Testing as above. -Follow-up with cardiology regarding PFO. -Continue follow-up with her PCP for blood pressure management. (D50.0) Iron deficiency anemia due to chronic blood loss Assessment: -Likely multifactorial including malabsorption and heavy menses. She had a colonoscopy this past summer that was unremarkable. She has intermittent reflux and I recommended EGD to rule out H. pylori and other causes of malabsorption. Discussed with her parenteral iron replacement since she gets very nauseated with oral iron. Also recommended she discuss strategies of reducing menses with a job compositor. Plan: -Recheck CBC and iron studies today. -Follow-up with PCP regarding possible gynecology referral for menorrhagia. Portions of this documentation were copied and pasted from previous office visit notes in order to provide a cohesive continuity of the history. The note has been reviewed and edited and updated as necessary. I spent a total of 60 minutes on the date of the service which included preparing to see the patient, [id number] patient care, completing clinical documentation, obtaining and/or reviewing separately obtained history, performing a medically appropriate examination, counseling and educating the patient/family/caregiver, ordering medications, tests, or procedures, independently interpreting results (not separately reported) and communicating results to the patient/family/caregiver. Herman Pineda DO documented in this encounter [facility] 05-14-2022 Miscellaneous Notes Patient returned office call and has been scheduled as indicated. Patient voiced understanding. Tried to contact pt, went to , left a message for pt to return call. Jcakie Hernandez Please schedule patient to see Dr. Pineda 06/05/2022 @ 2:00/elevated anticardiolipin antibody, use the whole hour. Please notify patient of appointment date and time. Herlinda Louis LPN documented in this encounter [facility] Evaluation note Diagnosis Cryptogenic stroke (HCC)- Primary Unspecified cerebral artery occlusion with cerebral infarction Anticardiolipin antibody positive Other and unspecified nonspecific immunological findings Iron deficiency anemia due to chronic blood loss Iron deficiency anemia secondary to blood loss (chronic) Cerebrovascular accident (CVA), unspecified mechanism (HCC) [facility] Diagnosis PFO (patent foramen ovale)- Primary Ostium secundum type atrial septal defect Cerebrovascular accident (CVA), unspecified mechanism (HCC) [facility] Diagnosis PFO (patent foramen ovale)- Primary Ostium secundum type atrial septal defect Cerebrovascular accident (CVA), unspecified mechanism (HCC) [facility] Primary hypercoagulable state (HCC)- Primary Primary hypercoagulable state [facility] Diagnosis Iron deficiency anemia due to chronic blood loss- Primary Iron deficiency anemia secondary to blood loss (chronic) Menorrhagia with regular cycle Excessive or frequent menstruation Cryptogenic stroke (HCC) Unspecified cerebral artery occlusion with cerebral infarction Anticardiolipin antibody positive Other and unspecified nonspecific immunological findings [facility] Diagnosis Menorrhagia with regular cycle- Primary Excessive or frequent menstruation [facility] Diagnosis Iron deficiency anemia due to chronic blood loss- Primary Iron deficiency anemia secondary to blood loss (chronic) Iron malabsorption Other specified intestinal malabsorption [facility] Diagnosis PFO (patent foramen ovale)- Primary Ostium secundum type atrial septal defect [facility] Diagnosis Iron deficiency anemia due to chronic blood loss- Primary Iron deficiency anemia secondary to blood loss (chronic) Menorrhagia with regular cycle Excessive or frequent menstruation Cryptogenic stroke (HCC) Unspecified cerebral artery occlusion with cerebral infarction [facility] Diagnosis Iron deficiency anemia due to chronic blood loss- Primary Iron deficiency anemia secondary to blood loss (chronic) Iron malabsorption Other specified intestinal malabsorption [facility] Diagnosis Iron deficiency anemia due to chronic blood loss- Primary Iron deficiency anemia secondary to blood loss (chronic) Iron malabsorption Other specified intestinal malabsorption [facility] Diagnosis S/P percutaneous patent foramen ovale closure- Primary Other postprocedural status PFO (patent foramen ovale) Ostium secundum type atrial septal defect Cerebrovascular accident (CVA), unspecified mechanism (HCC) Iron deficiency anemia due to chronic blood loss Iron deficiency anemia secondary to blood loss (chronic) [facility] Diagnosis PFO (patent foramen ovale) Ostium secundum type atrial septal defect [facility] Diagnosis Iron deficiency anemia due to chronic blood loss- Primary Iron deficiency anemia secondary to blood loss (chronic) Iron malabsorption Other specified intestinal malabsorption [facility] Diagnosis Iron deficiency anemia due to chronic blood loss- Primary Iron deficiency anemia secondary to blood loss (chronic) Menorrhagia with regular cycle Excessive or frequent menstruation Cryptogenic stroke (HCC) Unspecified cerebral artery occlusion with cerebral infarction Anticardiolipin antibody positive Other and unspecified nonspecific immunological findings [facility] Diagnosis Iron deficiency anemia due to chronic blood loss- Primary Iron deficiency anemia secondary to blood loss (chronic) Iron malabsorption Other specified intestinal malabsorption [facility] Diagnosis Iron deficiency anemia due to chronic blood loss- Primary Iron deficiency anemia secondary to blood loss (chronic) Menorrhagia with regular cycle Excessive or frequent menstruation Cryptogenic stroke (HCC) Unspecified cerebral artery occlusion with cerebral infarction Anticardiolipin antibody positive Other and unspecified nonspecific immunological findings [facility] Diagnosis Menorrhagia with regular cycle- Primary Excessive or frequent menstruation [facility] Diagnosis Iron deficiency anemia due to chronic blood loss- Primary Iron deficiency anemia secondary to blood loss (chronic) Cryptogenic stroke (HCC) Unspecified cerebral artery occlusion with cerebral infarction Anticardiolipin antibody positive Other and unspecified nonspecific immunological findings documented in this encounter [facility] Diagnosis Menorrhagia with regular cycle Excessive or frequent menstruation documented in this encounter [facility] for referral (narrative)* Outpatient Procedure (Routine) - Pending Review Specialty Diagnoses / Procedures Referred By Eric mckoy Referred [facility] Diagnoses PFO (patent foramen ovale) Cerebrovascular accident (CVA), unspecified mechanism (HCC) Procedures ECG COMPLETE ECG ROUTINE ECG W/LEAST 12 LDS W/I&R Malathi Schneider MD [address] [place] [address] [facility] [id number] [place] [address] Referral ID Status Reason Start Date Expiration Date Visits Requested Visits Authorized [id number] Pending Review Auto-Generat ed Referral 06/20/2022 06/20/2023 1 1 * Consult, Test, Treat (Routine) - Pending Review Specialty Diagnoses / Procedures Referred By Contac t Referred To Contact Neurology Diagnoses PFO (patent foramen ovale) Cerebrovascular accident (CVA), unspecified mechanism (HCC) Procedures CONSULT TO NEUROLOGY OFFICE/OUTPATIENT [facility] MDM 60-74 MINUTES Malathi Schneider MD [address] [place] [address] Referral ID Status Reason Start Date Expiration Date Visits Requested Visits Authorized [id number] Pending Review PCP Requested Referral 06/20/2022 06/20/2023 1 1 [facility] for referral (narrative)* Outpatient Procedure (Routine) - Pending Review Specialty Diagnoses / Procedures Referred By Contac t Referred To [facility] Diagnoses PFO (patent foramen ovale) Cerebrovascular accident (CVA), unspecified mechanism (HCC) Procedures ECG COMPLETE ECG ROUTINE ECG W/LEAST 12 LDS W/I&R Malathi Schneider MD [address] [place] [address] [facility] [address] [address] Referral ID Status Reason Start Date Expiration Date Visits Requested Visits Authorized [id number] Pending Review Auto-Generat ed Referral 2 08/27/2023 1 1 [facility] for referral (narrative)* Diagnostic Procedure Only (Routine) - Pending Review Specialty Diagnoses / Procedures Referred By Contac t Referred To Contact [facility] IMAGING Diagnoses Menorrhagia with regular cycle Procedures US FEMALE PELVIS TRANSABD LTD US PELVIC NONOBSTETRIC IMAGE DCMTN LIMITED/F/U Bradly Vidal MD [address] [place] [address] [facility] Imaging Referral ID Status Reason Start Date Expiration Date Visits Requested Visits Authorized [id number] Pending Review Auto-Generat ed Referral 12/05/2022 01/04/2024 1 1 * Diagnostic Procedure Only (Routine) - Pending Review Specialty Diagnoses / Procedures Referred By Margiac t Referred To Contact US IMAGING Diagnoses Menorrhagia with regular cycle Procedures US FEMALE PELVIS TRANSVAG US TRANSVAGINAL Bradly Vidal MD [address] [place] [address] Us Imaging Referral ID Status Reason Start Date Expiration Date Visits Requested Visits Authorized [id number] Pending Review Auto-Generat ed Referral 12/05/2022 01/04/2024 1 1 * Outpatient Procedure (Routine) - Pending Review Specialty Diagnoses / Procedures Referred By Eric t Referred To Contact [facility] Diagnoses Menorrhagia with regular cycle Procedures ENDOMETRIAL BIOPSY ENDOMETRIAL BX W/WO ENDOCERVIX BX W/O DILAT SPX Bradly Vidal MD [address] [place] [address] [address] Referral ID Status Reason Start Date Expiration Date Visits Requested Visits Authorized [id number] Pending Review Auto-Generat ed Referral 12/05/2022 12/05/2023 1 1 * Outpatient Procedure (Routine) - Pending Review Specialty Diagnoses / Procedures Referred By Contac t Referred To Contact [facility] Diagnoses Menorrhagia with regular cycle Procedures ENDOMETRIAL BIOPSY ENDOMETRIAL BX W/WO ENDOCERVIX BX W/O DILAT SPX Bradly Vidal MD [address] [address] [address] Referral ID Status Reason Start Date Expiration Date Visits Requested Visits Authorized [id number] Pending Review Auto-Generat ed Referral 12/05/2022 12/05/2023 1 1 [facility] for referral (narrative)* Outpatient Procedure (Routine) - Authorized Specialty Diagnoses / Procedures [facility]erred To Contact [facility] Diagnoses PFO (patent foramen ovale) Procedures ECHO ECHO TTHRC R-T 2D W/WOM-MODE COMPL SPEC&COLR D Malathi Schneider MD [address] [place] [address] [address] Referral ID Status Reason Start Date Expiration Date Visits Requested Visits Authorized [id number] Authorized Auto-Generat ed Referral 12/27/2022 02/10/2023 1 1 [facility] for referral (narrative)* Outpatient Procedure (Routine) - Pending Review Specialty Diagnoses / Procedures [facility] Referred To Contact [facility] Diagnoses PFO (patent foramen ovale) S/P percutaneous patent foramen ovale closure Cerebrovascular accident (CVA), unspecified mechanism (HCC) Procedures ECG COMPLETE ECG ROUTINE ECG W/LEAST 12 LDS W/I&R Malathi Schneider MD [address] [place] [address] [address] Referral ID Status Reason Start Date Expiration Date Visits Requested Visits Authorized [id number] Pending Review Auto-Generat ed Referral 01/10/2023 01/10/2024 1 1 [facility] for referral (narrative)* Outpatient Procedure (Routine) - Pending Review Specialty Diagnoses / Procedures [facility] Referred To Contact [facility] Diagnoses Menorrhagia with regular cycle Procedures INSERT INTRAUTERINE DEVICE LEVONORGESTREL IU 52MG 5 YR INSERT INTRAUTERINE DEVICE Bradly Vidal MD [address] [place] [address] [address] Referral ID Status Reason Start Date Expiration Date Visits Requested Visits Authorized [id number] Pending Review Auto-Generat ed Referral 04/30/2023 04/29/2024 1 1 [facility] Diagnostic Procedure Only (Routine) - Closed Specialty Diagnoses / Procedures Referred By Contac t Referred To Contact US IMAGING Diagnoses Menorrhagia with regular cycle Procedures US FEMALE PELVIS TRANSABD LTD US PELVIC NONOBSTETRIC IMAGE DCMTN LIMITED/F/U Bradly Vidal MD [address] [place] [address] Us Imaging [id number] Referral ID Status Reason Start Date Expiration Date V isits Requested Visits Authorized [id number] Closed Auto-Generate d Referral 12/05/2022 01/04/2024 1 1 * Diagnostic Procedure Only (Routine) - Closed Specialty Diagnoses / Procedures Referred By Contac t Referred To Contact [facility] Diagnoses Menorrhagia with regular cycle Procedures US FEMALE PELVIS TRANSVAG US TRANSVAGINAL Bradly Vidal MD [address] [place] [address] Us Imaging [id number] Referral ID Status Reason Start Date Expiration Date V isits Requested Visits Authorized [id number] Closed Auto-Generate d Referral 12/05/2022 01/04/2024 1 1 [facility] Reason for Referral Specialty Diagnoses / Procedures Referred By Contac t Referred To Contact Gynecology Diagnoses Menorrhagia with regular cycle Procedures CONSULT TO GYNECOLOGY OFFICE/OUTPATIENT NEW HIGH MDM 60-74 MINUTES Herman Pineda DO [address] [place] [address] Referral ID Status Reason Start Date Expiration Date Visits Requested Visits Authorized [id number] Pending Review PCP Requested Referral Auto-Generate d Referral 12/04/2022 12/04/2023 1 1 Medications Administered Section Inactive Administered Medications - up to 3 most recent administrations Medication Order MAR Action Action Date Dose Rate Site iron sucrose 200 mg in NaCl 0.9% 100ml (VENOFER) 200 mg, INTRAVENOUS, at 400 mL/hr, Administer over 15 Minutes, ONCE, 1 dose, On Fri12/18/22 at 1400, Please conduct a 30 minute post dose observation. New Bag/Syringe/Bottle 12/18/2022 1:58 PM EST 200 mg 400 mL/hr Inactive Administered Medications - up to 3 most recent administrations Medication Order MAR Action Action Date Dose Rate Site iron sucrose 200 mg in NaCl 0.9% 100ml (VENOFER) 200 mg, INTRAVENOUS, at 400 mL/hr, Administer over 15 Minutes, ONCE, 1 dose, On Fri01/01/23 at 1400, Please conduct a 30 minute post dose observation. New Bag/Syringe/Bottle 01/01/2023 2:00 PM EST 200 mg 400 mL/hr Inactive Administered Medications - up to 3 most recent administrations Medication Order MAR Action Action Date Dose Rate Site iron sucrose 200 mg in NaCl 0.9% 100ml (VENOFER) 200 mg, INTRAVENOUS, at 400 mL/hr, Administer over 15 Minutes, ONCE, 1 dose, On Fri01/03/23 at 1030, Please conduct a 30 minute post dose observation. New Bag/Syringe/Bottle 01/03/2023 10:30 AM EST 200 mg 400 mL/hr Inactive Administered Medications - up to 3 most recent administrations Medication Order MAR Action Action Date Dose Rate Site iron sucrose 200 mg in NaCl 0.9% 100ml (VENOFER) 200 mg, INTRAVENOUS, at 400 mL/hr, Administer over 15 Minutes, ONCE, 1 dose, On Fri01/06/23 at 1500, Please conduct a 30 minute post dose observation. New Bag/Syringe/Bottle 01/06/2023 2:55 PM EST 200 mg 400 mL/hr Inactive Administered Medications - up to 3 most recent administrations Medication Order MAR Action Action Date Dose Rate Site sodium chloride 0.9 % (flush) 10 mL (BD POSIFLUSH) 10 mL, INTRAVENOUS, DIRECTED NEEDED, 1 dose, Starting on Fri12/27/22 at 1226, Until Fri01/10/23 at 0952, Per Protocol - for use during ECHO procedure only, no IV access, insert saline lock prior to administering contrast. Discontinue saline lock post exam. If patient has central line or IVAD, may access for administration according to line specific nursing protocol. Once exam is complete, flush line and de-access per line specific nursing protocol. Given 01/10/2023 9:52 AM EST 10 mL Inactive Administered Medications - up to 3 most recent administrations Medication Order MAR Action Action Date Dose Rate Site iron sucrose 200 mg in NaCl 0.9% 100ml (VENOFER) 200 mg, INTRAVENOUS, at 400 mL/hr, Administer over 15 Minutes, ONCE, 1 dose, On Fri01/13/23 at 1500, Please conduct a 30 minute post dose observation. New Bag/Syringe/Bottle 01/13/2023 2:57 PM EST 200 mg 400 mL/hr Inactive Administered Medications - up to 3 most recent administrations Medication Order MAR Action Action Date Dose Rate Site iron sucrose 200 mg in NaCl 0.9% 100ml (VENOFER) 200 mg, INTRAVENOUS, at 400 mL/hr, Administer over 15 Minutes, ONCE, 1 dose, On Fri01/17/23 at 0900, Please conduct a 30 minute post dose observation. New Bag/Syringe/Bottle 01/17/2023 8:52 AM EST 200 mg 400 mL/hr Summary Purpose Family History No Family History Records Found Advance Directives No Advanced Directives Records Found Additional Source Comments Source Comments (unrecognize d section and content) In the event this informatio n is protected by the Federal Confidentiality of Alcohol and Drug Abuse Patient Records regulations: The Federal rules restrict any use of the information to criminally investigate or prosecute any alcohol or drug abuse patient.[facility] the event this information is protected by the Federal Confidentiality of Alcohol and Drug Abuse Patient Records regulations: The Federal rules restrict any use of the information to criminally investigate or prosecute any alcohol or drug abuse patient.[facility] the event this information is protected by the Federal Confidentiality of Alcohol and Drug Abuse Patient Records regulations: The Federal rules restrict any use of the information to criminally investigate or prosecute any alcohol or drug abuse patient.[facility] the event this information is protected by the Federal Confidentiality of Alcohol and Drug Abuse Patient Records regulations: The Federal rules restrict any use of the information to criminally investigate or prosecute any alcohol or drug abuse patient.[facility] the event this information is protected by the Federal Confidentiality of Alcohol and Drug Abuse Patient Records regulations: The Federal rules restrict any use of the information to criminally investigate or prosecute any alcohol or drug abuse patient.[facility] the event this information is protected by the Federal Confidentiality of Alcohol and Drug Abuse Patient Records regulations: The Federal rules restrict any use of the information to criminally investigate or prosecute any alcohol or drug abuse patient.[facility] the event this information is protected by the Federal Confidentiality of Alcohol and Drug Abuse Patient Records regulations: The Federal rules restrict any use of the information to criminally investigate or prosecute any alcohol or drug abuse patient.[facility] the event this information is protected by the Federal Confidentiality of Alcohol and Drug Abuse Patient Records regulations: The Federal rules restrict any use of the information to criminally investigate or prosecute any alcohol or drug abuse patient.[facility] the event this information is protected by the Federal Confidentiality of Alcohol and Drug Abuse Patient Records regulations: The Federal rules restrict any use of the information to criminally investigate or prosecute any alcohol or drug abuse patient.[facility] the event this information is protected by the Federal Confidentiality of Alcohol and Drug Abuse Patient Records regulations: The Federal rules restrict any use of the information to criminally investigate or prosecute any alcohol or drug abuse patient.[facility] the event this information is protected by the Federal Confidentiality of Alcohol and Drug Abuse Patient Records regulations: The Federal rules restrict any use of the information to criminally investigate or prosecute any alcohol or drug abuse patient.[facility] the event this information is protected by the Federal Confidentiality of Alcohol and Drug Abuse Patient Records regulations: The Federal rules restrict any use of the information to criminally investigate or prosecute any alcohol or drug abuse patient.[facility] the event this information is protected by the Federal Confidentiality of Alcohol and Drug Abuse Patient Records regulations: The Federal rules restrict any use of the information to criminally investigate or prosecute any alcohol or drug abuse patient.[facility] the event this information is protected by the Federal Confidentiality of Alcohol and Drug Abuse Patient Records regulations: The Federal rules restrict any use of the information to criminally investigate or prosecute any alcohol or drug abuse patient.[facility] the event this information is protected by the Federal Confidentiality of Alcohol and Drug Abuse Patient Records regulations: The Federal rules restrict any use of the information to criminally investigate or prosecute any alcohol or drug abuse patient.[facility] the event this information is protected by the Federal Confidentiality of Alcohol and Drug Abuse Patient Records regulations: The Federal rules restrict any use of the information to criminally investigate or prosecute any alcohol or drug abuse patient.[facility]In the event this information is protected by the Federal Confidentiality of Alcohol and Drug Abuse Patient Records regulations: The Federal rules restrict any use of the information to criminally investigate or prosecute any alcohol or drug abuse patient.[facility] the event this information is protected by the Federal Confidentiality of Alcohol and Drug Abuse Patient Records regulations: The Federal rules restrict any use of the information to criminally investigate or prosecute any alcohol or drug abuse patient.[facility] HospitalIn the event this information is protected by the Federal Confidentiality of Alcohol and Drug Abuse Patient Records regulations: The Federal rules restrict any use of the information to criminally investigate or prosecute any alcohol or drug abuse patient.[facility]In the event this information is protected by the Federal Confidentiality of Alcohol and Drug Abuse Patient Records regulations: The Federal rules restrict any use of the information to criminally investigate or prosecute any alcohol or drug abuse patient.[facility] HospitalIn the event this information is protected by the Federal Confidentiality of Alcohol and Drug Abuse Patient Records regulations: The Federal rules restrict any use of the information to criminally investigate or prosecute any alcohol or drug abuse patient.[facility]In the event this information is protected by the Federal Confidentiality of Alcohol and Drug Abuse Patient Records regulations: The Federal rules restrict any use of the information to criminally investigate or prosecute any alcohol or drug abuse patient.[facility]In the event this information is protected by the Federal Confidentiality of Alcohol and Drug Abuse Patient Records regulations: The Federal rules restrict any use of the information to criminally investigate or prosecute any alcohol or drug abuse patient.[facility] HospitalIn the event this information is protected by the Federal Confidentiality of Alcohol and Drug Abuse Patient Records regulations: The Federal rules restrict any use of the information to criminally investigate or prosecute any alcohol or drug abuse patient.[facility]In the event this information is protected by the Federal Confidentiality of Alcohol and Drug Abuse Patient Records regulations: The Federal rules restrict any use of the information to criminally investigate or prosecute any alcohol or drug abuse patient.[facility] HospitalIn the event this information is protected by the Federal Confidentiality of Alcohol and Drug Abuse Patient Records regulations: The Federal rules restrict any use of the information to criminally investigate or prosecute any alcohol or drug abuse patient.[facility] HospitalIn the event this information is protected by the Federal Confidentiality of Alcohol and Drug Abuse Patient Records regulations: The Federal rules restrict any use of the information to criminally investigate or prosecute any alcohol or drug abuse patient.[facility] HospitalIn the event this information is protected by the Federal Confidentiality of Alcohol and Drug Abuse Patient Records regulations: The Federal rules restrict any use of the information to criminally investigate or prosecute any alcohol or drug abuse patient.[facility] HospitalIn the event this information is protected by the Federal Confidentiality of Alcohol and Drug Abuse Patient Records regulations: The Federal rules restrict any use of the information to criminally investigate or prosecute any alcohol or drug abuse patient.[facility] HospitalIn the event this information is protected by the Federal Confidentiality of Alcohol and Drug Abuse Patient Records regulations: The Federal rules restrict any use of the information to criminally investigate or prosecute any alcohol or drug abuse patient.[facility] HospitalIn the event this information is protected by the Federal Confidentiality of Alcohol and Drug Abuse Patient Records regulations: The Federal rules restrict any use of the information to criminally investigate or prosecute any alcohol or drug abuse patient.[facility] HospitalIn the event this information is protected by the Federal Confidentiality of Alcohol and Drug Abuse Patient Records regulations: The Federal rules restrict any use of the information to criminally investigate or prosecute any alcohol or drug abuse patient.[facility] HospitalIn the event this information is protected by the Federal Confidentiality of Alcohol and Drug Abuse Patient Records regulations: The Federal rules restrict any use of the information to criminally investigate or prosecute any alcohol or drug abuse patient.[facility] HospitalIn the event this information is protected by the Federal Confidentiality of Alcohol and Drug Abuse Patient Records regulations: The Federal rules restrict any use of the information to criminally investigate or prosecute any alcohol or drug abuse patient.[facility] HospitalIn the event this information is protected by the Federal Confidentiality of Alcohol and Drug Abuse Patient Records regulations: The Federal rules restrict any use of the information to criminally investigate or prosecute any alcohol or drug abuse patient.[facility] Reason for Visit (unrecogniz ed section and content) Reason Comments Appointment Reason Comments Established Patient Reason Comments Results Reason Comments Patient referral Patient referred by: Herman Hoang MD Reason Comments Received Outside Medical Records Records scanned in Epic Reason Comments Received Outside Medical Records 05/07/20 22 ALTAGRACIA and 12/31/2021 Echocardiogram in [employer] Reason Comments Received Outside Medical Records Reason Comments Patient Question Reason Comments Patient Update PFO closure Neuro Up date Reason Comments Patient Education Reason Comments Follow Up Reason Comments Established Patient Reason Comments Follow Up Stop Plavix Reason Comments Discussion Menses and low iron Reason Comments Benefits Investigation Reason Comments Non-Chemotherapy Treatment Specialty Diagnoses / Procedures Referred By Contac t Referred To Contact Diagnoses Iron deficiency anemia due to chronic blood loss Iron malabsorption Procedures IRON SUCROSE INJECTION PER 1 MG Masci, Herman A, DO [address] [place] [address] [facility] [address] [place] [address] Referral ID Status Reason Start Date Expiration Date V isits Requested Visits Authorized [id number] Authorized 12/04/2022 11/16/2023 99 99 Reason Comments Hospital F/U Reason Comments IV Medication Administration Saline stud y Specialty Diagnoses / Procedures Referred By Contac t Referred To Contact [facility] [place] Diagnoses PFO (patent foramen ovale) Procedures ECHO ECHO TTHRC R-T 2D W/WOM-MODE COMPL SPEC&COLR D Malathi Schneider MD [address] [place] [address] [address] Referral ID Status Reason Start Date Expiration Date V isits Requested Visits Authorized [id number] Closed Auto-Generate d Referral 12/27/2022 02/10/2023 1 1 Specialty Diagnoses / Procedures Referred By Contac t Referred To Contact Diagnoses Iron deficiency anemia due to chronic blood loss Iron malabsorption Procedures IRON SUCROSE INJECTION PER 1 MG Herman Pineda, DO [address] [place] [address] [facility] [address] [place] [address] Reason Comments Discussion Ultrasound results a nd options Reason Comments Radiology US Specialty Diagnoses / Procedures Referred By Contac t Referred To Contact US IMAGING Diagnoses Menorrhagia with regular cycle Procedures US FEMALE PELVIS TRANSABD LTD US PELVIC NONOBSTETRIC IMAGE DCMTN LIMITED/F/U Bradly Vidal MD [address] [place] [address] [place] [id number] Referral ID Status Reason Start Date Expiration Date V isits Requested Visits Authorized [id number] Closed Auto-Generate d Referral 12/05/2022 01/04/2024 1 1 Care Teams (unrecognized sec tion and content) Cma Or Lpn Relationship Specialty Start Date End Date Chhaya Nunez [place] [address] PCP - General Family Practice 10/24/21 Cma Or Lpn Relationship Specialty Start Date End Date Chhaya Nunez [place] [address] PCP - General Family Practice 10/24/21 Cma Or Lpn Relationship Specialty Start Date End Date Chhaya Nunez [place] [address] PCP - General Family Practice 10/24/21 Cma Or Lpn Relationship Specialty Start Date End Date Chhaya Nunez [place] [address] PCP - General Family Practice 10/24/21 Cma Or Lpn Relationship Specialty Start Date End Date Chhaya Nunez [place] [address] PCP - General Family Practice 10/24/21 Cma Or Lpn Relationship Specialty Start Date End Date Chhaya Nunez [place] [address] PCP - General Family Practice 10/24/21 Cma Or Lpn Relationship Specialty Start Date End Date Chhaya Nunez [address] [place] [address] PCP - General Family Practice 10/24/21 Cma Or Lpn Relationship Specialty Start Date End Date Chhaya Nunez [address] [place] [address] PCP - General Family Practice 07/17/22 Herman HoangALL [address] [place] [address] Cardiology 07/17/22 Cma Or Lpn Relationship Specialty Start Date End Date MayraRajeshChhayaasher Vargas [address] [place] [address] PCP - General Family Medicine 07/17/22 Herman Hoang [address] [place] [address] Cardiology 07/17/22 Cma Or Lpn Relationship Specialty Start Date End Date Chhaya Nunez [address] [place] [address] PCP - General Family Medicine 07/17/22 Herman Hoang [address] [place] [address] Cardiology 07/17/22 Cma Or Lpn Relationship Specialty Start Date End Date Chhaya Nunez [address] [place] [address] PCP - General Family Medicine 07/17/22 Herman Hoang [address] [place] [address] Cardiology 07/17/22 Cma Or Lpn Relationship Specialty Start Date End Date Chhaya Nunez [address] [place] [address] PCP - General Family Medicine 07/17/[address] [place] [address] Cardiology 07/17/22 Cma Or Lpn Relationship Specialty Start Date End Date Chhaya Nunez MD [address] [place] [address] PCP - General Family Medicine 07/17/22 Herman Hoang [address] [place] [address] Cardiology 07/17/22 Cma Or Lpn Relationship Specialty Start Date End Date Chhaya Nunez MD [address] [place] [address] PCP - General Family Medicine 07/17/22 Herman Hoang [address] [place] [address] Cardiology 07/17/22 Cma Or Lpn Relationship Specialty Start Date End Date Chhaya Nunez MD [address] [place] [address] PCP - General Family Medicine 07/17/22 Herman Hoang [address] [place] [address] Cardiology 07/17/22 Cma Or Lpn Relationship Specialty Start Date End Date Chhaya Nunez MD [address] [place] [address] PCP - General Family Medicine 07/17/22 Herman Hoang [address] [place] [address] Cardiology 07/17/22 Cma Or Lpn Relationship Specialty Start Date End Date Chhaya Nunez MD [address] [place] [address] PCP - General Family Medicine 07/17/22 Herman Hoang Charlette [address] [place] [address] Cardiology 07/17/22 Cma Or Lpn Relationship Specialty Start Date End Date Chhaya Nunez MD [address] [place] [address] PCP - General Family Medicine 07/17/22 Herman Hoang [address] [place] [address] Cardiology 07/17/22 Cma Or Lpn Relationship Specialty Start Date End Date Chhaya Nunez MD [address] [place] [address] PCP - General Family Medicine 07/17/22 Herman Hoang [address] [place] [address] Cardiology 07/17/22 Cma Or Lpn Relationship Specialty Start Date End Date Chhaya Nunez MD [address] [place] [address] PCP - General Family Medicine 07/17/22 Herman Hoang [address] [place] [address] Cardiology 07/17/22 Cma Or Lpn Relationship Specialty Start Date End Date Chhaya Nunez MD [address] [place] [address] PCP - General Family Medicine 07/17/[address] [place] [address] Cardiology 07/17/22 Cma Or Lpn Relationship Specialty Start Date End Date Chhaya Nunez MD [address] [place] [address] PCP - General Family Medicine 07/17/[address] [place] [address] Cardiology 07/17/22 Cma Or Lpn Relationship Specialty Start Date End Date Chhaya Nunez MD [address] [place] [address] PCP - General Family Medicine 07/17/[address] [place] [address] Cardiology 07/17/22 Cma Or Lpn Relationship Specialty Start Date End Date Chhaya Nunez MD [address] [place] [address] PCP - General Family Medicine 07/17/[address] [place] [address] Cardiology 07/17/22 Cma Or Lpn Relationship Specialty Start Date End Date Chhaya Nunez MD [address] [place] [address] PCP - General Family Medicine 07/17/[address]ang [address] [place] [address] Cardiology 07/17/22 Cma Or Lpn Relationship Specialty Start Date End Date Chhaya Nunez MD [address] [place], [place] [address] PCP - General Family Medicine 07/17/22 Herman Hoang [address] [place] [address] Cardiology 07/17/22 Cma Or Lpn Relationship Specialty Start Date End Date Chhaya Nunez MD [address] [place], [place] [id number] PCP - General Family Medicine 07/17/22 Herman Hoang [address] [place] [address] Cardiology 07/17/22 Cma Or Lpn Relationship Specialty Start Date End Date Chhaya Nunez MD [address] [place], [place] [id number] PCP - General Family Medicine 07/17/22 Herman Hoang [address] [place] [address] Cardiology 07/17/22 INFORMATION SOURCE (unrecogn ized section and content) DATE CREATED AUTHOR 05/04/2023 [facility] FOR RECORDS PERTAINING TO PATIENTS WHO ARE OR HAVE BEEN ENROLLED IN A CHEMICAL DEPENDENCY/SUBSTANCEABUSE PROGRAM, SOME INFORMATION MAY BE OMITTED. This clinical summary was aggregated from multiple sources. Caution should be exercised in using it in the provision of clinical care. This summary normalizes information from multiple sources, and as a consequence, information in this document may materially change the coding, format and clinical context of patient data. In addition, data may be omitted in some cases. CLINICAL DECISIONS SHOULD BE BASED ON THE PRIMARY CLINICAL RECORDS. [employer] [facility]. provides no warranty or guarantee of the accuracy or completeness of information in this document.
== END | disposition home or self-care (01) ==
LOC: OPBI 10:21
PROVIDERS: PCP Family Medicine; Referring Provider Family Medicine; Visit Provider Family Medicine
DX: Z12.31 Encounter for screening mammogram for malignant neoplasm of breast (principal); Z80.3 Family history of malignant neoplasm of breast
CPT/HCPCS: 77063; 77067

== ENCOUNTER → 2024-09-10 | Outpatient (CLI) | payer OTHER, SELFPAY ==
[2024-09-10 09:41] LABS: Absolute Lymphocyte Count 0.99 X10^3/uL (0.83-4.51); Absolute Neutrophil Count 2.8 X10^3/uL (2.0-7.7); Basophil# 0.06 X10^3/uL; Basophil% 1.4 % (0-1); Eosinophil# 0.07 X10^3/uL; Eosinophils% 1.6 % (0-5); Erythrocyte Sedimentation Rate 6 mm/hr (0-30); Hematocrit 36.5 % (37-47); Hemoglobin 11.4 g/dL (12.0-15.0); Lymphocyte # 0.99 X10^3/ul (0.83-4.51); Lymphocyte % 22.6 % (19-41); Mean Corp Hgb Conc 31.2 g/dL (32-36); Mean Corpuscular Hgb 28.4 pg (27.0-32.0); Mean Corpuscular Volume 90.8 fL (81-99); Mean Platelet Vol. 9.9 fl (6.2-12.0); Monocyte# 0.42 X10^3/uL; Monocyte% 9.6 % (0-10); NRBC Flagged by Analyzer 0 % (0-5); Neutrophil # 2.84 X10^3/uL (2.7-7.7); Neutrophil % 64.8 % (47-70); Platelet Count 235 K/mm3 (150-450); RBC Distribution Width CV 13.5 % (11.6-14.6); Red Blood Count 4.02 M/mm3 (4.2-5.4); White Blood Count 4.4 K/mm3 (4.4-11.0)
[2024-09-10 10:39] LABS: ALB/GLOB Ratio 0.8 RATIO (0.9-2.4); AST(SGOT) 21 U/L (15-37); Alanine Aminotransfer ALT/SGPT 20 U/L (13-56); Albumin, Serum 3.3 g/dL (3.2-5.0); Alkaline Phosphatase 96 U/L (45-117); Anion Gap 1 (5-15); BUN 10 mg/dL (7-18); BUN/Creat Ratio 13.4 RATIO (10-20); CRP 3.18 mg/L (0.0-3.0); Chloride 107 mmol/L (98-107); Cholesterol 125 mg/dL (200); Creatinine, Serum 0.74 mg/dL (0.55-1.02); EST Glomerular Filtration Rate 86 mL/min (>60); Est Glom Filt Rate - Afr Amer 104 mL/min (>60); Ferritin 10 ng/mL (8-252); Glucose 89 mg/dL (74-106); High Density Lipoprotein 40 mg/dL; Potassium 4.6 mmol/L (3.5-5.1); Protein, Total 7.3 g/dL (6.4-8.2); Sodium Level 139 mmol/L (136-145); Triglycerides 113 mg/dL; Very Low Density Lipoprotein 23 mg/dL (5-40)
== END | disposition home or self-care (01) ==
PROVIDERS: PCP Family Medicine; Referring Provider Family Medicine; Visit Provider Family Medicine
DX: Z00.00 Encounter for general adult medical examination without abnormal findings (principal); I10 Essential (primary) hypertension; D50.9 Iron deficiency anemia, unspecified
CPT/HCPCS: 36415; 80053; 80061; 82728; 85025; 85652; 86140

== ENCOUNTER → 2024-10-13 | Outpatient (CLI) | payer OTHER, SELFPAY ==
--- NOTE | 2024-10-13 08:52 | ECHOD_ITS ---
Reason For Study: Atrial Septal Defect/PFO Procedure This was a 2D Doppler, Color Flow transthoracic echocardiogram. Exam performed in department. Left Ventricle Normal LV size. The estimated ejection fraction is 60 %. Normal diastology for age. No regional wall motion abnormalities noted. Right Ventricle Normal RV size. Normal systolic function. Atria The left atrium is mildly enlarged. Normal right atrium. No doppler evidence for PFO/ASD. Mitral Valve The mitral valve is structurally normal. No prolapse or stenosis seen. Mild (1+) mitral valve insufficiency. Tricuspid Valve Normal tricuspid valve. Mild (1+) tricuspid valve insufficiency. Pulmonary artery systolic pressure is 26 mmHg. Aortic Valve Trisinus/trileaflet aortic valve. Trivial aortic valve insufficiency. Pulmonic Valve Normal pulmonic valve. Mild (1+) pulmonic valve insufficiency. Great Vessels Normal aortic root. Pericardium/Pleural No pericardial effusion. Medication Negative Bubble Study after PFO Closure at [facility] (09/20/2022). MMode/2D Measurements & Calculations LVIDd: 5.2 cm IVSd: 1.1 cm Ao root diam: 3.8 cm LVIDs: 3.4 cm LVPWd: 0.96 cm RVDd: 3.8 cm FS: 34.2 % asc Aorta Diam: 3.8 cm LAV(MOD-bp): 83.0 ml LVAd ap4: 31.9 cm2 LAV(MOD-bp) Indexed: 37.6 ml/m2 LVLd ap4: 8.1 cm LAV(MOD-sp2): 85.4 ml EDV(MOD-sp4): 100.7 ml LAV(MOD-sp4): 78.5 ml EDV(sp4-el): 106.6 ml LVAs ap4: 18.5 cm2 LVLs ap4: 7.0 cm ESV(MOD-sp4): 41.9 ml ESV(sp4-el): 41.4 ml EF(MOD-sp4): 58.4 % EF(sp4-el): 61.1 % SV(MOD-sp4): 58.8 ml SV(sp4-el): 65.2 ml LA A4 area: 24.6 cm2 SI(MOD-sp4): 26.6 ml/m2 LA dimension(2D): 4.4 cm RA A4 area: 17.5 cm2 TAPSE: 2.3 cm Time Measurements MV dec time: 0.20 sec Doppler Measurements & Calculations MV E max delon: 89.8 cm/sec Lat Peak E' Delon: 13.1 cm/sec Med Peak E' Delon: 8.1 cm/sec MV A max delno: 78.9 cm/sec E/E' lat: 6.8 E/E' med: 11.1 MV E/A: 1.1 MV V2 max: 103.6 cm/sec MV P1/2t max delon: 103.6 cm/sec Ao V2 max: 157.2 cm/sec MV max P.3 mmHg MV P1/2t: 83.1 msec Ao max P.9 mmHg MV V2 mean: 55.5 cm/sec MV dec slope: 365.2 cm/sec2 Ao V2 mean: 107.6 cm/sec MV mean P.5 mmHg MVA(P1/2t): 2.6 cm2 Ao mean P.3 mmHg MV V2 VTI: 39.8 cm Ao V2 VTI: 41.2 cm AV (velocity ratio): 0.62 LV V1 max: 96.9 cm/sec PA V2 max: 113.9 cm/sec PI end-d delon: 78.2 cm/sec LV V1 max P.8 mmHg LV V1 mean P.3 mmHg LV V1 mean: 71.7 cm/sec LV V1 VTI: 25.5 cm TR max delon: 240.9 cm/sec TR max P.2 mmHg ECHO/Echo Complete Interpretation Summary The estimated ejection fraction is 60 %. The left atrium is mildly enlarged. Mild (1+) mitral valve insufficiency. Mild (1+) tricuspid valve insufficiency. No doppler evidence for PFO/ASD. Ordering Physician: Lara Milner Referring Physician: Lara Milner Performed By: Ty Strong RCS
== END | disposition home or self-care (01) ==
LOC: CVS 08:46
PROVIDERS: PCP Family Medicine; Referring Provider Physician Assistant Medical; Visit Provider Physician Assistant Medical
DX: R00.2 Palpitations (principal); Z87.74 Personal history of (corrected) congenital malformations of heart and circulatory system
CPT/HCPCS: 93306